=== PATIENT | male | born 1990 | race Hispanic/Latino ===

== ENCOUNTER 2019-03-20 16:11 | Inpatient (IN) | payer OTHER ==
[2019-03-20] MEDS ORDERED: NACL 0.9% 1000 ML 1,000 ML ONE (16:26)
[2019-03-20 16:51] LABS: INR 0.92 (0.87-1.13); Partial Thromboplastin Time 29.1 Sec. (24.2-36.6)
[2019-03-20 16:53] LABS: Hematocrit 44.7 % (35.5-45.6); Hemoglobin 14.7 gm/dl (11.8-15.2); Mean Corpuscular HGB Conc 33 % (32-34); Mean Corpuscular Volume 101 fl (84-94); Platelet Count 208 K/mm3 (140-440); Red Blood Count 4.43 M/mm3 (3.65-5.03); Red Cell Distribution Width 12.9 % (13.2-15.2)
[2019-03-20] MEDS ORDERED: NACL 0.9% 1000 ML 1,000 ML IV ONE ×2 (16:55)
[2019-03-20] MEDS ORDERED: PROVENTIL IH PRN (16:55)
[2019-03-20] MEDS ORDERED: SODIUM CHLORIDE FLUSH SYRINGE 10 ML IV PRN (16:55)
--- NOTE | 2019-03-20 16:57 | Emergency Department Report ---
HPI - General Chief Complaint: Cardiac Arrest/CPR - HPI HPI: Room 20 The patient is a 28-year-old male presenting with chief complaint cardiac arrest. Per EMS the patient was found to be cyanotic by family members and [facility]. The patient was found to be apneic and pulseless. CPR was initiated. EMS arrived on scene and intubated the patient and continued ACLS protocols. A lower extremity intraosseous access was obtained and the patient was administered one round of epinephrine in addition to 4 mg of Narcan. While in route there was return of spontaneous circulation. The circumstances surrounding the patient being found cyanotic are not known at this time as there is currently no family at bedside Location: cardiovascular system Duration: [See above] Quality: Pulseless Severity: [See above] Modifying factors: [see above] Context: [see above] Mode of transportation: [not driving] ED Past Medical Hx - Past Medical History Previous Medical History?: No - Surgical History Past Surgical History?: No - Family History Family history: no significant - Social History Smoking Status: Unknown if ever smoked Substance Use Type: Alcohol (EMS reports a history of heavy alcohol use) ED Review of Systems ROS: Stated complaint: CARDIAC ARREST Other details as noted in HPI Comment: Unobtainable due to pts medical conditions Physical Exam - Physical Exam Vital Signs: Vital Signs 03/20/19 16:26 Pulse Rate 99 H Blood Pressure 118/63 O2 Sat by Pulse 99 Oximetry Physical Exam: GENERAL: The patient is well-developed well-nourished male lying on stretcher intubated HEENT: Normocephalic. Atraumatic. Pupils 5 mm and minimally responsive NECK: Trachea midline CHEST/LUNGS: Clear to auscultation. Breath sounds equal bilaterally with bagging HEART/CARDIOVASCULAR: Regular. There is tachycardia. There is no gallop rub or murmur. ABDOMEN: Abdomen is soft, nontender. Patient has normal bowel sounds. There is no abdominal distention. SKIN: There is no rash. There is no edema. There is no diaphoresis. NEURO: GCS 3T MUSCULOSKELETAL: There is no evidence of acute injury. ED Course Vital Signs 03/20/19 16:26 Pulse Rate 99 H Blood Pressure 118/63 O2 Sat by Pulse 99 Oximetry - Central Line Placement Right Femoral Consent Obtained: emergent situation Patient Placed on Monitor/Pulse Ox: Yes MD Prep: mask, gown, gloves Central Line Prep: Chlorhexidine scrub Local Anesthesia Used: Lidocaine 1% Amount of Anesthesia Used (mls): 3 Ultrasound Used for Placement: No Central Line Lumen Inserted: triple Bloods Obtained for Lab: Yes Central Line Position: good blood return, all ports aspirated, flus, other (line secured with adhesive méndez) Dressing Applied: Tegaderm Patient Tolerated Procedure: well, no complications Complications: none ED Medical Decision Making - Lab Data Result diagrams: 03/20/19 16:25 03/20/19 16:25 Laboratory Tests 03/20/19 03/20/19 03/20/19 16:25 16:25 16:25 WBC 10.0 RBC 4.43 Hgb 14.7 Hct 44.7 MCV 101 H MCH 33 H MCHC 33 RDW 12.9 L Plt Count 208 Lymph % (Auto) Plant Protection Officer Lymph # Plant Protection Officer Add Manual Diff Complete Total Counted 100 Seg Neutrophils % Plant Protection Officer Seg Neuts % (Manual) 36.0 L Band Neutrophils % 0 Lymphocytes % (Manual) 60.0 H Reactive Lymphs % (Man) 0 Monocytes % (Manual) 2.0 Eosinophils % (Manual) 2.0 Basophils % (Manual) 0 Metamyelocytes % 0 Myelocytes % 0 Promyelocytes % 0 Blast Cells % 0 Nucleated RBC % Not Reportable Seg Neutrophils # Man 3.6 Band Neutrophils # 0.0 Lymphocytes # (Manual) 6.0 H Abs React Lymphs (Man) 0.0 Monocytes # (Manual) 0.2 Eosinophils # (Manual) 0.2 Basophils # (Manual) 0.0 Metamyelocytes # 0.0 Myelocytes # 0.0 Promyelocytes # 0.0 Blast Cells # 0.0 WBC Morphology Not Reportable Hypersegmented Neuts Not Reportable Hyposegmented Neuts Not Reportable Hypogranular Neuts Not Reportable Smudge Cells Not Reportable Toxic Granulation Not Reportable Toxic Vacuolation Not Reportable Dohle Bodies Not Reportable Pelger-Huet Anomaly Not Reportable Augusto Rods Not Reportable Platelet Estimate Not Reportable Clumped Platelets Not Reportable Plt Clumps, EDTA Not Reportable Large Platelets Not Reportable Giant Platelets Not Reportable Platelet Satelliting Not Reportable Plt Morphology Comment Not Reportable RBC Morphology Normal Dimorphic RBCs Not Reportable Polychromasia Not Reportable Hypochromasia Not Reportable Poikilocytosis Not Reportable Anisocytosis Not Reportable Microcytosis Not Reportable Macrocytosis Not Reportable Spherocytes Not Reportable Pappenheimer Bodies Not Reportable Sickle Cells Not Reportable Target Cells Not Reportable Tear Drop Cells Not Reportable Ovalocytes Not Reportable Helmet Cells Not Reportable Velazquez-Roca Bodies Not Reportable [place] Rings Not Reportable Aj Cells Not Reportable Bite Cells Not Reportable Crenated Cell Not Reportable Elliptocytes Not Reportable Acanthocytes (Spur) Not Reportable Rouleaux Not Reportable Hemoglobin C Crystals Not Reportable Schistocytes Not Reportable Malaria parasites Not Reportable Zeke Bodies Not Reportable Hem Pathologist Commnt No PT INR APTT POC ABG pH POC ABG pCO2 POC ABG pO2 POC ABG HCO3 POC ABG Total CO2 POC ABG O2 Sat POC ABG Base Excess VBG pH FiO2 Sodium 144 Potassium 3.8 Chloride 102.8 Carbon Dioxide 18 L Anion Gap 27 BUN 10 Creatinine 1.3 Estimated GFR > 60 BUN/Creatinine Ratio 8 Glucose 159 H POC Glucose Lactic Acid 9.50 H* Calcium 7.6 L Magnesium Total Bilirubin 0.40 AST 276 H ALT 165 H Alkaline Phosphatase 139 H Ammonia Total Creatine Kinase 380 H CK-MB (CK-2) 1.0 CK-MB (CK-2) Rel Index 0.2 Troponin T < 0.010 Total Protein 6.8 Albumin 3.9 Albumin/Globulin Ratio 1.3 TSH Free T4 Salicylates Acetaminophen Plasma/Serum Alcohol 03/20/19 03/20/19 03/20/19 16:25 16:25 16:25 WBC RBC Hgb Hct MCV MCH MCHC RDW Plt Count Lymph % (Auto) Lymph # Add Manual Diff Total Counted Seg Neutrophils % Seg Neuts % (Manual) Band Neutrophils % Lymphocytes % (Manual) Reactive Lymphs % (Man) Monocytes % (Manual) Eosinophils % (Manual) Basophils % (Manual) Metamyelocytes % Myelocytes % Promyelocytes % Blast Cells % Nucleated RBC % Seg Neutrophils # Man Band Neutrophils # Lymphocytes # (Manual) Abs React Lymphs (Man) Monocytes # (Manual) Eosinophils # (Manual) Basophils # (Manual) Metamyelocytes # Myelocytes # Promyelocytes # Blast Cells # WBC Morphology Hypersegmented Neuts Hyposegmented Neuts Hypogranular Neuts Smudge Cells Toxic Granulation Toxic Vacuolation Dohle Bodies Pelger-Huet Anomaly Augusto Rods Platelet Estimate Clumped Platelets Plt Clumps, EDTA Large Platelets Giant Platelets Platelet Satelliting Plt Morphology Comment RBC Morphology Dimorphic RBCs Polychromasia Hypochromasia Poikilocytosis Anisocytosis Microcytosis Macrocytosis Spherocytes Pappenheimer Bodies Sickle Cells Target Cells Tear Drop Cells Ovalocytes Helmet Cells Velazquez-Roca Bodies [place] Rings [place] Cells Bite Cells Crenated Cell Elliptocytes Acanthocytes (Spur) Rouleaux Hemoglobin C Crystals Schistocytes Malaria parasites Zeke Bodies Hem Pathologist Commnt PT INR APTT POC ABG pH POC ABG pCO2 POC ABG pO2 POC ABG HCO3 POC ABG Total CO2 POC ABG O2 Sat POC ABG Base Excess VBG pH FiO2 Sodium Potassium Chloride Carbon Dioxide Anion Gap BUN Creatinine Estimated GFR BUN/Creatinine Ratio Glucose POC Glucose Lactic Acid Calcium Magnesium 2.40 H Total Bilirubin AST ALT Alkaline Phosphatase Ammonia 10.0 L Total Creatine Kinase CK-MB (CK-2) CK-MB (CK-2) Rel Index Troponin T Total Protein Albumin Albumin/Globulin Ratio TSH 17.340 H Free T4 0.69 L Salicylates Acetaminophen Plasma/Serum Alcohol 03/20/19 03/20/19 03/20/19 16:25 16:25 16:25 WBC RBC Hgb Hct MCV MCH MCHC RDW Plt Count Lymph % (Auto) Lymph # Add Manual Diff Total Counted Seg Neutrophils % Seg Neuts % (Manual) Band Neutrophils % Lymphocytes % (Manual) Reactive Lymphs % (Man) Monocytes % (Manual) Eosinophils % (Manual) Basophils % (Manual) Metamyelocytes % Myelocytes % Promyelocytes % Blast Cells % Nucleated RBC % Seg Neutrophils # Man Band Neutrophils # Lymphocytes # (Manual) Abs React Lymphs (Man) Monocytes # (Manual) Eosinophils # (Manual) Basophils # (Manual) Metamyelocytes # Myelocytes # Promyelocytes # Blast Cells # WBC Morphology Hypersegmented Neuts Hyposegmented Neuts Hypogranular Neuts Smudge Cells Toxic Granulation Toxic Vacuolation Dohle Bodies Pelger-Huet Anomaly Augusto Rods Platelet Estimate Clumped Platelets Plt Clumps, EDTA Large Platelets Giant Platelets Platelet Satelliting Plt Morphology Comment RBC Morphology Dimorphic RBCs Polychromasia Hypochromasia Poikilocytosis Anisocytosis Microcytosis Macrocytosis Spherocytes Pappenheimer Bodies Sickle Cells Target Cells Tear Drop Cells Ovalocytes Helmet Cells Velazquez-Roca Bodies [place] Rings [place] Cells Bite Cells Crenated Cell Elliptocytes Acanthocytes (Spur) Rouleaux Hemoglobin C Crystals Schistocytes Malaria parasites Zeke Bodies Hem Pathologist Commnt PT INR APTT POC ABG pH POC ABG pCO2 POC ABG pO2 POC ABG HCO3 POC ABG Total CO2 POC ABG O2 Sat POC ABG Base Excess VBG pH FiO2 Sodium Potassium Chloride Carbon Dioxide Anion Gap BUN Creatinine Estimated GFR BUN/Creatinine Ratio Glucose POC Glucose Lactic Acid Calcium Magnesium Total Bilirubin AST ALT Alkaline Phosphatase Ammonia Total Creatine Kinase CK-MB (CK-2) CK-MB (CK-2) Rel Index Troponin T Total Protein Albumin Albumin/Globulin Ratio TSH Free T4 Salicylates < 0.3 L Acetaminophen < 5.0 L Plasma/Serum Alcohol 0.32 H 03/20/19 03/20/19 03/20/19 16:25 16:31 16:34 WBC RBC Hgb Hct MCV MCH MCHC RDW Plt Count Lymph % (Auto) Lymph # Add Manual Diff Total Counted Seg Neutrophils % Seg Neuts % (Manual) Band Neutrophils % Lymphocytes % (Manual) Reactive Lymphs % (Man) Monocytes % (Manual) Eosinophils % (Manual) Basophils % (Manual) Metamyelocytes % Myelocytes % Promyelocytes % Blast Cells % Nucleated RBC % Seg Neutrophils # Man Band Neutrophils # Lymphocytes # (Manual) Abs React Lymphs (Man) Monocytes # (Manual) Eosinophils # (Manual) Basophils # (Manual) Metamyelocytes # Myelocytes # Promyelocytes # Blast Cells # WBC Morphology Hypersegmented Neuts Hyposegmented Neuts Hypogranular Neuts Smudge Cells Toxic Granulation Toxic Vacuolation Dohle Bodies Pelger-Huet Anomaly Augusto Rods Platelet Estimate Clumped Platelets Plt Clumps, EDTA Large Platelets Giant Platelets Platelet Satelliting Plt Morphology Comment RBC Morphology Dimorphic RBCs Polychromasia Hypochromasia Poikilocytosis Anisocytosis Microcytosis Macrocytosis Spherocytes Pappenheimer Bodies Sickle Cells Target Cells Tear Drop Cells Ovalocytes Helmet Cells Velazquez-Roca Bodies [place] Rings Aj Cells Bite Cells Crenated Cell Elliptocytes Acanthocytes (Spur) Rouleaux Hemoglobin C Crystals Schistocytes Malaria parasites Zeke Bodies Hem Pathologist Commnt PT 12.9 INR 0.92 APTT 29.1 POC ABG pH POC ABG pCO2 POC ABG pO2 POC ABG HCO3 POC ABG Total CO2 POC ABG O2 Sat POC ABG Base Excess VBG pH 7.091 L* FiO2 Sodium Potassium Chloride Carbon Dioxide Anion Gap BUN Creatinine Estimated GFR BUN/Creatinine Ratio Glucose POC Glucose 130 H Lactic Acid Calcium Magnesium Total Bilirubin AST ALT Alkaline Phosphatase Ammonia Total Creatine Kinase CK-MB (CK-2) CK-MB (CK-2) Rel Index Troponin T Total Protein Albumin Albumin/Globulin Ratio TSH Free T4 Salicylates Acetaminophen Plasma/Serum Alcohol 03/20/19 16:51 WBC RBC Hgb Hct MCV MCH MCHC RDW Plt Count Lymph % (Auto) Lymph # Add Manual Diff Total Counted Seg Neutrophils % Seg Neuts % (Manual) Band Neutrophils % Lymphocytes % (Manual) Reactive Lymphs % (Man) Monocytes % (Manual) Eosinophils % (Manual) Basophils % (Manual) Metamyelocytes % Myelocytes % Promyelocytes % Blast Cells % Nucleated RBC % Seg Neutrophils # Man Band Neutrophils # Lymphocytes # (Manual) Abs React Lymphs (Man) Monocytes # (Manual) Eosinophils # (Manual) Basophils # (Manual) Metamyelocytes # Myelocytes # Promyelocytes # Blast Cells # WBC Morphology Hypersegmented Neuts Hyposegmented Neuts Hypogranular Neuts Smudge Cells Toxic Granulation Toxic Vacuolation Dohle Bodies Pelger-Huet Anomaly Augusto Rods Platelet Estimate Clumped Platelets Plt Clumps, EDTA Large Platelets Giant Platelets Platelet Satelliting Plt Morphology Comment RBC Morphology Dimorphic RBCs Polychromasia Hypochromasia Poikilocytosis Anisocytosis Microcytosis Macrocytosis Spherocytes Pappenheimer Bodies Sickle Cells Target Cells Tear Drop Cells Ovalocytes Helmet Cells Velazquez-Roca Bodies [place] Rings Aj Cells Bite Cells Crenated Cell Elliptocytes Acanthocytes (Spur) Rouleaux Hemoglobin C Crystals Schistocytes Malaria parasites Zeke Bodies Hem Pathologist Commnt PT INR APTT POC ABG pH 7.041 L POC ABG pCO2 68.9 H POC ABG pO2 381 H POC ABG HCO3 18.7 POC ABG Total CO2 21 POC ABG O2 Sat 100 POC ABG Base Excess -12 VBG pH FiO2 100 Sodium Potassium Chloride Carbon Dioxide Anion Gap BUN Creatinine Estimated GFR BUN/Creatinine Ratio Glucose POC Glucose Lactic Acid Calcium Magnesium Total Bilirubin AST ALT Alkaline Phosphatase Ammonia Total Creatine Kinase CK-MB (CK-2) CK-MB (CK-2) Rel Index Troponin T Total Protein Albumin Albumin/Globulin Ratio TSH Free T4 Salicylates Acetaminophen Plasma/Serum Alcohol - EKG Data -: EKG Interpreted by Me EKG shows normal: sinus rhythm Rate: tachycardia (138 bpm) - EKG Data When compared to previous EKG there are: previous EKG unavailable Interpretation: other (no ischemic changes seen) - Radiology Data Radiology results: pending (CT brain), image reviewed (chest x-ray) interpreted by me: Chest x-ray-ET tube in appropriate position. No focal infiltrates, no pneumothorax - Differential Diagnosis intracranial hemorrhage, hepatic encephalopathy, ACS Critical Care Time: Yes Critical care time in (mins) excluding proc time.: 30 Critical care attestation.: If time is entered above; I have spent that time in minutes in the direct care of this critically ill patient, excluding procedure time. ED Disposition Clinical Impression: Cardiac arrest, Hypothyroidism, Alcohol intoxication, Hypocalcemia, Lactic acidosis Disposition: [id number] OP ADMIT IP TO THIS HOSP Is pt being admited?: Yes Does the pt Need Aspirin: Yes Condition: Serious Time of Disposition: 18:32
--- NOTE | 2019-03-20 16:58 | History and Physical Report ---
History of Present Illness Chief complaint: Unresponsive History of present illness: 28 YO Male with ETOH Dependence presents to ED for evaluation. Pt was in his usual state of health on day of admission. Pt was found to be "Unresponsive and looking very pale" by family members and taken to [facility] for evaluation. EMS notified, and upon arrival the patient was found to have cardiorespiratory arrest. ACLS protocol initiated, and patient subsequently transported to [facility]. Pt regained perfusing cardiac rhythm en route to [facility]. Pt seen and evaluated in ED and found to have Acute Respiratory Failure. Pt intubated and placed on vent support. Pt also found to be Intoxicated, with Acidosis, and Myxedema Coma. Pt admitted to ICU. Pulmonary team consulted in ED. Pt treated with IV synthroid therapy, and IVF resuscitation. No further history obtainable. No prior admission for review. No medication listed for reconciliation at time of admission. Past History Past Medical History: No medical history (UTO) Past Surgical History: No surgical history, Other (UTO) Social history: single Family history: no significant family history (UTO) Medications and Allergies Allergies Allergy/AdvReac Type Severity Reaction Status Date / Time Unable to Assess Allergy Unverified 03/20/19 16:21 Active Meds: Active Medications Sodium Chloride (Nacl 0.9% 1000 Ml) 1,000 mls @ 999 mls/hr IV ONCE ONE Stop: 03/20/19 17:55 Sodium Chloride (Nacl 0.9% 1000 Ml) 1,000 mls @ 999 mls/hr IV ONCE ONE Stop: 03/20/19 17:55 Review of Systems ROS unobtainable: due to endotracheal tube, due to mental status Exam - Constitutional Vitals: Temp Pulse Resp BP Pulse Ox 99 H 118/63 99 03/20/19 16:26 03/20/19 16:26 03/20/19 16:26 General appearance: Present: severe distress - EENT Eyes: Present: miosis - Neck Neck: Present: supple, normal ROM - Respiratory Respiratory effort: labored Respiratory: bilateral: diminished - Cardiovascular Heart Sounds: Present: S1 & S2. Absent: rub, click - Extremities Extremities: pulses symmetrical, No edema Extremity abnormal: edema Peripheral Pulses: within normal limits - Abdominal General gastrointestinal: Present: soft, non-tender, non-distended, normal bowel sounds Male genitourinary: Present: normal - Integumentary Integumentary: Present: clear, dry, clammy, decreased turgor - Musculoskeletal Musculoskeletal: generalized weakness - Psychiatric Psychiatric: no appropriate mood/affect, no intact judgment & insight, no memory intact - Neurologic Neurologic: moves all extremities, no gait normal Results - Labs CBC & Chem 7: 03/20/19 16:25 03/20/19 16:25 Labs: Abnormal lab results 03/20/19 03/20/19 Range/Units 16:25 16:34 MCV 101 H (84-94) fl MCH 33 H (28-32) pg RDW 12.9 L (13.2-15.2) % POC Glucose 130 H (70-105) Assessment and Plan - Patient Problems (1) Respiratory failure Current Visit: Yes Status: Acute Plan to address problem: Wean vent as tolerated, Pulmonary team consulted, ABG, Chest x ray, CTA chest, sedation holiday, SBT in AM The high probability of a clinically significant, sudden or life threatening deterioration of the [Pulmonary, renal, neuro] system(s) required my full and direct attention, intervention and personal management. The aggregate critical care time was [65] minutes. This time is in addition to time spent performing reported procedures but includes the following: [x] Data Review and interpretation [x] Patient assessment and monitoring of vital signs [x] Documentation [x] Medication orders and management (2) Myxedema coma Current Visit: Yes Status: Acute Plan to address problem: Thyroid panel, Free T4, IV synthroid, supportive care, IVF resuscitation therapy (3) Alcohol intoxication Current Visit: Yes Status: Acute Qualifiers: Complication of substance-induced condition: with unspecified complication Qualified Code(s): F10.929 - Alcohol use, unspecified with intoxication, unspecified Plan to address problem: BAnana bag, CIWA protocol, IVF resuscitatioin therapy, supportive care, Blood Alcohol level. (4) Cardiac arrest Current Visit: Yes Status: Acute Plan to address problem: Echo, ordered: results pending, cardiac enzymes, supportive care. (5) Lactic acidosis Current Visit: Yes Status: Acute Plan to address problem: IVF resuscitation therapy, repeat bmp in am (6) Hepatotoxicity, secondary to ETOH Current Visit: Yes Status: Acute Plan to address problem: ETOH cessation, LFT, supportive care. (7) DVT prophylaxis Current Visit: Yes Status: Acute Plan to address problem: SCD to BLE while in bed, Prophylactic lovenox
--- NOTE | 2019-03-20 17:10 | XRay Report ---
PROCEDURE: XR CHEST 1V AP TECHNIQUE: Chest radiograph , single frontal view. HISTORY: cardiac arrest; ET TUBE PLACEMENT COMPARISONS: None . FINDINGS: Heart: Normal. Mediastinum/Vessels: Normal. Lungs/Pleural space: Normal. Bony thorax: No acute osseous abnormality. Life support devices: Endotracheal tube terminates above the aortic arch in satisfactory position. IMPRESSION: No acute cardiopulmonary abnormality. Satisfactory ET tube placement This document is electronically signed by Lisandra Sharp MD., Mar 20 2019 05:08:17 PM ET
[2019-03-20 17:19] LABS: Alanine Aminotransferase 165 units/L (7-56); Albumin 3.9 g/dL (3.9-5); BUN/Creatinine Ratio 8; Blood Urea Nitrogen 10 mg/dL (9-20); Calcium 7.6 mg/dL (8.4-10.2); Hemolysis Index 11
[2019-03-20] MEDS ORDERED: CALCIUM CHLORIDE 1,000 MG in NACL 0.9% 100 ML IV ONE (17:23)
[2019-03-20 17:29] LABS: Free T4 (Free Thyroxine) 0.69 ng/dL (0.76-1.46)
[2019-03-20 17:30] LABS: Basophils % (Manual) 0 % (0.0-1.8); Total Cells Counted 100
[2019-03-20 17:31] LABS: RBC Morphology Normal
[2019-03-20 18:01] LABS: Amphetamine Screen,Urine PRESUMPTIVE NEGATIVE; Benzodiazepines Screen,Urine PRESUMPTIVE NEGATIVE; Cocaine Screen,Urine PRESUMPTIVE NEGATIVE; Methadone Screen,Urine PRESUMPTIVE NEGATIVE
[2019-03-20] MEDS ORDERED: VERSED IV PRN (18:02)
[2019-03-20] MEDS ORDERED: ARTIFICIAL TEARS OPHTH OINT OU PRN (18:02)
[2019-03-20] MEDS ORDERED: VASELINE LIP THERAPY TP PRN (18:02)
[2019-03-20 18:29] LABS: Bacteria,Urine 1+ /HPF (Negative); Bilirubin,Urine NEG (Negative); Blood,Urine SM (Negative); Color,Urine Amber (Yellow); Hyaline Casts,Urine 1 /LPF; Mucus,Urine 3+ /HPF; Sperm,Urine 1+ /HPF (NP); Urobilinogen,Urine < 2.0 mg/dL (<2.0)
[2019-03-20 18:46] LABS: Cannabinoid Screen,Urine PRESUMPTIVE POSITIVE; Opiate Screen,Urine PRESUMPTIVE POSITIVE
[2019-03-20] MEDS ORDERED: MIDAZOLAM 100 MG in NACL 0.9% 80 ML IV SCH (19:00)
[2019-03-20] MEDS ORDERED: VITAMIN B-1 100 MG, FOLVITE 1 MG, INFUVITE 10 ML in NACL 0.9% 1000 ML 1,000 ML IV ONE (21:12)
--- NOTE | 2019-03-20 21:37 | Cat Scan Report ---
PROCEDURE: CT HEAD/BRAIN WO CON TECHNIQUE: Computerized tomography of the head was performed without contrast material. CT DOSE LENGTH PRODUCT: 1940 mGycm HISTORY: pain COMPARISONS: None . FINDINGS: Limited study due to streak artifacts. Skull and scalp: Normal . Paranasal sinuses: Mild degree mucosal thickening is noted involving left maxillary and left sphenoi d sinuses. . Ventricles and subarachnoid spaces: Normal . Cerebrum: No evidence of hemorrhage, acute infarction or mass . Cerebellum and brainstem: No evidence of hemorrhage, acute infarction or mass . Vasculature: Normal . Other: None . ASPECTS: 10 IMPRESSION: No acute intracranial abnormality. Chronic sinusitis. This document is electronically signed by Santosh Avendano MD., Mar 20 2019 09:35:24 PM ET
--- NOTE | 2019-03-20 21:45 | Cat Scan Report ---
PROCEDURE: CT ANGIO CHEST TECHNIQUE: Computerized tomographic angiography of the chest was performed after the IV injection of iodinated nonionic contrast including image processing. The image data was postprocessed using 2-di mensional multiplanar reformatted (MPR) and 3-dimensional (MIP and/or volume rendered) techniques. Au tomated exposure control, adjustment of mA and/or kV according to patient size, or iterative reconstr uction dose optimization techniques were utilized. CT DOSE LENGTH PRODUCT: mGycm HISTORY: pain COMPARISONS: None . FINDINGS: Limited study due to motion artifacts Heart and pericardium: Normal. Thoracic aorta: Normal. Pulmonary vasculature: Normal. Lymph nodes: No enlarged thoracic lymph nodes. Lungs: Normal. Pleural space: No effusion, thickening, or pneumothorax. Musculoskeletal structures: An irregular transverse linear lucency is noted involving the anterior c ortex of the mid sternal body with associated surrounding mild degree sclerotic changes.. Upper abdominal structures: There is diffuse fatty infiltration of liver. Endotracheal tube is in place.. IMPRESSION: No acute pulmonary process Transverse lucency of mid sternal body most likely represents incomplete fusion of the segments of st ernal body. If there is history of trauma this may represent a subacute fracture. Clinical correlatio n is recommended.. This document is electronically signed by Santosh Avendano MD., Mar 20 2019 09:43:23 PM ET
[2019-03-20] MEDS ORDERED: LOVENOX SUB-Q ONE (21:46)
[2019-03-20] MEDS: SYNTHROID IV SCH (21:50)
--- NOTE | 2019-03-20 21:54 | Cat Scan Report ---
PROCEDURE: CT ABDOMEN PELVIS W CON TECHNIQUE: Computerized axial tomography of the abdomen and pelvis was performed after the IV inject ion of iodinated nonionic contrast. CT DOSE LENGTH PRODUCT: mGycm HISTORY: pain COMPARISONS: None . FINDINGS: Liver demonstrates diffuse fatty infiltration., spleen, pancreas and adrenal glands are within normal limits. Bilateral kidneys demonstrate uniform enhancement without hydronephrosis. Urinary bladder is empty with a Damon bulb in situ. Aorta is of normal caliber. There is no free fluid or free air. Gal lbladder is unremarkable. Small bowel loops are within normal limits. Appendix is normal. Rectal tube with bulb is in place. There is mild degree wedge compression deformity of T12 vertebral body. IMPRESSION: Fatty infiltration of liver No acute intra-abdominal or pelvic pathology Wedge compression deformity of T12 vertebral body. The age of this fracture is not known. This document is electronically signed by Santosh Avendano MD., Mar 20 2019 09:52:02 PM ET
[2019-03-20] MEDS: LOVENOX SUB-Q SCH (22:12)
[2019-03-20] MEDS ORDERED: TYLENOL PR ONE ×2 (22:37→22:43)
[2019-03-20] MEDS: SODIUM CHLORIDE FLUSH SYRINGE 10 ML IV SCH (22:55)
--- NOTE | 2019-03-21 01:06 | XRay Report ---
PROCEDURE: XR ABDOMEN 1V AP TECHNIQUE: Abdominal radiograph, single view. HISTORY: NG tube placement COMPARISONS: None . FINDINGS: Bowel gas pattern: Nonobstructive . Masses or calcifications: None . Bony structures: No significant abnormality . Other: The stomach is distended with air. The NG tube is in the stomach. . IMPRESSION: NG tube is in the stomach.. This document is electronically signed by Quinton Andrews MD., Mar 21 2019 01:04:31 AM ET
[2019-03-21] MEDS: ATIVAN IV PRN ×3 (03:45→18:55)
[2019-03-21] MEDS ORDERED: TYLENOL PR ONE (05:31)
[2019-03-21] MEDS ORDERED: SYNTHROID IV SCH (06:00)
[2019-03-21 07:24] LABS: Hematocrit 47.3 % (35.5-45.6); Hemoglobin 15.9 gm/dl (11.8-15.2); Mean Corpuscular HGB Conc 34 % (32-34); Mean Corpuscular Volume 99 fl (84-94); Platelet Count 216 K/mm3 (140-440); Red Blood Count 4.77 M/mm3 (3.65-5.03); Red Cell Distribution Width 12.8 % (13.2-15.2)
[2019-03-21 07:25] LABS: Alanine Aminotransferase 218 units/L (7-56); Albumin 4.2 g/dL (3.9-5); BUN/Creatinine Ratio 14; Blood Urea Nitrogen 15 mg/dL (9-20); Calcium 8.8 mg/dL (8.4-10.2); Hemolysis Index 29
--- NOTE | 2019-03-21 08:15 | Progress Note ---
Assessment and Plan Assessment and plan: s/p cardiopulmnary arrest Resuscitated, intubated, Admitted to ICU Pulm consulted Acute resp failure Intubated Myxedema coma Continue Levothyroxine iv Alcohol intoxication Fever of 102 Blood cultures drawn. Consult ID lactic acidosis Toxic metabolic encephalopathy Elevated LFT may be alcohol hepatitit Monitor Full code status History Interval history: Still intubated Fever Hospitalist Physical - Physical exam Narrative exam: Gen: Not in acute distress, intubated, on vent HEENT: Normocephalic, atraumatic Neck: supple, no JVD Heart: S1 and S2 reg, no murmurs, rubs or gallop Lungs: Clear, no crackles Abd: soft, non tender, non distended, normal BS Ext: No edema, no clubbing, no cyanosis, Neuro: Intubated, sedated, - Constitutional Vitals: Temp Pulse Resp BP Pulse Ox 102 F H 152 H 32 H 132/96 99 03/21/19 04:00 03/21/19 07:30 03/21/19 07:30 03/21/19 07:30 03/21/19 07:30 General appearance: Present: severe distress Results - Labs CBC & Chem 7: 03/21/19 04:00 03/20/19 16:25 Labs: Laboratory Last Values WBC 20.0 K/mm3 (4.5-11.0) H 03/21/19 04:00 RBC 4.77 M/mm3 (3.65-5.03) 03/21/19 04:00 Hgb 15.9 gm/dl (11.8-15.2) H 03/21/19 04:00 Hct 47.3 % (35.5-45.6) H 03/21/19 04:00 MCV 99 fl (84-94) H 03/21/19 04:00 MCH 33 pg (28-32) H 03/21/19 04:00 MCHC 34 % (32-34) 03/21/19 04:00 RDW 12.8 % (13.2-15.2) L 03/21/19 04:00 Plt Count 216 K/mm3 (140-440) 03/21/19 04:00 Lymph % (Auto) Vocational Guidance Counselor 03/20/19 16:25 Lymph # Vocational Guidance Counselor 03/20/19 16:25 Add Manual Diff Complete 03/20/19 16:25 Total Counted 100 03/20/19 16:25 Seg Neutrophils % Vocational Guidance Counselor 03/20/19 16:25 Seg Neuts % (Manual) 36.0 % (40.0-70.0) L 03/20/19 16:25 0 % 03/20/19 16:25 60.0 % (13.4-35.0) H 03/20/19 16:25 Reactive Lymphs % (Man) 0 % 03/20/19 16:25 2.0 % (0.0-7.3) 03/20/19 16:25 2.0 % (0.0-4.3) 03/20/19 16:25 0 % (0.0-1.8) 03/20/19 16:25 0 % 03/20/19 16:25 0 % 03/20/19 16:25 0 % 03/20/19 16:25 0 % 03/20/19 16:25 Nucleated RBC % Not Reportable 03/20/19 16:25 Seg Neutrophils # Man 3.6 K/mm3 (1.8-7.7) 03/20/19 16:25 Band Neutrophils # 0.0 K/mm3 03/20/19 16:25 6.0 K/mm3 (1.2-5.4) H 03/20/19 16:25 Abs React Lymphs (Man) 0.0 K/mm3 03/20/19 16:25 0.2 K/mm3 (0.0-0.8) 03/20/19 16:25 0.2 K/mm3 (0.0-0.4) 03/20/19 16:25 0.0 K/mm3 (0.0-0.1) 03/20/19 16:25 0.0 K/mm3 03/20/19 16:25 0.0 K/mm3 03/20/19 16:25 0.0 K/mm3 03/20/19 16:25 Blast Cells # 0.0 K/mm3 03/20/19 16:25 WBC Morphology Not Reportable 03/20/19 16:25 Hypersegmented Neuts Not Reportable 03/20/19 16:25 Hyposegmented Neuts Not Reportable 03/20/19 16:25 Hypogranular Neuts Not Reportable 03/20/19 16:25 Not Reportable 03/20/19 16:25 Not Reportable 03/20/19 16:25 Not Reportable 03/20/19 16:25 Not Reportable 03/20/19 16:25 Not Reportable 03/20/19 16:25 Not Reportable 03/20/19 16:25 Not Reportable 03/20/19 16:25 Not Reportable 03/20/19 16:25 Plt Clumps, EDTA Not Reportable 03/20/19 16:25 Not Reportable 03/20/19 16:25 Not Reportable 03/20/19 16:25 Not Reportable 03/20/19 16:25 Plt Morphology Comment Not Reportable 03/20/19 16:25 RBC Morphology Normal 03/20/19 16:25 Dimorphic RBCs Not Reportable 03/20/19 16:25 Not Reportable 03/20/19 16:25 Not Reportable 03/20/19 16:25 Not Reportable 03/20/19 16:25 Not Reportable 03/20/19 16:25 Not Reportable 03/20/19 16:25 Not Reportable 03/20/19 16:25 Not Reportable 03/20/19 16:25 Not Reportable 03/20/19 16:25 Not Reportable 03/20/19 16:25 Not Reportable 03/20/19 16:25 Not Reportable 03/20/19 16:25 Not Reportable 03/20/19 16:25 Not Reportable 03/20/19 16:25 Not Reportable 03/20/19 16:25 Not Reportable 03/20/19 16:25 Not Reportable 03/20/19 16:25 Not Reportable 03/20/19 16:25 Not Reportable 03/20/19 16:25 Not Reportable 03/20/19 16:25 Acanthocytes (Spur) Not Reportable 03/20/19 16:25 Rouleaux Not Reportable 03/20/19 16:25 Not Reportable 03/20/19 16:25 Not Reportable 03/20/19 16:25 Not Reportable 03/20/19 16:25 Not Reportable 03/20/19 16:25 Hem Pathologist Commnt No 03/20/19 16:25 PT 12.9 Sec. (12.2-14.9) 03/20/19 16:31 INR 0.92 (0.87-1.13) 03/20/19 16:31 APTT 29.1 Sec. (24.2-36.6) 03/20/19 16:31 POC ABG pH 7.402 (7.35-7.45) 03/21/19 03:41 POC ABG pCO2 31.4 (35-45) L 03/21/19 03:41 POC ABG pO2 195 (80-105) H 03/21/19 03:41 POC ABG HCO3 19.5 (22-26 mml/L) 03/21/19 03:41 POC ABG Total CO2 20 (23-27mmol/L) 03/21/19 03:41 POC ABG O2 Sat 100 03/21/19 03:41 POC ABG Base Excess -5 ((-2) - (+3)mmol/L) 03/21/19 03:41 VBG pH 7.091 (7.320-7.420) L* 03/20/19 16:25 40 % 03/21/19 03:41 Sodium 144 mmol/L (137-145) 03/20/19 16:25 Potassium 3.8 mmol/L (3.6-5.0) 03/20/19 16:25 Chloride 102.8 mmol/L (98-107) 03/20/19 16:25 Carbon Dioxide 18 mmol/L (22-30) L 03/20/19 16:25 27 mmol/L 03/20/19 16:25 BUN 10 mg/dL (9-20) 03/20/19 16:25 1.3 mg/dL (0.8-1.5) 03/20/19 16:25 Estimated GFR > 60 ml/min 03/20/19 16:25 8 % 03/20/19 16:25 Glucose 159 mg/dL (75-100) H 03/20/19 16:25 POC Glucose 117 (70-105) H 03/20/19 22:38 Lactic Acid 6.30 mmol/L (0.7-2.0) H* 03/20/19 20:40 Calcium 7.6 mg/dL (8.4-10.2) L 03/20/19 16:25 Magnesium 2.40 mg/dL (1.7-2.3) H 03/20/19 16:25 0.40 mg/dL (0.1-1.2) 03/20/19 16:25 AST 276 units/L (5-40) H 03/20/19 16:25 ALT 165 units/L (7-56) H 03/20/19 16:25 139 units/L (35-129) H 03/20/19 16:25 10.0 umol/L (25-60) L 03/20/19 16:25 380 units/L (55-170) H 03/20/19 16:25 CK-MB (CK-2) 1.0 ng/mL (0.0-4.0) 03/20/19 16:25 CK-MB (CK-2) Rel Index 0.2 (0-4) 03/20/19 16:25 < 0.010 ng/mL (0.00-0.029) 03/20/19 16:25 6.8 g/dL (6.3-8.2) 03/20/19 16:25 3.9 g/dL (3.9-5) 03/20/19 16:25 1.3 % 03/20/19 16:25 TSH 17.340 mlU/mL (0.270-4.200) H 03/20/19 16:25 Free T4 0.69 ng/dL (0.76-1.46) L 03/20/19 16:25 Jeannie (Yellow) 03/20/19 17:35 Cloudy (Clear) 03/20/19 17:35 7.0 (5.0-7.0) 03/20/19 17:35 Ur Specific [place] 1.012 (1.003-1.030) 03/20/19 17:35 100 mg/dl mg/dL (Negative) 03/20/19 17:35 50 mg/dL (Negative) 03/20/19 17:35 Neg mg/dL (Negative) 03/20/19 17:35 Sm (Negative) 03/20/19 17:35 Neg (Negative) 03/20/19 17:35 Neg (Negative) 03/20/19 17:35 < 2.0 mg/dL (<2.0) 03/20/19 17:35 Ur Leukocyte Esterase Neg (Negative) 03/20/19 17:35 19.0 /HPF (0.0-6.0) H 03/20/19 17:35 46.0 /HPF (0.0-6.0) 03/20/19 17:35 U Epithel Cells (Auto) 1.0 /HPF (0-13.0) 03/20/19 17:35 1+ /HPF (Negative) 03/20/19 17:35 Hyaline Casts 1 /LPF 03/20/19 17:35 3+ /HPF 03/20/19 17:35 2+ /HPF 03/20/19 17:35 1+ /HPF (SCHOOL RESOURCE OFFICER) 03/20/19 17:35 Salicylates < 0.3 mg/dL (2.8-20.0) L 03/20/19 16:25 Presumptive positive 03/20/19 17:36 Presumptive negative 03/20/19 17:36 Acetaminophen < 5.0 ug/mL (10.0-30.0) L 03/20/19 16:25 Ur Barbiturates Screen Presumptive negative 03/20/19 17:36 Ur Phencyclidine Scrn Presumptive negative 03/20/19 17:36 Ur Amphetamines Screen Presumptive negative 03/20/19 17:36 U Benzodiazepines Scrn Presumptive negative 03/20/19 17:36 Presumptive negative 03/20/19 17:36 U Marijuana (THC) Screen Presumptive positive 03/20/19 17:36 Disclamer 03/20/19 17:36 Plasma/Serum Alcohol 0.32 % (0-0.07) H 03/20/19 16:25 Active Medications - Current Medications Current Medications: Generic Name Dose Route Start Last Admin Trade Name Freq PRN Reason Stop Dose Admin Albuterol 2.5 mg 03/20/19 16:55 Proventil IH Q3HRT PRN Shortness Of Breath Enoxaparin Sodium 40 mg 03/20/19 22:00 03/20/19 22:12 Lovenox SUB-Q 40 mg QDAY@2200 RICHARD Administration Hydrophilic Ointment 1 applic 03/20/19 18:02 Vaseline Lip Therapy TP Q2HR PRN Dry Lips Midazolam HCl 100 mg/ Sodium 100 mls @ 2 mls/hr 03/20/19 19:00 03/21/19 03:50 Chloride IV 4 mg/hr TITR RICHARD 4 mls/hr Titration Protocol 2 MG/HR Levothyroxine Sodium 100 mcg 03/20/19 21:04 03/20/19 21:50 Synthroid IV 100 mcg DAILY@0600 RICHARD Administration Lorazepam 2 mg 03/20/19 21:12 03/21/19 05:10 Ativan IV 2 mg Q1HR PRN Administration CIWA-Ar 8-15 Midazolam HCl 2 mg 03/20/19 18:02 Versed IV Q10MIN PRN Sedation Multi-Ingred Cream/Lotion/Oil/Oint 1 applic 03/20/19 18:02 Artificial Tears Ophth Oint OU Q4HR PRN Dry Eye(s) Sodium Chloride 10 ml 03/20/19 22:00 03/20/19 22:55 Sodium Chloride Flush Syringe 10 Ml IV 10 ml BID RICHARD Administration Sodium Chloride 10 ml 03/20/19 16:55 Sodium Chloride Flush Syringe 10 Ml IV PRN PRN LINE FLUSH
[2019-03-21 09:55] LABS: Hematocrit 47.8 % (35.5-45.6); Hemoglobin 16.1 gm/dl (11.8-15.2); Mean Corpuscular HGB Conc 34 % (32-34); Mean Corpuscular Volume 98 fl (84-94); Platelet Count 198 K/mm3 (140-440); Red Cell Distribution Width 12.7 % (13.2-15.2)
[2019-03-21] MEDS: SODIUM CHLORIDE FLUSH SYRINGE 10 ML IV SCH ×2 (10:00→21:40)
[2019-03-21] MEDS ORDERED: SUBLIMAZE IV PRN (10:43)
--- NOTE | 2019-03-21 10:57 | Consultation ---
History of Present Illness Consult date: 03/21/19 Requesting physician: JUANCHO HERNÁNDEZ Reason for consult: other (Out of hospital cardiac arrest) History of present illness: 28 y/o male currently intubated, sedation now off and not responsive admitted with out of hospital cardiac arrest. Patient intubated in the feel after presenting to a pale and unresponsive. Per report patient had no pulse so intubated and CPR started. It is not stated the amount of downtime but ROSC was achieved in the field prior to admission. UDS was positive for opiates and THC. BAL was 0.32 (4x the normal limit). No family currently at bedside and patient has a temp of 103. He is also having diarrhea. Per nursing a gag was not found on exam when deep suctioning was done. Past History Past Medical History: other (unable to obtain) Past Surgical History: Other (unable to obtain) Social history: other (unable to obtain) Family history: other (Unable to obtain) Medications and Allergies Allergies Allergy/AdvReac Type Severity Reaction Status Date / Time Unable to Assess Allergy Unverified 03/20/19 16:21 Active Meds: Active Medications Acetaminophen (Tylenol) 1,000 mg PO Q6H PRN PRN Reason: Fever >101 Albuterol (Proventil) 2.5 mg IH Q3HRT PRN PRN Reason: Shortness Of Breath Enoxaparin Sodium (Lovenox) 40 mg SUB-Q QDAY@2200 [facility] Last Admin: 03/20/19 22:12 Dose: 40 mg Documented by: Famotidine (Pepcid) 20 mg IV BID [facility] Fentanyl (Sublimaze) 50 mcg IV ONCE ONE Stop: 03/21/19 11:01 Fentanyl (Sublimaze) 50 mcg IV Q2H PRN PRN Reason: Pain , Severe (7-10) Hydrophilic Ointment (Vaseline Lip Therapy) 1 applic TP Q2HR PRN PRN Reason: Dry Lips Midazolam HCl 100 mg/ Sodium (Chloride) 100 mls @ 2 mls/hr IV TITR RICHARD; Protocol Last Titration: 03/21/19 08:45 Dose: 0 mg/hr, 0 mls/hr Documented by: Sodium Chloride (Nacl 0.9% 1000 Ml) 1,000 mls @ 999 mls/hr IV Q1H RICHARD Stop: 03/21/19 12:59 Sodium Chloride (Nacl 0.9% 1000 Ml) 1,000 mls @ 150 mls/hr IV DIRECT [facility] Stop: 03/23/19 18:39 Levothyroxine Sodium (Synthroid) 100 mcg IV DAILY@0600 [facility] Last Admin: 03/20/19 21:50 Dose: 100 mcg Documented by: Lorazepam (Ativan) 2 mg IV Q1HR PRN PRN Reason: CIWA-Ar 8-15 Last Admin: 03/21/19 05:10 Dose: 2 mg Documented by: Midazolam HCl (Versed) 2 mg IV Q10MIN PRN PRN Reason: Sedation Multi-Ingred Cream/Lotion/Oil/Oint (Artificial Tears Ophth Oint) 1 applic OU Q4HR PRN PRN Reason: Dry Eye(s) Sodium Chloride (Sodium Chloride Flush Syringe 10 Ml) 10 ml IV BID [facility] Last Admin: 03/20/19 22:55 Dose: 10 ml Documented by: Sodium Chloride (Sodium Chloride Flush Syringe 10 Ml) 10 ml IV PRN PRN PRN Reason: LINE FLUSH Review of Systems ROS unobtainable: due to endotracheal tube, due to mental status Physical Examination Vital signs: Vital Signs Pulse BP Pulse Ox 99 H 118/63 99 03/20/19 16:26 03/20/19 16:26 03/20/19 16:26 General appearance: comatose, appears uncomfortable, other (dishelved) Eyes: injected ENT: other (orally intubated and sedated) Neck: supple Effort: mildly labored Ascultation: Bilateral: clear Percussion: Bilateral: not dull Cardiovascular: other (sinus tach but very tachy cardic.) Extremities: no edema Results - Laboratory Findings CBC and BMP: 03/21/19 09:32 03/21/19 09:46 ABG POC ABG pH 7.402 (7.35-7.45) 03/21/19 03:41 POC ABG pCO2 31.4 (35-45) L 03/21/19 03:41 POC ABG pO2 195 (80-105) H 03/21/19 03:41 POC ABG HCO3 19.5 (22-26 mml/L) 03/21/19 03:41 POC ABG Total CO2 20 (23-27mmol/L) 03/21/19 03:41 POC ABG O2 Sat 100 03/21/19 03:41 PT/INR, D-dimer PT 12.9 Sec. (12.2-14.9) 03/20/19 16:31 INR 0.92 (0.87-1.13) 03/20/19 16:31 Abnormal lab findings: Abnormal Labs 03/20/19 03/20/19 03/20/19 16:25 16:25 16:25 WBC Hgb Hct MCV 101 H MCH 33 H RDW 12.9 L Seg Neuts % (Manual) 36.0 L Lymphocytes % (Manual) 60.0 H Lymphocytes # (Manual) 6.0 H POC ABG pH POC ABG pCO2 POC ABG pO2 VBG pH Sodium Carbon Dioxide 18 L Glucose 159 H POC Glucose Lactic Acid 9.50 H* Calcium 7.6 L Magnesium AST 276 H ALT 165 H Alkaline Phosphatase 139 H Ammonia Total Creatine Kinase 380 H Troponin T TSH Free T4 Urine WBC (Auto) Salicylates Acetaminophen Plasma/Serum Alcohol 03/20/19 03/20/19 03/20/19 16:25 16:25 16:25 WBC Hgb Hct MCV MCH RDW Seg Neuts % (Manual) Lymphocytes % (Manual) Lymphocytes # (Manual) POC ABG pH POC ABG pCO2 POC ABG pO2 VBG pH Sodium Carbon Dioxide Glucose POC Glucose Lactic Acid Calcium Magnesium 2.40 H AST ALT Alkaline Phosphatase Ammonia 10.0 L Total Creatine Kinase Troponin T TSH 17.340 H Free T4 0.69 L Urine WBC (Auto) Salicylates Acetaminophen Plasma/Serum Alcohol 03/20/19 03/20/19 03/20/19 16:25 16:25 16:25 WBC Hgb Hct MCV MCH RDW Seg Neuts % (Manual) Lymphocytes % (Manual) Lymphocytes # (Manual) POC ABG pH POC ABG pCO2 POC ABG pO2 VBG pH Sodium Carbon Dioxide Glucose POC Glucose Lactic Acid Calcium Magnesium AST ALT Alkaline Phosphatase Ammonia Total Creatine Kinase Troponin T TSH Free T4 Urine WBC (Auto) Salicylates < 0.3 L Acetaminophen < 5.0 L Plasma/Serum Alcohol 0.32 H 03/20/19 03/20/19 03/20/19 16:25 16:34 16:51 WBC Hgb Hct MCV MCH RDW Seg Neuts % (Manual) Lymphocytes % (Manual) Lymphocytes # (Manual) POC ABG pH 7.041 L POC ABG pCO2 68.9 H POC ABG pO2 381 H VBG pH 7.091 L* Sodium Carbon Dioxide Glucose POC Glucose 130 H Lactic Acid Calcium Magnesium AST ALT Alkaline Phosphatase Ammonia Total Creatine Kinase Troponin T TSH Free T4 Urine WBC (Auto) Salicylates Acetaminophen Plasma/Serum Alcohol 03/20/19 03/20/19 03/20/19 17:35 17:53 19:17 WBC Hgb Hct MCV MCH RDW Seg Neuts % (Manual) Lymphocytes % (Manual) Lymphocytes # (Manual) POC ABG pH 7.305 L POC ABG pCO2 POC ABG pO2 262 H VBG pH Sodium Carbon Dioxide Glucose POC Glucose Lactic Acid 6.90 H* Calcium Magnesium AST ALT Alkaline Phosphatase Ammonia Total Creatine Kinase Troponin T TSH Free T4 Urine WBC (Auto) 19.0 H Salicylates Acetaminophen Plasma/Serum Alcohol 03/20/19 03/20/19 03/21/19 20:40 22:38 03:41 WBC Hgb Hct MCV MCH RDW Seg Neuts % (Manual) Lymphocytes % (Manual) Lymphocytes # (Manual) POC ABG pH POC ABG pCO2 31.4 L POC ABG pO2 195 H VBG pH Sodium Carbon Dioxide Glucose POC Glucose 117 H Lactic Acid 6.30 H* Calcium Magnesium AST ALT Alkaline Phosphatase Ammonia Total Creatine Kinase Troponin T TSH Free T4 Urine WBC (Auto) Salicylates Acetaminophen Plasma/Serum Alcohol 03/21/19 03/21/19 03/21/19 04:00 09:32 09:32 WBC 20.0 H 17.3 H Hgb 15.9 H 16.1 H Hct 47.3 H 47.8 H MCV 99 H 98 H MCH 33 H 33 H RDW 12.8 L 12.7 L Seg Neuts % (Manual) Lymphocytes % (Manual) Lymphocytes # (Manual) POC ABG pH POC ABG pCO2 POC ABG pO2 VBG pH Sodium Carbon Dioxide Glucose POC Glucose Lactic Acid Calcium Magnesium AST ALT Alkaline Phosphatase Ammonia Total Creatine Kinase Troponin T 0.054 H D TSH Free T4 Urine WBC (Auto) Salicylates Acetaminophen Plasma/Serum Alcohol 03/21/19 09:46 WBC Hgb Hct MCV MCH RDW Seg Neuts % (Manual) Lymphocytes % (Manual) Lymphocytes # (Manual) POC ABG pH POC ABG pCO2 POC ABG pO2 VBG pH Sodium 148 H Carbon Dioxide 20 L Glucose 171 H POC Glucose Lactic Acid Calcium Magnesium AST 253 H ALT 218 H Alkaline Phosphatase 146 H Ammonia Total Creatine Kinase Troponin T TSH Free T4 Urine WBC (Auto) Salicylates Acetaminophen Plasma/Serum Alcohol - Diagnostic Findings Chest x-ray: image reviewed (clear) Assessment and Plan 28 y/o male with out of hospital cardiac arrest and acute respiratory failure. 1. Cardiac-unsure of the etiology of PEA (hypoxemia, hydrogen ions, hypovolemia etc). Patient likely is volume deplete. Will given 2 more additional boluses and then run maintenance fluids at 150 for 3 liters. Sinus tach right now is likely secondary to fever. Given a 1000mg of tylenol via the NG after clamping for 1 hours. BP remains stable to elevated. Patient could also be withdrawing from a substance despite his UDS being positive for opiates last night. If volume and treating fever do not work, will try adenosine. Would not recommend beta valarie at this time. Also ordered some PRN fentanyl 2. Neuro-patient was placed on versed 5mcg after being brought in unresponsive as an out of hospital arrest. Stopped all sedation. Do have PRN fent incase some of sinus tach is related to Pain, and possible opiate withdrawal. Head CT on arrival was negative for acute abnormalities. Only showed chronic sinusitis. 3. Respiratory-Clear CXR, minimal vent support. Continue all current settings for now 4. Endo-elevated TSH and low T4. NO family available for history. Agree with IV synthroid, however the picture does not clinically fit myxedema coma. Hold on stress dose roids for now 5. GI-dark contents from NG tube. Clamping tube to given tylenol then place back on intermittent suction. Continue NPO status. Also having diarrhea. Poss ible opiate withdrawal symptoms. Continue rectal tube 6. ID-fever, I feel likely from withdrawal. WC likely elevated from stress. At this time would not place on empiric abx therapy but IMS as consulted ID so will see what their opinion is 7. Metabolic-lactic acidosis, likely from volume depletion. Serial checks and more volume being given. Overall prognosis is guarded to poor. Will discuss with family if and when they arrive. CCT 31 minutes.
[2019-03-21] MEDS ORDERED: SUBLIMAZE IV ONE (11:00)
[2019-03-21] MEDS: TYLENOL PO PRN ×2 (11:15→18:01)
[2019-03-21] MEDS: PEPCID IV SCH ×2 (11:15→21:39)
[2019-03-21] MEDS: NACL 0.9% 1000 ML 1,000 ML IV SCH ×4 (11:16→21:39)
[2019-03-21 12:26] LABS: Chol/HDL Ratio 3.07 %
[2019-03-21 13:55] LABS: Basophils % (Manual) 0 % (0.0-1.8); Total Cells Counted 100
[2019-03-21 13:56] LABS: Band Neutrophils # (Manual) 0.2 K/mm3; Eosinophils % (Manual) 0 % (0.0-4.3); Platelet Estimate Consistent w Auto; RBC Morphology Normal
--- NOTE | 2019-03-21 14:23 | Consultation ---
History of Present Illness Consult date: 03/21/19 Consult reason: cardiac arrest History of present illness: Patient is a 28 year old male who is admitted with out of the hospital cardiopulmonary arrest. It's reported the patient went unresponsive on the job. He was taken to [facility] where CPR was initiated. It's reported patient was apneic, pulseless, subsequently requiring intubation by EMS. The patient is currently in CCU, unresponsive on the vent, febrile with a temperature as high as 103. Head CT scan reports no acute intracranial abnormalities. An EKG is sinus tachycardia, no acute ischemic changes. Past History Past Medical History: other (unable to obtain) Past Surgical History: Other (unable to obtain) Social history: other (unable to obtain) Family history: other (Unable to obtain) Medications and Allergies Allergies Allergy/AdvReac Type Severity Reaction Status Date / Time Unable to Assess Allergy Unverified 03/20/19 16:21 Active Meds: Active Medications Acetaminophen (Tylenol) 1,000 mg PO Q6H PRN PRN Reason: Fever >101 Last Admin: 03/21/19 11:15 Dose: 1,000 mg Documented by: Albuterol (Proventil) 2.5 mg IH Q3HRT PRN PRN Reason: Shortness Of Breath Enoxaparin Sodium (Lovenox) 40 mg SUB-Q QDAY@2200 [facility] Last Admin: 03/20/19 22:12 Dose: 40 mg Documented by: Famotidine (Pepcid) 20 mg IV BID [facility] Last Admin: 03/21/19 11:15 Dose: 20 mg Documented by: Fentanyl (Sublimaze) 50 mcg IV Q2H PRN PRN Reason: Pain , Severe (7-10) Hydrophilic Ointment (Vaseline Lip Therapy) 1 applic TP Q2HR PRN PRN Reason: Dry Lips Midazolam HCl 100 mg/ Sodium (Chloride) 100 mls @ 2 mls/hr IV TITR RICHARD; Protocol Last Titration: 03/21/19 08:45 Dose: 0 mg/hr, 0 mls/hr Documented by: Sodium Chloride (Nacl 0.9% 1000 Ml) 1,000 mls @ 150 mls/hr IV DIRECT RICHARD Stop: 03/23/19 18:39 Last Admin: 03/21/19 13:25 Dose: 150 mls/hr Documented by: Levothyroxine Sodium (Synthroid) 100 mcg IV DAILY@0600 [facility] Last Admin: 03/20/19 21:50 Dose: 100 mcg Documented by: Lorazepam (Ativan) 2 mg IV Q1HR PRN PRN Reason: CIWA-Ar 8-15 Last Admin: 03/21/19 05:10 Dose: 2 mg Documented by: Midazolam HCl (Versed) 2 mg IV Q10MIN PRN PRN Reason: Sedation Multi-Ingred Cream/Lotion/Oil/Oint (Artificial Tears Ophth Oint) 1 applic OU Q4HR PRN PRN Reason: Dry Eye(s) Sodium Chloride (Sodium Chloride Flush Syringe 10 Ml) 10 ml IV BID [facility] Last Admin: 03/20/19 22:55 Dose: 10 ml Documented by: Sodium Chloride (Sodium Chloride Flush Syringe 10 Ml) 10 ml IV PRN PRN PRN Reason: LINE FLUSH Physical Examination Vital Signs Pulse BP Pulse Ox 99 H 118/63 99 03/20/19 16:26 03/20/19 16:26 03/20/19 16:26 General appearance: other (unresponsive on the vent) Cardiac: Positive: Tachycardia Results 03/21/19 09:32 03/21/19 09:46 Cardiac Enzymes 03/20/19 03/21/19 Range/Units 16:25 09:46 AST 276 H 253 H (5-40) units/L CK-MB (CK-2) 1.0 (0.0-4.0) ng/mL Coagulation 03/20/19 Range/Units 16:31 PT 12.9 (12.2-14.9) Sec. INR 0.92 (0.87-1.13) APTT 29.1 (24.2-36.6) Sec. Lipids 03/21/19 Range/Units 09:32 Triglycerides 166 H (2-149) mg/dL Cholesterol 194 (50-199) mg/dL HDL Cholesterol 63 H (40-59) mg/dL Cholesterol/HDL Ratio 3.07 % CBC 03/20/19 03/21/19 03/21/19 Range/Units 16:25 04:00 09:32 WBC 10.0 20.0 H 17.3 H (4.5-11.0) K/mm3 RBC 4.43 4.77 4.90 (3.65-5.03) M/mm3 Hgb 14.7 15.9 H 16.1 H (11.8-15.2) gm/dl Hct 44.7 47.3 H 47.8 H (35.5-45.6) % Plt Count 208 216 198 (140-440) K/mm3 Lymph # Hydrologic Modeler Comprehensive Metabolic Panel 03/20/19 03/21/19 Range/Units 16:25 09:46 Sodium 144 148 H (137-145) mmol/L Potassium 3.8 4.2 (3.6-5.0) mmol/L Chloride 102.8 105.8 (98-107) mmol/L Carbon Dioxide 18 L 20 L (22-30) mmol/L BUN 10 15 (9-20) mg/dL Creatinine 1.3 1.1 (0.8-1.5) mg/dL Glucose 159 H 171 H (75-100) mg/dL Calcium 7.6 L 8.8 D (8.4-10.2) mg/dL AST 276 H 253 H (5-40) units/L ALT 165 H 218 H (7-56) units/L Alkaline Phosphatase 139 H 146 H (35-129) units/L Total Protein 6.8 7.4 (6.3-8.2) g/dL Albumin 3.9 4.2 (3.9-5) g/dL
--- NOTE | 2019-03-21 14:37 | Event Note ---
Date: 03/21/19 Patient is a 28-year-old man admitted with an out of hospital cardiopulmonary arrest. 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 There is no history available regarding what kind of job he was performing at the time, and no report of any prodromal complaints or symptoms. He was taken to the nearby [facility] urgent care while standby CPR was initiated. Eventually insurance rater intubated him in the field and brought to the emergency room. There is no report or telemetry strips of his cardiac rhythm in the field. We have no report of ventricular fibrillation or ventricular tachycardia. We have no report of any attempts at defibrillation or cardioversion. The patient is currently unresponsive, on the vent in the ICU. His ECG and current telemetry strips show a mild sinus tachycardia, no ST or T-wave changes of ischemia or infarction. A bedside echocardiogram done at this time shows well-preserved left ventricular systolic function. Chest x-ray shows normal cardiac silhouette, clear lungs. A head CT done in the emergency room was reported negative. The chest CTA was also negative for pulmonary embolism. Recommendations: Out of hospital cardiopulmonary arrest, etiology uncertain, no obvious cardiac etiology is evident at this time. Continue supportive management, we will follow with you as necessary. Further cardiac evaluation and management will depend on clinical course and neurological status.
--- NOTE | 2019-03-21 15:04 | Consultation ---
History of Present Illness - Reason for Consult Consult date: 03/21/19 fever Requesting physician: CRISTIANO GUTIERREZ - History of Present Illness 28 y/o male with history of ETOH dependence admitted on 03/20/2019 due to be found to be "Unresponsive and looking very pale" [place] by family members and taken to Urgent for evaluation. At the Urgent care patient experienced cardiac arrest, unclear details. ACLS protocol initiated, intubated and patient s ubsequently [facility]. Pt regained cardiac rhythm en route to [facility]. The patient is currently unresponsive, on the vent in the ICU, intubated, unable to provide a history. In the ED, temp 102,HR 99, BP 118/63, O2 sat 99%. WBC 10. Hg 14.. Plat 208. Creat 1.3. Glu 159. Lactate 9.5. AST 276. ALT 165. Alkphos 139. CK 380. T4 0.6, TSH 17. ETOH level 0.32. UDS +marihuana and + opoids. CT abdomen showed Fatty infiltration of liver. No acute intra-abdominal or pelvic pathology. Wedge compression deformity of T12 vertebral body. CTA chest showed No acute pulmonary process. Transverse lucency of mid sternal body most likely represents incomplete fusion of the segments of sternal body ? subacute fracture. Blood culture 03/20/2019 no growth today. Sputum culture 03/20/2019 Gram with GPC. ROS unable to obtain Past History Past Medical History: other (unable to obtain) Past Surgical History: Other (unable to obtain) Social history: other (unable to obtain) Family history: other (Unable to obtain) Medications and Allergies Allergies Allergy/AdvReac Type Severity Reaction Status Date / Time Unable to Assess Allergy Unverified 03/20/19 16:21 Active Meds: Active Medications Acetaminophen (Tylenol) 1,000 mg PO Q6H PRN PRN Reason: Fever >101 Last Admin: 03/21/19 11:15 Dose: 1,000 mg Documented by: Albuterol (Proventil) 2.5 mg IH Q3HRT PRN PRN Reason: Shortness Of Breath Enoxaparin Sodium (Lovenox) 40 mg SUB-Q QDAY@2200 [facility] Last Admin: 03/20/19 22:12 Dose: 40 mg Documented by: Famotidine (Pepcid) 20 mg IV BID [facility] Last Admin: 03/21/19 11:15 Dose: 20 mg Documented by: Fentanyl (Sublimaze) 50 mcg IV Q2H PRN PRN Reason: Pain , Severe (7-10) Hydrophilic Ointment (Vaseline Lip Therapy) 1 applic TP Q2HR PRN PRN Reason: Dry Lips Midazolam HCl 100 mg/ Sodium (Chloride) 100 mls @ 2 mls/hr IV TITR RICHARD; Protocol Last Titration: 03/21/19 08:45 Dose: 0 mg/hr, 0 mls/hr Documented by: Sodium Chloride (Nacl 0.9% 1000 Ml) 1,000 mls @ 150 mls/hr IV DIRECT RICHARD Stop: 03/23/19 18:39 Last Admin: 03/21/19 13:25 Dose: 150 mls/hr Documented by: Levothyroxine Sodium (Synthroid) 100 mcg IV DAILY@0600 [facility] Last Admin: 03/20/19 21:50 Dose: 100 mcg Documented by: Lorazepam (Ativan) 2 mg IV Q1HR PRN PRN Reason: CIWA-Ar 8-15 Last Admin: 03/21/19 05:10 Dose: 2 mg Documented by: Midazolam HCl (Versed) 2 mg IV Q10MIN PRN PRN Reason: Sedation Multi-Ingred Cream/Lotion/Oil/Oint (Artificial Tears Ophth Oint) 1 applic OU Q4HR PRN PRN Reason: Dry Eye(s) Sodium Chloride (Sodium Chloride Flush Syringe 10 Ml) 10 ml IV BID [facility] Last Admin: 03/20/19 22:55 Dose: 10 ml Documented by: Sodium Chloride (Sodium Chloride Flush Syringe 10 Ml) 10 ml IV PRN PRN PRN Reason: LINE FLUSH Physical Examination - Physical Exam Narrative exam: General appearance: unresponsive intubated in mod resp distress Eyes: anicteric sclerae, moist conjunctivae; no lid-lag; PERRLA HENT: Atraumatic; oropharynx +ETT + copius yellowish thick drainage from bilateral nostrils Neck: Trachea midline; supple, no thyromegaly or lymphadenopathy Lungs: butch coarse BS CV: tachycardic Abdomen: Soft, tense Extremities: No peripheral edema or extremity lymphadenopathy Skin: Normal temperature, turgor and texture; no rash, ulcers or subcutaneous nodules Psych: lethargic. Neuro: lethargic - Constitutional Vitals: Vital Signs Temp Pulse Resp BP Pulse Ox 102.5 F H 146 H 26 H 178/115 98 03/21/19 12:00 03/21/19 13:55 03/21/19 13:41 03/21/19 13:55 03/21/19 13:55 Temperature -Last 24 Hours Temperature 102.5 F Temperature 103 F Temperature 98.6 F Temperature 102 F Temperature 102.9 F Temperature 102 F Results - Labs CBC & Chem 7: 03/21/19 09:32 03/21/19 09:46 Labs: Abnormal lab results 03/20/19 03/20/19 03/20/19 Range/Units 16:25 16:25 16:25 WBC (4.5-11.0) K/mm3 Hgb (11.8-15.2) gm/dl Hct (35.5-45.6) % MCV 101 H (84-94) fl MCH 33 H (28-32) pg RDW 12.9 L (13.2-15.2) % Seg Neuts % (Manual) 36.0 L (40.0-70.0) % Lymphocytes % (Manual) 60.0 H (13.4-35.0) % Seg Neutrophils # Man (1.8-7.7) K/mm3 Lymphocytes # (Manual) 6.0 H (1.2-5.4) K/mm3 POC ABG pH (7.35-7.45) POC ABG pCO2 (35-45) POC ABG pO2 (80-105) VBG pH (7.320-7.420) Sodium (137-145) mmol/L Carbon Dioxide 18 L (22-30) mmol/L Glucose 159 H (75-100) mg/dL POC Glucose (70-105) Lactic Acid 9.50 H* (0.7-2.0) mmol/L Calcium 7.6 L (8.4-10.2) mg/dL Magnesium (1.7-2.3) mg/dL AST 276 H (5-40) units/L ALT 165 H (7-56) units/L Alkaline Phosphatase 139 H (35-129) units/L Ammonia (25-60) umol/L Total Creatine Kinase 380 H (55-170) units/L Troponin T (0.00-0.029) ng/mL Triglycerides (2-149) mg/dL HDL Cholesterol (40-59) mg/dL TSH (0.270-4.200) mlU/mL Free T4 (0.76-1.46) ng/dL Urine WBC (Auto) (0.0-6.0) /HPF Salicylates (2.8-20.0) mg/dL Acetaminophen (10.0-30.0) ug/mL Plasma/Serum Alcohol (0-0.07) % 03/20/19 03/20/19 03/20/19 Range/Units 16:25 16:25 16:25 WBC (4.5-11.0) K/mm3 Hgb (11.8-15.2) gm/dl Hct (35.5-45.6) % MCV (84-94) fl MCH (28-32) pg RDW (13.2-15.2) % Seg Neuts % (Manual) (40.0-70.0) % Lymphocytes % (Manual) (13.4-35.0) % Seg Neutrophils # Man (1.8-7.7) K/mm3 Lymphocytes # (Manual) (1.2-5.4) K/mm3 POC ABG pH (7.35-7.45) POC ABG pCO2 (35-45) POC ABG pO2 (80-105) VBG pH (7.320-7.420) Sodium (137-145) mmol/L Carbon Dioxide (22-30) mmol/L Glucose (75-100) mg/dL POC Glucose (70-105) Lactic Acid (0.7-2.0) mmol/L Calcium (8.4-10.2) mg/dL Magnesium 2.40 H (1.7-2.3) mg/dL AST (5-40) units/L ALT (7-56) units/L Alkaline Phosphatase (35-129) units/L Ammonia 10.0 L (25-60) umol/L Total Creatine Kinase (55-170) units/L Troponin T (0.00-0.029) ng/mL Triglycerides (2-149) mg/dL HDL Cholesterol (40-59) mg/dL TSH 17.340 H (0.270-4.200) mlU/mL Free T4 0.69 L (0.76-1.46) ng/dL Urine WBC (Auto) (0.0-6.0) /HPF Salicylates (2.8-20.0) mg/dL Acetaminophen (10.0-30.0) ug/mL Plasma/Serum Alcohol (0-0.07) % 03/20/19 03/20/19 03/20/19 Range/Units 16:25 16:25 16:25 WBC (4.5-11.0) K/mm3 Hgb (11.8-15.2) gm/dl Hct (35.5-45.6) % MCV (84-94) fl MCH (28-32) pg RDW (13.2-15.2) % Seg Neuts % (Manual) (40.0-70.0) % Lymphocytes % (Manual) (13.4-35.0) % Seg Neutrophils # Man (1.8-7.7) K/mm3 Lymphocytes # (Manual) (1.2-5.4) K/mm3 POC ABG pH (7.35-7.45) POC ABG pCO2 (35-45) POC ABG pO2 (80-105) VBG pH (7.320-7.420) Sodium (137-145) mmol/L Carbon Dioxide (22-30) mmol/L Glucose (75-100) mg/dL POC Glucose (70-105) Lactic Acid (0.7-2.0) mmol/L Calcium (8.4-10.2) mg/dL Magnesium (1.7-2.3) mg/dL AST (5-40) units/L ALT (7-56) units/L Alkaline Phosphatase (35-129) units/L Ammonia (25-60) umol/L Total Creatine Kinase (55-170) units/L Troponin T (0.00-0.029) ng/mL Triglycerides (2-149) mg/dL HDL Cholesterol (40-59) mg/dL TSH (0.270-4.200) mlU/mL Free T4 (0.76-1.46) ng/dL Urine WBC (Auto) (0.0-6.0) /HPF Salicylates < 0.3 L (2.8-20.0) mg/dL Acetaminophen < 5.0 L (10.0-30.0) ug/mL Plasma/Serum Alcohol 0.32 H (0-0.07) % 03/20/19 03/20/19 03/20/19 Range/Units 16:25 16:34 16:51 WBC (4.5-11.0) K/mm3 Hgb (11.8-15.2) gm/dl Hct (35.5-45.6) % MCV (84-94) fl MCH (28-32) pg RDW (13.2-15.2) % Seg Neuts % (Manual) (40.0-70.0) % Lymphocytes % (Manual) (13.4-35.0) % Seg Neutrophils # Man (1.8-7.7) K/mm3 Lymphocytes # (Manual) (1.2-5.4) K/mm3 POC ABG pH 7.041 L (7.35-7.45) POC ABG pCO2 68.9 H (35-45) POC ABG pO2 381 H (80-105) VBG pH 7.091 L* (7.320-7.420) Sodium (137-145) mmol/L Carbon Dioxide (22-30) mmol/L Glucose (75-100) mg/dL POC Glucose 130 H (70-105) Lactic Acid (0.7-2.0) mmol/L Calcium (8.4-10.2) mg/dL Magnesium (1.7-2.3) mg/dL AST (5-40) units/L ALT (7-56) units/L Alkaline Phosphatase (35-129) units/L Ammonia (25-60) umol/L Total Creatine Kinase (55-170) units/L Troponin T (0.00-0.029) ng/mL Triglycerides (2-149) mg/dL HDL Cholesterol (40-59) mg/dL TSH (0.270-4.200) mlU/mL Free T4 (0.76-1.46) ng/dL Urine WBC (Auto) (0.0-6.0) /HPF Salicylates (2.8-20.0) mg/dL Acetaminophen (10.0-30.0) ug/mL Plasma/Serum Alcohol (0-0.07) % 03/20/19 03/20/19 03/20/19 Range/Units 17:35 17:53 19:17 WBC (4.5-11.0) K/mm3 Hgb (11.8-15.2) gm/dl Hct (35.5-45.6) % MCV (84-94) fl MCH (28-32) pg RDW (13.2-15.2) % Seg Neuts % (Manual) (40.0-70.0) % Lymphocytes % (Manual) (13.4-35.0) % Seg Neutrophils # Man (1.8-7.7) K/mm3 Lymphocytes # (Manual) (1.2-5.4) K/mm3 POC ABG pH 7.305 L (7.35-7.45) POC ABG pCO2 (35-45) POC ABG pO2 262 H (80-105) VBG pH (7.320-7.420) Sodium (137-145) mmol/L Carbon Dioxide (22-30) mmol/L Glucose (75-100) mg/dL POC Glucose (70-105) Lactic Acid 6.90 H* (0.7-2.0) mmol/L Calcium (8.4-10.2) mg/dL Magnesium (1.7-2.3) mg/dL AST (5-40) units/L ALT (7-56) units/L Alkaline Phosphatase (35-129) units/L Ammonia (25-60) umol/L Total Creatine Kinase (55-170) units/L Troponin T (0.00-0.029) ng/mL Triglycerides (2-149) mg/dL HDL Cholesterol (40-59) mg/dL TSH (0.270-4.200) mlU/mL Free T4 (0.76-1.46) ng/dL Urine WBC (Auto) 19.0 H (0.0-6.0) /HPF Salicylates (2.8-20.0) mg/dL Acetaminophen (10.0-30.0) ug/mL Plasma/Serum Alcohol (0-0.07) % 03/20/19 03/20/19 03/21/19 Range/Units 20:40 22:38 03:41 WBC (4.5-11.0) K/mm3 Hgb (11.8-15.2) gm/dl Hct (35.5-45.6) % MCV (84-94) fl MCH (28-32) pg RDW (13.2-15.2) % Seg Neuts % (Manual) (40.0-70.0) % Lymphocytes % (Manual) (13.4-35.0) % Seg Neutrophils # Man (1.8-7.7) K/mm3 Lymphocytes # (Manual) (1.2-5.4) K/mm3 POC ABG pH (7.35-7.45) POC ABG pCO2 31.4 L (35-45) POC ABG pO2 195 H (80-105) VBG pH (7.320-7.420) Sodium (137-145) mmol/L Carbon Dioxide (22-30) mmol/L Glucose (75-100) mg/dL POC Glucose 117 H (70-105) Lactic Acid 6.30 H* (0.7-2.0) mmol/L Calcium (8.4-10.2) mg/dL Magnesium (1.7-2.3) mg/dL AST (5-40) units/L ALT (7-56) units/L Alkaline Phosphatase (35-129) units/L Ammonia (25-60) umol/L Total Creatine Kinase (55-170) units/L Troponin T (0.00-0.029) ng/mL Triglycerides (2-149) mg/dL HDL Cholesterol (40-59) mg/dL TSH (0.270-4.200) mlU/mL Free T4 (0.76-1.46) ng/dL Urine WBC (Auto) (0.0-6.0) /HPF Salicylates (2.8-20.0) mg/dL Acetaminophen (10.0-30.0) ug/mL Plasma/Serum Alcohol (0-0.07) % 03/21/19 03/21/19 03/21/19 Range/Units 04:00 09:32 09:32 WBC 20.0 H 17.3 H (4.5-11.0) K/mm3 Hgb 15.9 H 16.1 H (11.8-15.2) gm/dl Hct 47.3 H 47.8 H (35.5-45.6) % MCV 99 H 98 H (84-94) fl MCH 33 H 33 H (28-32) pg RDW 12.8 L 12.7 L (13.2-15.2) % Seg Neuts % (Manual) 90.0 H (40.0-70.0) % Lymphocytes % (Manual) 7.0 L (13.4-35.0) % Seg Neutrophils # Man 18.0 H (1.8-7.7) K/mm3 Lymphocytes # (Manual) (1.2-5.4) K/mm3 POC ABG pH (7.35-7.45) POC ABG pCO2 (35-45) POC ABG pO2 (80-105) VBG pH (7.320-7.420) Sodium (137-145) mmol/L Carbon Dioxide (22-30) mmol/L Glucose (75-100) mg/dL POC Glucose (70-105) Lactic Acid (0.7-2.0) mmol/L Calcium (8.4-10.2) mg/dL Magnesium (1.7-2.3) mg/dL AST (5-40) units/L ALT (7-56) units/L Alkaline Phosphatase (35-129) units/L Ammonia (25-60) umol/L Total Creatine Kinase (55-170) units/L Troponin T 0.054 H D (0.00-0.029) ng/mL Triglycerides 166 H (2-149) mg/dL HDL Cholesterol 63 H (40-59) mg/dL TSH (0.270-4.200) mlU/mL Free T4 (0.76-1.46) ng/dL Urine WBC (Auto) (0.0-6.0) /HPF Salicylates (2.8-20.0) mg/dL Acetaminophen (10.0-30.0) ug/mL Plasma/Serum Alcohol (0-0.07) % 03/21/19 Range/Units 09:46 WBC (4.5-11.0) K/mm3 Hgb (11.8-15.2) gm/dl Hct (35.5-45.6) % MCV (84-94) fl MCH (28-32) pg RDW (13.2-15.2) % Seg Neuts % (Manual) (40.0-70.0) % Lymphocytes % (Manual) (13.4-35.0) % Seg Neutrophils # Man (1.8-7.7) K/mm3 Lymphocytes # (Manual) (1.2-5.4) K/mm3 POC ABG pH (7.35-7.45) POC ABG pCO2 (35-45) POC ABG pO2 (80-105) VBG pH (7.320-7.420) Sodium 148 H (137-145) mmol/L Carbon Dioxide 20 L (22-30) mmol/L Glucose 171 H (75-100) mg/dL POC Glucose (70-105) Lactic Acid (0.7-2.0) mmol/L Calcium (8.4-10.2) mg/dL Magnesium (1.7-2.3) mg/dL AST 253 H (5-40) units/L ALT 218 H (7-56) units/L Alkaline Phosphatase 146 H (35-129) units/L Ammonia (25-60) umol/L Total Creatine Kinase (55-170) units/L Troponin T (0.00-0.029) ng/mL Triglycerides (2-149) mg/dL HDL Cholesterol (40-59) mg/dL TSH (0.270-4.200) mlU/mL Free T4 (0.76-1.46) ng/dL Urine WBC (Auto) (0.0-6.0) /HPF Salicylates (2.8-20.0) mg/dL Acetaminophen (10.0-30.0) ug/mL Plasma/Serum Alcohol (0-0.07) % Assessment and Plan Cultures: Blood culture 03/20/2019 no growth today. Sputum culture 03/20/2019 Gram with GPC. Assessment: 28 y/o male with history of ETOH dependence admitted on 03/20/2019 due to be found to be "Unresponsive and looking very pale" [place] family members and taken to Urgent for evaluation. At the Urgent care patient experienced cardiac arrest, unclear details. ACLS protocol initiated, intubated and patient subsequently transported [facility]. Pt regained cardiac rhythm en [facility] to [facility]: 1) [id number] cardiac arrest s/p CPR, unclear details 2) Acute encephalopathy: multifactorial, ETOH intoxication/coma myxedema. ETOH level 0.32. UDS +marihuana and + opoids. CT head chronic sinusitis. 3) SIRS: Present on admission, manifested by fever, tachycardia, increased lactate. Etiology unclear, likley multifactorial - sinusitis/dehydration/ETOH intoxication/mixedema coma/rhabdomyolysis/?aspiration pneumonia. CTA chest showed No acute pulmonary process. UA with wbc no LE. Blood culture 03/20/2019 no growth today. Sputum culture 03/20/2019 Gram with GPC. 4) Mixedema coma? 5) Elevated LFTs: from ETOH and arrest. AST 276. ALT 165. Alkphos 139. 6) NICK: renally adjusted all abx Recommendations: - follow-up blood cultures, sputum culture - nostrils culture - obtain procalcitonin, C-reactive protein (CRP) - check influenza rapid and antigen PCR in nasopharinx - repeat CXR in the am - start ceftriaxone and flagyl to cover sinusitis / asp pneumonia - add vancomycin for now - doubt meningitis but close monitoring/droplet precautions for now Will follow. Gail Monique MD Infectious Diseases Supervisor [employer] [facility] M [phone] O [phone]
[2019-03-21] MEDS ORDERED: .VANCOMYCIN VIAL 1,000 MG in NACL 0.9% 100 ML IV SCH (16:00)
[2019-03-21] MEDS ORDERED: VANCOMYCIN 1,500 MG in NACL 0.9% 500 ML 500 ML IV ONE (17:00)
[2019-03-21 17:08] LABS: Hepatitis C Virus Antibody Reactive (NonReactive)
[2019-03-21] MEDS: FLAGYL 500 MG/100 ML 500 MG/100 ML BAG IV SCH ×2 (18:02→21:38)
[2019-03-21] MEDS: ROCEPHIN/NS 2 GM/100 ML 2 GM/100 ML BAG IV SCH (18:55)
[2019-03-21] MEDS: LOVENOX SUB-Q SCH (21:39)
[2019-03-21] MEDS: SYNTHROID IV SCH (23:05)
[2019-03-22] MEDS: TYLENOL PO PRN ×4 (01:18→22:59)
[2019-03-22] MEDS: VANCOMYCIN 1,250 MG in NACL 0.9% 250ML 250 ML IV SCH ×2 (04:28→16:40)
[2019-03-22] MEDS: NACL 0.9% 1000 ML 1,000 ML IV SCH (04:29)
[2019-03-22 04:59] LABS: Hematocrit 43.9 % (35.5-45.6); Hemoglobin 14.8 gm/dl (11.8-15.2); Mean Corpuscular HGB Conc 34 % (32-34); Mean Corpuscular Volume 99 fl (84-94); Platelet Count 147 K/mm3 (140-440); Red Blood Count 4.42 M/mm3 (3.65-5.03); Red Cell Distribution Width 12.9 % (13.2-15.2)
[2019-03-22 05:24] LABS: Alanine Aminotransferase 156 units/L (7-56); Albumin 3.6 g/dL (3.9-5); BUN/Creatinine Ratio 17; Blood Urea Nitrogen 15 mg/dL (9-20); Calcium 8.1 mg/dL (8.4-10.2); Hemolysis Index 12
[2019-03-22] MEDS: FLAGYL 500 MG/100 ML 500 MG/100 ML BAG IV SCH ×2 (06:04→14:41)
[2019-03-22] MEDS: SYNTHROID IV SCH (06:05)
[2019-03-22 08:12] LABS: Hepatitis B Surface Antigen Non-Reactive (Negative)
--- NOTE | 2019-03-22 08:16 | Progress Note ---
Assessment and Plan Assessment and plan: s/p cardiopulmnary arrest Resuscitated, intubated, Admitted to ICU Pulm following Acute resp failure Intubated Myxedema coma Continue Levothyroxine iv Alcohol intoxication Fever of 102 on admission fever improving now 100.5 Blood cultures drawn. Consulted ID and she was evaluated Started on Ceftriaxone, Flagyl, Vanco lactic acidosis Toxic metabolic encephalopathy Elevated LFT may be alcohol hepatitis vs hep C Monitor History of Polysunstance abuse. Mom at bedside says he used illicit drugs, pills and injectables Hepatitis C Ab pos may consult GI when stable Hypernatremia start D5W Full code status Discussed with his mother at bedside. History Interval history: Still intubated Fever improving Hospitalist Physical - Physical exam Narrative exam: Gen: Not in acute distress, intubated, on vent HEENT: Normocephalic, atraumatic Neck: supple, no JVD Heart: S1 and S2 reg, tachy, no murmurs, rubs or gallop Lungs: Clear, no crackles Abd: soft, non tender, non distended, normal BS Ext: No edema, no clubbing, no cyanosis, Neuro: Intubated, sedated, does not follow commands - Constitutional Vitals: Temp Pulse Resp BP Pulse Ox 100.5 F H 84 20 149/89 97 03/22/19 04:00 03/22/19 06:30 03/22/19 06:30 03/22/19 06:30 03/22/19 06:30 General appearance: Present: other (unresponsive on the vent) Results - Labs CBC & Chem 7: 03/22/19 04:20 03/22/19 04:20 Labs: Laboratory Last Values WBC 20.0 K/mm3 (4.5-11.0) H 03/22/19 04:20 RBC 4.42 M/mm3 (3.65-5.03) 03/22/19 04:20 Hgb 14.8 gm/dl (11.8-15.2) 03/22/19 04:20 Hct 43.9 % (35.5-45.6) 03/22/19 04:20 MCV 99 fl (84-94) H 03/22/19 04:20 MCH 33 pg (28-32) H 03/22/19 04:20 MCHC 34 % (32-34) 03/22/19 04:20 RDW 12.9 % (13.2-15.2) L 03/22/19 04:20 Plt Count 147 K/mm3 (140-440) 03/22/19 04:20 Lymph % (Auto) [employer] 03/20/19 16:25 Lymph # [employer] Worker 03/20/19 16:25 Add Manual Diff Complete 03/21/19 04:00 Total Counted 100 03/21/19 04:00 Seg Neutrophils % [employer] 03/20/19 16:25 Seg Neuts % (Manual) 90.0 % (40.0-70.0) H 03/21/19 04:00 1.0 % 03/21/19 04:00 7.0 % (13.4-35.0) L 03/21/19 04:00 Reactive Lymphs % (Man) 0 % 03/21/19 04:00 2.0 % (0.0-7.3) 03/21/19 04:00 0 % (0.0-4.3) 03/21/19 04:00 0 % (0.0-1.8) 03/21/19 04:00 0 % 03/21/19 04:00 0 % 03/21/19 04:00 0 % 03/21/19 04:00 0 % 03/21/19 04:00 Nucleated RBC % Not Reportable 03/21/19 04:00 Seg Neutrophils # Man 18.0 K/mm3 (1.8-7.7) H 03/21/19 04:00 Band Neutrophils # 0.2 K/mm3 03/21/19 04:00 1.4 K/mm3 (1.2-5.4) 03/21/19 04:00 Abs React Lymphs (Man) 0.0 K/mm3 03/21/19 04:00 0.4 K/mm3 (0.0-0.8) 03/21/19 04:00 0.0 K/mm3 (0.0-0.4) 03/21/19 04:00 0.0 K/mm3 (0.0-0.1) 03/21/19 04:00 0.0 K/mm3 03/21/19 04:00 0.0 K/mm3 03/21/19 04:00 0.0 K/mm3 03/21/19 04:00 Blast Cells # 0.0 K/mm3 03/21/19 04:00 WBC Morphology Not Reportable 03/21/19 04:00 Hypersegmented Neuts Not Reportable 03/21/19 04:00 Hyposegmented Neuts Not Reportable 03/21/19 04:00 Hypogranular Neuts Not Reportable 03/21/19 04:00 Not Reportable 03/21/19 04:00 Not Reportable 03/21/19 04:00 Not Reportable 03/21/19 04:00 Not Reportable 03/21/19 04:00 Not Reportable 03/21/19 04:00 Not Reportable 03/21/19 04:00 Consistent w auto 03/21/19 04:00 Not Reportable 03/21/19 04:00 Plt Clumps, EDTA Not Reportable 03/21/19 04:00 Not Reportable 03/21/19 04:00 Not Reportable 03/21/19 04:00 Not Reportable 03/21/19 04:00 Plt Morphology Comment Not Reportable 03/21/19 04:00 RBC Morphology Normal 03/21/19 04:00 Dimorphic RBCs Not Reportable 03/21/19 04:00 Not Reportable 03/21/19 04:00 Not Reportable 03/21/19 04:00 Not Reportable 03/21/19 04:00 Not Reportable 03/21/19 04:00 Not Reportable 03/21/19 04:00 Not Reportable 03/21/19 04:00 Not Reportable 03/21/19 04:00 Not Reportable 03/21/19 04:00 Not Reportable 03/21/19 04:00 Not Reportable 03/21/19 04:00 Not Reportable 03/21/19 04:00 Not Reportable 03/21/19 04:00 Not Reportable 03/21/19 04:00 Not Reportable 03/21/19 04:00 Not Reportable 03/21/19 04:00 Not Reportable 03/21/19 04:00 Not Reportable 03/21/19 04:00 Not Reportable 03/21/19 04:00 Not Reportable 03/21/19 04:00 Acanthocytes (Spur) Not Reportable 03/21/19 04:00 Rouleaux Not Reportable 03/21/19 04:00 Not Reportable 03/21/19 04:00 Not Reportable 03/21/19 04:00 Not Reportable 03/21/19 04:00 Not Reportable 03/21/19 04:00 Hem Pathologist Commnt No 03/21/19 04:00 PT 12.9 Sec. (12.2-14.9) 03/20/19 16:31 INR 0.92 (0.87-1.13) 03/20/19 16:31 APTT 29.1 Sec. (24.2-36.6) 03/20/19 16:31 POC ABG pH 7.423 (7.35-7.45) 03/22/19 04:26 POC ABG pCO2 32.8 (35-45) L 03/22/19 04:26 POC ABG pO2 66 (80-105) L 03/22/19 04:26 POC ABG HCO3 21.5 (22-26 mml/L) 03/22/19 04:26 POC ABG Total CO2 22 (23-27mmol/L) 03/22/19 04:26 POC ABG O2 Sat 93 03/22/19 04:26 POC ABG Base Excess -3 ((-2) - (+3)mmol/L) 03/22/19 04:26 VBG pH 7.091 (7.320-7.420) L* 03/20/19 16:25 35 % 03/22/19 04:26 Sodium 156 mmol/L (137-145) H D 03/22/19 04:20 Potassium 3.5 mmol/L (3.6-5.0) L 03/22/19 04:20 Chloride 117.2 mmol/L (98-107) H 03/22/19 04:20 Carbon Dioxide 23 mmol/L (22-30) 03/22/19 04:20 19 mmol/L 03/22/19 04:20 BUN 15 mg/dL (9-20) 03/22/19 04:20 0.9 mg/dL (0.8-1.5) 03/22/19 04:20 Estimated GFR > 60 ml/min 03/22/19 04:20 17 % 03/22/19 04:20 Glucose 144 mg/dL (75-100) H 03/22/19 04:20 POC Glucose 117 (70-105) H 03/20/19 22:38 Lactic Acid 1.90 mmol/L (0.7-2.0) 03/22/19 04:20 Calcium 8.1 mg/dL (8.4-10.2) L 03/22/19 04:20 Magnesium 2.40 mg/dL (1.7-2.3) H 03/20/19 16:25 0.70 mg/dL (0.1-1.2) 03/22/19 04:20 AST 205 units/L (5-40) H 03/22/19 04:20 ALT 156 units/L (7-56) H 03/22/19 04:20 87 units/L (35-129) 03/22/19 04:20 10.0 umol/L (25-60) L 03/20/19 16:25 380 units/L (55-170) H 03/20/19 16:25 CK-MB (CK-2) 1.0 ng/mL (0.0-4.0) 03/20/19 16:25 CK-MB (CK-2) Rel Index 0.2 (0-4) 03/20/19 16:25 0.074 ng/mL (0.00-0.029) H D 03/21/19 14:41 4.90 mg/dL (0.00-1.30) H 03/21/19 15:59 6.8 g/dL (6.3-8.2) 03/22/19 04:20 3.6 g/dL (3.9-5) L 03/22/19 04:20 1.1 % 03/22/19 04:20 Triglycerides 166 mg/dL (2-149) H 03/21/19 09:32 Cholesterol 194 mg/dL (50-199) 03/21/19 09:32 122 mg/dL (50-130) 03/21/19 09:32 63 mg/dL (40-59) H 03/21/19 09:32 3.07 % 03/21/19 09:32 TSH 17.340 mlU/mL (0.270-4.200) H 03/20/19 16:25 Free T4 0.69 ng/dL (0.76-1.46) L 03/20/19 16:25 Jeannie (Yellow) 03/20/19 17:35 Cloudy (Clear) 03/20/19 17:35 7.0 (5.0-7.0) 03/20/19 17:35 Ur Specific [place] 1.012 (1.003-1.030) 03/20/19 17:35 100 mg/dl mg/dL (Negative) 03/20/19 17:35 50 mg/dL (Negative) 03/20/19 17:35 Neg mg/dL (Negative) 03/20/19 17:35 Sm (Negative) 03/20/19 17:35 Neg (Negative) 03/20/19 17:35 Neg (Negative) 03/20/19 17:35 < 2.0 mg/dL (<2.0) 03/20/19 17:35 Ur Leukocyte Esterase Neg (Negative) 03/20/19 17:35 19.0 /HPF (0.0-6.0) H 03/20/19 17:35 46.0 /HPF (0.0-6.0) 03/20/19 17:35 U Epithel Cells (Auto) 1.0 /HPF (0-13.0) 03/20/19 17:35 1+ /HPF (Negative) 03/20/19 17:35 Hyaline Casts 1 /LPF 03/20/19 17:35 3+ /HPF 03/20/19 17:35 2+ /HPF 03/20/19 17:35 1+ /HPF (LARD MIXER) 03/20/19 17:35 Salicylates < 0.3 mg/dL (2.8-20.0) L 03/20/19 16:25 Presumptive positive 03/20/19 17:36 Presumptive negative 03/20/19 17:36 Acetaminophen < 5.0 ug/mL (10.0-30.0) L 03/20/19 16:25 Ur Barbiturates Screen Presumptive negative 03/20/19 17:36 Ur Phencyclidine Scrn Presumptive negative 03/20/19 17:36 Ur Amphetamines Screen Presumptive negative 03/20/19 17:36 U Benzodiazepines Scrn Presumptive negative 03/20/19 17:36 Presumptive negative 03/20/19 17:36 U Marijuana (THC) Screen Presumptive positive 03/20/19 17:36 Disclamer 03/20/19 17:36 Plasma/Serum Alcohol < 0.01 % (0-0.07) 03/21/19 09:32 Hepatitis A IgM Ab Non-reactive (NonReactive) 03/21/19 15:59 Hep Bs Antigen Non-reactive (Negative) 03/21/19 15:59 Hep B Core IgM Ab Non-reactive (NonReactive) 03/21/19 15:59 Reactive (NonReactive) A 03/21/19 15:59 HIV 1&2 Antibody Rapid Non react (Non React) 03/21/19 15:59 Non react (Non React) 03/21/19 15:59 Influenza A (Rapid) Negative (Negative) 03/21/19 18:45 Influenza B (Rapid) Negative (Negative) 03/21/19 18:45 Active Medications - Current Medications Current Medications: Generic Name Dose Route Start Last Admin Trade Name Freq PRN Reason Stop Dose Admin Acetaminophen 1,000 mg 03/21/19 10:42 03/22/19 01:18 Tylenol PO 1,000 mg Q6H PRN Administration Fever >101 Albuterol 2.5 mg 03/20/19 16:55 Proventil IH Q3HRT PRN Shortness Of Breath Enoxaparin Sodium 40 mg 03/20/19 22:00 03/21/19 21:39 Lovenox SUB-Q 40 mg QDAY@2200 RICHARD Administration Famotidine 20 mg 03/21/19 10:00 03/21/19 21:39 Pepcid IV 20 mg BID IRCHARD Administration Fentanyl 50 mcg 03/21/19 10:43 03/21/19 17:30 Sublimaze IV 50 mcg Q2H PRN Administration Pain , Severe (7-10) Hydrophilic Ointment 1 applic 03/20/19 18:02 Vaseline Lip Therapy TP Q2HR PRN Dry Lips Midazolam HCl 100 mg/ Sodium 100 mls @ 2 mls/hr 03/20/19 19:00 03/21/19 08:45 Chloride IV 0 mg/hr TITR RICHARD 0 mls/hr Titration Protocol 2 MG/HR Sodium Chloride 1,000 mls @ 150 mls/hr 03/21/19 12:00 03/22/19 04:29 Nacl 0.9% 1000 Ml IV 03/23/19 18:39 150 mls/hr DIRECT RICHARD Administration Ceftriaxone Sodium 2 gm in 100 mls @ 200 mls/hr 03/21/19 16:00 03/21/19 18:55 Rocephin/Ns 2 Gm/100 Ml IV 200 mls/hr Q24HR RICHARD Administration Protocol Metronidazole 500 mg in 100 mls @ 100 mls/hr 03/21/19 16:00 03/22/19 06:04 Flagyl 500 Mg/100 Ml IV 100 mls/hr Q8HR RICHARD Administration Protocol Vancomycin HCl 1,250 mg/ 275 mls @ 166.667 mls/hr 03/22/19 05:00 03/22/19 04:28 Sodium Chloride IV 166.667 mls/hr Q12H RICHARD Administration Levothyroxine Sodium 100 mcg 03/20/19 21:04 03/22/19 06:05 Synthroid IV 100 mcg DAILY@0600 RICHARD Administration Lorazepam 2 mg 03/20/19 21:12 03/21/19 18:55 Ativan IV 2 mg Q1HR PRN Administration CIWA-Ar 8-15 Midazolam HCl 2 mg 03/20/19 18:02 Versed IV Q10MIN PRN Sedation Multi-Ingred Cream/Lotion/Oil/Oint 1 applic 03/20/19 18:02 Artificial Tears Ophth Oint OU Q4HR PRN Dry Eye(s) Sodium Chloride 10 ml 03/20/19 22:00 03/21/19 21:40 Sodium Chloride Flush Syringe 10 Ml IV 10 ml BID RICHARD Administration Sodium Chloride 10 ml 03/20/19 16:55 03/21/19 18:56 Sodium Chloride Flush Syringe 10 Ml IV 10 ml PRN PRN Administration LINE FLUSH Nutrition/Malnutrition Assess - Dietary Evaluation Nutrition/Malnutrition Findings: Nutrition Notes Start: 03/21/19 12:53 Freq: Status: Active Protocol: Document 03/21/19 12:53 CP (Rec: 03/21/19 12:57 CP [id number]) Co-Sign 03/21/19 12:53 LP Nutrition Notes Need for Assessment generated from: MD Order Initial or Follow up Brief Note Current Diagnosis Respiratory Failure Other Pertinent Diagnosis Myxedema coma, DVT prophylaxis , alcohol intoxication Current Diet NPO Weight Status Obese Subjective/Other Information Pt consulted for NTR intake. Per chart, pt is on the vent and is NPO. Verified pt on minimal vent settings during time of visit and noted that pt is on an NG tube. Nutrition Intervention Follow-Up By: 03/28/19 Additional Comments F/U: Diet advancement
[2019-03-22] MEDS ORDERED: D5W 1,000 ML IV SCH (09:00)
--- NOTE | 2019-03-22 09:38 | Progress Note ---
Assessment and Plan 28 y/o male with out of hospital cardiac arrest and acute respiratory failure. 1. Cardiac-tachycardia has improved. Appears to be euvolemic now. Will change fluids to D5 with some K given most recent Chemistry. need to check magnesium levels as well. 2. Neuro-patient was placed on versed 5mcg after being brought in unresponsive as an out of hospital arrest. Stopped all sedation. Do have PRN fent incase some of sinus tach is related to Pain, and possible opiate withdrawal. Head CT on arrival was negative for acute abnormalities. Only showed chronic sinusitis. ID saw yesterday and concerned about meningitis and placed on droplet precautions and started on abx therapy. Continue to hold all sedation for now. Will ask them about LP if they feel warranted. 3. Respiratory-Clear CXR, minimal vent support. Continue all current settings for now 4. Endo-elevated TSH and low T4. NO family available for history. Agree with IV synthroid, however the picture does not clinically fit myxedema coma. Hold on stress dose roids for now 5. GI-dark contents from NG tube. minimal now. Will start feeds today. 6. ID-Please see Neuro number 2 7. Metabolic-lactic acidosis has resolved Overall prognosis is guarded to poor. Discussed with mother at bedside. CCT 31 minutes. Subjective Date of service: 03/22/19 Interval history: No acute events. HR is better. Fever Curve better. Still unresponsive, despite not being on sedation for over 24 hours now. Appears to be euvolemic now and BP remains elevated. Na and Chloride elevated but this is iatrogenic from the fluids I gave on yesterday. Mother at bedside this am. Had no knowledge of patient illness. Does confirm ETOH abuse, substance abuse and history of pancreatitis. Objective Vital Signs - 12hr 03/21/19 03/21/19 03/21/19 21:41 21:51 22:00 Temperature Pulse Rate 140 H 137 H 140 H Pulse Rate [ From Monitor] Respiratory 36 H 38 H 41 H Rate Blood Pressure 176/108 176/108 179/104 O2 Sat by Pulse 93 93 92 Oximetry 03/21/19 03/21/19 03/21/19 22:11 22:21 22:30 Temperature Pulse Rate 133 H 136 H 133 H Pulse Rate [ From Monitor] Respiratory 33 H 34 H 30 H Rate Blood Pressure 176/108 176/108 186/112 O2 Sat by Pulse 93 94 94 Oximetry 03/21/19 03/21/19 03/21/19 22:41 22:51 23:00 Temperature Pulse Rate 135 H 132 H 133 H Pulse Rate [ From Monitor] Respiratory 28 H 28 H 26 H Rate Blood Pressure 186/112 186/112 178/107 O2 Sat by Pulse 94 94 94 Oximetry 03/21/19 03/21/19 03/21/19 23:11 23:20 23:21 Temperature Pulse Rate 129 H 133 H 130 H Pulse Rate [ From Monitor] Respiratory 29 H 27 H Rate Blood Pressure 186/112 178/107 186/112 O2 Sat by Pulse 94 94 94 Oximetry 03/21/19 03/21/19 03/21/19 23:30 23:41 23:51 Temperature Pulse Rate 132 H 127 H 130 H Pulse Rate [ From Monitor] Respiratory 27 H 25 H 23 Rate Blood Pressure 172/110 172/110 172/110 O2 Sat by Pulse 95 95 95 Oximetry 03/21/19 03/22/19 03/22/19 23:56 00:00 00:11 Temperature 100.9 F H Pulse Rate 130 H 126 H 121 H Pulse Rate [ 128 H From Monitor] Respiratory 26 H 26 H 27 H Rate Blood Pressure 186/112 181/104 181/104 O2 Sat by Pulse 95 95 95 Oximetry 03/22/19 03/22/19 03/22/19 00:21 00:30 00:41 Temperature Pulse Rate 128 H 130 H 119 H Pulse Rate [ From Monitor] Respiratory 21 26 H 21 Rate Blood Pressure 172/110 168/105 168/105 O2 Sat by Pulse 95 95 95 Oximetry 03/22/19 03/22/19 03/22/19 00:51 01:00 01:11 Temperature Pulse Rate 125 H 121 H 119 H Pulse Rate [ From Monitor] Respiratory 18 22 19 Rate Blood Pressure 168/105 171/110 171/110 O2 Sat by Pulse 95 96 95 Oximetry 03/22/19 03/22/19 03/22/19 01:21 01:30 01:41 Temperature Pulse Rate 117 H 119 H 114 H Pulse Rate [ From Monitor] Respiratory 25 H 24 20 Rate Blood Pressure 168/105 153/104 153/104 O2 Sat by Pulse 95 96 96 Oximetry 03/22/19 03/22/19 03/22/19 01:51 02:00 02:11 Temperature Pulse Rate 118 H 110 H 110 H Pulse Rate [ From Monitor] Respiratory 25 H 21 25 H Rate Blood Pressure 171/110 157/100 157/100 O2 Sat by Pulse 96 97 97 Oximetry 03/22/19 03/22/19 03/22/19 02:21 02:30 02:41 Temperature Pulse Rate 106 H 99 H 103 H Pulse Rate [ From Monitor] Respiratory 29 H 24 25 H Rate Blood Pressure 153/104 147/111 147/111 O2 Sat by Pulse 97 97 97 Oximetry 03/22/19 03/22/19 03/22/19 03:00 03:31 04:00 Temperature 100.5 F H Pulse Rate 99 H 99 H 93 H Pulse Rate [ 99 H From Monitor] Respiratory 26 H 22 26 H Rate Blood Pressure 151/92 147/111 133/79 O2 Sat by Pulse 98 93 Oximetry 03/22/19 03/22/19 03/22/19 04:20 04:30 05:00 Temperature Pulse Rate 92 H 102 H 89 Pulse Rate [ From Monitor] Respiratory 28 H 21 Rate Blood Pressure 133/79 124/85 126/87 O2 Sat by Pulse 95 95 96 Oximetry 03/22/19 03/22/19 03/22/19 05:30 06:00 06:30 Temperature Pulse Rate 88 86 84 Pulse Rate [ From Monitor] Respiratory 23 20 20 Rate Blood Pressure 149/87 160/92 149/89 O2 Sat by Pulse 97 97 97 Oximetry 03/22/19 08:53 Temperature Pulse Rate 83 Pulse Rate [ From Monitor] Respiratory Rate Blood Pressure 159/97 O2 Sat by Pulse 96 Oximetry Constitutional: comatose, appears uncomfortable, other (dishelved) Eyes: injected ENT: other (orally intubated and sedated) Neck: supple Effort: mildly labored Ascultation: Bilateral: clear Percussion: Bilateral: not dull Cardiovascular: regular rate and rhythm Gastrointestinal: hypoactive bowel sounds Integumentary: normal Extremities: no edema Neurologic: unable to assess CBC and BMP: 03/22/19 04:20 03/22/19 04:20 ABG, PT/INR, D-dimer: ABG POC ABG pH 7.423 (7.35-7.45) 03/22/19 04:26 POC ABG pCO2 32.8 (35-45) L 03/22/19 04:26 POC ABG pO2 66 (80-105) L 03/22/19 04:26 POC ABG HCO3 21.5 (22-26 mml/L) 03/22/19 04:26 POC ABG Total CO2 22 (23-27mmol/L) 03/22/19 04:26 POC ABG O2 Sat 93 03/22/19 04:26 PT/INR, D-dimer PT 12.9 Sec. (12.2-14.9) 03/20/19 16:31 INR 0.92 (0.87-1.13) 03/20/19 16:31 Abnormal lab findings: Abnormal Labs 03/20/19 03/20/19 03/20/19 16:25 16:25 16:25 WBC Hgb Hct MCV 101 H MCH 33 H RDW 12.9 L Seg Neuts % (Manual) 36.0 L Lymphocytes % (Manual) 60.0 H Seg Neutrophils # Man Lymphocytes # (Manual) 6.0 H POC ABG pH POC ABG pCO2 POC ABG pO2 VBG pH Sodium Potassium Chloride Carbon Dioxide 18 L Glucose 159 H POC Glucose Lactic Acid 9.50 H* Calcium 7.6 L Magnesium AST 276 H ALT 165 H Alkaline Phosphatase 139 H Ammonia Total Creatine Kinase 380 H Troponin T C-Reactive Protein Albumin Triglycerides HDL Cholesterol TSH Free T4 Urine WBC (Auto) Salicylates Acetaminophen Plasma/Serum Alcohol Hepatitis C Antibody 03/20/19 03/20/19 03/20/19 16:25 16:25 16:25 WBC Hgb Hct MCV MCH RDW Seg Neuts % (Manual) Lymphocytes % (Manual) Seg Neutrophils # Man Lymphocytes # (Manual) POC ABG pH POC ABG pCO2 POC ABG pO2 VBG pH Sodium Potassium Chloride Carbon Dioxide Glucose POC Glucose Lactic Acid Calcium Magnesium 2.40 H AST ALT Alkaline Phosphatase Ammonia 10.0 L Total Creatine Kinase Troponin T C-Reactive Protein Albumin Triglycerides HDL Cholesterol TSH 17.340 H Free T4 0.69 L Urine WBC (Auto) Salicylates Acetaminophen Plasma/Serum Alcohol Hepatitis C Antibody 03/20/19 03/20/19 03/20/19 16:25 16:25 16:25 WBC Hgb Hct MCV MCH RDW Seg Neuts % (Manual) Lymphocytes % (Manual) Seg Neutrophils # Man Lymphocytes # (Manual) POC ABG pH POC ABG pCO2 POC ABG pO2 VBG pH Sodium Potassium Chloride Carbon Dioxide Glucose POC Glucose Lactic Acid Calcium Magnesium AST ALT Alkaline Phosphatase Ammonia Total Creatine Kinase Troponin T C-Reactive Protein Albumin Triglycerides HDL Cholesterol TSH Free T4 Urine WBC (Auto) Salicylates < 0.3 L Acetaminophen < 5.0 L Plasma/Serum Alcohol 0.32 H Hepatitis C Antibody 03/20/19 03/20/19 03/20/19 16:25 16:34 16:51 WBC Hgb Hct MCV MCH RDW Seg Neuts % (Manual) Lymphocytes % (Manual) Seg Neutrophils # Man Lymphocytes # (Manual) POC ABG pH 7.041 L POC ABG pCO2 68.9 H POC ABG pO2 381 H VBG pH 7.091 L* Sodium Potassium Chloride Carbon Dioxide Glucose POC Glucose 130 H Lactic Acid Calcium Magnesium AST ALT Alkaline Phosphatase Ammonia Total Creatine Kinase Troponin T C-Reactive Protein Albumin Triglycerides HDL Cholesterol TSH Free T4 Urine WBC (Auto) Salicylates Acetaminophen Plasma/Serum Alcohol Hepatitis C Antibody 03/20/19 03/20/19 03/20/19 17:35 17:53 19:17 WBC Hgb Hct MCV MCH RDW Seg Neuts % (Manual) Lymphocytes % (Manual) Seg Neutrophils # Man Lymphocytes # (Manual) POC ABG pH 7.305 L POC ABG pCO2 POC ABG pO2 262 H VBG pH Sodium Potassium Chloride Carbon Dioxide Glucose POC Glucose Lactic Acid 6.90 H* Calcium Magnesium AST ALT Alkaline Phosphatase Ammonia Total Creatine Kinase Troponin T C-Reactive Protein Albumin Triglycerides HDL Cholesterol TSH Free T4 Urine WBC (Auto) 19.0 H Salicylates Acetaminophen Plasma/Serum Alcohol Hepatitis C Antibody 03/20/19 03/20/19 03/21/19 20:40 22:38 03:41 WBC Hgb Hct MCV MCH RDW Seg Neuts % (Manual) Lymphocytes % (Manual) Seg Neutrophils # Man Lymphocytes # (Manual) POC ABG pH POC ABG pCO2 31.4 L POC ABG pO2 195 H VBG pH Sodium Potassium Chloride Carbon Dioxide Glucose POC Glucose 117 H Lactic Acid 6.30 H* Calcium Magnesium AST ALT Alkaline Phosphatase Ammonia Total Creatine Kinase Troponin T C-Reactive Protein Albumin Triglycerides HDL Cholesterol TSH Free T4 Urine WBC (Auto) Salicylates Acetaminophen Plasma/Serum Alcohol Hepatitis C Antibody 03/21/19 03/21/19 03/21/19 04:00 09:32 09:32 WBC 20.0 H 17.3 H Hgb 15.9 H 16.1 H Hct 47.3 H 47.8 H MCV 99 H 98 H MCH 33 H 33 H RDW 12.8 L 12.7 L Seg Neuts % (Manual) 90.0 H Lymphocytes % (Manual) 7.0 L Seg Neutrophils # Man 18.0 H Lymphocytes # (Manual) POC ABG pH POC ABG pCO2 POC ABG pO2 VBG pH Sodium Potassium Chloride Carbon Dioxide Glucose POC Glucose Lactic Acid Calcium Magnesium AST ALT Alkaline Phosphatase Ammonia Total Creatine Kinase Troponin T 0.054 H D C-Reactive Protein Albumin Triglycerides 166 H HDL Cholesterol 63 H TSH Free T4 Urine WBC (Auto) Salicylates Acetaminophen Plasma/Serum Alcohol Hepatitis C Antibody 03/21/19 03/21/19 03/21/19 09:46 14:41 15:59 WBC Hgb Hct MCV MCH RDW Seg Neuts % (Manual) Lymphocytes % (Manual) Seg Neutrophils # Man Lymphocytes # (Manual) POC ABG pH POC ABG pCO2 POC ABG pO2 VBG pH Sodium 148 H Potassium Chloride Carbon Dioxide 20 L Glucose 171 H POC Glucose Lactic Acid Calcium Magnesium AST 253 H ALT 218 H Alkaline Phosphatase 146 H Ammonia Total Creatine Kinase Troponin T 0.074 H D C-Reactive Protein 4.90 H Albumin Triglycerides HDL Cholesterol TSH Free T4 Urine WBC (Auto) Salicylates Acetaminophen Plasma/Serum Alcohol Hepatitis C Antibody 03/21/19 03/22/19 03/22/19 15:59 04:20 04:20 WBC 20.0 H Hgb Hct MCV 99 H MCH 33 H RDW 12.9 L Seg Neuts % (Manual) Lymphocytes % (Manual) Seg Neutrophils # Man Lymphocytes # (Manual) POC ABG pH POC ABG pCO2 POC ABG pO2 VBG pH Sodium 156 H D Potassium 3.5 L Chloride 117.2 H Carbon Dioxide Glucose 144 H POC Glucose Lactic Acid Calcium 8.1 L Magnesium AST 205 H ALT 156 H Alkaline Phosphatase Ammonia Total Creatine Kinase Troponin T C-Reactive Protein Albumin 3.6 L Triglycerides HDL Cholesterol TSH Free T4 Urine WBC (Auto) Salicylates Acetaminophen Plasma/Serum Alcohol Hepatitis C Antibody Reactive A 03/22/19 04:26 WBC Hgb Hct MCV MCH RDW Seg Neuts % (Manual) Lymphocytes % (Manual) Seg Neutrophils # Man Lymphocytes # (Manual) POC ABG pH POC ABG pCO2 32.8 L POC ABG pO2 66 L VBG pH Sodium Potassium Chloride Carbon Dioxide Glucose POC Glucose Lactic Acid Calcium Magnesium AST ALT Alkaline Phosphatase Ammonia Total Creatine Kinase Troponin T C-Reactive Protein Albumin Triglycerides HDL Cholesterol TSH Free T4 Urine WBC (Auto) Salicylates Acetaminophen Plasma/Serum Alcohol Hepatitis C Antibody
[2019-03-22] MEDS: ROCEPHIN/NS 2 GM/100 ML 2 GM/100 ML BAG IV SCH ×2 (09:56→16:39)
[2019-03-22] MEDS: PEPCID IV SCH ×2 (09:56→22:58)
[2019-03-22] MEDS: SODIUM CHLORIDE FLUSH SYRINGE 10 ML IV SCH (09:57)
[2019-03-22] MEDS ORDERED: MAGNESIUM SULFATE 4GM/100ML 4 GM/100 ML BAG IV ONE (11:00)
[2019-03-22] MEDS ORDERED: D5W 1,000 ML with KCL 20 MEQ IV SCH (11:00)
[2019-03-22] MEDS: NORMODYNE IV PRN ×2 (11:25→17:17)
[2019-03-22] MEDS ORDERED: KPHOS 40 MMOL in NACL 0.9% 500 ML 500 ML IV ONE (11:30)
--- NOTE | 2019-03-22 11:47 | Progress Note ---
Assessment and Plan Out of hospital cardiopulmonary arrest, etiology uncertain chest CTA was also negative for pulmonary embolism head CT reports no acute intracranial abnormalities ETOH abuse Elevated liver transaminase Fever/Leukocytosis Acute encephalopathy An echocardiogram reports a normal LV systolic function, ejection fraction 55- 60%. Recommendations: Continue supportive management We will follow with you as necessary. Further cardiac evaluation and management will depend on clinical course and neurological status. Subjective Date of service: 03/22/19 Interval history: Patient is unresponsive without sedation on the ventilator. No family members present. Objective Vital Signs Temp Pulse Pulse Resp BP Pulse Ox 03/22/19 11:00 97 H 18 177/103 96 03/22/19 10:45 94 H 19 171/96 97 03/22/19 10:30 93 H 18 171/96 97 03/22/19 10:15 90 18 173/95 98 03/22/19 10:00 90 18 173/95 98 03/22/19 09:45 85 17 174/96 98 03/22/19 09:30 86 19 174/96 98 03/22/19 09:15 82 20 170/97 98 03/22/19 09:00 85 20 170/97 97 03/22/19 08:53 83 159/97 96 03/22/19 08:45 84 19 159/97 98 03/22/19 08:30 83 21 159/97 99 03/22/19 08:15 83 19 157/95 98 03/22/19 08:00 85 19 157/95 97 03/22/19 07:45 84 21 161/94 98 03/22/19 07:30 85 17 161/94 97 03/22/19 07:15 84 24 157/94 97 03/22/19 07:00 84 23 157/94 95 03/22/19 06:45 84 21 149/89 96 03/22/19 06:30 84 20 149/89 97 03/22/19 06:00 86 20 160/92 97 03/22/19 05:30 88 23 149/87 97 03/22/19 05:00 89 21 126/87 96 03/22/19 04:30 102 H 28 H 124/85 95 03/22/19 04:20 92 H 133/79 95 03/22/19 04:00 100.5 F H 93 H 99 H 26 H 133/79 93 03/22/19 03:31 99 H 22 147/111 05/08/19 03:00 99 H 26 H 151/92 98 03/22/19 02:41 103 H 25 H 147/111 97 03/22/19 02:30 99 H 24 147/111 97 03/22/19 02:21 106 H 29 H 153/104 97 03/22/19 02:11 110 H 25 H 157/100 97 03/22/19 02:00 110 H 21 157/100 97 03/22/19 01:51 118 H 25 H 171/110 96 03/22/19 01:41 114 H 20 153/104 96 03/22/19 01:30 119 H 24 153/104 96 03/22/19 01:21 117 H 25 H 168/105 95 03/22/19 01:11 119 H 19 171/110 95 03/22/19 01:00 121 H 22 171/110 96 03/22/19 00:51 125 H 18 168/105 95 03/22/19 00:41 119 H 21 168/105 95 03/22/19 00:30 130 H 26 H 168/105 95 03/22/19 00:21 128 H 21 172/110 95 03/22/19 00:11 121 H 27 H 181/104 95 03/22/19 00:00 100.9 F H 126 H 128 H 26 H 181/104 95 03/21/19 23:56 130 H 26 H 186/112 95 03/21/19 23:51 130 H 23 172/110 95 03/21/19 23:41 127 H 25 H 172/110 95 03/21/19 23:30 132 H 27 H 172/110 95 03/21/19 23:21 130 H 27 H 186/112 94 03/21/19 23:20 133 H 178/107 03/21/19 23:11 129 H 29 H 186/112 94 03/21/19 23:00 133 H 26 H 178/107 94 03/21/19 22:51 132 H 28 H 186/112 94 03/21/19 22:41 135 H 28 H 186/112 94 03/21/19 22:30 133 H 30 H 186/112 94 03/21/19 22:21 136 H 34 H 176/108 94 03/21/19 22:11 133 H 33 H 176/108 93 03/21/19 22:00 140 H 41 H 179/104 92 03/21/19 21:51 137 H 38 H 176/108 93 03/21/19 21:41 140 H 36 H 176/108 93 03/21/19 21:30 147 H 38 H 187/103 92 03/21/19 21:21 140 H 41 H 162/101 93 03/21/19 21:11 145 H 41 H 179/103 92 03/21/19 21:00 148 H 42 H 179/103 93 03/21/19 20:51 142 H 45 H 173/99 93 03/21/19 20:41 145 H 46 H 173/99 93 03/21/19 20:31 143 H 47 H 173/99 93 03/21/19 20:21 143 H 47 H 168/100 93 03/21/19 20:11 146 H 46 H 168/100 92 03/21/19 20:01 148 H 47 H 163/101 93 03/21/19 20:00 102.6 F H 135 H 30 H 94 03/21/19 19:51 148 H 47 H 168/100 92 03/21/19 19:41 151 H 49 H 168/100 94 03/21/19 19:31 152 H 48 H 168/100 93 03/21/19 19:23 149 H 171/95 94 03/21/19 19:21 151 H 49 H 171/95 94 03/21/19 19:11 151 H 48 H 171/95 93 03/21/19 19:01 149 H 48 H 171/95 93 03/21/19 18:51 149 H 41 H 162/90 92 03/21/19 18:41 152 H 48 H 162/90 92 03/21/19 18:30 151 H 41 H 162/90 91 03/21/19 18:21 149 H 49 H 155/91 91 03/21/19 18:11 144 H 44 H 155/91 91 03/21/19 18:00 148 H 48 H 155/91 90 03/21/19 17:51 149 H 45 H 171/108 91 03/21/19 17:41 148 H 34 H 171/108 94 03/21/19 17:40 148 H 155/91 97 03/21/19 17:31 156 H 43 H 162/96 94 03/21/19 17:21 152 H 50 H 165/98 94 03/21/19 17:11 157 H 50 H 165/98 94 03/21/19 17:00 157 H 37 H 171/108 95 03/21/19 16:51 156 H 48 H 165/98 94 03/21/19 16:41 152 H 50 H 165/98 95 03/21/19 16:31 152 H 51 H 165/98 95 03/21/19 16:21 155 H 46 H 158/102 95 03/21/19 16:11 157 H 35 H 158/102 96 03/21/19 16:05 100 03/21/19 16:00 102.9 F H 151 H 52 H 158/102 96 03/21/19 15:51 145 H 52 H 161/107 97 03/21/19 15:41 156 H 35 H 161/107 98 03/21/19 15:30 150 H 34 H 161/107 98 03/21/19 15:21 148 H 52 H 150/108 98 03/21/19 15:11 151 H 33 H 150/108 98 03/21/19 15:00 145 H 38 H 150/108 98 03/21/19 14:51 145 H 25 H 161/107 98 03/21/19 14:41 151 H 29 H 161/107 98 03/21/19 14:30 148 H 29 H 161/107 98 03/21/19 14:21 152 H 30 H 165/111 98 03/21/19 14:11 144 H 34 H 165/111 98 03/21/19 14:00 146 H 29 H 165/111 99 03/21/19 13:55 146 H 178/115 98 03/21/19 13:51 149 H 26 H 178/115 99 03/21/19 13:41 146 H 26 H 178/115 99 03/21/19 13:30 146 H 31 H 178/115 99 03/21/19 13:21 144 H 24 167/116 99 03/21/19 13:11 140 H 36 H 167/116 99 03/21/19 13:00 149 H 29 H 167/116 99 03/21/19 12:51 152 H 31 H 180/115 99 03/21/19 12:41 149 H 25 H 180/115 99 03/21/19 12:30 156 H 35 H 180/115 99 03/21/19 12:21 154 H 32 H 170/107 99 03/21/19 12:11 156 H 30 H 170/107 99 03/21/19 12:10 146 H 100 03/21/19 12:00 102.5 F H 149 H 27 H 170/107 99 03/21/19 11:51 154 H 34 H 161/108 99 - Physical Examination General: Other (unresponsive on the vent) Cardiac: Positive: Reg Rate and Rhythm - Labs and Meds Cardiac Enzymes 03/22/19 Range/Units 04:20 AST 205 H (5-40) units/L Lipids 03/21/19 Range/Units 09:32 Triglycerides 166 H (2-149) mg/dL Cholesterol 194 (50-199) mg/dL HDL Cholesterol 63 H (40-59) mg/dL Cholesterol/HDL Ratio 3.07 % CBC 03/22/19 Range/Units 04:20 WBC 20.0 H (4.5-11.0) K/mm3 RBC 4.42 (3.65-5.03) M/mm3 Hgb 14.8 (11.8-15.2) gm/dl Hct 43.9 (35.5-45.6) % Plt Count 147 (140-440) K/mm3 Comprehensive Metabolic Panel 03/22/19 Range/Units 04:20 Sodium 156 H D (137-145) mmol/L Potassium 3.5 L (3.6-5.0) mmol/L Chloride 117.2 H (98-107) mmol/L Carbon Dioxide 23 (22-30) mmol/L BUN 15 (9-20) mg/dL Creatinine 0.9 (0.8-1.5) mg/dL Glucose 144 H (75-100) mg/dL Calcium 8.1 L (8.4-10.2) mg/dL AST 205 H (5-40) units/L ALT 156 H (7-56) units/L Alkaline Phosphatase 87 (35-129) units/L Total Protein 6.8 (6.3-8.2) g/dL Albumin 3.6 L (3.9-5) g/dL
[2019-03-22] MEDS ORDERED: PANCREAZE DR 10,500 UNIT FEEDTUBE PRN (12:16)
[2019-03-22] MEDS ORDERED: SIMPLE SYRUP FEEDTUBE PRN ×2 (12:16)
[2019-03-22] MEDS ORDERED: SODIUM BICARBONATE FEEDTUBE PRN (12:16)
--- NOTE | 2019-03-22 14:26 | Progress Note ---
Subjective Date of service: 03/22/19 Interval history: see the dictated note on this patient spoke at length to mother and father CT shows mild evidence of hypoxic brain injury suspect poly drug abuse is major problem Objective - Vital Sign Vital Signs - 12hr 03/22/19 03/22/19 03/22/19 02:30 02:41 03:00 Temperature Pulse Rate 99 H 103 H 99 H Pulse Rate [ From Monitor] Respiratory 24 25 H 26 H Rate Blood Pressure 147/111 147/111 151/92 O2 Sat by Pulse 97 97 98 Oximetry 03/22/19 03/22/19 03/22/19 03:31 04:00 04:20 Temperature 100.5 F H Pulse Rate 99 H 93 H 92 H Pulse Rate [ 99 H From Monitor] Respiratory 22 26 H Rate Blood Pressure 147/111 133/79 133/79 O2 Sat by Pulse 93 95 Oximetry 03/22/19 03/22/19 03/22/19 04:30 05:00 05:30 Temperature Pulse Rate 102 H 89 88 Pulse Rate [ From Monitor] Respiratory 28 H 21 23 Rate Blood Pressure 124/85 126/87 149/87 O2 Sat by Pulse 95 96 97 Oximetry 03/22/19 03/22/19 03/22/19 06:00 06:30 06:45 Temperature Pulse Rate 86 84 84 Pulse Rate [ From Monitor] Respiratory 20 20 21 Rate Blood Pressure 160/92 149/89 149/89 O2 Sat by Pulse 97 97 96 Oximetry 03/22/19 03/22/19 03/22/19 07:00 07:15 07:30 Temperature Pulse Rate 84 84 85 Pulse Rate [ From Monitor] Respiratory 23 24 17 Rate Blood Pressure 157/94 157/94 161/94 O2 Sat by Pulse 95 97 97 Oximetry 03/22/19 03/22/19 03/22/19 07:45 08:00 08:15 Temperature Pulse Rate 84 85 83 Pulse Rate [ From Monitor] Respiratory 21 19 19 Rate Blood Pressure 161/94 157/95 157/95 O2 Sat by Pulse 98 97 98 Oximetry 03/22/19 03/22/19 03/22/19 08:30 08:45 08:53 Temperature Pulse Rate 83 84 83 Pulse Rate [ From Monitor] Respiratory 21 19 Rate Blood Pressure 159/97 159/97 159/97 O2 Sat by Pulse 99 98 96 Oximetry 03/22/19 03/22/19 03/22/19 09:00 09:15 09:30 Temperature Pulse Rate 85 82 86 Pulse Rate [ From Monitor] Respiratory 20 20 19 Rate Blood Pressure 170/97 170/97 174/96 O2 Sat by Pulse 97 98 98 Oximetry 03/22/19 03/22/19 03/22/19 09:45 10:00 10:15 Temperature Pulse Rate 85 90 90 Pulse Rate [ From Monitor] Respiratory 17 18 18 Rate Blood Pressure 174/96 173/95 173/95 O2 Sat by Pulse 98 98 98 Oximetry 03/22/19 03/22/19 03/22/19 10:30 10:45 11:00 Temperature Pulse Rate 93 H 94 H 97 H Pulse Rate [ From Monitor] Respiratory 18 19 18 Rate Blood Pressure 171/96 171/96 177/103 O2 Sat by Pulse 97 97 96 Oximetry 03/22/19 12:45 Temperature Pulse Rate 90 Pulse Rate [ From Monitor] Respiratory Rate Blood Pressure 157/99 O2 Sat by Pulse 100 Oximetry - Laboratory Findings CBC and BMP: 03/22/19 04:20 03/22/19 04:20 Abnormal Lab Findings: Abnormal Labs 03/20/19 03/20/19 03/20/19 16:25 16:25 16:25 WBC Hgb Hct MCV 101 H MCH 33 H RDW 12.9 L Seg Neuts % (Manual) 36.0 L Lymphocytes % (Manual) 60.0 H Seg Neutrophils # Man Lymphocytes # (Manual) 6.0 H POC ABG pH POC ABG pCO2 POC ABG pO2 VBG pH Sodium Potassium Chloride Carbon Dioxide 18 L Glucose 159 H POC Glucose Lactic Acid 9.50 H* Calcium 7.6 L Phosphorus Magnesium AST 276 H ALT 165 H Alkaline Phosphatase 139 H Ammonia Total Creatine Kinase 380 H Troponin T C-Reactive Protein Albumin Triglycerides HDL Cholesterol TSH Free T4 Urine WBC (Auto) Salicylates Acetaminophen Plasma/Serum Alcohol Hepatitis C Antibody 03/20/19 03/20/19 03/20/19 16:25 16:25 16:25 WBC Hgb Hct MCV MCH RDW Seg Neuts % (Manual) Lymphocytes % (Manual) Seg Neutrophils # Man Lymphocytes # (Manual) POC ABG pH POC ABG pCO2 POC ABG pO2 VBG pH Sodium Potassium Chloride Carbon Dioxide Glucose POC Glucose Lactic Acid Calcium Phosphorus Magnesium 2.40 H AST ALT Alkaline Phosphatase Ammonia 10.0 L Total Creatine Kinase Troponin T C-Reactive Protein Albumin Triglycerides HDL Cholesterol TSH 17.340 H Free T4 0.69 L Urine WBC (Auto) Salicylates Acetaminophen Plasma/Serum Alcohol Hepatitis C Antibody 03/20/19 03/20/19 03/20/19 16:25 16:25 16:25 WBC Hgb Hct MCV MCH RDW Seg Neuts % (Manual) Lymphocytes % (Manual) Seg Neutrophils # Man Lymphocytes # (Manual) POC ABG pH POC ABG pCO2 POC ABG pO2 VBG pH Sodium Potassium Chloride Carbon Dioxide Glucose POC Glucose Lactic Acid Calcium Phosphorus Magnesium AST ALT Alkaline Phosphatase Ammonia Total Creatine Kinase Troponin T C-Reactive Protein Albumin Triglycerides HDL Cholesterol TSH Free T4 Urine WBC (Auto) Salicylates < 0.3 L Acetaminophen < 5.0 L Plasma/Serum Alcohol 0.32 H Hepatitis C Antibody 03/20/19 03/20/19 03/20/19 16:25 16:34 16:51 WBC Hgb Hct MCV MCH RDW Seg Neuts % (Manual) Lymphocytes % (Manual) Seg Neutrophils # Man Lymphocytes # (Manual) POC ABG pH 7.041 L POC ABG pCO2 68.9 H POC ABG pO2 381 H VBG pH 7.091 L* Sodium Potassium Chloride Carbon Dioxide Glucose POC Glucose 130 H Lactic Acid Calcium Phosphorus Magnesium AST ALT Alkaline Phosphatase Ammonia Total Creatine Kinase Troponin T C-Reactive Protein Albumin Triglycerides HDL Cholesterol TSH Free T4 Urine WBC (Auto) Salicylates Acetaminophen Plasma/Serum Alcohol Hepatitis C Antibody 03/20/19 03/20/19 03/20/19 17:35 17:53 19:17 WBC Hgb Hct MCV MCH RDW Seg Neuts % (Manual) Lymphocytes % (Manual) Seg Neutrophils # Man Lymphocytes # (Manual) POC ABG pH 7.305 L POC ABG pCO2 POC ABG pO2 262 H VBG pH Sodium Potassium Chloride Carbon Dioxide Glucose POC Glucose Lactic Acid 6.90 H* Calcium Phosphorus Magnesium AST ALT Alkaline Phosphatase Ammonia Total Creatine Kinase Troponin T C-Reactive Protein Albumin Triglycerides HDL Cholesterol TSH Free T4 Urine WBC (Auto) 19.0 H Salicylates Acetaminophen Plasma/Serum Alcohol Hepatitis C Antibody 03/20/19 03/20/19 03/21/19 20:40 22:38 03:41 WBC Hgb Hct MCV MCH RDW Seg Neuts % (Manual) Lymphocytes % (Manual) Seg Neutrophils # Man Lymphocytes # (Manual) POC ABG pH POC ABG pCO2 31.4 L POC ABG pO2 195 H VBG pH Sodium Potassium Chloride Carbon Dioxide Glucose POC Glucose 117 H Lactic Acid 6.30 H* Calcium Phosphorus Magnesium AST ALT Alkaline Phosphatase Ammonia Total Creatine Kinase Troponin T C-Reactive Protein Albumin Triglycerides HDL Cholesterol TSH Free T4 Urine WBC (Auto) Salicylates Acetaminophen Plasma/Serum Alcohol Hepatitis C Antibody 03/21/19 03/21/19 03/21/19 04:00 09:32 09:32 WBC 20.0 H 17.3 H Hgb 15.9 H 16.1 H Hct 47.3 H 47.8 H MCV 99 H 98 H MCH 33 H 33 H RDW 12.8 L 12.7 L Seg Neuts % (Manual) 90.0 H Lymphocytes % (Manual) 7.0 L Seg Neutrophils # Man 18.0 H Lymphocytes # (Manual) POC ABG pH POC ABG pCO2 POC ABG pO2 VBG pH Sodium Potassium Chloride Carbon Dioxide Glucose POC Glucose Lactic Acid Calcium Phosphorus Magnesium AST ALT Alkaline Phosphatase Ammonia Total Creatine Kinase Troponin T 0.054 H D C-Reactive Protein Albumin Triglycerides 166 H HDL Cholesterol 63 H TSH Free T4 Urine WBC (Auto) Salicylates Acetaminophen Plasma/Serum Alcohol Hepatitis C Antibody 03/21/19 03/21/19 03/21/19 09:46 14:41 15:59 WBC Hgb Hct MCV MCH RDW Seg Neuts % (Manual) Lymphocytes % (Manual) Seg Neutrophils # Man Lymphocytes # (Manual) POC ABG pH POC ABG pCO2 POC ABG pO2 VBG pH Sodium 148 H Potassium Chloride Carbon Dioxide 20 L Glucose 171 H POC Glucose Lactic Acid Calcium Phosphorus Magnesium AST 253 H ALT 218 H Alkaline Phosphatase 146 H Ammonia Total Creatine Kinase Troponin T 0.074 H D C-Reactive Protein 4.90 H Albumin Triglycerides HDL Cholesterol TSH Free T4 Urine WBC (Auto) Salicylates Acetaminophen Plasma/Serum Alcohol Hepatitis C Antibody 03/21/19 03/22/19 03/22/19 15:59 04:20 04:20 WBC 20.0 H Hgb Hct MCV 99 H MCH 33 H RDW 12.9 L Seg Neuts % (Manual) Lymphocytes % (Manual) Seg Neutrophils # Man Lymphocytes # (Manual) POC ABG pH POC ABG pCO2 POC ABG pO2 VBG pH Sodium 156 H D Potassium 3.5 L Chloride 117.2 H Carbon Dioxide Glucose 144 H POC Glucose Lactic Acid Calcium 8.1 L Phosphorus Magnesium AST 205 H ALT 156 H Alkaline Phosphatase Ammonia Total Creatine Kinase Troponin T C-Reactive Protein Albumin 3.6 L Triglycerides HDL Cholesterol TSH Free T4 Urine WBC (Auto) Salicylates Acetaminophen Plasma/Serum Alcohol Hepatitis C Antibody Reactive A 03/22/19 03/22/19 03/22/19 04:20 04:26 12:40 WBC Hgb Hct MCV MCH RDW Seg Neuts % (Manual) Lymphocytes % (Manual) Seg Neutrophils # Man Lymphocytes # (Manual) POC ABG pH POC ABG pCO2 32.8 L POC ABG pO2 66 L VBG pH Sodium Potassium Chloride Carbon Dioxide Glucose POC Glucose 171 H Lactic Acid Calcium Phosphorus 2.00 L Magnesium 1.50 L AST ALT Alkaline Phosphatase Ammonia Total Creatine Kinase Troponin T C-Reactive Protein Albumin Triglycerides HDL Cholesterol TSH Free T4 Urine WBC (Auto) Salicylates Acetaminophen Plasma/Serum Alcohol Hepatitis C Antibody
[2019-03-22] MEDS: ZOVIRAX IV SCH ×2 (14:41→23:04)
[2019-03-22] MEDS: NACL 0.9% IV SCH ×2 (14:41→23:04)
--- NOTE | 2019-03-22 16:05 | Progress Note ---
Assessment and Plan Cultures: Blood culture 03/20/2019 no growth today. Sputum culture 03/20/2019 usual resp lakshmi Assessment: 28 y/o male with history of ETOH dependence admitted on 03/20/2019 due to be found to be "Unresponsive and looking very pale" [place] by family members and taken to Urgent for evaluation. At the Urgent care patient experienced cardiac arrest, unclear details. ACLS protocol initiated, intubated and patient subsequently transported to [facility]. Pt regained cardiac rhythm en route to [facility]: 1) [id number] cardiac arrest s/p CPR, unclear details 2) Acute encephalopathy: multifactorial, ETOH intoxication/coma myxedema/meningitis. ETOH level 0.32. UDS +marihuana and + opoids. CT head c hronic sinusitis. 3) SIRS: still fever, tachycardia, increased lactate. Etiology unclear, likely multifactorial - sinusitis/dehydration/ETOH intoxication/mixedema coma/rhabdomyolysis/?aspiration pneumonia/?meningitis. CTA chest showed No acute pulmonary process. UA with wbc no LE. Blood culture 03/20/2019 no growth today. Sputum culture 03/20/2019 Gram with GPC. Mother called friend who was with patient the last week and reported that patient was c/o severe headaches and bad sinusitis with mucous discharge. Influenza PCR negative. HIV negative. Hepatitis C serology reactive. CRP 4.9. 4) Mixedema coma? 5) Elevated LFTs: from ETOH and arrest. AST 276. ALT 165. Alkphos 139. Hepatitis C serology reactive. 6) NICK: renally adjusted all abx Recommendations: - obtain lumbar punture for opening pressure and send CSF specimen for Gram stain and culture, glucose, protein, VDRL, HSV-PCR, cryptococcal antigen and culture. Mother called friend who was with patient the last week and reported that patient was c/o severe headaches and bad sinusitis with mucous discharge - follow-up blood cultures, nostrils culture, procalcitonin - repeat CXR today - increase ceftriaxone 2 gm IV q21h - continue vancomycin for now Will follow. Gail Monique MD Infectious Diseases [employer] [facility] [id number] [phone] O [phone] Subjective Date of service: 03/22/19 Principal diagnosis: fever Interval history: Remains on the vent tmax 102, parents at bedside. ROS unable to obtain Objective - Exam Narrative Exam: General appearance: unresponsive intubated in mod resp distress Eyes: anicteric sclerae, moist conjunctivae; no lid-lag; PERRLA HENT: Atraumatic; oropharynx +ETT + copious yellowish thick drainage from bilateral nostrils Neck: Trachea midline; supple, no thyromegaly or lymphadenopathy Lungs: butch coarse BS CV: tachycardic Abdomen: Soft, tense Extremities: No peripheral edema or extremity lymphadenopathy Skin: Normal temperature, turgor and texture; no rash, ulcers or subcutaneous nodules Psych: lethargic. Neuro: lethargic - Constitutional Vitals: Vital Signs Temp Pulse Resp BP Pulse Ox 102.8 F H 90 18 157/99 100 03/22/19 12:00 03/22/19 12:45 03/22/19 11:00 03/22/19 12:45 03/22/19 12:45 Temperature -Last 24 Hours Temperature 102.8 F Temperature 100.8 F Temperature 100.5 F Temperature 100.9 F Temperature 102.6 F - Labs CBC & Chem 7: 03/22/19 04:20 03/22/19 04:20 Labs: Abnormal lab results 03/21/19 03/21/19 03/22/19 Range/Units 15:59 15:59 04:20 WBC 20.0 H (4.5-11.0) K/mm3 MCV 99 H (84-94) fl MCH 33 H (28-32) pg RDW 12.9 L (13.2-15.2) % POC ABG pCO2 (35-45) POC ABG pO2 (80-105) Sodium (137-145) mmol/L Potassium (3.6-5.0) mmol/L Chloride (98-107) mmol/L Glucose (75-100) mg/dL POC Glucose (70-105) Calcium (8.4-10.2) mg/dL Phosphorus (2.5-4.5) mg/dL Magnesium (1.7-2.3) mg/dL AST (5-40) units/L ALT (7-56) units/L C-Reactive Protein 4.90 H (0.00-1.30) mg/dL Albumin (3.9-5) g/dL Hepatitis C Antibody Reactive A (NonReactive) 03/22/19 03/22/19 03/22/19 Range/Units 04:20 04:20 04:26 WBC (4.5-11.0) K/mm3 MCV (84-94) fl MCH (28-32) pg RDW (13.2-15.2) % POC ABG pCO2 32.8 L (35-45) POC ABG pO2 66 L (80-105) Sodium 156 H D (137-145) mmol/L Potassium 3.5 L (3.6-5.0) mmol/L Chloride 117.2 H (98-107) mmol/L Glucose 144 H (75-100) mg/dL POC Glucose (70-105) Calcium 8.1 L (8.4-10.2) mg/dL Phosphorus 2.00 L (2.5-4.5) mg/dL Magnesium 1.50 L (1.7-2.3) mg/dL AST 205 H (5-40) units/L ALT 156 H (7-56) units/L C-Reactive Protein (0.00-1.30) mg/dL Albumin 3.6 L (3.9-5) g/dL Hepatitis C Antibody (NonReactive) 03/22/19 Range/Units 12:40 WBC (4.5-11.0) K/mm3 MCV (84-94) fl MCH (28-32) pg RDW (13.2-15.2) % POC ABG pCO2 (35-45) POC ABG pO2 (80-105) Sodium (137-145) mmol/L Potassium (3.6-5.0) mmol/L Chloride (98-107) mmol/L Glucose (75-100) mg/dL POC Glucose 171 H (70-105) Calcium (8.4-10.2) mg/dL Phosphorus (2.5-4.5) mg/dL Magnesium (1.7-2.3) mg/dL AST (5-40) units/L ALT (7-56) units/L C-Reactive Protein (0.00-1.30) mg/dL Albumin (3.9-5) g/dL Hepatitis C Antibody (NonReactive)
[2019-03-22 20:56] LABS: BUN/Creatinine Ratio 26; Blood Urea Nitrogen 23 mg/dL (9-20); Hemolysis Index 5
[2019-03-23] MEDS ORDERED: D5W/0.45% NACL/KCL 20 MEQ 20 MEQ/1,000 ML BAG IV ONE (01:52)
[2019-03-23] MEDS: KCL 20 MEQ in D5W 1,000 ML IV SCH ×2 (02:10→15:44)
[2019-03-23 05:22] LABS: Hematocrit 42.6 % (35.5-45.6); Hemoglobin 14.1 gm/dl (11.8-15.2); Mean Corpuscular HGB Conc 33 % (32-34); Mean Corpuscular Volume 102 fl (84-94); Platelet Count 115 K/mm3 (140-440); Red Cell Distribution Width 12.6 % (13.2-15.2)
[2019-03-23 05:31] LABS: Alanine Aminotransferase 96 units/L (7-56); Albumin 3.3 g/dL (3.9-5); BUN/Creatinine Ratio 27; Blood Urea Nitrogen 24 mg/dL (9-20); Calcium 7.9 mg/dL (8.4-10.2); Hemolysis Index 58
[2019-03-23] MEDS: VANCOMYCIN 1,250 MG in NACL 0.9% 250ML 250 ML IV SCH ×2 (05:35→17:45)
[2019-03-23] MEDS: FLAGYL 500 MG/100 ML 500 MG/100 ML BAG IV SCH ×4 (06:36→21:58)
[2019-03-23] MEDS: SYNTHROID IV SCH (06:37)
[2019-03-23] MEDS: ZOVIRAX IV SCH ×3 (06:45→22:37)
[2019-03-23] MEDS: NACL 0.9% IV SCH ×3 (06:45→22:37)
[2019-03-23] MEDS: TYLENOL PO PRN (07:23)
[2019-03-23] MEDS: NORMODYNE IV PRN (07:23)
--- NOTE | 2019-03-23 07:30 | Consultation ---
HISTORY OF PRESENT ILLNESS: This is a 28-year-old white male that enters [facility] as a result of a complicated matter 2 days ago on 03/19/2019. 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 He apparently had been drinking alcohol, taking opiates when he became disoriented and may have passed out in the field He was brought to an urgent care center. He subsequently received Narcan and from what was described to me, he may have had a cardiac arrest at that point, but he was hyperthermic. He had a blood alcohol of 0.30 and had taken an unknown quantity for opiates. By history, he is a known alcoholic. He has a prior history of pancreatitis. He takes no medications. Since admission, it has been determined that he does have hepatitis C. I spoke both the mother and the father, neither of whom states he has neurological problems. PHYSICAL EXAMINATION: Examination at this point shows he is breathing about 40, 14 on the vent, ____ the vent, but these were gasping respirations, more agonal, he does not move his arms or legs. He has intact doll's eye maneuver. Pupils are 4 mm, reactive to light minimally. He does not respond to voice command, does not respond to spontaneous command with eye opening, eye tracking, does not move any extremities. He has no reaction to pain peripherally over the arms and legs. Sensory examination, no response to pain. No peripheral reflexes are present. He does not have a gag reflex either. He does have a very primitive blink reflex and positive doll's eye. IMPRESSION: This patient has a mixed encephalopathy. Obviously hyperthermic, hypotensive related also to factors including the opiates and ____ factors including a toxic level of alcohol in his system. I pointed out to the mother and the father both the complexity of prognosis in this case since this is a mixed drug overdose and also a cardiac arrest. Further assessment will be made, we will get an EEG. JOB# [id number] SARATH/NTS
[2019-03-23] MEDS ORDERED: NACL 0.9% 1000 ML 1,000 ML ONE (07:47)
[2019-03-23] MEDS ORDERED: LEVOPHED DRIP 4 MG/NS 250 ML 4 MG/250 ML BAG IV ONE (08:01)
--- NOTE | 2019-03-23 08:14 | Progress Note ---
Assessment and Plan Assessment and plan: s/p cardiopulmonary arrest outside hospital Resuscitated, intubated, Admitted to ICU Pulm following Patient had another episode of cardiac arrest today at 07:54. Code Blue was called. Code run per protocol he was given 4 doses of Epinephrine, biacarb. CPR. He regained pulse 08:06. Acute resp failure Intubated Myxedema coma Continue Levothyroxine iv Alcohol intoxication Fever of 102 on admission persistent fever Blood cultures drawn. Consulted ID and he was evaluated Started on Ceftriaxone, Flagyl, Vanco to r/o meningitis lactic acidosis Toxic metabolic encephalopathy Elevated LFT may be alcohol hepatitis vs hep C Monitor History of Polysubstance abuse. Mom at bedside says he used illicit drugs, pills and injectables Hepatitis C Ab pos May consult GI when stable Hypernatremia continue D5W NICK due to ATN, post cardiac arrest Consult Nephrology Hypotension,post code start Levophed Full code status Discussed with his mother after code and discussed guarded prognosis after 2 car diac arrest episodes History Interval history: Patient had cardiac arrest today 03/23/19 at 07:54, code run pre protocol, resuscitated 08:06 Hospitalist Physical - Physical exam Narrative exam: Gen: intubated, on vent HEENT: Normocephalic, atraumatic Neck: supple, no JVD Heart: S1 and S2 reg, tachy, no murmurs, rubs or gallop Lungs: Clear, no crackles Abd: soft, non tender, non distended, normal BS Ext: No edema, no clubbing, no cyanosis, Neuro: Intubated, does not follow commands - Constitutional Vitals: Temp Pulse Resp BP Pulse Ox 105.5 F H 145 H 32 H 170/80 96 03/23/19 07:34 03/23/19 07:00 03/23/19 07:00 03/23/19 07:00 03/23/19 06:31 General appearance: Present: other (unresponsive on the vent) Results - Labs CBC & Chem 7: 03/23/19 08:56 03/23/19 08:56 Labs: Laboratory Last Values WBC 12.9 K/mm3 (4.5-11.0) H 03/23/19 04:30 RBC 4.20 M/mm3 (3.65-5.03) 03/23/19 04:30 Hgb 14.1 gm/dl (11.8-15.2) 03/23/19 04:30 Hct 42.6 % (35.5-45.6) 03/23/19 04:30 MCV 102 fl (84-94) H 03/23/19 04:30 MCH 34 pg (28-32) H 03/23/19 04:30 MCHC 33 % (32-34) 03/23/19 04:30 RDW 12.6 % (13.2-15.2) L 03/23/19 04:30 Plt Count 115 K/mm3 (140-440) L 03/23/19 04:30 Lymph % (Auto) Broadcast Transmitter Operator 03/20/19 16:25 Lymph # Broadcast Transmitter Operator 03/20/19 16:25 Add Manual Diff Complete 03/21/19 04:00 Total Counted 100 03/21/19 04:00 Seg Neutrophils % Broadcast Transmitter Operator 03/20/19 16:25 Seg Neuts % (Manual) 90.0 % (40.0-70.0) H 03/21/19 04:00 1.0 % 03/21/19 04:00 7.0 % (13.4-35.0) L 03/21/19 04:00 Reactive Lymphs % (Man) 0 % 03/21/19 04:00 2.0 % (0.0-7.3) 03/21/19 04:00 0 % (0.0-4.3) 03/21/19 04:00 0 % (0.0-1.8) 03/21/19 04:00 0 % 03/21/19 04:00 0 % 03/21/19 04:00 0 % 03/21/19 04:00 0 % 03/21/19 04:00 Nucleated RBC % Not Reportable 03/21/19 04:00 Seg Neutrophils # Man 18.0 K/mm3 (1.8-7.7) H 03/21/19 04:00 Band Neutrophils # 0.2 K/mm3 03/21/19 04:00 1.4 K/mm3 (1.2-5.4) 03/21/19 04:00 Abs React Lymphs (Man) 0.0 K/mm3 03/21/19 04:00 0.4 K/mm3 (0.0-0.8) 03/21/19 04:00 0.0 K/mm3 (0.0-0.4) 03/21/19 04:00 0.0 K/mm3 (0.0-0.1) 03/21/19 04:00 0.0 K/mm3 03/21/19 04:00 0.0 K/mm3 03/21/19 04:00 0.0 K/mm3 03/21/19 04:00 Blast Cells # 0.0 K/mm3 03/21/19 04:00 WBC Morphology Not Reportable 03/21/19 04:00 Hypersegmented Neuts Not Reportable 03/21/19 04:00 Hyposegmented Neuts Not Reportable 03/21/19 04:00 Hypogranular Neuts Not Reportable 03/21/19 04:00 Not Reportable 03/21/19 04:00 Not Reportable 03/21/19 04:00 Not Reportable 03/21/19 04:00 Not Reportable 03/21/19 04:00 Not Reportable 03/21/19 04:00 Not Reportable 03/21/19 04:00 Consistent w auto 03/21/19 04:00 Not Reportable 03/21/19 04:00 Plt Clumps, EDTA Not Reportable 03/21/19 04:00 Not Reportable 03/21/19 04:00 Not Reportable 03/21/19 04:00 Not Reportable 03/21/19 04:00 Plt Morphology Comment Not Reportable 03/21/19 04:00 RBC Morphology Normal 03/21/19 04:00 Dimorphic RBCs Not Reportable 03/21/19 04:00 Not Reportable 03/21/19 04:00 Not Reportable 03/21/19 04:00 Not Reportable 03/21/19 04:00 Not Reportable 03/21/19 04:00 Not Reportable 03/21/19 04:00 Not Reportable 03/21/19 04:00 Not Reportable 03/21/19 04:00 Not Reportable 03/21/19 04:00 Not Reportable 03/21/19 04:00 Not Reportable 03/21/19 04:00 Not Reportable 03/21/19 04:00 Not Reportable 03/21/19 04:00 Not Reportable 03/21/19 04:00 Not Reportable 03/21/19 04:00 Not Reportable 03/21/19 04:00 Not Reportable 03/21/19 04:00 Not Reportable 03/21/19 04:00 Not Reportable 03/21/19 04:00 Not Reportable 03/21/19 04:00 Acanthocytes (Spur) Not Reportable 03/21/19 04:00 Rouleaux Not Reportable 03/21/19 04:00 Not Reportable 03/21/19 04:00 Not Reportable 03/21/19 04:00 Not Reportable 03/21/19 04:00 Not Reportable 03/21/19 04:00 Hem Pathologist Commnt No 03/21/19 04:00 PT 12.9 Sec. (12.2-14.9) 03/20/19 16:31 INR 0.92 (0.87-1.13) 03/20/19 16:31 APTT 29.1 Sec. (24.2-36.6) 03/20/19 16:31 POC ABG pH 7.481 (7.35-7.45) H 03/23/19 04:38 POC ABG pCO2 33.8 (35-45) L 03/23/19 04:38 POC ABG pO2 85 (80-105) 03/23/19 04:38 POC ABG HCO3 25.2 (22-26 mml/L) 03/23/19 04:38 POC ABG Total CO2 26 (23-27mmol/L) 03/23/19 04:38 POC ABG O2 Sat 97 03/23/19 04:38 POC ABG Base Excess 2 ((-2) - (+3)mmol/L) 03/23/19 04:38 VBG pH 7.091 (7.320-7.420) L* 03/20/19 16:25 30 % 03/23/19 04:38 Sodium 156 mmol/L (137-145) H 03/23/19 04:30 Potassium 4.1 mmol/L (3.6-5.0) 03/23/19 04:30 Chloride 121.4 mmol/L (98-107) H 03/23/19 04:30 Carbon Dioxide 21 mmol/L (22-30) L 03/23/19 04:30 18 mmol/L 03/23/19 04:30 BUN 24 mg/dL (9-20) H 03/23/19 04:30 0.9 mg/dL (0.8-1.5) 03/23/19 04:30 Estimated GFR > 60 ml/min 03/23/19 04:30 27 % 03/23/19 04:30 Glucose 148 mg/dL (75-100) H 03/23/19 04:30 POC Glucose 144 (70-105) H 03/22/19 17:44 Lactic Acid 1.90 mmol/L (0.7-2.0) 03/22/19 04:20 Calcium 7.9 mg/dL (8.4-10.2) L 03/23/19 04:30 Phosphorus 1.90 mg/dL (2.5-4.5) L 03/23/19 04:30 Magnesium 2.30 mg/dL (1.7-2.3) 03/23/19 04:30 0.80 mg/dL (0.1-1.2) 03/23/19 04:30 AST 166 units/L (5-40) H 03/23/19 04:30 ALT 96 units/L (7-56) H 03/23/19 04:30 76 units/L (35-129) 03/23/19 04:30 10.0 umol/L (25-60) L 03/20/19 16:25 380 units/L (55-170) H 03/20/19 16:25 CK-MB (CK-2) 1.0 ng/mL (0.0-4.0) 03/20/19 16:25 CK-MB (CK-2) Rel Index 0.2 (0-4) 03/20/19 16:25 0.074 ng/mL (0.00-0.029) H D 03/21/19 14:41 4.90 mg/dL (0.00-1.30) H 03/21/19 15:59 6.0 g/dL (6.3-8.2) L 03/23/19 04:30 3.3 g/dL (3.9-5) L 03/23/19 04:30 1.2 % 03/23/19 04:30 Triglycerides 166 mg/dL (2-149) H 03/21/19 09:32 Cholesterol 194 mg/dL (50-199) 03/21/19 09:32 122 mg/dL (50-130) 03/21/19 09:32 63 mg/dL (40-59) H 03/21/19 09:32 3.07 % 03/21/19 09:32 TSH 17.340 mlU/mL (0.270-4.200) H 03/20/19 16:25 Free T4 0.69 ng/dL (0.76-1.46) L 03/20/19 16:25 Jeannie (Yellow) 03/20/19 17:35 Cloudy (Clear) 03/20/19 17:35 7.0 (5.0-7.0) 03/20/19 17:35 Ur Specific Prospect 1.012 (1.003-1.030) 03/20/19 17:35 100 mg/dl mg/dL (Negative) 03/20/19 17:35 50 mg/dL (Negative) 03/20/19 17:35 Neg mg/dL (Negative) 03/20/19 17:35 Sm (Negative) 03/20/19 17:35 Neg (Negative) 03/20/19 17:35 Neg (Negative) 03/20/19 17:35 < 2.0 mg/dL (<2.0) 03/20/19 17:35 Ur Leukocyte Esterase Neg (Negative) 03/20/19 17:35 19.0 /HPF (0.0-6.0) H 03/20/19 17:35 46.0 /HPF (0.0-6.0) 03/20/19 17:35 U Epithel Cells (Auto) 1.0 /HPF (0-13.0) 03/20/19 17:35 1+ /HPF (Negative) 03/20/19 17:35 Hyaline Casts 1 /LPF 03/20/19 17:35 3+ /HPF 03/20/19 17:35 2+ /HPF 03/20/19 17:35 1+ /HPF ([employer]) 03/20/19 17:35 Salicylates < 0.3 mg/dL (2.8-20.0) L 03/20/19 16:25 Presumptive positive 03/20/19 17:36 Presumptive negative 03/20/19 17:36 Acetaminophen < 5.0 ug/mL (10.0-30.0) L 03/20/19 16:25 Ur Barbiturates Screen Presumptive negative 03/20/19 17:36 Ur Phencyclidine Scrn Presumptive negative 03/20/19 17:36 Ur Amphetamines Screen Presumptive negative 03/20/19 17:36 U Benzodiazepines Scrn Presumptive negative 03/20/19 17:36 Presumptive negative 03/20/19 17:36 U Marijuana (THC) Screen Presumptive positive 03/20/19 17:36 Disclamer 03/20/19 17:36 Plasma/Serum Alcohol < 0.01 % (0-0.07) 03/21/19 09:32 Hepatitis A IgM Ab Non-reactive (NonReactive) 03/21/19 15:59 Hep Bs Antigen Non-reactive (Negative) 03/21/19 15:59 Hep B Core IgM Ab Non-reactive (NonReactive) 03/21/19 15:59 Reactive (NonReactive) A 03/21/19 15:59 HIV 1&2 Antibody Rapid Non react (Non React) 03/21/19 15:59 Non react (Non React) 03/21/19 15:59 Influenza A (Rapid) Negative (Negative) 03/21/19 18:45 Influenza A (RT-PCR) Negative (Negative) 03/21/19 18:45 Influenza B (Rapid) Negative (Negative) 03/21/19 18:45 Influenza B (RT-PCR) Negative (Negative) 03/21/19 18:45 Active Medications - Current Medications Current Medications: Generic Name Dose Route Start Last Admin Trade Name Freq PRN Reason Stop Dose Admin Acetaminophen 1,000 mg 03/22/19 23:00 03/23/19 07:23 Tylenol PO 1,000 mg Q6H PRN Administration Fever >101 Albuterol 2.5 mg 03/20/19 16:55 Proventil IH Q3HRT PRN Shortness Of Breath Lipase/Protease/Amylase 1 each 03/22/19 12:16 Pancreaze 10,500 Unit FEEDTUBE PRN PRN For Clogged Feeding Tube Enoxaparin Sodium 40 mg 03/20/19 22:00 03/21/19 21:39 Lovenox SUB-Q 40 mg QDAY@2200 RICHARD Administration Famotidine 20 mg 03/21/19 10:00 03/22/19 22:58 Pepcid IV 20 mg BID RICHARD Administration Glucagon 10 mg 03/23/19 08:08 Glucagen IV 03/23/19 08:09 ONCE ONE Hydrophilic Ointment 1 applic 03/20/19 18:02 Vaseline Lip Therapy TP Q2HR PRN Dry Lips Metronidazole 500 mg in 100 mls @ 100 mls/hr 03/21/19 16:00 03/23/19 06:43 Flagyl 500 Mg/100 Ml IV 100 mls/hr Q8HR RICHARD Administration Protocol Vancomycin HCl 1,250 mg/ 275 mls @ 166.667 mls/hr 03/22/19 05:00 03/23/19 05:35 Sodium Chloride IV 166.667 mls/hr Q12H RICHARD Administration Ceftriaxone Sodium 2 gm in 100 mls @ 200 mls/hr 03/22/19 14:00 03/22/19 16:39 Rocephin/Ns 2 Gm/100 Ml IV 200 mls/hr Q12HR RICHARD Administration Protocol Acyclovir 780 mg/ Sodium 115.6 mls @ 100 mls/hr 03/22/19 14:00 03/23/19 06:45 Chloride IV 100 mls/hr Q8HR RICHARD Administration Protocol Potassium Chloride 20 meq/ 1,010 mls @ 100 mls/hr 03/23/19 02:00 03/23/19 02:10 Dextrose IV 100 mls/hr DIRECT RICHARD Administration Potassium Phosphate 15 mmol/ 255 mls @ 125 mls/hr 03/23/19 08:00 Sodium Chloride IV 03/23/19 10:02 ONCE ONE Labetalol HCl 10 mg 03/22/19 10:44 03/23/19 07:23 Normodyne IV 10 mg Q4H PRN Administration SBP >/=160 Levothyroxine Sodium 100 mcg 03/20/19 21:04 03/23/19 06:37 Synthroid IV 100 mcg DAILY@0600 RICHARD Administration Multi-Ingred Cream/Lotion/Oil/Oint 1 applic 03/20/19 18:02 Artificial Tears Ophth Oint OU Q4HR PRN Dry Eye(s) Simple Syrup 15 ml 03/22/19 12:16 Simple Syrup FEEDTUBE PRN PRN Hypoglycemia Simple Syrup 30 ml 03/22/19 12:16 Simple Syrup FEEDTUBE PRN PRN Hypoglycemia Sodium Bicarbonate 325 mg 03/22/19 12:16 Sodium Bicarbonate FEEDTUBE PRN PRN For Clogged Feeding Tube Sodium Chloride 10 ml 03/20/19 22:00 03/22/19 09:57 Sodium Chloride Flush Syringe 10 Ml IV 10 ml BID RICHARD Administration Sodium Chloride 10 ml 03/20/19 16:55 03/21/19 18:56 Sodium Chloride Flush Syringe 10 Ml IV 10 ml PRN PRN Administration LINE FLUSH Nutrition/Malnutrition Assess - Dietary Evaluation Nutrition/Malnutrition Findings: Nutrition Notes Start: 03/21/19 12:53 Freq: Status: Active Protocol: Document 03/22/19 12:05 CP (Rec: 03/22/19 12:48 CP [id number]) Co-Sign 03/22/19 12:05 LP Nutrition Notes Initial or Follow up Assessment Current Diagnosis Respiratory Failure Other Pertinent Diagnosis Myxedema coma, DVT prophylaxis , alcohol intoxication Current Diet NPO Labs/Tests Na 156 K 3.5 Glu 144 Phos 2.0 Mg 1.5 Pertinent Medications Reviewed Height 5 ft 8 in Weight 78 kg Duncan Body Weight (kg) 70.00 BMI 26.1 Weight Status Obese Subjective/Other Information F/U for diet advancement. Pt is currently NPO, but consulted for TF as discussed in rounds per MD. Burn Absent Trauma Absent #1 Nutrition Diagnosis Inadequate oral intake Etiology Mechanical vent As Evidenced by Signs and Symptoms NPO status Is patient on ventilator? Yes Is Patient Ambulatory and/or Out of Bed No REE-([facility]-confined to bed) 2058.344 Calculation Used for Recommendations [facility] Additional Notes Pro: (1.2-2g/kg) 94-156g/day Fluid: 1mL/kcal or per MD request Nutrition Intervention Change Diet Order: Advance to TF (Vital AF 1.2) Nutrition Support: Vital AF 1.2 at 70 mL/hr Water flush 100 mL q4h. Kcal 2,016 Protein (gm) 126 Fluid (mL) 1,680 Fiber (gm) 0 Goal #1 TF to start Goal #2 TF tolerance Anticipated Discharge Needs: Unable to determine at this time Follow-Up By: 03/24/19 Additional Comments F/U: TF to start/TF tolerance
--- NOTE | 2019-03-23 08:14 | Event Note ---
Date: 03/23/19 Patient had cardio-pulm arrest, PEA at 07:54. [facility] called, run as per ACLS protocol. CPR done. He was given 4 doses of Epinephrine iv, one dose of Bicarb iv. He was resuscitated with return of pulse 08:06. I discussed with mother.
[2019-03-23] MEDS ORDERED: GLUCAGEN IV ONE (08:30)
--- NOTE | 2019-03-23 08:58 | XRay Report ---
PORTABLE CHEST INDICATION: Cardiopulmonary arrest. COMPARISON: 03/20/2019 FINDINGS: Portable, frontal chest radiograph again demonstrates endotracheal tube tip approximately 3 cm above the david. New esophagogastric tube extends beyond the GE junction and the inferior radiographic margin. New subcutaneous emphysema noted, greatest right supraclavicular and left axillary. Subtle pneumomediastinum also difficult to entirely exclude. Lungs though remain clear. Normal cardiomediastinal silhouette. Intact bones. EKG leads. CONCLUSION: 1. New subcutaneous emphysema. No pneumothorax, though subtle pneumomediastinum difficult to exclude. 2. Stable endotracheal tube and a new esophagogastric tube. Thank you for the opportunity to participate in this patient's care.
[2019-03-23] MEDS ORDERED: D5NS 2,000 ML IV SCH (09:00)
[2019-03-23 09:30] LABS: Hematocrit 38.3 % (35.5-45.6); Hemoglobin 12.4 gm/dl (11.8-15.2); Mean Corpuscular HGB Conc 32 % (32-34); Mean Corpuscular Volume 103 fl (84-94); Platelet Count 107 K/mm3 (140-440); Red Blood Count 3.71 M/mm3 (3.65-5.03); Red Cell Distribution Width 13.2 % (13.2-15.2)
[2019-03-23 09:39] LABS: Albumin 2.7 g/dL (3.9-5); Calcium 7.2 mg/dL (8.4-10.2)
[2019-03-23] MEDS: KPHOS 15 MMOL in NACL 0.9% 250ML 250 ML IV ONE ×2 (09:39→10:17)
[2019-03-23] MEDS: LEVOPHED DRIP 4 MG/NS 250 ML 4 MG/250 ML BAG IV SCH (09:56)
[2019-03-23] MEDS ORDERED: NACL 0.9% 1000 ML 1,000 ML IV ONE (10:00)
--- NOTE | 2019-03-23 10:15 | Progress Note ---
Subjective Date of service: 03/23/19 Principal diagnosis: fever Interval history: spoke with both the father and mother of the patient... issue of hyperthermia, alcohol and opiates are difficult to sort through as contributing to Cardiac Arrest ... await getting EEG for more input then another CT likely Wednesday looking for anoxia Objective - Vital Sign Vital Signs - 12hr 03/22/19 03/22/19 03/22/19 22:15 22:31 22:45 Temperature Pulse Rate 117 H 116 H 120 H Pulse Rate [ From Monitor] Pulse Rate [ None] Respiratory 23 22 30 H Rate Blood Pressure 168/107 168/107 168/107 O2 Sat by Pulse 99 99 99 Oximetry 03/22/19 03/22/19 03/22/19 23:00 23:15 23:24 Temperature Pulse Rate 119 H 125 H 124 H Pulse Rate [ From Monitor] Pulse Rate [ None] Respiratory 24 23 Rate Blood Pressure 167/113 167/113 167/103 O2 Sat by Pulse 99 99 99 Oximetry 03/22/19 03/22/19 03/23/19 23:31 23:45 00:00 Temperature 103.4 F H Pulse Rate 125 H 126 H 130 H Pulse Rate [ 131 H From Monitor] Pulse Rate [ None] Respiratory 25 H 25 H 25 H Rate Blood Pressure 167/113 167/113 162/112 O2 Sat by Pulse 99 99 99 Oximetry 03/23/19 03/23/19 03/23/19 00:15 00:31 00:45 Temperature Pulse Rate 133 H 130 H 136 H Pulse Rate [ From Monitor] Pulse Rate [ None] Respiratory 25 H 21 21 Rate Blood Pressure 162/112 162/112 162/112 O2 Sat by Pulse 97 97 97 Oximetry 03/23/19 03/23/19 03/23/19 01:00 01:15 01:31 Temperature Pulse Rate 138 H 138 H 141 H Pulse Rate [ From Monitor] Pulse Rate [ None] Respiratory 23 24 21 Rate Blood Pressure 144/85 144/85 144/85 O2 Sat by Pulse 97 97 98 Oximetry 03/23/19 03/23/19 03/23/19 01:45 02:00 02:15 Temperature Pulse Rate 138 H 136 H 135 H Pulse Rate [ From Monitor] Pulse Rate [ None] Respiratory 19 24 21 Rate Blood Pressure 144/85 144/88 144/88 O2 Sat by Pulse 98 98 98 Oximetry 03/23/19 03/23/19 03/23/19 02:31 02:45 03:00 Temperature Pulse Rate 137 H 136 H 136 H Pulse Rate [ From Monitor] Pulse Rate [ None] Respiratory 22 25 H 23 Rate Blood Pressure 144/88 144/88 144/88 O2 Sat by Pulse 98 99 99 Oximetry 03/23/19 03/23/19 03/23/19 03:15 03:22 03:31 Temperature Pulse Rate 137 H 136 H 137 H Pulse Rate [ From Monitor] Pulse Rate [ None] Respiratory 21 25 H Rate Blood Pressure 148/95 148/95 148/95 O2 Sat by Pulse 99 99 99 Oximetry 03/23/19 03/23/19 03/23/19 03:45 04:00 04:15 Temperature 102.3 F H Pulse Rate 138 H 136 H 136 H Pulse Rate [ 138 H From Monitor] Pulse Rate [ None] Respiratory 28 H 28 H 31 H Rate Blood Pressure 148/95 153/93 153/93 O2 Sat by Pulse 99 100 99 Oximetry 03/23/19 03/23/19 03/23/19 04:31 04:45 05:00 Temperature Pulse Rate 135 H 134 H 133 H Pulse Rate [ From Monitor] Pulse Rate [ None] Respiratory 23 29 H 22 Rate Blood Pressure 153/93 153/93 148/100 O2 Sat by Pulse 98 98 99 Oximetry 03/23/19 03/23/19 03/23/19 05:15 05:31 05:45 Temperature Pulse Rate 136 H 137 H 136 H Pulse Rate [ From Monitor] Pulse Rate [ None] Respiratory 31 H 26 H 28 H Rate Blood Pressure 148/100 148/100 148/100 O2 Sat by Pulse 98 98 99 Oximetry 03/23/19 03/23/19 03/23/19 06:00 06:15 06:31 Temperature Pulse Rate 134 H 137 H 140 H Pulse Rate [ From Monitor] Pulse Rate [ None] Respiratory 28 H 29 H 25 H Rate Blood Pressure 146/91 146/91 146/91 O2 Sat by Pulse 97 97 96 Oximetry 03/23/19 03/23/19 03/23/19 07:00 07:01 07:34 Temperature 105.5 F H Pulse Rate 142 H Pulse Rate [ From Monitor] Pulse Rate [ 145 H None] Respiratory 32 H 25 H Rate Blood Pressure 170/80 125/72 O2 Sat by Pulse 96 Oximetry 03/23/19 03/23/19 03/23/19 08:01 08:10 09:00 Temperature Pulse Rate 137 H 88 111 H Pulse Rate [ From Monitor] Pulse Rate [ None] Respiratory 29 H Rate Blood Pressure 86/61 57/23 94/71 O2 Sat by Pulse 82 L 95 90 Oximetry 03/23/19 10:00 Temperature Pulse Rate 99 H Pulse Rate [ From Monitor] Pulse Rate [ None] Respiratory 23 Rate Blood Pressure 123/80 O2 Sat by Pulse 98 Oximetry - Laboratory Findings CBC and BMP: 03/23/19 08:56 03/23/19 08:56 Abnormal Lab Findings: Abnormal Labs 03/20/19 03/20/19 03/20/19 16:25 16:25 16:25 WBC Hgb Hct MCV 101 H MCH 33 H RDW 12.9 L Plt Count Seg Neuts % (Manual) 36.0 L Lymphocytes % (Manual) 60.0 H Seg Neutrophils # Man Lymphocytes # (Manual) 6.0 H POC ABG pH POC ABG pCO2 POC ABG pO2 VBG pH Sodium Potassium Chloride Carbon Dioxide 18 L BUN Creatinine Glucose 159 H POC Glucose Lactic Acid 9.50 H* Calcium 7.6 L Phosphorus Magnesium AST 276 H ALT 165 H Alkaline Phosphatase 139 H Ammonia Total Creatine Kinase 380 H Troponin T C-Reactive Protein Total Protein Albumin Triglycerides HDL Cholesterol TSH Free T4 Urine WBC (Auto) Salicylates Acetaminophen Plasma/Serum Alcohol Hepatitis C Antibody 03/20/19 03/20/19 03/20/19 16:25 16:25 16:25 WBC Hgb Hct MCV MCH RDW Plt Count Seg Neuts % (Manual) Lymphocytes % (Manual) Seg Neutrophils # Man Lymphocytes # (Manual) POC ABG pH POC ABG pCO2 POC ABG pO2 VBG pH Sodium Potassium Chloride Carbon Dioxide BUN Creatinine Glucose POC Glucose Lactic Acid Calcium Phosphorus Magnesium 2.40 H AST ALT Alkaline Phosphatase Ammonia 10.0 L Total Creatine Kinase Troponin T C-Reactive Protein Total Protein Albumin Triglycerides HDL Cholesterol TSH 17.340 H Free T4 0.69 L Urine WBC (Auto) Salicylates Acetaminophen Plasma/Serum Alcohol Hepatitis C Antibody 03/20/19 03/20/19 03/20/19 16:25 16:25 16:25 WBC Hgb Hct MCV MCH RDW Plt Count Seg Neuts % (Manual) Lymphocytes % (Manual) Seg Neutrophils # Man Lymphocytes # (Manual) POC ABG pH POC ABG pCO2 POC ABG pO2 VBG pH Sodium Potassium Chloride Carbon Dioxide BUN Creatinine Glucose POC Glucose Lactic Acid Calcium Phosphorus Magnesium AST ALT Alkaline Phosphatase Ammonia Total Creatine Kinase Troponin T C-Reactive Protein Total Protein Albumin Triglycerides HDL Cholesterol TSH Free T4 Urine WBC (Auto) Salicylates < 0.3 L Acetaminophen < 5.0 L Plasma/Serum Alcohol 0.32 H Hepatitis C Antibody 03/20/19 03/20/19 03/20/19 16:25 16:34 16:51 WBC Hgb Hct MCV MCH RDW Plt Count Seg Neuts % (Manual) Lymphocytes % (Manual) Seg Neutrophils # Man Lymphocytes # (Manual) POC ABG pH 7.041 L POC ABG pCO2 68.9 H POC ABG pO2 381 H VBG pH 7.091 L* Sodium Potassium Chloride Carbon Dioxide BUN Creatinine Glucose POC Glucose 130 H Lactic Acid Calcium Phosphorus Magnesium AST ALT Alkaline Phosphatase Ammonia Total Creatine Kinase Troponin T C-Reactive Protein Total Protein Albumin Triglycerides HDL Cholesterol TSH Free T4 Urine WBC (Auto) Salicylates Acetaminophen Plasma/Serum Alcohol Hepatitis C Antibody 03/20/19 03/20/19 03/20/19 17:35 17:53 19:17 WBC Hgb Hct MCV MCH RDW Plt Count Seg Neuts % (Manual) Lymphocytes % (Manual) Seg Neutrophils # Man Lymphocytes # (Manual) POC ABG pH 7.305 L POC ABG pCO2 POC ABG pO2 262 H VBG pH Sodium Potassium Chloride Carbon Dioxide BUN Creatinine Glucose POC Glucose Lactic Acid 6.90 H* Calcium Phosphorus Magnesium AST ALT Alkaline Phosphatase Ammonia Total Creatine Kinase Troponin T C-Reactive Protein Total Protein Albumin Triglycerides HDL Cholesterol TSH Free T4 Urine WBC (Auto) 19.0 H Salicylates Acetaminophen Plasma/Serum Alcohol Hepatitis C Antibody 03/20/19 03/20/19 03/21/19 20:40 22:38 03:41 WBC Hgb Hct MCV MCH RDW Plt Count Seg Neuts % (Manual) Lymphocytes % (Manual) Seg Neutrophils # Man Lymphocytes # (Manual) POC ABG pH POC ABG pCO2 31.4 L POC ABG pO2 195 H VBG pH Sodium Potassium Chloride Carbon Dioxide BUN Creatinine Glucose POC Glucose 117 H Lactic Acid 6.30 H* Calcium Phosphorus Magnesium AST ALT Alkaline Phosphatase Ammonia Total Creatine Kinase Troponin T C-Reactive Protein Total Protein Albumin Triglycerides HDL Cholesterol TSH Free T4 Urine WBC (Auto) Salicylates Acetaminophen Plasma/Serum Alcohol Hepatitis C Antibody 03/21/19 03/21/19 03/21/19 04:00 09:32 09:32 WBC 20.0 H 17.3 H Hgb 15.9 H 16.1 H Hct 47.3 H 47.8 H MCV 99 H 98 H MCH 33 H 33 H RDW 12.8 L 12.7 L Plt Count Seg Neuts % (Manual) 90.0 H Lymphocytes % (Manual) 7.0 L Seg Neutrophils # Man 18.0 H Lymphocytes # (Manual) POC ABG pH POC ABG pCO2 POC ABG pO2 VBG pH Sodium Potassium Chloride Carbon Dioxide BUN Creatinine Glucose POC Glucose Lactic Acid Calcium Phosphorus Magnesium AST ALT Alkaline Phosphatase Ammonia Total Creatine Kinase Troponin T 0.054 H D C-Reactive Protein Total Protein Albumin Triglycerides 166 H HDL Cholesterol 63 H TSH Free T4 Urine WBC (Auto) Salicylates Acetaminophen Plasma/Serum Alcohol Hepatitis C Antibody 03/21/19 03/21/19 03/21/19 09:46 14:41 15:59 WBC Hgb Hct MCV MCH RDW Plt Count Seg Neuts % (Manual) Lymphocytes % (Manual) Seg Neutrophils # Man Lymphocytes # (Manual) POC ABG pH POC ABG pCO2 POC ABG pO2 VBG pH Sodium 148 H Potassium Chloride Carbon Dioxide 20 L BUN Creatinine Glucose 171 H POC Glucose Lactic Acid Calcium Phosphorus Magnesium AST 253 H ALT 218 H Alkaline Phosphatase 146 H Ammonia Total Creatine Kinase Troponin T 0.074 H D C-Reactive Protein 4.90 H Total Protein Albumin Triglycerides HDL Cholesterol TSH Free T4 Urine WBC (Auto) Salicylates Acetaminophen Plasma/Serum Alcohol Hepatitis C Antibody 03/21/19 03/22/19 03/22/19 15:59 04:20 04:20 WBC 20.0 H Hgb Hct MCV 99 H MCH 33 H RDW 12.9 L Plt Count Seg Neuts % (Manual) Lymphocytes % (Manual) Seg Neutrophils # Man Lymphocytes # (Manual) POC ABG pH POC ABG pCO2 POC ABG pO2 VBG pH Sodium 156 H D Potassium 3.5 L Chloride 117.2 H Carbon Dioxide BUN Creatinine Glucose 144 H POC Glucose Lactic Acid Calcium 8.1 L Phosphorus Magnesium AST 205 H ALT 156 H Alkaline Phosphatase Ammonia Total Creatine Kinase Troponin T C-Reactive Protein Total Protein Albumin 3.6 L Triglycerides HDL Cholesterol TSH Free T4 Urine WBC (Auto) Salicylates Acetaminophen Plasma/Serum Alcohol Hepatitis C Antibody Reactive A 03/22/19 03/22/19 03/22/19 04:20 04:26 12:40 WBC Hgb Hct MCV MCH RDW Plt Count Seg Neuts % (Manual) Lymphocytes % (Manual) Seg Neutrophils # Man Lymphocytes # (Manual) POC ABG pH POC ABG pCO2 32.8 L POC ABG pO2 66 L VBG pH Sodium Potassium Chloride Carbon Dioxide BUN Creatinine Glucose POC Glucose 171 H Lactic Acid Calcium Phosphorus 2.00 L Magnesium 1.50 L AST ALT Alkaline Phosphatase Ammonia Total Creatine Kinase Troponin T C-Reactive Protein Total Protein Albumin Triglycerides HDL Cholesterol TSH Free T4 Urine WBC (Auto) Salicylates Acetaminophen Plasma/Serum Alcohol Hepatitis C Antibody 03/22/19 03/22/19 03/23/19 17:44 20:28 04:30 WBC 12.9 H Hgb Hct MCV 102 H MCH 34 H RDW 12.6 L Plt Count 115 L Seg Neuts % (Manual) Lymphocytes % (Manual) Seg Neutrophils # Man Lymphocytes # (Manual) POC ABG pH POC ABG pCO2 POC ABG pO2 VBG pH Sodium 158 H Potassium 3.5 L Chloride 121.5 H Carbon Dioxide BUN 23 H Creatinine Glucose 199 H POC Glucose 144 H Lactic Acid Calcium 8.0 L Phosphorus Magnesium 2.50 H AST ALT Alkaline Phosphatase Ammonia Total Creatine Kinase Troponin T C-Reactive Protein Total Protein Albumin Triglycerides HDL Cholesterol TSH Free T4 Urine WBC (Auto) Salicylates Acetaminophen Plasma/Serum Alcohol Hepatitis C Antibody 03/23/19 03/23/19 03/23/19 04:30 04:38 08:56 WBC Hgb Hct MCV 103 H MCH 33 H RDW Plt Count 107 L Seg Neuts % (Manual) Lymphocytes % (Manual) Seg Neutrophils # Man Lymphocytes # (Manual) POC ABG pH 7.481 H POC ABG pCO2 33.8 L POC ABG pO2 VBG pH Sodium 156 H Potassium Chloride 121.4 H Carbon Dioxide 21 L BUN 24 H Creatinine Glucose 148 H POC Glucose Lactic Acid Calcium 7.9 L Phosphorus 1.90 L Magnesium AST 166 H ALT 96 H Alkaline Phosphatase Ammonia Total Creatine Kinase Troponin T C-Reactive Protein Total Protein 6.0 L Albumin 3.3 L Triglycerides HDL Cholesterol TSH Free T4 Urine WBC (Auto) Salicylates Acetaminophen Plasma/Serum Alcohol Hepatitis C Antibody 03/23/19 08:56 WBC Hgb Hct MCV MCH RDW Plt Count Seg Neuts % (Manual) Lymphocytes % (Manual) Seg Neutrophils # Man Lymphocytes # (Manual) POC ABG pH POC ABG pCO2 POC ABG pO2 VBG pH Sodium 161 H* Potassium Chloride 121.5 H Carbon Dioxide BUN 27 H Creatinine 1.9 H D Glucose 248 H POC Glucose Lactic Acid Calcium 7.2 L Phosphorus 5.40 H D Magnesium AST 146 H ALT 79 H Alkaline Phosphatase Ammonia Total Creatine Kinase Troponin T C-Reactive Protein Total Protein 5.3 L Albumin 2.7 L Triglycerides HDL Cholesterol TSH Free T4 Urine WBC (Auto) Salicylates Acetaminophen Plasma/Serum Alcohol Hepatitis C Antibody
[2019-03-23] MEDS: SODIUM CHLORIDE FLUSH SYRINGE 10 ML IV SCH ×2 (10:19→21:25)
[2019-03-23] MEDS: PEPCID IV SCH (10:19)
[2019-03-23] MEDS: ROCEPHIN/NS 2 GM/100 ML 2 GM/100 ML BAG IV SCH ×3 (10:20→21:23)
[2019-03-23] MEDS ORDERED: LACTATED RINGERS 2,000 ML ONE (10:39)
[2019-03-23] MEDS ORDERED: TORADOL IV ONE ×2 (11:00→15:00)
[2019-03-23] MEDS ORDERED: TYLENOL PR PRN (11:00)
--- NOTE | 2019-03-23 11:27 | Progress Note ---
Assessment and Plan 28 y/o male with out of hospital cardiac arrest and acute respiratory failure and altered mental state 1. Cardiac-sinus tach secondary to fever of 105. Patient did get BB prior to knowledge of fever which could have added to cardiovascular collapse. Discontinued BB. Follow up cardiology recs. Troponin likely positive from CPR but await their assessment. 2. Neuro-patient now off sedation for over 48 hours. Remains unresponsive and still febrile despite abx. Too unstable now post arrest to go down for LP. Agree with Neuro ordering EEG but I changed to stat given worsening fever and cardiac arrest this am with continued altered mental state. 3. Respiratory-Clear CXR, minimal vent support. Continue all current settings for now 4. Endo-elevated TSH and low T4. NO family available for history. Agree with IV synthroid, however the picture does not clinically fit myxedema coma. Hold on stress dose roids for now 5. GI-dark contents from NG tube have returned. H/H stable. Will continue low intermittent suction and hold on feeds 6. ID-Please see Neuro number 2, acyclovir was added yesterday. No increase in white count 7. Metabolic-Repeat chemistry this afternoon. Will also given boluses of chilled LR instead of bolusing D5. No not want to lower Na to quickly. Overall prognosis is guarded to poor. Discussed with mother and father at bedside. Explained the severity of the clinical state and that patient could have cardiac arrest again as well as permanent brain damage. They have expressed understanding on all levels. CCT 31 minutes. Subjective Date of service: 03/23/19 Principal diagnosis: fever Interval history: Patient had cardiac arrest this am. Also had temperature of 105. Patient had ROSC after about 12 minutes of CPR. Mother and other family were present at bedside. EKG concerning for changes in the inferior leads. Mental status is unchanged. Seen by Neurology on yesterday. Objective Vital Signs - 12hr 03/22/19 03/22/19 03/22/19 23:24 23:31 23:45 Temperature Pulse Rate 124 H 125 H 126 H Pulse Rate [ From Monitor] Pulse Rate [ None] Respiratory 25 H 25 H Rate Blood Pressure 167/103 167/113 167/113 O2 Sat by Pulse 99 99 99 Oximetry 03/23/19 03/23/19 03/23/19 00:00 00:15 00:31 Temperature 103.4 F H Pulse Rate 130 H 133 H 130 H Pulse Rate [ 131 H From Monitor] Pulse Rate [ None] Respiratory 25 H 25 H 21 Rate Blood Pressure 162/112 162/112 162/112 O2 Sat by Pulse 99 97 97 Oximetry 03/23/19 03/23/19 03/23/19 00:45 01:00 01:15 Temperature Pulse Rate 136 H 138 H 138 H Pulse Rate [ From Monitor] Pulse Rate [ None] Respiratory 21 23 24 Rate Blood Pressure 162/112 144/85 144/85 O2 Sat by Pulse 97 97 97 Oximetry 03/23/19 03/23/19 03/23/19 01:31 01:45 02:00 Temperature Pulse Rate 141 H 138 H 136 H Pulse Rate [ From Monitor] Pulse Rate [ None] Respiratory 21 19 24 Rate Blood Pressure 144/85 144/85 144/88 O2 Sat by Pulse 98 98 98 Oximetry 03/23/19 03/23/19 03/23/19 02:15 02:31 02:45 Temperature Pulse Rate 135 H 137 H 136 H Pulse Rate [ From Monitor] Pulse Rate [ None] Respiratory 21 22 25 H Rate Blood Pressure 144/88 144/88 144/88 O2 Sat by Pulse 98 98 99 Oximetry 03/23/19 03/23/19 03/23/19 03:00 03:15 03:22 Temperature Pulse Rate 136 H 137 H 136 H Pulse Rate [ From Monitor] Pulse Rate [ None] Respiratory 23 21 Rate Blood Pressure 144/88 148/95 148/95 O2 Sat by Pulse 99 99 99 Oximetry 03/23/19 03/23/19 03/23/19 03:31 03:45 04:00 Temperature 102.3 F H Pulse Rate 137 H 138 H 136 H Pulse Rate [ 138 H From Monitor] Pulse Rate [ None] Respiratory 25 H 28 H 28 H Rate Blood Pressure 148/95 148/95 153/93 O2 Sat by Pulse 99 99 100 Oximetry 03/23/19 03/23/19 03/23/19 04:15 04:31 04:45 Temperature Pulse Rate 136 H 135 H 134 H Pulse Rate [ From Monitor] Pulse Rate [ None] Respiratory 31 H 23 29 H Rate Blood Pressure 153/93 153/93 153/93 O2 Sat by Pulse 99 98 98 Oximetry 03/23/19 03/23/19 03/23/19 05:00 05:15 05:31 Temperature Pulse Rate 133 H 136 H 137 H Pulse Rate [ From Monitor] Pulse Rate [ None] Respiratory 22 31 H 26 H Rate Blood Pressure 148/100 148/100 148/100 O2 Sat by Pulse 99 98 98 Oximetry 03/23/19 03/23/19 03/23/19 05:45 06:00 06:15 Temperature Pulse Rate 136 H 134 H 137 H Pulse Rate [ From Monitor] Pulse Rate [ None] Respiratory 28 H 28 H 29 H Rate Blood Pressure 148/100 146/91 146/91 O2 Sat by Pulse 99 97 97 Oximetry 03/23/19 03/23/19 03/23/19 06:31 07:00 07:01 Temperature Pulse Rate 140 H 142 H Pulse Rate [ From Monitor] Pulse Rate [ 145 H None] Respiratory 25 H 32 H 25 H Rate Blood Pressure 146/91 170/80 125/72 O2 Sat by Pulse 96 96 Oximetry 03/23/19 03/23/19 03/23/19 07:34 08:01 08:10 Temperature 105.5 F H Pulse Rate 137 H 88 Pulse Rate [ From Monitor] Pulse Rate [ None] Respiratory Rate Blood Pressure 86/61 57/23 O2 Sat by Pulse 82 L 95 Oximetry 03/23/19 03/23/19 09:00 10:00 Temperature Pulse Rate 111 H 99 H Pulse Rate [ From Monitor] Pulse Rate [ None] Respiratory 29 H 23 Rate Blood Pressure 94/71 123/80 O2 Sat by Pulse 90 98 Oximetry Constitutional: comatose, appears uncomfortable, other (dishelved) Eyes: injected ENT: other (orally intubated and sedated) Neck: supple Effort: mildly labored Ascultation: Bilateral: clear Percussion: Bilateral: not dull Cardiovascular: regular rate and rhythm Gastrointestinal: hypoactive bowel sounds Integumentary: normal Extremities: no edema Neurologic: unable to assess CBC and BMP: 03/23/19 08:56 03/23/19 08:56 ABG, PT/INR, D-dimer: ABG POC ABG pH 7.481 (7.35-7.45) H 03/23/19 04:38 POC ABG pCO2 33.8 (35-45) L 03/23/19 04:38 POC ABG pO2 85 (80-105) 03/23/19 04:38 POC ABG HCO3 25.2 (22-26 mml/L) 03/23/19 04:38 POC ABG Total CO2 26 (23-27mmol/L) 03/23/19 04:38 POC ABG O2 Sat 97 03/23/19 04:38 PT/INR, D-dimer PT 12.9 Sec. (12.2-14.9) 03/20/19 16:31 INR 0.92 (0.87-1.13) 03/20/19 16:31 Abnormal lab findings: Abnormal Labs 03/20/19 03/20/19 03/20/19 16:25 16:25 16:25 WBC Hgb Hct MCV 101 H MCH 33 H RDW 12.9 L Plt Count Seg Neuts % (Manual) 36.0 L Lymphocytes % (Manual) 60.0 H Seg Neutrophils # Man Lymphocytes # (Manual) 6.0 H POC ABG pH POC ABG pCO2 POC ABG pO2 VBG pH Sodium Potassium Chloride Carbon Dioxide 18 L BUN Creatinine Glucose 159 H POC Glucose Lactic Acid 9.50 H* Calcium 7.6 L Phosphorus Magnesium AST 276 H ALT 165 H Alkaline Phosphatase 139 H Ammonia Total Creatine Kinase 380 H Troponin T C-Reactive Protein Total Protein Albumin Triglycerides HDL Cholesterol TSH Free T4 Urine WBC (Auto) Salicylates Acetaminophen Plasma/Serum Alcohol Hepatitis C Antibody 03/20/19 03/20/19 03/20/19 16:25 16:25 16:25 WBC Hgb Hct MCV MCH RDW Plt Count Seg Neuts % (Manual) Lymphocytes % (Manual) Seg Neutrophils # Man Lymphocytes # (Manual) POC ABG pH POC ABG pCO2 POC ABG pO2 VBG pH Sodium Potassium Chloride Carbon Dioxide BUN Creatinine Glucose POC Glucose Lactic Acid Calcium Phosphorus Magnesium 2.40 H AST ALT Alkaline Phosphatase Ammonia 10.0 L Total Creatine Kinase Troponin T C-Reactive Protein Total Protein Albumin Triglycerides HDL Cholesterol TSH 17.340 H Free T4 0.69 L Urine WBC (Auto) Salicylates Acetaminophen Plasma/Serum Alcohol Hepatitis C Antibody 03/20/19 03/20/19 03/20/19 16:25 16:25 16:25 WBC Hgb Hct MCV MCH RDW Plt Count Seg Neuts % (Manual) Lymphocytes % (Manual) Seg Neutrophils # Man Lymphocytes # (Manual) POC ABG pH POC ABG pCO2 POC ABG pO2 VBG pH Sodium Potassium Chloride Carbon Dioxide BUN Creatinine Glucose POC Glucose Lactic Acid Calcium Phosphorus Magnesium AST ALT Alkaline Phosphatase Ammonia Total Creatine Kinase Troponin T C-Reactive Protein Total Protein Albumin Triglycerides HDL Cholesterol TSH Free T4 Urine WBC (Auto) Salicylates < 0.3 L Acetaminophen < 5.0 L Plasma/Serum Alcohol 0.32 H Hepatitis C Antibody 03/20/19 03/20/19 03/20/19 16:25 16:34 16:51 WBC Hgb Hct MCV MCH RDW Plt Count Seg Neuts % (Manual) Lymphocytes % (Manual) Seg Neutrophils # Man Lymphocytes # (Manual) POC ABG pH 7.041 L POC ABG pCO2 68.9 H POC ABG pO2 381 H VBG pH 7.091 L* Sodium Potassium Chloride Carbon Dioxide BUN Creatinine Glucose POC Glucose 130 H Lactic Acid Calcium Phosphorus Magnesium AST ALT Alkaline Phosphatase Ammonia Total Creatine Kinase Troponin T C-Reactive Protein Total Protein Albumin Triglycerides HDL Cholesterol TSH Free T4 Urine WBC (Auto) Salicylates Acetaminophen Plasma/Serum Alcohol Hepatitis C Antibody 03/20/19 03/20/19 03/20/19 17:35 17:53 19:17 WBC Hgb Hct MCV MCH RDW Plt Count Seg Neuts % (Manual) Lymphocytes % (Manual) Seg Neutrophils # Man Lymphocytes # (Manual) POC ABG pH 7.305 L POC ABG pCO2 POC ABG pO2 262 H VBG pH Sodium Potassium Chloride Carbon Dioxide BUN Creatinine Glucose POC Glucose Lactic Acid 6.90 H* Calcium Phosphorus Magnesium AST ALT Alkaline Phosphatase Ammonia Total Creatine Kinase Troponin T C-Reactive Protein Total Protein Albumin Triglycerides HDL Cholesterol TSH Free T4 Urine WBC (Auto) 19.0 H Salicylates Acetaminophen Plasma/Serum Alcohol Hepatitis C Antibody 03/20/19 03/20/19 03/21/19 20:40 22:38 03:41 WBC Hgb Hct MCV MCH RDW Plt Count Seg Neuts % (Manual) Lymphocytes % (Manual) Seg Neutrophils # Man Lymphocytes # (Manual) POC ABG pH POC ABG pCO2 31.4 L POC ABG pO2 195 H VBG pH Sodium Potassium Chloride Carbon Dioxide BUN Creatinine Glucose POC Glucose 117 H Lactic Acid 6.30 H* Calcium Phosphorus Magnesium AST ALT Alkaline Phosphatase Ammonia Total Creatine Kinase Troponin T C-Reactive Protein Total Protein Albumin Triglycerides HDL Cholesterol TSH Free T4 Urine WBC (Auto) Salicylates Acetaminophen Plasma/Serum Alcohol Hepatitis C Antibody 03/21/19 03/21/19 03/21/19 04:00 09:32 09:32 WBC 20.0 H 17.3 H Hgb 15.9 H 16.1 H Hct 47.3 H 47.8 H MCV 99 H 98 H MCH 33 H 33 H RDW 12.8 L 12.7 L Plt Count Seg Neuts % (Manual) 90.0 H Lymphocytes % (Manual) 7.0 L Seg Neutrophils # Man 18.0 H Lymphocytes # (Manual) POC ABG pH POC ABG pCO2 POC ABG pO2 VBG pH Sodium Potassium Chloride Carbon Dioxide BUN Creatinine Glucose POC Glucose Lactic Acid Calcium Phosphorus Magnesium AST ALT Alkaline Phosphatase Ammonia Total Creatine Kinase Troponin T 0.054 H D C-Reactive Protein Total Protein Albumin Triglycerides 166 H HDL Cholesterol 63 H TSH Free T4 Urine WBC (Auto) Salicylates Acetaminophen Plasma/Serum Alcohol Hepatitis C Antibody 03/21/19 03/21/19 03/21/19 09:46 14:41 15:59 WBC Hgb Hct MCV MCH RDW Plt Count Seg Neuts % (Manual) Lymphocytes % (Manual) Seg Neutrophils # Man Lymphocytes # (Manual) POC ABG pH POC ABG pCO2 POC ABG pO2 VBG pH Sodium 148 H Potassium Chloride Carbon Dioxide 20 L BUN Creatinine Glucose 171 H POC Glucose Lactic Acid Calcium Phosphorus Magnesium AST 253 H ALT 218 H Alkaline Phosphatase 146 H Ammonia Total Creatine Kinase Troponin T 0.074 H D C-Reactive Protein 4.90 H Total Protein Albumin Triglycerides HDL Cholesterol TSH Free T4 Urine WBC (Auto) Salicylates Acetaminophen Plasma/Serum Alcohol Hepatitis C Antibody 03/21/19 03/22/19 03/22/19 15:59 04:20 04:20 WBC 20.0 H Hgb Hct MCV 99 H MCH 33 H RDW 12.9 L Plt Count Seg Neuts % (Manual) Lymphocytes % (Manual) Seg Neutrophils # Man Lymphocytes # (Manual) POC ABG pH POC ABG pCO2 POC ABG pO2 VBG pH Sodium 156 H D Potassium 3.5 L Chloride 117.2 H Carbon Dioxide BUN Creatinine Glucose 144 H POC Glucose Lactic Acid Calcium 8.1 L Phosphorus Magnesium AST 205 H ALT 156 H Alkaline Phosphatase Ammonia Total Creatine Kinase Troponin T C-Reactive Protein Total Protein Albumin 3.6 L Triglycerides HDL Cholesterol TSH Free T4 Urine WBC (Auto) Salicylates Acetaminophen Plasma/Serum Alcohol Hepatitis C Antibody Reactive A 03/22/19 03/22/19 03/22/19 04:20 04:26 12:40 WBC Hgb Hct MCV MCH RDW Plt Count Seg Neuts % (Manual) Lymphocytes % (Manual) Seg Neutrophils # Man Lymphocytes # (Manual) POC ABG pH POC ABG pCO2 32.8 L POC ABG pO2 66 L VBG pH Sodium Potassium Chloride Carbon Dioxide BUN Creatinine Glucose POC Glucose 171 H Lactic Acid Calcium Phosphorus 2.00 L Magnesium 1.50 L AST ALT Alkaline Phosphatase Ammonia Total Creatine Kinase Troponin T C-Reactive Protein Total Protein Albumin Triglycerides HDL Cholesterol TSH Free T4 Urine WBC (Auto) Salicylates Acetaminophen Plasma/Serum Alcohol Hepatitis C Antibody 03/22/19 03/22/19 03/23/19 17:44 20:28 04:30 WBC 12.9 H Hgb Hct MCV 102 H MCH 34 H RDW 12.6 L Plt Count 115 L Seg Neuts % (Manual) Lymphocytes % (Manual) Seg Neutrophils # Man Lymphocytes # (Manual) POC ABG pH POC ABG pCO2 POC ABG pO2 VBG pH Sodium 158 H Potassium 3.5 L Chloride 121.5 H Carbon Dioxide BUN 23 H Creatinine Glucose 199 H POC Glucose 144 H Lactic Acid Calcium 8.0 L Phosphorus Magnesium 2.50 H AST ALT Alkaline Phosphatase Ammonia Total Creatine Kinase Troponin T C-Reactive Protein Total Protein Albumin Triglycerides HDL Cholesterol TSH Free T4 Urine WBC (Auto) Salicylates Acetaminophen Plasma/Serum Alcohol Hepatitis C Antibody 03/23/19 03/23/19 03/23/19 04:30 04:38 08:56 WBC Hgb Hct MCV 103 H MCH 33 H RDW Plt Count 107 L Seg Neuts % (Manual) Lymphocytes % (Manual) Seg Neutrophils # Man Lymphocytes # (Manual) POC ABG pH 7.481 H POC ABG pCO2 33.8 L POC ABG pO2 VBG pH Sodium 156 H Potassium Chloride 121.4 H Carbon Dioxide 21 L BUN 24 H Creatinine Glucose 148 H POC Glucose Lactic Acid Calcium 7.9 L Phosphorus 1.90 L Magnesium AST 166 H ALT 96 H Alkaline Phosphatase Ammonia Total Creatine Kinase Troponin T C-Reactive Protein Total Protein 6.0 L Albumin 3.3 L Triglycerides HDL Cholesterol TSH Free T4 Urine WBC (Auto) Salicylates Acetaminophen Plasma/Serum Alcohol Hepatitis C Antibody 03/23/19 03/23/19 08:56 11:21 WBC Hgb Hct MCV MCH RDW Plt Count Seg Neuts % (Manual) Lymphocytes % (Manual) Seg Neutrophils # Man Lymphocytes # (Manual) POC ABG pH POC ABG pCO2 POC ABG pO2 VBG pH Sodium 161 H* Potassium Chloride 121.5 H Carbon Dioxide BUN 27 H Creatinine 1.9 H D Glucose 248 H POC Glucose 275 H Lactic Acid Calcium 7.2 L Phosphorus 5.40 H D Magnesium AST 146 H ALT 79 H Alkaline Phosphatase Ammonia Total Creatine Kinase Troponin T C-Reactive Protein Total Protein 5.3 L Albumin 2.7 L Triglycerides HDL Cholesterol TSH Free T4 Urine WBC (Auto) Salicylates Acetaminophen Plasma/Serum Alcohol Hepatitis C Antibody
--- NOTE | 2019-03-23 13:02 | Progress Note ---
Assessment and Plan Out of hospital cardiopulmonary arrest, etiology uncertain chest CTA was also negative for pulmonary embolism head CT reports no acute intracranial abnormalities ETOH abuse Elevated liver transaminase Fever/Leukocytosis Acute encephalopathy An echocardiogram reports a normal LV systolic function, ejection fraction 55- 60%. Subjective Date of service: 03/23/19 Principal diagnosis: fever Interval history: Patient is unresponsive without sedation on the ventilator. Remains febrile, temperature of 105 this morning. Code Kana called this morning with reports of asystole on the monitor. ACLS initiated with ROSC. Objective Vital Signs Temp Pulse Pulse Pulse Resp BP Pulse Ox 03/23/19 11:25 102.8 F H 03/23/19 11:00 98 H 27 H 114/72 99 03/23/19 10:00 98 H 23 123/80 98 03/23/19 09:00 111 H 29 H 94/71 90 03/23/19 08:10 88 57/23 95 03/23/19 08:01 137 H 86/61 82 L 03/23/19 07:34 105.5 F H 03/23/19 07:01 142 H 25 H 125/72 96 03/23/19 07:00 145 H 32 H 170/80 03/23/19 06:31 140 H 25 H 146/91 96 03/23/19 06:15 137 H 29 H 146/91 97 03/23/19 06:00 134 H 28 H 146/91 97 03/23/19 05:45 136 H 28 H 148/100 99 03/23/19 05:31 137 H 26 H 148/100 98 03/23/19 05:15 136 H 31 H 148/100 98 03/23/19 05:00 133 H 22 148/100 99 03/23/19 04:45 134 H 29 H 153/93 98 03/23/19 04:31 135 H 23 153/93 98 03/23/19 04:15 136 H 31 H 153/93 99 03/23/19 04:00 102.3 F H 136 H 138 H 28 H 153/93 100 03/23/19 03:45 138 H 28 H 148/95 99 03/23/19 03:31 137 H 25 H 148/95 99 03/23/19 03:22 136 H 148/95 99 03/23/19 03:15 137 H 21 148/95 99 03/23/19 03:00 136 H 23 144/88 99 03/23/19 02:45 136 H 25 H 144/88 99 03/23/19 02:31 137 H 22 144/88 98 03/23/19 02:15 135 H 21 144/88 98 03/23/19 02:00 136 H 24 144/88 98 03/23/19 01:45 138 H 19 144/85 98 03/23/19 01:31 141 H 21 144/85 98 03/23/19 01:15 138 H 24 144/85 97 03/23/19 01:00 138 H 23 144/85 97 03/23/19 00:45 136 H 21 162/112 97 03/23/19 00:31 130 H 21 162/112 97 03/23/19 00:15 133 H 25 H 162/112 97 03/23/19 00:00 103.4 F H 130 H 131 H 25 H 162/112 99 03/22/19 23:45 126 H 25 H 167/113 99 03/22/19 23:31 125 H 25 H 167/113 99 03/22/19 23:24 124 H 167/103 99 03/22/19 23:15 125 H 23 167/113 99 03/22/19 23:00 119 H 24 167/113 99 03/22/19 22:45 120 H 30 H 168/107 99 03/22/19 22:31 116 H 22 168/107 99 03/22/19 22:15 117 H 23 168/107 99 03/22/19 22:09 115 H 27 H 168/107 99 03/22/19 22:00 100.3 F H 114 H 23 168/107 98 03/22/19 21:45 112 H 21 160/108 100 03/22/19 21:31 114 H 23 160/108 100 03/22/19 21:15 110 H 22 160/108 99 03/22/19 21:00 110 H 25 H 160/108 99 03/22/19 20:45 108 H 26 H 163/106 98 03/22/19 20:31 106 H 31 H 163/106 98 03/22/19 20:15 106 H 24 163/106 100 03/22/19 20:00 100.1 F H 101 H 118 H 24 163/106 98 03/22/19 19:45 102 H 22 97 03/22/19 19:30 101 H 20 136/100 96 03/22/19 19:15 97 H 20 136/100 95 03/22/19 19:03 98 H 136/100 100 03/22/19 19:00 99 H 22 136/100 100 03/22/19 18:45 91 H 18 143/93 100 03/22/19 18:31 98 H 24 143/93 100 03/22/19 18:15 91 H 17 143/93 100 03/22/19 18:00 92 H 20 143/93 99 03/22/19 17:45 95 H 26 H 190/115 99 03/22/19 17:31 96 H 28 H 124/74 97 03/22/19 17:15 126 H 20 190/115 98 03/22/19 17:00 120 H 28 H 190/115 98 03/22/19 16:45 118 H 30 H 176/111 98 03/22/19 16:30 116 H 25 H 176/111 99 03/22/19 16:15 104 H 26 H 175/116 99 03/22/19 16:00 103 F H 105 H 22 175/116 99 03/22/19 15:45 102 H 20 170/98 99 03/22/19 15:30 100 H 17 168/106 98 03/22/19 15:15 94 H 19 162/100 99 03/22/19 15:00 101 H 22 170/98 99 03/22/19 14:45 99 H 22 162/100 98 03/22/19 14:30 101 H 30 H 162/100 98 03/22/19 14:15 97 H 21 167/103 98 03/22/19 14:00 101 H 26 H 167/103 98 03/22/19 13:45 99 H 28 H 159/98 97 03/22/19 13:30 97 H 28 H 159/98 97 03/22/19 13:15 94 H 22 158/101 97 - Physical Examination General: Other (unresponsive on the vent) Cardiac: Positive: Reg Rate and Rhythm - Labs and Meds Cardiac Enzymes 03/23/19 03/23/19 Range/Units 04:30 08:56 AST 166 H 146 H (5-40) units/L CBC 03/23/19 03/23/19 Range/Units 04:30 08:56 WBC 12.9 H 11.0 (4.5-11.0) K/mm3 RBC 4.20 3.71 (3.65-5.03) M/mm3 Hgb 14.1 12.4 (11.8-15.2) gm/dl Hct 42.6 38.3 (35.5-45.6) % Plt Count 115 L 107 L (140-440) K/mm3 Comprehensive Metabolic Panel 03/22/19 03/23/19 03/23/19 Range/Units 20:28 04:30 08:56 Sodium 158 H 156 H 161 H* (137-145) mmol/L Potassium 3.5 L 4.1 3.9 (3.6-5.0) mmol/L Chloride 121.5 H 121.4 H 121.5 H (98-107) mmol/L Carbon Dioxide 24 21 L 25 (22-30) mmol/L BUN 23 H 24 H 27 H (9-20) mg/dL Creatinine 0.9 0.9 1.9 H D (0.8-1.5) mg/dL Glucose 199 H 148 H 248 H (75-100) mg/dL Calcium 8.0 L 7.9 L 7.2 L (8.4-10.2) mg/dL AST 166 H 146 H (5-40) units/L ALT 96 H 79 H (7-56) units/L Alkaline Phosphatase 76 65 (35-129) units/L Total Protein 6.0 L 5.3 L (6.3-8.2) g/dL Albumin 3.3 L 2.7 L (3.9-5) g/dL
[2019-03-23] MEDS: LACTATED RINGERS 1,000 ML IV SCH ×2 (14:53→16:00)
[2019-03-23] MEDS: PROTONIX IV SCH (15:54)
[2019-03-23] MEDS ORDERED: LASIX IV ONE (16:00)
[2019-03-23 16:27] LABS: Calcium 7.5 mg/dL (8.4-10.2)
--- NOTE | 2019-03-23 17:47 | Progress Note ---
Assessment and Plan Cultures: Blood culture 03/20/2019 no growth today. Sputum culture 03/20/2019 usual resp lakshmi Assessment: 28 y/o male with history of ETOH dependence admitted on 03/20/2019 due to be found to be "Unresponsive and looking very pale" [place] by family members and taken to Urgent for evaluation. At the Urgent care patient experienced cardiac arrest, unclear details. ACLS protocol initiated, intubated and patient subsequently transported to [facility]. Pt regained cardiac rhythm en route to [facility]: 1) [id number] cardiac arrest s/p CPR, unclear details. S/p another arrest today now on levophed 2) Acute encephalopathy: multifactorial, ETOH intoxication/coma myxedema/menin gitis. ETOH level 0.32. UDS +marihuana and + opoids. CT head chronic sinusitis. 3) SIRS: still fever, tachycardia, increased lactate. Etiology unclear, likely multifactorial - sinusitis/dehydration/ETOH intoxication/mixedema coma/rhabdomyolysis/?aspiration pneumonia/?meningitis. CTA chest showed No acute pulmonary process. UA with wbc no LE. Blood culture 03/20/2019 no growth today. Sputum culture 03/20/2019 Gram with GPC. Mother called friend who was with patient the last week and reported that patient was c/o severe headaches and bad sinusitis with mucous discharge. Influenza PCR negative. HIV negative. Hepatitis C serology reactive. CRP 4.9. 4) Mixedema coma? 5) Elevated LFTs: from ETOH and arrest. AST 276. ALT 165. Alkphos 139. Hepatitis C serology reactive. 6) NICK: renally adjusted all abx 7) Thrombocytopenia: from sepsis Recommendations: - obtain lumbar punture for opening pressure and send CSF specimen for Gram stain and culture, glucose, protein, VDRL, HSV-PCR, cryptococcal antigen and culture. Not done due to arrest. - follow-up blood cultures, nostrils culture, procalcitonin - continue ceftriaxone 2 gm IV q21h - continue vancomycin for now - continue acyclovir IV Poor prognosis Will follow. Gail Monique MD Infectious Diseases [employer] [facility], [place], [facility] ([facility]) M [phone] O [phone] Subjective Date of service: 03/23/19 Principal diagnosis: fever Interval history: Now on levophed after arrest, remains on the vent, tmax 105, parents at bedside ROS unable to obtain Objective - Exam Narrative Exam: General appearance: unresponsive intubated in mod resp distress Eyes: anicteric sclerae, moist conjunctivae; no lid-lag; +dilated fixed pupils HENT: Atraumatic; oropharynx +ETT + copious yellowish thick drainage from bilateral nostrils Neck: Trachea midline; supple, no thyromegaly or lymphadenopathy Lungs: butch coarse BS CV: tachycardic Abdomen: Soft, tense Extremities: No peripheral edema or extremity lymphadenopathy Skin: Normal temperature, turgor and texture; no rash, ulcers or subcutaneous nodules Psych: lethargic. Neuro: lethargic - Constitutional Vitals: Vital Signs Temp Pulse Resp BP Pulse Ox 101.4 F H 125 H 30 H 124/91 100 03/23/19 16:08 03/23/19 17:30 03/23/19 17:30 03/23/19 17:30 03/23/19 17:30 Temperature -Last 24 Hours Temperature 101.4 F Temperature 102.8 F Temperature 105.5 F Temperature 102.3 F Temperature 102.3 F Temperature 103.4 F Temperature 100.3 F Temperature 100.1 F Temperature 102 F - Labs CBC & Chem 7: 03/23/19 08:56 03/23/19 15:46 Labs: Abnormal lab results 03/22/19 03/22/19 03/23/19 Range/Units 17:44 20:28 04:30 WBC 12.9 H (4.5-11.0) K/mm3 MCV 102 H (84-94) fl MCH 34 H (28-32) pg RDW 12.6 L (13.2-15.2) % Plt Count 115 L (140-440) K/mm3 POC ABG pH (7.35-7.45) POC ABG pCO2 (35-45) Sodium 158 H (137-145) mmol/L Potassium 3.5 L (3.6-5.0) mmol/L Chloride 121.5 H (98-107) mmol/L Carbon Dioxide (22-30) mmol/L BUN 23 H (9-20) mg/dL Creatinine (0.8-1.5) mg/dL Glucose 199 H (75-100) mg/dL POC Glucose 144 H (70-105) Calcium 8.0 L (8.4-10.2) mg/dL Phosphorus (2.5-4.5) mg/dL Magnesium 2.50 H (1.7-2.3) mg/dL AST (5-40) units/L ALT (7-56) units/L Total Protein (6.3-8.2) g/dL Albumin (3.9-5) g/dL 03/23/19 03/23/19 03/23/19 Range/Units 04:30 04:38 08:56 WBC (4.5-11.0) K/mm3 MCV 103 H (84-94) fl MCH 33 H (28-32) pg RDW (13.2-15.2) % Plt Count 107 L (140-440) K/mm3 POC ABG pH 7.481 H (7.35-7.45) POC ABG pCO2 33.8 L (35-45) Sodium 156 H (137-145) mmol/L Potassium (3.6-5.0) mmol/L Chloride 121.4 H (98-107) mmol/L Carbon Dioxide 21 L (22-30) mmol/L BUN 24 H (9-20) mg/dL Creatinine (0.8-1.5) mg/dL Glucose 148 H (75-100) mg/dL POC Glucose (70-105) Calcium 7.9 L (8.4-10.2) mg/dL Phosphorus 1.90 L (2.5-4.5) mg/dL Magnesium (1.7-2.3) mg/dL AST 166 H (5-40) units/L ALT 96 H (7-56) units/L Total Protein 6.0 L (6.3-8.2) g/dL Albumin 3.3 L (3.9-5) g/dL 03/23/19 03/23/19 03/23/19 Range/Units 08:56 11:21 15:46 WBC (4.5-11.0) K/mm3 MCV (84-94) fl MCH (28-32) pg RDW (13.2-15.2) % Plt Count (140-440) K/mm3 POC ABG pH (7.35-7.45) POC ABG pCO2 (35-45) Sodium 161 H* 163 H* (137-145) mmol/L Potassium (3.6-5.0) mmol/L Chloride 121.5 H 127.9 H (98-107) mmol/L Carbon Dioxide (22-30) mmol/L BUN 27 H 28 H (9-20) mg/dL Creatinine 1.9 H D (0.8-1.5) mg/dL Glucose 248 H 120 H (75-100) mg/dL POC Glucose 275 H (70-105) Calcium 7.2 L 7.5 L (8.4-10.2) mg/dL Phosphorus 5.40 H D (2.5-4.5) mg/dL Magnesium (1.7-2.3) mg/dL AST 146 H (5-40) units/L ALT 79 H (7-56) units/L Total Protein 5.3 L (6.3-8.2) g/dL Albumin 2.7 L (3.9-5) g/dL 03/23/19 Range/Units 17:27 WBC (4.5-11.0) K/mm3 MCV (84-94) fl MCH (28-32) pg RDW (13.2-15.2) % Plt Count (140-440) K/mm3 POC ABG pH (7.35-7.45) POC ABG pCO2 (35-45) Sodium (137-145) mmol/L Potassium (3.6-5.0) mmol/L Chloride (98-107) mmol/L Carbon Dioxide (22-30) mmol/L BUN (9-20) mg/dL Creatinine (0.8-1.5) mg/dL Glucose (75-100) mg/dL POC Glucose 109 H (70-105) Calcium (8.4-10.2) mg/dL Phosphorus (2.5-4.5) mg/dL Magnesium (1.7-2.3) mg/dL AST (5-40) units/L ALT (7-56) units/L Total Protein (6.3-8.2) g/dL Albumin (3.9-5) g/dL
--- NOTE | 2019-03-23 20:04 | Consultation ---
History of Present Illness - Reason for Consult acute renal failure - History of Present Illness 28 y/o male with h/o polysubstance abuse, presented to the ED after suffering cardiac arrest in the field. Patient was intubated and brought to the ER for further evaluation. Patient has been evaluated for sepsis and persistent fevers of unclear etiology. Overall etiology unclear at this time. He is on broad spectrum antibiotics. He had a cardiac event today am, going into asystole after dose of labetalol. In that setting, patient became hypotensive and suffered an NCIK for which nephrology was consulted for further evaluation. Past History Past Medical History: other (unable to obtain) Past Surgical History: Other (unable to obtain) Social history: other (unable to obtain) Family history: other (Unable to obtain) Medications and Allergies Allergies Allergy/AdvReac Type Severity Reaction Status Date / Time No Known Allergies Allergy Unverified 03/22/19 08:10 Active Meds: Active Medications Acetaminophen (Tylenol) 650 mg VA Q6H PRN PRN Reason: Fever >101 Albuterol (Proventil) 2.5 mg IH Q3HRT PRN PRN Reason: Shortness Of Breath Lipase/Protease/Amylase (Pancreaze Dr 10,500 Unit) 1 each FEEDTUBE PRN PRN PRN Reason: For Clogged Feeding Tube Enoxaparin Sodium (Lovenox) 40 mg SUB-Q QDAY@2200 RICHARD Last Admin: 03/21/19 21:39 Dose: 40 mg Documented by: Hydrophilic Ointment (Vaseline Lip Therapy) 1 applic TP Q2HR PRN PRN Reason: Dry Lips Metronidazole (Flagyl 500 Mg/100 Ml) 500 mg in 100 mls @ 100 mls/hr IV Q8HR RICHARD; Protocol Last Admin: 03/23/19 14:52 Dose: 100 mls/hr Documented by: Vancomycin HCl 1,250 mg/ (Sodium Chloride) 275 mls @ 166.667 mls/hr IV Q12H RICHARD Last Admin: 03/23/19 17:45 Dose: 166.667 mls/hr Documented by: Ceftriaxone Sodium (Rocephin/Ns 2 Gm/100 Ml) 2 gm in 100 mls @ 200 mls/hr IV Q12HR RICHARD; Protocol Last Admin: 03/23/19 10:21 Dose: 200 mls/hr Documented by: Acyclovir 780 mg/ Sodium (Chloride) 115.6 mls @ 100 mls/hr IV Q8HR [facility]; Protocol Last Admin: 03/23/19 14:52 Dose: 100 mls/hr Documented by: Potassium Chloride 20 meq/ (Dextrose) 1,010 mls @ 100 mls/hr IV DIRECT RICHARD Last Admin: 03/23/19 15:44 Dose: 100 mls/hr Documented by: Norepinephrine (Levophed Drip 4 Mg/Ns 250 Ml) 4 mg in 250 mls @ 7.5 mls/hr IV TITR RICHARD; Protocol Last Titration: 03/23/19 16:30 Dose: 0 mcg/min, 0 mls/hr Documented by: Lactated Ringer's (Lactated Ringers) 1,000 mls @ 999 mls/hr IV DIRECT RICHARD Stop: 03/24/19 12:01 Last Admin: 03/23/19 16:00 Dose: 999 mls/hr Documented by: Levothyroxine Sodium (Synthroid) 100 mcg IV DAILY@0600 [facility] Last Admin: 03/23/19 06:37 Dose: 100 mcg Documented by: Multi-Ingred Cream/Lotion/Oil/Oint (Artificial Tears Ophth Oint) 1 applic OU Q4HR PRN PRN Reason: Dry Eye(s) Pantoprazole Sodium (Protonix) 40 mg IV QDAY [facility] Last Admin: 03/23/19 15:54 Dose: 40 mg Documented by: Simple Syrup (Simple Syrup) 15 ml FEEDTUBE PRN PRN PRN Reason: Hypoglycemia Simple Syrup (Simple Syrup) 30 ml FEEDTUBE PRN PRN PRN Reason: Hypoglycemia Sodium Bicarbonate (Sodium Bicarbonate) 325 mg FEEDTUBE PRN PRN PRN Reason: For Clogged Feeding Tube Sodium Chloride (Sodium Chloride Flush Syringe 10 Ml) 10 ml IV BID RICHARD Last Admin: 03/23/19 10:19 Dose: 10 ml Documented by: Sodium Chloride (Sodium Chloride Flush Syringe 10 Ml) 10 ml IV PRN PRN PRN Reason: LINE FLUSH Last Admin: 03/21/19 18:56 Dose: 10 ml Documented by: Review of Systems ROS unobtainable: due to endotracheal tube Exam - Vital Signs Vital signs: Vital Signs Pulse BP Pulse Ox 99 H 118/63 99 03/20/19 16:26 03/20/19 16:26 03/20/19 16:26 - General Appearance General appearance: appears stated age, sedated on ventilator, intubated EENT: ATNC, PERRL Neck: Present: neck supple, trachea midline Respiratory: Clear to Ascultation Heart: regular, S1S2 Gastrointestinal: Present: normal, normoactive bowel sounds Integumentary: no rash Neurologic: other (unresponsive at this time. ) Musculoskeletal: Present: other (-edema) Results - Lab Results 03/23/19 08:56 03/23/19 15:46 Most recent lab results Calcium 7.5 mg/dL (8.4-10.2) L 03/23/19 15:46 Phosphorus 3.10 mg/dL (2.5-4.5) D 03/23/19 15:46 Magnesium 2.30 mg/dL (1.7-2.3) 03/23/19 15:46 - Image Kidney/bladder ultrasound: pending Assessment and Plan - Patient Problems (1) Acute renal failure Current Visit: Yes Status: Acute Qualifiers: Acute renal failure type: with acute tubular necrosis Qualified Code(s): N17.0 - Acute kidney failure with tubular necrosis Plan to address problem: Likely secondary to pre-renal vs ischemic ATN in the setting of cardiac arrest . Titrate pressors to maintain MAP >65 mmHg. Avoid nephrotoxins, continue current supportive care. Obtain renal US, UA and urine electrolytes for further evaluation. Strict I/O. Can recommend one dose of lasix 40 mg IV to ensure adequate urine output. Will monitor renal function closely. (2) Hypernatremia Current Visit: Yes Status: Acute Plan to address problem: In the setting of persistent fevers, leading to insensible free water losses. Need to have appropriate control of fevers. Continue current IVF hydration and close monitoring. (3) Polysubstance abuse Current Visit: Yes Status: Acute Plan to address problem: S/P dose of narcan with minimal response in regards to change of mental status. When appropriate may benefit from psychiatric evaluation. Patient initiated on CIWA protocol. (4) Cardiac arrest Current Visit: Yes Status: Acute Plan to address problem: On appropriate pressor support. Overall hemodynamics are stable. Further recommendations per cardiology. (5) Respiratory failure Current Visit: Yes Status: Acute Plan to address problem: Patient intubated at this time. Further recommendations per pulmonology.
[2019-03-24] MEDS ORDERED: TORADOL IV ONE (01:40)
[2019-03-24] MEDS: KCL 20 MEQ in D5W 1,000 ML IV SCH (02:57)
[2019-03-24] MEDS: VANCOMYCIN 1,250 MG in NACL 0.9% 250ML 250 ML IV SCH ×2 (04:20→17:38)
[2019-03-24] MEDS: FLAGYL 500 MG/100 ML 500 MG/100 ML BAG IV SCH (05:27)
[2019-03-24] MEDS: ZOVIRAX IV SCH (05:27)
[2019-03-24] MEDS: NACL 0.9% IV SCH (05:27)
[2019-03-24] MEDS: SYNTHROID IV SCH (05:29)
[2019-03-24 05:34] LABS: Hematocrit 37.9 % (35.5-45.6); Hemoglobin 12.6 gm/dl (11.8-15.2); Mean Corpuscular HGB Conc 33 % (32-34); Mean Corpuscular Volume 101 fl (84-94); Red Blood Count 3.77 M/mm3 (3.65-5.03)
[2019-03-24 05:36] LABS: Platelet Count 79 K/mm3 (140-440)
[2019-03-24 06:00] LABS: Albumin 2.8 g/dL (3.9-5); Calcium 8.3 mg/dL (8.4-10.2)
[2019-03-24] MEDS ORDERED: KCL 20MEQ/100ML 20 MEQ/100 ML BAG IV ONE (07:54)
[2019-03-24] MEDS ORDERED: KCL 10MEQ/100ML 10 MEQ/100 ML BAG IV SCH (08:00)
--- NOTE | 2019-03-24 08:50 | Progress Note ---
Assessment and Plan Assessment and plan: s/p cardiopulmonary arrest outside hospital Resuscitated, intubated, Admitted to ICU Pulm following Poss drug overdose. patient has history of Polysubstance abuse Patient had another episode of cardiac arrest on 03/23/19 at 07:54. Gaurang Blue was called. Code run per protocol he was given 4 doses of Epinephrine, biacarb. CPR. He regained pulse 08:06. Acute resp failure Intubated Myxedema coma Continue Levothyroxine iv Alcohol intoxication Fever of 102 on admission persistent fever Blood cultures drawn. Consulted ID and he was evaluated Started on Ceftriaxone, Flagyl, Vanco to r/o meningitis Hypernatremia give D5W. Nephrology following Hypokalemia. Replace and repeat lactic acidosis Toxic metabolic encephalopathy Elevated LFT may be alcohol hepatitis vs hep C Monitor History of Polysubstance abuse. Mom at bedside says he used illicit drugs, pills and injectables Hepatitis C Ab pos May consult GI when stable Hypernatremia continue D5W NICK due to ATN, post cardiac arrest Consult Nephrology Hypotension,post code start Levophed Full code status Discussed with his mother after code and discussed guarded prognosis after 2 cardiac arrest episodes The high probability of a clinically significant, sudden or life threatening deterioration of the [cardiac, pulmonary, renal] system(s) required my full and direct attention, intervention and personal management. The aggregate critical care time was [34] minutes. This time is in addition to time spent performing reported procedures but includes the following: [x] Data Review and interpretation [x] Patient assessment and monitoring of vital signs [x] Documentation [x] Medication orders and management History Interval history: Patient presented as oiut of hospital cardiac arrest, and had another cardiac arrest 03/23/19 at 07:54, code run per protocol, resuscitated 08:06 still unresponsive Fever Hospitalist Physical - Physical exam Narrative exam: Gen: intubated, on vent HEENT: Normocephalic, atraumatic Neck: supple, no JVD Heart: S1 and S2 reg, tachy, no murmurs, rubs or gallop Lungs: Clear, no crackles Abd: soft, non tender, non distended, normal BS Ext: No edema, no clubbing, no cyanosis, Neuro: Intubated, Comatose, unresponsive, does not follow commands - Constitutional Vitals: Temp Pulse Resp BP Pulse Ox 99.9 F H 136 H 30 H 131/97 100 03/24/19 03:02 03/24/19 08:18 03/24/19 07:30 03/24/19 08:18 03/24/19 08:18 General appearance: Present: other (unresponsive on the vent) Results - Labs CBC & Chem 7: 03/24/19 05:05 03/24/19 16:54 Labs: Laboratory Last Values WBC 10.6 K/mm3 (4.5-11.0) 03/24/19 05:05 RBC 3.77 M/mm3 (3.65-5.03) 03/24/19 05:05 Hgb 12.6 gm/dl (11.8-15.2) 03/24/19 05:05 Hct 37.9 % (35.5-45.6) 03/24/19 05:05 MCV 101 fl (84-94) H 03/24/19 05:05 MCH 34 pg (28-32) H 03/24/19 05:05 MCHC 33 % (32-34) 03/24/19 05:05 RDW 13.0 % (13.2-15.2) L 03/24/19 05:05 Plt Count 79 K/mm3 (140-440) L 03/24/19 05:05 Lymph % (Auto) Vulcanizer Operator 03/20/19 16:25 Lymph # Vulcanizer Operator 03/20/19 16:25 Add Manual Diff Complete 03/21/19 04:00 Total Counted 100 03/21/19 04:00 Seg Neutrophils % Vulcanizer Operator 03/20/19 16:25 Seg Neuts % (Manual) 90.0 % (40.0-70.0) H 03/21/19 04:00 1.0 % 03/21/19 04:00 7.0 % (13.4-35.0) L 03/21/19 04:00 Reactive Lymphs % (Man) 0 % 03/21/19 04:00 2.0 % (0.0-7.3) 03/21/19 04:00 0 % (0.0-4.3) 03/21/19 04:00 0 % (0.0-1.8) 03/21/19 04:00 0 % 03/21/19 04:00 0 % 03/21/19 04:00 0 % 03/21/19 04:00 0 % 03/21/19 04:00 Nucleated RBC % Not Reportable 03/21/19 04:00 Seg Neutrophils # Man 18.0 K/mm3 (1.8-7.7) H 03/21/19 04:00 Band Neutrophils # 0.2 K/mm3 03/21/19 04:00 1.4 K/mm3 (1.2-5.4) 03/21/19 04:00 Abs React Lymphs (Man) 0.0 K/mm3 03/21/19 04:00 0.4 K/mm3 (0.0-0.8) 03/21/19 04:00 0.0 K/mm3 (0.0-0.4) 03/21/19 04:00 0.0 K/mm3 (0.0-0.1) 03/21/19 04:00 0.0 K/mm3 03/21/19 04:00 0.0 K/mm3 03/21/19 04:00 0.0 K/mm3 03/21/19 04:00 Blast Cells # 0.0 K/mm3 03/21/19 04:00 WBC Morphology Not Reportable 03/21/19 04:00 Hypersegmented Neuts Not Reportable 03/21/19 04:00 Hyposegmented Neuts Not Reportable 03/21/19 04:00 Hypogranular Neuts Not Reportable 03/21/19 04:00 Not Reportable 03/21/19 04:00 Not Reportable 03/21/19 04:00 Not Reportable 03/21/19 04:00 Not Reportable 03/21/19 04:00 Not Reportable 03/21/19 04:00 Not Reportable 03/21/19 04:00 Consistent w auto 03/21/19 04:00 Not Reportable 03/21/19 04:00 Plt Clumps, EDTA Not Reportable 03/21/19 04:00 Not Reportable 03/21/19 04:00 Not Reportable 03/21/19 04:00 Not Reportable 03/21/19 04:00 Plt Morphology Comment Not Reportable 03/21/19 04:00 RBC Morphology Normal 03/21/19 04:00 Dimorphic RBCs Not Reportable 03/21/19 04:00 Not Reportable 03/21/19 04:00 Not Reportable 03/21/19 04:00 Not Reportable 03/21/19 04:00 Not Reportable 03/21/19 04:00 Not Reportable 03/21/19 04:00 Not Reportable 03/21/19 04:00 Not Reportable 03/21/19 04:00 Not Reportable 03/21/19 04:00 Not Reportable 03/21/19 04:00 Not Reportable 03/21/19 04:00 Not Reportable 03/21/19 04:00 Not Reportable 03/21/19 04:00 Not Reportable 03/21/19 04:00 Not Reportable 03/21/19 04:00 Not Reportable 03/21/19 04:00 Not Reportable 03/21/19 04:00 Not Reportable 03/21/19 04:00 Not Reportable 03/21/19 04:00 Not Reportable 03/21/19 04:00 Acanthocytes (Spur) Not Reportable 03/21/19 04:00 Rouleaux Not Reportable 03/21/19 04:00 Not Reportable 03/21/19 04:00 Not Reportable 03/21/19 04:00 Not Reportable 03/21/19 04:00 Not Reportable 03/21/19 04:00 Hem Pathologist Commnt No 03/21/19 04:00 PT 12.9 Sec. (12.2-14.9) 03/20/19 16:31 INR 0.92 (0.87-1.13) 03/20/19 16:31 APTT 29.1 Sec. (24.2-36.6) 03/20/19 16:31 POC ABG pH 7.475 (7.35-7.45) H 03/24/19 05:09 POC ABG pCO2 36.0 (35-45) 03/24/19 05:09 POC ABG pO2 165 (80-105) H 03/24/19 05:09 POC ABG HCO3 26.5 (22-26 mml/L) 03/24/19 05:09 POC ABG Total CO2 28 (23-27mmol/L) 03/24/19 05:09 POC ABG O2 Sat 100 03/24/19 05:09 POC ABG Base Excess 3 ((-2) - (+3)mmol/L) 03/24/19 05:09 VBG pH 7.091 (7.320-7.420) L* 03/20/19 16:25 45 % 03/24/19 05:09 Sodium 171 mmol/L (137-145) H* 03/24/19 05:05 Potassium 2.8 mmol/L (3.6-5.0) L* D 03/24/19 05:05 Chloride 131.4 mmol/L (98-107) H 03/24/19 05:05 Carbon Dioxide 26 mmol/L (22-30) 03/24/19 05:05 16 mmol/L 03/24/19 05:05 BUN 20 mg/dL (9-20) 03/24/19 05:05 1.5 mg/dL (0.8-1.5) 03/24/19 05:05 Estimated GFR 55 ml/min 03/24/19 05:05 13 % 03/24/19 05:05 Glucose 167 mg/dL (75-100) H 03/24/19 05:05 POC Glucose 153 (70-105) H 03/24/19 05:06 Lactic Acid 1.90 mmol/L (0.7-2.0) 03/22/19 04:20 Calcium 8.3 mg/dL (8.4-10.2) L 03/24/19 05:05 Phosphorus 3.10 mg/dL (2.5-4.5) D 03/23/19 15:46 Magnesium 2.30 mg/dL (1.7-2.3) 03/23/19 15:46 0.50 mg/dL (0.1-1.2) 03/24/19 05:05 AST 129 units/L (5-40) H 03/24/19 05:05 ALT 74 units/L (7-56) H 03/24/19 05:05 57 units/L (35-129) 03/24/19 05:05 10.0 umol/L (25-60) L 03/20/19 16:25 380 units/L (55-170) H 03/20/19 16:25 CK-MB (CK-2) 1.0 ng/mL (0.0-4.0) 03/20/19 16:25 CK-MB (CK-2) Rel Index 0.2 (0-4) 03/20/19 16:25 0.074 ng/mL (0.00-0.029) H D 03/21/19 14:41 4.90 mg/dL (0.00-1.30) H 03/21/19 15:59 5.6 g/dL (6.3-8.2) L 03/24/19 05:05 2.8 g/dL (3.9-5) L 03/24/19 05:05 1.0 % 03/24/19 05:05 Triglycerides 166 mg/dL (2-149) H 03/21/19 09:32 Cholesterol 194 mg/dL (50-199) 03/21/19 09:32 122 mg/dL (50-130) 03/21/19 09:32 63 mg/dL (40-59) H 03/21/19 09:32 3.07 % 03/21/19 09:32 TSH 17.340 mlU/mL (0.270-4.200) H 03/20/19 16:25 Free T4 0.69 ng/dL (0.76-1.46) L 03/20/19 16:25 Jeannie (Yellow) 03/20/19 17:35 Cloudy (Clear) 03/20/19 17:35 7.0 (5.0-7.0) 03/20/19 17:35 Ur Specific [place] 1.012 (1.003-1.030) 03/20/19 17:35 100 mg/dl mg/dL (Negative) 03/20/19 17:35 50 mg/dL (Negative) 03/20/19 17:35 Neg mg/dL (Negative) 03/20/19 17:35 Sm (Negative) 03/20/19 17:35 Neg (Negative) 03/20/19 17:35 Neg (Negative) 03/20/19 17:35 < 2.0 mg/dL (<2.0) 03/20/19 17:35 Ur Leukocyte Esterase Neg (Negative) 03/20/19 17:35 19.0 /HPF (0.0-6.0) H 03/20/19 17:35 46.0 /HPF (0.0-6.0) 03/20/19 17:35 U Epithel Cells (Auto) 1.0 /HPF (0-13.0) 03/20/19 17:35 1+ /HPF (Negative) 03/20/19 17:35 Hyaline Casts 1 /LPF 03/20/19 17:35 3+ /HPF 03/20/19 17:35 2+ /HPF 03/20/19 17:35 1+ /HPF (QA SOFTWARE TEST ENGINEER) 03/20/19 17:35 Vancomycin Trough 12.7 ug/mL (5.0-20.0) 03/23/19 15:46 Salicylates < 0.3 mg/dL (2.8-20.0) L 03/20/19 16:25 Presumptive positive 03/20/19 17:36 Presumptive negative 03/20/19 17:36 Acetaminophen < 5.0 ug/mL (10.0-30.0) L 03/20/19 16:25 Ur Barbiturates Screen Presumptive negative 03/20/19 17:36 Ur Phencyclidine Scrn Presumptive negative 03/20/19 17:36 Ur Amphetamines Screen Presumptive negative 03/20/19 17:36 U Benzodiazepines Scrn Presumptive negative 03/20/19 17:36 Presumptive negative 03/20/19 17:36 U Marijuana (THC) Screen Presumptive positive 03/20/19 17:36 Disclamer 03/20/19 17:36 Plasma/Serum Alcohol < 0.01 % (0-0.07) 03/21/19 09:32 Hepatitis A IgM Ab Non-reactive (NonReactive) 03/21/19 15:59 Hep Bs Antigen Non-reactive (Negative) 03/21/19 15:59 Hep B Core IgM Ab Non-reactive (NonReactive) 03/21/19 15:59 Reactive (NonReactive) A 03/21/19 15:59 HIV 1&2 Antibody Rapid Non react (Non React) 03/21/19 15:59 Non react (Non React) 03/21/19 15:59 Influenza A (Rapid) Negative (Negative) 03/21/19 18:45 Influenza A (RT-PCR) Negative (Negative) 03/21/19 18:45 Influenza B (Rapid) Negative (Negative) 03/21/19 18:45 Influenza B (RT-PCR) Negative (Negative) 03/21/19 18:45 Active Medications - Current Medications Current Medications: Generic Name Dose Route Start Last Admin Trade Name Freq PRN Reason Stop Dose Admin Acetaminophen 650 mg 03/23/19 11:00 Tylenol WA Q6H PRN Fever >101 Albuterol 2.5 mg 03/20/19 16:55 Proventil IH Q3HRT PRN Shortness Of Breath Lipase/Protease/Amylase 1 each 03/22/19 12:[address] 10,500 Unit FEEDTUBE PRN PRN For Clogged Feeding Tube Enoxaparin Sodium 40 mg 03/20/19 22:00 03/21/19 21:39 Lovenox SUB-Q 40 mg QDAY@2200 RICHARD Administration Hydrophilic Ointment 1 applic 03/20/19 18:02 Vaseline Lip Therapy TP Q2HR PRN Dry Lips Metronidazole 500 mg in 100 mls @ 100 mls/hr 03/21/19 16:00 03/24/19 05:27 Flagyl 500 Mg/100 Ml IV 100 mls/hr Q8HR RICHARD Administration Protocol Vancomycin HCl 1,250 mg/ 275 mls @ 166.667 mls/hr 03/22/19 05:00 03/24/19 04:20 Sodium Chloride IV 166.667 mls/hr Q12H RICHARD Administration Ceftriaxone Sodium 2 gm in 100 mls @ 200 mls/hr 03/22/19 14:00 03/23/19 21:23 Rocephin/Ns 2 Gm/100 Ml IV 200 mls/hr Q12HR RICHARD Administration Protocol Acyclovir 780 mg/ Sodium 115.6 mls @ 100 mls/hr 03/22/19 14:00 03/24/19 05:27 Chloride IV 100 mls/hr Q8HR RICHARD Administration Protocol Norepinephrine 4 mg in 250 mls @ 7.5 mls/hr 03/23/19 09:00 03/23/19 16:30 Levophed Drip 4 Mg/Ns 250 Ml IV 0 mcg/min TITR RICHARD 0 mls/hr Titration Protocol 2 MCG/MIN Lactated Ringer's 1,000 mls @ 999 mls/hr 03/23/19 11:00 03/23/19 16:00 Lactated Ringers IV 03/24/19 12:01 999 mls/hr DIRECT RICHARD Administration Potassium Chloride 20 meq in 100 mls @ 100 mls/hr 03/24/19 07:54 Kcl 20meq/100ml IV 03/24/19 08:53 ONCE ONE Dextrose 1,000 mls @ 150 mls/hr 03/24/19 09:00 D5w IV DIRECT RICHARD Levothyroxine Sodium 100 mcg 03/20/19 21:04 03/24/19 05:29 Synthroid IV 100 mcg DAILY@0600 RICHARD Administration Multi-Ingred Cream/Lotion/Oil/Oint 1 applic 03/20/19 18:02 Artificial Tears Ophth Oint OU Q4HR PRN Dry Eye(s) Pantoprazole Sodium 40 mg 03/23/19 11:00 03/23/19 15:54 Protonix IV 40 mg QDAY RICHARD Administration Simple Syrup 15 ml 03/22/19 12:16 Simple Syrup FEEDTUBE PRN PRN Hypoglycemia Simple Syrup 30 ml 03/22/19 12:16 Simple Syrup FEEDTUBE PRN PRN Hypoglycemia Sodium Bicarbonate 325 mg 03/22/19 12:16 Sodium Bicarbonate FEEDTUBE PRN PRN For Clogged Feeding Tube Sodium Chloride 10 ml 03/20/19 22:00 03/23/19 21:25 Sodium Chloride Flush Syringe 10 Ml IV 10 ml BID RICHARD Administration Sodium Chloride 10 ml 03/20/19 16:55 03/21/19 18:56 Sodium Chloride Flush Syringe 10 Ml IV 10 ml PRN PRN Administration LINE FLUSH Nutrition/Malnutrition Assess - Dietary Evaluation Nutrition/Malnutrition Findings: Nutrition Notes Start: 03/21/19 12:53 Freq: Status: Active Protocol: Document 03/22/19 12:05 CP (Rec: 03/22/19 12:48 CP [id number]) Co-Sign 03/22/19 12:05 LP Nutrition Notes Initial or Follow up Assessment Current Diagnosis Respiratory Failure Other Pertinent Diagnosis Myxedema coma, DVT prophylaxis , alcohol intoxication Current Diet NPO Labs/Tests Na 156 K 3.5 Glu 144 Phos 2.0 Mg 1.5 Pertinent Medications Reviewed Height 5 ft 8 in Weight 78 kg [place] Body Weight (kg) 70.00 BMI 26.1 Weight Status Obese Subjective/Other Information F/U for diet advancement. Pt is currently NPO, but consulted for TF as discussed in rounds per MD. Burn Absent Trauma Absent #1 Nutrition Diagnosis Inadequate oral intake Etiology Mechanical vent As Evidenced by Signs and Symptoms NPO status Is patient on ventilator? Yes Is Patient Ambulatory and/or Out of Bed No REE-([place]-[facility] [facility]-confined to bed) 2058.344 Calculation Used for Recommendations [place] [facility] Additional Notes Pro: (1.2-2g/kg) 94-156g/day Fluid: 1mL/kcal or per MD request Nutrition Intervention Change Diet Order: Advance to TF (Vital AF 1.2) Nutrition Support: Vital AF 1.2 at 70 mL/hr Water flush 100 mL q4h. Kcal 2,016 Protein (gm) 126 Fluid (mL) 1,680 Fiber (gm) 0 Goal #1 TF to start Goal #2 TF tolerance Anticipated Discharge Needs: Unable to determine at this time Follow-Up By: 03/24/19 Additional Comments F/U: TF to start/TF tolerance
[2019-03-24] MEDS: PROTONIX IV SCH (09:28)
[2019-03-24] MEDS: ROCEPHIN/NS 2 GM/100 ML 2 GM/100 ML BAG IV SCH ×2 (09:28→22:16)
[2019-03-24] MEDS: SODIUM CHLORIDE FLUSH SYRINGE 10 ML IV SCH ×2 (09:31→22:17)
--- NOTE | 2019-03-24 10:09 | Progress Note ---
Assessment and Plan Out of hospital cardiopulmonary arrest, etiology uncertain chest CTA was also negative for pulmonary embolism head CT reports no acute intracranial abnormalities ETOH abuse Elevated liver transaminase Persistent Fever/tachycardia Acute encephalopathy Hypernatremia/hypokalemia Hypothyroidism An echocardiogram reports a normal LV systolic function, ejection fraction 55- 60%. Supportive cardiac management. Subjective Date of service: 03/24/19 Principal diagnosis: fever Interval history: Patient remains unresponsive, on the vent, sinus tachycardia, persistent fevers now with cooling blankets. Objective Vital Signs Temp Pulse Pulse Resp BP Pulse Ox 03/24/19 08:18 136 H 131/97 100 03/24/19 07:30 134 H 30 H 135/95 100 03/24/19 07:15 138 H 30 H 127/87 100 03/24/19 07:00 136 H 27 H 125/92 100 03/24/19 06:45 137 H 31 H 118/91 100 03/24/19 06:30 136 H 30 H 121/89 100 03/24/19 06:15 135 H 30 H 141/95 100 03/24/19 06:00 133 H 30 H 138/98 100 03/24/19 05:45 132 H 29 H 144/106 100 03/24/19 05:30 129 H 30 H 157/110 03/24/19 05:15 132 H 30 H 133/101 03/24/19 05:00 130 H 30 H 139/107 100 03/24/19 04:45 129 H 30 H 147/103 03/24/19 04:30 128 H 29 H 147/100 100 03/24/19 04:15 126 H 30 H 144/106 03/24/19 04:09 128 H 143/103 03/24/19 04:00 128 H 127 H 30 H 143/103 100 03/24/19 03:45 127 H 26 H 149/107 03/24/19 03:30 129 H 30 H 146/102 100 03/24/19 03:15 126 H 30 H 152/106 100 03/24/19 03:02 99.9 F H 03/24/19 03:00 128 H 30 H 146/105 100 03/24/19 02:45 129 H 27 H 153/109 100 03/24/19 02:30 99.4 F 129 H 30 H 147/103 100 03/24/19 02:15 129 H 30 H 143/106 100 03/24/19 02:00 129 H 30 H 152/103 100 03/24/19 01:45 131 H 30 H 149/100 92 03/24/19 01:30 130 H 30 H 149/107 100 03/24/19 01:15 133 H 30 H 141/99 99 03/24/19 01:00 132 H 29 H 137/100 96 03/24/19 00:45 136 H 30 H 136/98 99 03/24/19 00:30 136 H 26 H 144/96 100 03/24/19 00:15 135 H 30 H 147/100 100 03/24/19 00:00 132 H 130 H 20 149/106 100 03/23/19 23:45 129 H 20 154/107 100 03/23/19 23:40 129 H 23 149/109 100 03/23/19 23:30 127 H 18 180/131 100 03/23/19 23:25 130 H 114/86 100 03/23/19 23:21 129 H 26 H 114/86 92 03/23/19 23:11 129 H 29 H 116/81 98 03/23/19 23:02 102.1 F H 03/23/19 23:00 127 H 30 H 121/85 03/23/19 22:51 130 H 23 116/81 03/23/19 22:41 129 H 30 H 133/91 03/23/19 22:30 128 H 22 131/94 03/23/19 22:21 127 H 30 H 133/95 03/23/19 22:11 126 H 22 133/91 100 03/23/19 22:00 127 H 30 H 133/91 100 03/23/19 21:45 124 H 26 H 120/97 03/23/19 21:30 125 H 26 H 136/93 100 03/23/19 21:15 124 H 30 H 127/94 100 03/23/19 21:00 127 H 27 H 136/93 98 03/23/19 20:45 129 H 26 H 127/94 98 03/23/19 20:30 129 H 30 H 125/87 98 03/23/19 20:29 124 H 127/94 100 03/23/19 20:15 128 H 30 H 127/94 100 03/23/19 20:00 126 H 30 H 133/86 100 03/23/19 19:45 127 H 30 H 132/89 100 03/23/19 19:39 102.7 F H 03/23/19 19:30 129 H 30 H 127/89 100 03/23/19 19:15 128 H 30 H 130/89 99 03/23/19 19:00 129 H 30 H 133/87 100 03/23/19 18:45 129 H 30 H 133/85 99 03/23/19 18:30 128 H 26 H 126/86 100 03/23/19 18:15 132 H 22 117/84 100 03/23/19 18:00 130 H 30 H 123/90 100 03/23/19 17:45 127 H 18 126/86 100 03/23/19 17:30 125 H 30 H 124/91 100 03/23/19 17:15 125 H 30 H 126/90 100 03/23/19 17:00 125 H 30 H 125/93 100 03/23/19 16:45 125 H 30 H 122/95 100 03/23/19 16:30 123 H 30 H 116/89 100 03/23/19 16:15 120 H 30 H 127/92 99 03/23/19 16:10 120 H 127/92 99 03/23/19 16:08 101.4 F H 03/23/19 16:00 116 H 30 H 131/89 100 03/23/19 15:45 114 H 30 H 142/103 99 03/23/19 15:30 112 H 30 H 148/104 100 03/23/19 15:15 109 H 30 H 146/103 100 03/23/19 15:00 108 H 30 H 134/90 100 03/23/19 14:45 107 H 30 H 125/88 100 03/23/19 14:30 105 H 30 H 124/88 100 03/23/19 14:15 100 H 30 H 136/91 100 03/23/19 14:00 96 H 30 H 138/97 100 03/23/19 13:45 101 H 30 H 129/94 100 03/23/19 13:00 101 H 30 H 131/90 100 03/23/19 12:10 98 H 114/72 99 03/23/19 12:00 97 H 23 117/84 100 03/23/19 11:25 102.8 F H 03/23/19 11:00 98 H 27 H 114/72 99 - Physical Examination General: Other (unresponsive on the vent) Cardiac: Positive: Tachycardia - Labs and Meds Cardiac Enzymes 03/24/19 Range/Units 05:05 AST 129 H (5-40) units/L CBC 03/24/19 Range/Units 05:05 WBC 10.6 (4.5-11.0) K/mm3 RBC 3.77 (3.65-5.03) M/mm3 Hgb 12.6 (11.8-15.2) gm/dl Hct 37.9 (35.5-45.6) % Plt Count 79 L (140-440) K/mm3 Comprehensive Metabolic Panel 03/23/19 03/24/19 Range/Units 15:46 05:05 Sodium 163 H* 171 H* (137-145) mmol/L Potassium 3.6 2.8 L* D (3.6-5.0) mmol/L Chloride 127.9 H 131.4 H (98-107) mmol/L Carbon Dioxide 26 26 (22-30) mmol/L BUN 28 H 20 (9-20) mg/dL Creatinine 1.5 1.5 (0.8-1.5) mg/dL Glucose 120 H 167 H (75-100) mg/dL Calcium 7.5 L 8.3 L (8.4-10.2) mg/dL AST 129 H (5-40) units/L ALT 74 H (7-56) units/L Alkaline Phosphatase 57 (35-129) units/L Total Protein 5.6 L (6.3-8.2) g/dL Albumin 2.8 L (3.9-5) g/dL
--- NOTE | 2019-03-24 11:28 | Ultrasound Report ---
ULTRASOUND RENAL INDICATION: NICK. COMPARISON: 03/20/2019 CT. FINDINGS: Renal sonography suggests top normal/borderline renal cortical echogenicity. Grossly preserved renal contours. No hydronephrosis. Echogenic imaged liver. RIGHT KIDNEY measures 12.2 x 4.9 x 5.3 cm with cortical thickness of 1.3 cm. LEFT KIDNEY estimated at 12.9 x 5.3 x 4.5 cm with cortical thickness of 1.7 cm. An approximately 1 x 0.6 x 0.2 cm left interpolar echogenic calculus with mild posterior acoustic shadowing again noted as on image 30. URINARY BLADDER suboptimally distended and assessed, decompressed around a Damon catheter balloon. CONCLUSION: Fatty liver, nonobstructing left nephrolithiasis and a Damon catheter again noted, as detailed above. Please correlate. Thank you for the opportunity to participate in this patient's care.
[2019-03-24 12:08] LABS: Bacteria,Urine 2+ /HPF (Negative); Bilirubin,Urine NEG (Negative); Blood,Urine MOD (Negative); Color,Urine Yellow (Yellow); Mucus,Urine FEW /HPF; Protein,Urine <15 mg/dL mg/dL (Negative); Urobilinogen,Urine < 2.0 mg/dL (<2.0)
[2019-03-24 12:10] LABS: Chloride, Urine 17.3 mmolL (110-250); Creatinine,Urine 62.1 mg/dL (0.1-20.0)
--- NOTE | 2019-03-24 13:14 | Progress Note ---
Assessment and Plan Cultures: Blood culture 03/20/2019 no growth today. Sputum culture 03/20/2019 usual resp lakshmi Assessment: 28 y/o male with history of ETOH dependence admitted on 03/20/2019 due to be found to be "Unresponsive and looking very pale" [place] members and taken to Urgent for evaluation. At the Urgent care patient experienced cardiac arrest, unclear details. ACLS protocol initiated, intubated and patient subsequently transported to [facility]. Pt regained cardiac rhythm en route to [facility]: 1) [id number] cardiac arrest s/p CPR, unclear details. S/p another arrest on 03/23 on levophed, now off pressors 2) Acute encephalopathy: multifactorial, ETOH intoxication/coma myxedema/meningitis. ETOH level 0.32. UDS +marihuana and + opoids. CT head chronic sinusitis. 3) SIRS: still fever, tachycardia, increased lactate. Etiology unclear, likely multifactorial - sinusitis/dehydration/ETOH intoxication/mixedema coma/rhabdomyolysis/?aspiration pneumonia/?meningitis. CTA chest showed No acute pulmonary process. UA with wbc no LE. Blood culture 03/20/2019 no growth today. Sputum culture 03/20/2019 Gram with GPC. Mother called friend who was with patient the last week and reported that patient was c/o severe headaches and bad sinusitis with mucous discharge. Influenza PCR negative. HIV negative. Hepatitis C serology reactive. CRP 4.9. 4) Mixedema coma? 5) Elevated LFTs: from ETOH and arrest. AST 276. ALT 165. Alkphos 139. Hepatitis C serology reactive. 6) NICK: renally adjusted all abx 7) Thrombocytopenia: from sepsis Recommendations: - obtain lumbar puncture for opening pressure and send CSF specimen for Gram stain and culture, glucose, protein, VDRL, HSV-PCR, cryptococcal antigen and culture. Not done due low platelets - agree with brain MRI - follow-up blood cultures, nostrils culture, procalcitonin - continue ceftriaxone 2 gm IV q21h D2 - continue vancomycin for now D2 - stop acyclovir IV - doubt HSV meningitis - stop meropenem Poor prognosis Discussed with Dr Clements Will follow on Wednesday Gail Monique MD Infectious Diseases Resident Caregiver [facility] M [phone] O [phone] Subjective Date of service: 03/24/19 Principal diagnosis: fever Interval history: Off levophed, remains on the vent, tmax 102, parents at bedside ROS unable to obtain Objective - Exam Narrative Exam: General appearance: unresponsive intubated in mod resp distress Eyes: anicteric sclerae, moist conjunctivae; no lid-lag; +dilated fixed pupils HENT: Atraumatic; oropharynx +ETT Neck: Trachea midline; supple, no thyromegaly or lymphadenopathy Lungs: butch coarse BS CV: tachycardic Abdomen: Soft, tense Extremities: No peripheral edema or extremity lymphadenopathy Skin: Normal temperature, turgor and texture; no rash, ulcers or subcutaneous nodules Psych: lethargic. Neuro: lethargic - Constitutional Vitals: Vital Signs Temp Pulse Resp BP Pulse Ox 101.0 F H 135 H 31 H 144/103 99 03/24/19 08:00 03/24/19 11:52 03/24/19 10:30 03/24/19 11:52 03/24/19 11:52 Temperature -Last 24 Hours Temperature 101.0 F Temperature 99.9 F Temperature 99.4 F Temperature 102.1 F Temperature 102.7 F Temperature 101.4 F - Labs CBC & Chem 7: 03/24/19 05:05 03/24/19 05:05 Labs: Abnormal lab results 03/23/19 03/23/19 03/23/19 Range/Units 11:42 15:46 17:27 MCV (84-94) fl MCH (28-32) pg RDW (13.2-15.2) % Plt Count (140-440) K/mm3 POC ABG pH (7.35-7.45) POC ABG pO2 (80-105) Sodium 163 H* (137-145) mmol/L Potassium (3.6-5.0) mmol/L Chloride 127.9 H (98-107) mmol/L BUN 28 H (9-20) mg/dL Glucose 120 H (75-100) mg/dL POC Glucose 109 H (70-105) Calcium 7.5 L (8.4-10.2) mg/dL AST (5-40) units/L ALT (7-56) units/L Total Protein (6.3-8.2) g/dL Albumin (3.9-5) g/dL Urine WBC (Auto) 27.0 H (0.0-6.0) /HPF Urine Creatinine (0.1-20.0) mg/dL Urine Chloride (110-250) mmolL 03/23/19 03/24/19 03/24/19 Range/Units 23:43 05:05 05:05 MCV 101 H (84-94) fl MCH 34 H (28-32) pg RDW 13.0 L (13.2-15.2) % Plt Count 79 L (140-440) K/mm3 POC ABG pH (7.35-7.45) POC ABG pO2 (80-105) Sodium 171 H* (137-145) mmol/L Potassium 2.8 L* D (3.6-5.0) mmol/L Chloride 131.4 H (98-107) mmol/L BUN (9-20) mg/dL Glucose 167 H (75-100) mg/dL POC Glucose 133 H (70-105) Calcium 8.3 L (8.4-10.2) mg/dL AST 129 H (5-40) units/L ALT 74 H (7-56) units/L Total Protein 5.6 L (6.3-8.2) g/dL Albumin 2.8 L (3.9-5) g/dL Urine WBC (Auto) (0.0-6.0) /HPF Urine Creatinine (0.1-20.0) mg/dL Urine Chloride (110-250) mmolL 03/24/19 03/24/19 03/24/19 Range/Units 05:06 05:09 12:13 MCV (84-94) fl MCH (28-32) pg RDW (13.2-15.2) % Plt Count (140-440) K/mm3 POC ABG pH 7.475 H (7.35-7.45) POC ABG pO2 165 H (80-105) Sodium (137-145) mmol/L Potassium (3.6-5.0) mmol/L Chloride (98-107) mmol/L BUN (9-20) mg/dL Glucose (75-100) mg/dL POC Glucose 153 H (70-105) Calcium (8.4-10.2) mg/dL AST (5-40) units/L ALT (7-56) units/L Total Protein (6.3-8.2) g/dL Albumin (3.9-5) g/dL Urine WBC (Auto) (0.0-6.0) /HPF Urine Creatinine 62.1 H (0.1-20.0) mg/dL Urine Chloride 17.3 L (110-250) mmolL
--- NOTE | 2019-03-24 14:06 | Cat Scan Report ---
CT HEAD WITHOUT CONTRAST INDICATION: Stroke. COMPARISON: 03/20/[address] FINDINGS: Noncontrast head CT now demonstrates diffuse loss of morris-white matter differentiation/cerebral edema with effacement of ventricles and sulci. No significant midline shift. Vessels appear relatively hyperdense/pseudosubarachnoid appearance. Effaced basilar cisterns. Motion artifact partly degrades exam. A new nasogastric tube courses the right nasal passage. Severe, near complete opacification of left maxillary sinus now noted. Mild increased right maxillary sinus mucosal thickening as well. New/increased moderate to severe bilateral ethmoid, frontal and sphenoid sinus mucosal thickening also now seen. New mild bilateral mastoid air cell opacification as well, left more than right. Rightward nasal septal deviation. Fluid also noted along the nasal passages/pharynx. Symmetric eye globes. Normal calvarium and scalp. Few radiopaque dental material. Endotracheal tube also again seen. CONCLUSION: 1. Abnormal CT now demonstrating diffuse/extensive cerebral edema/global hypoxic ischemic changes, as detailed above. 2. Significant interval worsening of pansinusitis. New nasogastric tube. Patient remains intubated. Thank you for the opportunity to participate in this patient's care.
[2019-03-24] MEDS: D5W 1,000 ML IV SCH ×2 (14:15→22:14)
--- NOTE | 2019-03-24 14:59 | Progress Note ---
Assessment and Plan 28 y/o male with out of hospital cardiac arrest and acute respiratory failure and altered mental state 1. Cardiac-remains tachy. Likey fever and volume depletion. 2. Neuro-patient now off sedation for over 72 hours. Remains unresponsive and still febrile despite abx. Too unstable now post arrest to go down for LP. EEG with diffuse slowing and neurology recommended a repeat CT. Done. Showing significant cerebral edema consistent with anoxic brain injury. Awaiting Neurology to come back and speak with family. This carries a very poor prognosis. 3. Respiratory-Clear CXR, minimal vent support. Continue all current settings for now 4. Endo-elevated TSH and low T4. NO family available for history. Agree with IV synthroid, however the picture does not clinically fit myxedema coma. Hold on stress dose roids for now 5. GI-dark contents from NG tube have returned. H/H stable. Will continue low intermittent suction and hold on feeds 6. ID-Please see Neuro number 2, acyclovir was added yesterday. No increase in white count. Unable to get LP at this time. 7. Metabolic-Hypernatremia, iatrogenic from volume resusucitation. Will restart D5 at a rate. Overall prognosis is guarded to poor. Discussed with mother and father at bedside. Explained the severity of the clinical state and that patient could have cardiac arrest again as well as permanent brain damage. They have expressed understanding on all levels. CCT 31 minutes. Subjective Date of service: 03/24/19 Principal diagnosis: fever Interval history: EEG done but not officially read. Spoke with Tech and it did show diffuse slowing. No status. Family at bedside. Neurology also at bedside examining patient. Remains unresponsive, no gag, no cough. Nonreactive pupils. ID present as well. Still spiking temps despite cooling blanket. Objective Vital Signs - 12hr 03/24/19 03/24/19 03/24/19 03:00 03:02 03:15 Temperature 99.9 F H Pulse Rate 128 H 126 H Pulse Rate [ From Monitor] Respiratory 30 H 30 H Rate Blood Pressure 146/105 152/106 O2 Sat by Pulse 100 100 Oximetry 03/24/19 03/24/19 03/24/19 03:30 03:45 04:00 Temperature Pulse Rate 129 H 127 H 128 H Pulse Rate [ 127 H From Monitor] Respiratory 30 H 26 H 30 H Rate Blood Pressure 146/102 149/107 143/103 O2 Sat by Pulse 100 100 100 Oximetry 03/24/19 03/24/19 03/24/19 04:09 04:15 04:30 Temperature Pulse Rate 128 H 126 H 128 H Pulse Rate [ From Monitor] Respiratory 30 H 29 H Rate Blood Pressure 143/103 144/106 147/100 O2 Sat by Pulse 100 100 100 Oximetry 03/24/19 03/24/19 03/24/19 04:45 05:00 05:15 Temperature Pulse Rate 129 H 130 H 132 H Pulse Rate [ From Monitor] Respiratory 30 H 30 H 30 H Rate Blood Pressure 147/103 139/107 133/101 O2 Sat by Pulse 100 100 100 Oximetry 03/24/19 03/24/19 03/24/19 05:30 05:45 06:00 Temperature Pulse Rate 129 H 132 H 133 H Pulse Rate [ From Monitor] Respiratory 30 H 29 H 30 H Rate Blood Pressure 157/110 144/106 138/98 O2 Sat by Pulse 100 100 100 Oximetry 03/24/19 03/24/19 03/24/19 06:15 06:30 06:45 Temperature Pulse Rate 135 H 136 H 137 H Pulse Rate [ From Monitor] Respiratory 30 H 30 H 31 H Rate Blood Pressure 141/95 121/89 118/91 O2 Sat by Pulse 100 100 100 Oximetry 03/24/19 03/24/19 03/24/19 07:00 07:15 07:30 Temperature Pulse Rate 136 H 138 H 134 H Pulse Rate [ From Monitor] Respiratory 27 H 30 H 30 H Rate Blood Pressure 125/92 127/87 135/95 O2 Sat by Pulse 100 100 100 Oximetry 03/24/19 03/24/19 03/24/19 07:45 08:00 08:15 Temperature 101.0 F H Pulse Rate 135 H 136 H 134 H Pulse Rate [ 136 H From Monitor] Respiratory 30 H 30 H 30 H Rate Blood Pressure 141/99 133/97 131/97 O2 Sat by Pulse 100 100 100 Oximetry 03/24/19 03/24/19 03/24/19 08:18 08:30 08:45 Temperature Pulse Rate 136 H 137 H 138 H Pulse Rate [ From Monitor] Respiratory 31 H 30 H Rate Blood Pressure 131/97 133/97 137/99 O2 Sat by Pulse 100 100 100 Oximetry 03/24/19 03/24/19 03/24/19 09:00 09:15 09:30 Temperature Pulse Rate 140 H 139 H 137 H Pulse Rate [ From Monitor] Respiratory 31 H 30 H 28 H Rate Blood Pressure 140/95 140/95 143/94 O2 Sat by Pulse 100 100 100 Oximetry 03/24/19 03/24/19 03/24/19 09:45 10:00 10:15 Temperature Pulse Rate 135 H 134 H 135 H Pulse Rate [ From Monitor] Respiratory 29 H 30 H 30 H Rate Blood Pressure 148/104 143/105 144/101 O2 Sat by Pulse 100 100 100 Oximetry 03/24/19 03/24/19 10:30 11:52 Temperature Pulse Rate 134 H 135 H Pulse Rate [ From Monitor] Respiratory 31 H Rate Blood Pressure 153/102 144/103 O2 Sat by Pulse 100 99 Oximetry Constitutional: comatose, appears uncomfortable, other (dishelved) Eyes: injected ENT: other (orally intubated and sedated) Neck: supple Effort: mildly labored Ascultation: Bilateral: clear Percussion: Bilateral: not dull Cardiovascular: regular rate and rhythm Gastrointestinal: hypoactive bowel sounds Integumentary: normal Extremities: no edema Neurologic: unable to assess CBC and BMP: 03/24/19 05:05 03/24/19 05:05 ABG, PT/INR, D-dimer: ABG POC ABG pH 7.475 (7.35-7.45) H 03/24/19 05:09 POC ABG pCO2 36.0 (35-45) 03/24/19 05:09 POC ABG pO2 165 (80-105) H 03/24/19 05:09 POC ABG HCO3 26.5 (22-26 mml/L) 03/24/19 05:09 POC ABG Total CO2 28 (23-27mmol/L) 03/24/19 05:09 POC ABG O2 Sat 100 03/24/19 05:09 PT/INR, D-dimer PT 12.9 Sec. (12.2-14.9) 03/20/19 16:31 INR 0.92 (0.87-1.13) 03/20/19 16:31 Abnormal lab findings: Abnormal Labs 03/20/19 03/20/19 03/20/19 16:25 16:25 16:25 WBC Hgb Hct MCV 101 H MCH 33 H RDW 12.9 L Plt Count Seg Neuts % (Manual) 36.0 L Lymphocytes % (Manual) 60.0 H Seg Neutrophils # Man Lymphocytes # (Manual) 6.0 H POC ABG pH POC ABG pCO2 POC ABG pO2 VBG pH Sodium Potassium Chloride Carbon Dioxide 18 L BUN Creatinine Glucose 159 H POC Glucose Lactic Acid 9.50 H* Calcium 7.6 L Phosphorus Magnesium AST 276 H ALT 165 H Alkaline Phosphatase 139 H Ammonia Total Creatine Kinase 380 H Troponin T C-Reactive Protein Total Protein Albumin Triglycerides HDL Cholesterol TSH Free T4 Urine WBC (Auto) Urine Creatinine Urine Chloride Salicylates Acetaminophen Plasma/Serum Alcohol Hepatitis C Antibody 03/20/19 03/20/19 03/20/19 16:25 16:25 16:25 WBC Hgb Hct MCV MCH RDW Plt Count Seg Neuts % (Manual) Lymphocytes % (Manual) Seg Neutrophils # Man Lymphocytes # (Manual) POC ABG pH POC ABG pCO2 POC ABG pO2 VBG pH Sodium Potassium Chloride Carbon Dioxide BUN Creatinine Glucose POC Glucose Lactic Acid Calcium Phosphorus Magnesium 2.40 H AST ALT Alkaline Phosphatase Ammonia 10.0 L Total Creatine Kinase Troponin T C-Reactive Protein Total Protein Albumin Triglycerides HDL Cholesterol TSH 17.340 H Free T4 0.69 L Urine WBC (Auto) Urine Creatinine Urine Chloride Salicylates Acetaminophen Plasma/Serum Alcohol Hepatitis C Antibody 03/20/19 03/20/19 03/20/19 16:25 16:25 16:25 WBC Hgb Hct MCV MCH RDW Plt Count Seg Neuts % (Manual) Lymphocytes % (Manual) Seg Neutrophils # Man Lymphocytes # (Manual) POC ABG pH POC ABG pCO2 POC ABG pO2 VBG pH Sodium Potassium Chloride Carbon Dioxide BUN Creatinine Glucose POC Glucose Lactic Acid Calcium Phosphorus Magnesium AST ALT Alkaline Phosphatase Ammonia Total Creatine Kinase Troponin T C-Reactive Protein Total Protein Albumin Triglycerides HDL Cholesterol TSH Free T4 Urine WBC (Auto) Urine Creatinine Urine Chloride Salicylates < 0.3 L Acetaminophen < 5.0 L Plasma/Serum Alcohol 0.32 H Hepatitis C Antibody 03/20/19 03/20/19 03/20/19 16:25 16:34 16:51 WBC Hgb Hct MCV MCH RDW Plt Count Seg Neuts % (Manual) Lymphocytes % (Manual) Seg Neutrophils # Man Lymphocytes # (Manual) POC ABG pH 7.041 L POC ABG pCO2 68.9 H POC ABG pO2 381 H VBG pH 7.091 L* Sodium Potassium Chloride Carbon Dioxide BUN Creatinine Glucose POC Glucose 130 H Lactic Acid Calcium Phosphorus Magnesium AST ALT Alkaline Phosphatase Ammonia Total Creatine Kinase Troponin T C-Reactive Protein Total Protein Albumin Triglycerides HDL Cholesterol TSH Free T4 Urine WBC (Auto) Urine Creatinine Urine Chloride Salicylates Acetaminophen Plasma/Serum Alcohol Hepatitis C Antibody 03/20/19 03/20/19 03/20/19 17:35 17:53 19:17 WBC Hgb Hct MCV MCH RDW Plt Count Seg Neuts % (Manual) Lymphocytes % (Manual) Seg Neutrophils # Man Lymphocytes # (Manual) POC ABG pH 7.305 L POC ABG pCO2 POC ABG pO2 262 H VBG pH Sodium Potassium Chloride Carbon Dioxide BUN Creatinine Glucose POC Glucose Lactic Acid 6.90 H* Calcium Phosphorus Magnesium AST ALT Alkaline Phosphatase Ammonia Total Creatine Kinase Troponin T C-Reactive Protein Total Protein Albumin Triglycerides HDL Cholesterol TSH Free T4 Urine WBC (Auto) 19.0 H Urine Creatinine Urine Chloride Salicylates Acetaminophen Plasma/Serum Alcohol Hepatitis C Antibody 03/20/19 03/20/19 03/21/19 20:40 22:38 03:41 WBC Hgb Hct MCV MCH RDW Plt Count Seg Neuts % (Manual) Lymphocytes % (Manual) Seg Neutrophils # Man Lymphocytes # (Manual) POC ABG pH POC ABG pCO2 31.4 L POC ABG pO2 195 H VBG pH Sodium Potassium Chloride Carbon Dioxide BUN Creatinine Glucose POC Glucose 117 H Lactic Acid 6.30 H* Calcium Phosphorus Magnesium AST ALT Alkaline Phosphatase Ammonia Total Creatine Kinase Troponin T C-Reactive Protein Total Protein Albumin Triglycerides HDL Cholesterol TSH Free T4 Urine WBC (Auto) Urine Creatinine Urine Chloride Salicylates Acetaminophen Plasma/Serum Alcohol Hepatitis C Antibody 03/21/19 03/21/19 03/21/19 04:00 09:32 09:32 WBC 20.0 H 17.3 H Hgb 15.9 H 16.1 H Hct 47.3 H 47.8 H MCV 99 H 98 H MCH 33 H 33 H RDW 12.8 L 12.7 L Plt Count Seg Neuts % (Manual) 90.0 H Lymphocytes % (Manual) 7.0 L Seg Neutrophils # Man 18.0 H Lymphocytes # (Manual) POC ABG pH POC ABG pCO2 POC ABG pO2 VBG pH Sodium Potassium Chloride Carbon Dioxide BUN Creatinine Glucose POC Glucose Lactic Acid Calcium Phosphorus Magnesium AST ALT Alkaline Phosphatase Ammonia Total Creatine Kinase Troponin T 0.054 H D C-Reactive Protein Total Protein Albumin Triglycerides 166 H HDL Cholesterol 63 H TSH Free T4 Urine WBC (Auto) Urine Creatinine Urine Chloride Salicylates Acetaminophen Plasma/Serum Alcohol Hepatitis C Antibody 03/21/19 03/21/19 03/21/19 09:46 14:41 15:59 WBC Hgb Hct MCV MCH RDW Plt Count Seg Neuts % (Manual) Lymphocytes % (Manual) Seg Neutrophils # Man Lymphocytes # (Manual) POC ABG pH POC ABG pCO2 POC ABG pO2 VBG pH Sodium 148 H Potassium Chloride Carbon Dioxide 20 L BUN Creatinine Glucose 171 H POC Glucose Lactic Acid Calcium Phosphorus Magnesium AST 253 H ALT 218 H Alkaline Phosphatase 146 H Ammonia Total Creatine Kinase Troponin T 0.074 H D C-Reactive Protein 4.90 H Total Protein Albumin Triglycerides HDL Cholesterol TSH Free T4 Urine WBC (Auto) Urine Creatinine Urine Chloride Salicylates Acetaminophen Plasma/Serum Alcohol Hepatitis C Antibody 03/21/19 03/22/19 03/22/19 15:59 04:20 04:20 WBC 20.0 H Hgb Hct MCV 99 H MCH 33 H RDW 12.9 L Plt Count Seg Neuts % (Manual) Lymphocytes % (Manual) Seg Neutrophils # Man Lymphocytes # (Manual) POC ABG pH POC ABG pCO2 POC ABG pO2 VBG pH Sodium 156 H D Potassium 3.5 L Chloride 117.2 H Carbon Dioxide BUN Creatinine Glucose 144 H POC Glucose Lactic Acid Calcium 8.1 L Phosphorus Magnesium AST 205 H ALT 156 H Alkaline Phosphatase Ammonia Total Creatine Kinase Troponin T C-Reactive Protein Total Protein Albumin 3.6 L Triglycerides HDL Cholesterol TSH Free T4 Urine WBC (Auto) Urine Creatinine Urine Chloride Salicylates Acetaminophen Plasma/Serum Alcohol Hepatitis C Antibody Reactive A 03/22/19 03/22/19 03/22/19 04:20 04:26 12:40 WBC Hgb Hct MCV MCH RDW Plt Count Seg Neuts % (Manual) Lymphocytes % (Manual) Seg Neutrophils # Man Lymphocytes # (Manual) POC ABG pH POC ABG pCO2 32.8 L POC ABG pO2 66 L VBG pH Sodium Potassium Chloride Carbon Dioxide BUN Creatinine Glucose POC Glucose 171 H Lactic Acid Calcium Phosphorus 2.00 L Magnesium 1.50 L AST ALT Alkaline Phosphatase Ammonia Total Creatine Kinase Troponin T C-Reactive Protein Total Protein Albumin Triglycerides HDL Cholesterol TSH Free T4 Urine WBC (Auto) Urine Creatinine Urine Chloride Salicylates Acetaminophen Plasma/Serum Alcohol Hepatitis C Antibody 03/22/19 03/22/19 03/23/19 17:44 20:28 04:30 WBC 12.9 H Hgb Hct MCV 102 H MCH 34 H RDW 12.6 L Plt Count 115 L Seg Neuts % (Manual) Lymphocytes % (Manual) Seg Neutrophils # Man Lymphocytes # (Manual) POC ABG pH POC ABG pCO2 POC ABG pO2 VBG pH Sodium 158 H Potassium 3.5 L Chloride 121.5 H Carbon Dioxide BUN 23 H Creatinine Glucose 199 H POC Glucose 144 H Lactic Acid Calcium 8.0 L Phosphorus Magnesium 2.50 H AST ALT Alkaline Phosphatase Ammonia Total Creatine Kinase Troponin T C-Reactive Protein Total Protein Albumin Triglycerides HDL Cholesterol TSH Free T4 Urine WBC (Auto) Urine Creatinine Urine Chloride Salicylates Acetaminophen Plasma/Serum Alcohol Hepatitis C Antibody 03/23/19 03/23/19 03/23/19 04:30 04:38 08:56 WBC Hgb Hct MCV 103 H MCH 33 H RDW Plt Count 107 L Seg Neuts % (Manual) Lymphocytes % (Manual) Seg Neutrophils # Man Lymphocytes # (Manual) POC ABG pH 7.481 H POC ABG pCO2 33.8 L POC ABG pO2 VBG pH Sodium 156 H Potassium Chloride 121.4 H Carbon Dioxide 21 L BUN 24 H Creatinine Glucose 148 H POC Glucose Lactic Acid Calcium 7.9 L Phosphorus 1.90 L Magnesium AST 166 H ALT 96 H Alkaline Phosphatase Ammonia Total Creatine Kinase Troponin T C-Reactive Protein Total Protein 6.0 L Albumin 3.3 L Triglycerides HDL Cholesterol TSH Free T4 Urine WBC (Auto) Urine Creatinine Urine Chloride Salicylates Acetaminophen Plasma/Serum Alcohol Hepatitis C Antibody 03/23/19 03/23/19 03/23/19 08:56 11:21 11:42 WBC Hgb Hct MCV MCH RDW Plt Count Seg Neuts % (Manual) Lymphocytes % (Manual) Seg Neutrophils # Man Lymphocytes # (Manual) POC ABG pH POC ABG pCO2 POC ABG pO2 VBG pH Sodium 161 H* Potassium Chloride 121.5 H Carbon Dioxide BUN 27 H Creatinine 1.9 H D Glucose 248 H POC Glucose 275 H Lactic Acid Calcium 7.2 L Phosphorus 5.40 H D Magnesium AST 146 H ALT 79 H Alkaline Phosphatase Ammonia Total Creatine Kinase Troponin T C-Reactive Protein Total Protein 5.3 L Albumin 2.7 L Triglycerides HDL Cholesterol TSH Free T4 Urine WBC (Auto) 27.0 H Urine Creatinine Urine Chloride Salicylates Acetaminophen Plasma/Serum Alcohol Hepatitis C Antibody 03/23/19 03/23/19 03/23/19 15:46 17:27 23:43 WBC Hgb Hct MCV MCH RDW Plt Count Seg Neuts % (Manual) Lymphocytes % (Manual) Seg Neutrophils # Man Lymphocytes # (Manual) POC ABG pH POC ABG pCO2 POC ABG pO2 VBG pH Sodium 163 H* Potassium Chloride 127.9 H Carbon Dioxide BUN 28 H Creatinine Glucose 120 H POC Glucose 109 H 133 H Lactic Acid Calcium 7.5 L Phosphorus Magnesium AST ALT Alkaline Phosphatase Ammonia Total Creatine Kinase Troponin T C-Reactive Protein Total Protein Albumin Triglycerides HDL Cholesterol TSH Free T4 Urine WBC (Auto) Urine Creatinine Urine Chloride Salicylates Acetaminophen Plasma/Serum Alcohol Hepatitis C Antibody 03/24/19 03/24/19 03/24/19 05:05 05:05 05:06 WBC Hgb Hct MCV 101 H MCH 34 H RDW 13.0 L Plt Count 79 L Seg Neuts % (Manual) Lymphocytes % (Manual) Seg Neutrophils # Man Lymphocytes # (Manual) POC ABG pH POC ABG pCO2 POC ABG pO2 VBG pH Sodium 171 H* Potassium 2.8 L* D Chloride 131.4 H Carbon Dioxide BUN Creatinine Glucose 167 H POC Glucose 153 H Lactic Acid Calcium 8.3 L Phosphorus Magnesium AST 129 H ALT 74 H Alkaline Phosphatase Ammonia Total Creatine Kinase Troponin T C-Reactive Protein Total Protein 5.6 L Albumin 2.8 L Triglycerides HDL Cholesterol TSH Free T4 Urine WBC (Auto) Urine Creatinine Urine Chloride Salicylates Acetaminophen Plasma/Serum Alcohol Hepatitis C Antibody 03/24/19 03/24/19 05:09 12:13 WBC Hgb Hct MCV MCH RDW Plt Count Seg Neuts % (Manual) Lymphocytes % (Manual) Seg Neutrophils # Man Lymphocytes # (Manual) POC ABG pH 7.475 H POC ABG pCO2 POC ABG pO2 165 H VBG pH Sodium Potassium Chloride Carbon Dioxide BUN Creatinine Glucose POC Glucose Lactic Acid Calcium Phosphorus Magnesium AST ALT Alkaline Phosphatase Ammonia Total Creatine Kinase Troponin T C-Reactive Protein Total Protein Albumin Triglycerides HDL Cholesterol TSH Free T4 Urine WBC (Auto) Urine Creatinine 62.1 H Urine Chloride 17.3 L Salicylates Acetaminophen Plasma/Serum Alcohol Hepatitis C Antibody
--- NOTE | 2019-03-24 15:35 | Progress Note ---
Assessment and Plan - Patient Problems (1) Hypokalemia Current Visit: Yes Status: Acute Plan to address problem: Supplement potassium on follow-up level (2) Transaminasemia Current Visit: Yes Status: Acute Plan to address problem: Ischemic hepatitis possibly superimposed on baseline alcoholic hepatitis. Follow-up liver function tests (3) Acute renal failure Current Visit: Yes Status: Acute Qualifiers: Acute renal failure type: with acute tubular necrosis Qualified Code(s): N17.0 - Acute kidney failure with tubular necrosis Plan to address problem: Acute tubular necrosis secondary to hypotension with Cardiac arrest. Patient is nonoliguric. Kidney function a bit better (4) Cardiac arrest Current Visit: Yes Status: Acute Plan to address problem: Out of hospital cardiac arrest. 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 Patient is not oliguric with was being hyponatremia. Check urine sodium and osmolality. Increase IV fluids D5W and also continue free water via the feeding tube. (6) Respiratory failure Current Visit: Yes Status: Acute Plan to address problem: Continue ventilator management per pulmonary Subjective Date of service: 03/24/19 Principal diagnosis: fever and the acute kidney injury Interval history: Patient seen lying in bed. Intubated on ventilator. Family at the bedside. Patient is unresponsive. Objective - Exam Narrative Exam: Young male lying in bed intubated on ventilator HEENT: NCAT, endotracheal tube intact Neck: Supple, no venous distention CVS: S1S2 RRR with no murmur, rub or gallop Chest: Clear to auscultation Abdomen: Protuberant, soft, nontender, no organomegaly, bowel sounds are present Extremities: No edema Genitourinary deferred Neuro: Unresponsive - Vital Signs Vital signs: Vital Signs - 12hr 03/24/19 03/24/19 03/24/19 03:45 04:00 04:09 Temperature Pulse Rate 127 H 128 H 128 H Pulse Rate [ 127 H From Monitor] Respiratory 26 H 30 H Rate Blood Pressure 149/107 143/103 143/103 O2 Sat by Pulse 100 100 100 Oximetry 03/24/19 03/24/19 03/24/19 04:15 04:30 04:45 Temperature Pulse Rate 126 H 128 H 129 H Pulse Rate [ From Monitor] Respiratory 30 H 29 H 30 H Rate Blood Pressure 144/106 147/100 147/103 O2 Sat by Pulse 100 100 100 Oximetry 03/24/19 03/24/19 03/24/19 05:00 05:15 05:30 Temperature Pulse Rate 130 H 132 H 129 H Pulse Rate [ From Monitor] Respiratory 30 H 30 H 30 H Rate Blood Pressure 139/107 133/101 157/110 O2 Sat by Pulse 100 100 100 Oximetry 03/24/19 03/24/19 03/24/19 05:45 06:00 06:15 Temperature Pulse Rate 132 H 133 H 135 H Pulse Rate [ From Monitor] Respiratory 29 H 30 H 30 H Rate Blood Pressure 144/106 138/98 141/95 O2 Sat by Pulse 100 100 100 Oximetry 03/24/19 03/24/19 03/24/19 06:30 06:45 07:00 Temperature Pulse Rate 136 H 137 H 136 H Pulse Rate [ From Monitor] Respiratory 30 H 31 H 27 H Rate Blood Pressure 121/89 118/91 125/92 O2 Sat by Pulse 100 100 100 Oximetry 03/24/19 03/24/19 03/24/19 07:15 07:30 07:45 Temperature Pulse Rate 138 H 134 H 135 H Pulse Rate [ From Monitor] Respiratory 30 H 30 H 30 H Rate Blood Pressure 127/87 135/95 141/99 O2 Sat by Pulse 100 100 100 Oximetry 03/24/19 03/24/19 03/24/19 08:00 08:15 08:18 Temperature 101.0 F H Pulse Rate 136 H 134 H 136 H Pulse Rate [ 136 H From Monitor] Respiratory 30 H 30 H Rate Blood Pressure 133/97 131/97 131/97 O2 Sat by Pulse 100 100 100 Oximetry 03/24/19 03/24/19 03/24/19 08:30 08:45 09:00 Temperature Pulse Rate 137 H 138 H 140 H Pulse Rate [ From Monitor] Respiratory 31 H 30 H 31 H Rate Blood Pressure 133/97 137/99 140/95 O2 Sat by Pulse 100 100 100 Oximetry 03/24/19 03/24/19 03/24/19 09:15 09:30 09:45 Temperature Pulse Rate 139 H 137 H 135 H Pulse Rate [ From Monitor] Respiratory 30 H 28 H 29 H Rate Blood Pressure 140/95 143/94 148/104 O2 Sat by Pulse 100 100 100 Oximetry 03/24/19 03/24/19 03/24/19 10:00 10:15 10:30 Temperature Pulse Rate 134 H 135 H 134 H Pulse Rate [ From Monitor] Respiratory 30 H 30 H 31 H Rate Blood Pressure 143/105 144/101 153/102 O2 Sat by Pulse 100 100 100 Oximetry 03/24/19 11:52 Temperature Pulse Rate 135 H Pulse Rate [ From Monitor] Respiratory Rate Blood Pressure 144/103 O2 Sat by Pulse 99 Oximetry - Lab 03/24/19 05:05 03/24/19 05:05 Most recent lab results Calcium 8.3 mg/dL (8.4-10.2) L 03/24/19 05:05 Phosphorus 3.10 mg/dL (2.5-4.5) D 03/23/19 15:46 Magnesium 1.90 mg/dL (1.7-2.3) 03/24/19 05:05 62.1 mg/dL (0.1-20.0) H 03/24/19 12:13 21 mmol/L 03/24/19 12:13 Medications & Allergies - Medications Allergies/Adverse Reactions: Allergies No Known Allergies Allergy (Unverified 03/22/19 08:10) Active Medications: Generic Name Dose Route Start Last Admin Trade Name Freq PRN Reason Stop Dose Admin Acetaminophen 650 mg 03/23/19 11:00 Tylenol ID Q6H PRN Fever >101 Albuterol 2.5 mg 03/20/19 16:55 Proventil IH Q3HRT PRN Shortness Of Breath Lipase/Protease/Amylase 1 each 03/22/19 12:[address] 10,500 Unit FEEDTUBE PRN PRN For Clogged Feeding Tube Hydrophilic Ointment 1 applic 03/20/19 18:02 Vaseline Lip Therapy TP Q2HR PRN Dry Lips Vancomycin HCl 1,250 mg/ 275 mls @ 166.667 mls/hr 03/22/19 05:00 03/24/19 04:20 Sodium Chloride IV 166.667 mls/hr Q12H RICHARD Administration Ceftriaxone Sodium 2 gm in 100 mls @ 200 mls/hr 03/22/19 14:00 03/24/19 09:28 Rocephin/Ns 2 Gm/100 Ml IV 200 mls/hr Q12HR RICHARD Administration Protocol Norepinephrine 4 mg in 250 mls @ 7.5 mls/hr 03/23/19 09:00 03/23/19 16:30 Levophed Drip 4 Mg/Ns 250 Ml IV 0 mcg/min TITR RICHARD 0 mls/hr Titration Protocol 2 MCG/MIN Dextrose 1,000 mls @ 150 mls/hr 03/24/19 09:00 03/24/19 14:15 D5w IV 150 mls/hr DIRECT RICHARD Administration Levothyroxine Sodium 100 mcg 03/20/19 21:04 03/24/19 05:29 Synthroid IV 100 mcg DAILY@0600 RICHARD Administration Multi-Ingred Cream/Lotion/Oil/Oint 1 applic 03/20/19 18:02 Artificial Tears Ophth Oint OU Q4HR PRN Dry Eye(s) Pantoprazole Sodium 40 mg 03/23/19 11:00 03/24/19 09:28 Protonix IV 40 mg QDAY RICHARD Administration Simple Syrup 15 ml 03/22/19 12:16 Simple Syrup FEEDTUBE PRN PRN Hypoglycemia Simple Syrup 30 ml 03/22/19 12:16 Simple Syrup FEEDTUBE PRN PRN Hypoglycemia Sodium Bicarbonate 325 mg 03/22/19 12:16 Sodium Bicarbonate FEEDTUBE PRN PRN For Clogged Feeding Tube Sodium Chloride 10 ml 03/20/19 22:00 03/24/19 09:31 Sodium Chloride Flush Syringe 10 Ml IV 10 ml BID RICHARD Administration Sodium Chloride 10 ml 03/20/19 16:55 03/21/19 18:56 Sodium Chloride Flush Syringe 10 Ml IV 10 ml PRN PRN Administration LINE FLUSH
[2019-03-24] MEDS ORDERED: [UNRECOGNIZED DRUG - OTHER] IV ONE (17:06)
--- NOTE | 2019-03-24 17:10 | Progress Note ---
Subjective Date of service: 03/24/19 Principal diagnosis: fever and the acute kidney injury Interval history: spoke to family and went over the CT with them... very poor prognosis... will give mannitol... may help explained Objective - Vital Sign Vital Signs - 12hr 03/24/19 03/24/19 03/24/19 05:15 05:30 05:45 Temperature Pulse Rate 132 H 129 H 132 H Pulse Rate [ From Monitor] Respiratory 30 H 30 H 29 H Rate Blood Pressure 133/101 157/110 144/106 O2 Sat by Pulse 100 100 100 Oximetry 03/24/19 03/24/19 03/24/19 06:00 06:15 06:30 Temperature Pulse Rate 133 H 135 H 136 H Pulse Rate [ From Monitor] Respiratory 30 H 30 H 30 H Rate Blood Pressure 138/98 141/95 121/89 O2 Sat by Pulse 100 100 100 Oximetry 03/24/19 03/24/19 03/24/19 06:45 07:00 07:15 Temperature Pulse Rate 137 H 136 H 138 H Pulse Rate [ From Monitor] Respiratory 31 H 27 H 30 H Rate Blood Pressure 118/91 125/92 127/87 O2 Sat by Pulse 100 100 100 Oximetry 03/24/19 03/24/19 03/24/19 07:30 07:45 08:00 Temperature 101.0 F H Pulse Rate 134 H 135 H 136 H Pulse Rate [ 136 H From Monitor] Respiratory 30 H 30 H 30 H Rate Blood Pressure 135/95 141/99 133/97 O2 Sat by Pulse 100 100 100 Oximetry 03/24/19 03/24/19 03/24/19 08:15 08:18 08:30 Temperature Pulse Rate 134 H 136 H 137 H Pulse Rate [ From Monitor] Respiratory 30 H 31 H Rate Blood Pressure 131/97 131/97 133/97 O2 Sat by Pulse 100 100 100 Oximetry 03/24/19 03/24/19 03/24/19 08:45 09:00 09:15 Temperature Pulse Rate 138 H 140 H 139 H Pulse Rate [ From Monitor] Respiratory 30 H 31 H 30 H Rate Blood Pressure 137/99 140/95 140/95 O2 Sat by Pulse 100 100 100 Oximetry 03/24/19 03/24/19 03/24/19 09:30 09:45 10:00 Temperature Pulse Rate 137 H 135 H 134 H Pulse Rate [ From Monitor] Respiratory 28 H 29 H 30 H Rate Blood Pressure 143/94 148/104 143/105 O2 Sat by Pulse 100 100 100 Oximetry 03/24/19 03/24/19 03/24/19 10:15 10:30 10:45 Temperature Pulse Rate 135 H 134 H 135 H Pulse Rate [ From Monitor] Respiratory 30 H 31 H 30 H Rate Blood Pressure 144/101 153/102 144/100 O2 Sat by Pulse 100 100 100 Oximetry 03/24/19 03/24/19 03/24/19 11:00 11:15 11:30 Temperature Pulse Rate 135 H 135 H 135 H Pulse Rate [ From Monitor] Respiratory 30 H 30 H 27 H Rate Blood Pressure 136/99 147/105 134/97 O2 Sat by Pulse 100 100 100 Oximetry 03/24/19 03/24/19 03/24/19 11:45 11:52 12:00 Temperature 100.1 F H Pulse Rate 134 H 135 H 133 H Pulse Rate [ From Monitor] Respiratory 30 H 30 H Rate Blood Pressure 144/103 144/103 150/106 O2 Sat by Pulse 100 99 99 Oximetry 03/24/19 03/24/19 03/24/19 12:15 12:30 12:45 Temperature Pulse Rate 136 H 133 H 135 H Pulse Rate [ From Monitor] Respiratory 30 H 30 H 30 H Rate Blood Pressure 152/100 152/100 147/102 O2 Sat by Pulse 100 100 100 Oximetry 03/24/19 03/24/19 03/24/19 13:00 13:40 13:45 Temperature Pulse Rate 134 H 134 H 135 H Pulse Rate [ From Monitor] Respiratory 30 H 27 H 30 H Rate Blood Pressure 151/107 115/52 113/76 O2 Sat by Pulse 99 100 99 Oximetry 03/24/19 03/24/19 03/24/19 14:00 14:15 14:30 Temperature Pulse Rate 135 H 134 H 135 H Pulse Rate [ From Monitor] Respiratory 30 H 30 H 23 Rate Blood Pressure 126/90 138/94 148/103 O2 Sat by Pulse 100 98 97 Oximetry 03/24/19 03/24/19 03/24/19 14:45 15:00 15:15 Temperature Pulse Rate 134 H 135 H 137 H Pulse Rate [ From Monitor] Respiratory 21 25 H 23 Rate Blood Pressure 144/105 143/100 144/98 O2 Sat by Pulse 97 97 99 Oximetry 03/24/19 03/24/19 03/24/19 15:30 15:45 16:00 Temperature 100.8 F H Pulse Rate 137 H 136 H 138 H Pulse Rate [ From Monitor] Respiratory 24 23 27 H Rate Blood Pressure 140/91 147/109 142/101 O2 Sat by Pulse 99 97 98 Oximetry 03/24/19 03/24/19 16:15 16:30 Temperature Pulse Rate 138 H 136 H Pulse Rate [ From Monitor] Respiratory 24 30 H Rate Blood Pressure 140/88 143/96 O2 Sat by Pulse 98 98 Oximetry - Laboratory Findings CBC and BMP: 03/24/19 05:05 03/24/19 05:05 Abnormal Lab Findings: Abnormal Labs 03/20/19 03/20/19 03/20/19 16:25 16:25 16:25 WBC Hgb Hct MCV 101 H MCH 33 H RDW 12.9 L Plt Count Seg Neuts % (Manual) 36.0 L Lymphocytes % (Manual) 60.0 H Seg Neutrophils # Man Lymphocytes # (Manual) 6.0 H POC ABG pH POC ABG pCO2 POC ABG pO2 VBG pH Sodium Potassium Chloride Carbon Dioxide 18 L BUN Creatinine Glucose 159 H POC Glucose Lactic Acid 9.50 H* Calcium 7.6 L Phosphorus Magnesium AST 276 H ALT 165 H Alkaline Phosphatase 139 H Ammonia Total Creatine Kinase 380 H Troponin T C-Reactive Protein Total Protein Albumin Triglycerides HDL Cholesterol TSH Free T4 Urine WBC (Auto) Urine Creatinine Urine Chloride Salicylates Acetaminophen Plasma/Serum Alcohol Hepatitis C Antibody 03/20/19 03/20/19 03/20/19 16:25 16:25 16:25 WBC Hgb Hct MCV MCH RDW Plt Count Seg Neuts % (Manual) Lymphocytes % (Manual) Seg Neutrophils # Man Lymphocytes # (Manual) POC ABG pH POC ABG pCO2 POC ABG pO2 VBG pH Sodium Potassium Chloride Carbon Dioxide BUN Creatinine Glucose POC Glucose Lactic Acid Calcium Phosphorus Magnesium 2.40 H AST ALT Alkaline Phosphatase Ammonia 10.0 L Total Creatine Kinase Troponin T C-Reactive Protein Total Protein Albumin Triglycerides HDL Cholesterol TSH 17.340 H Free T4 0.69 L Urine WBC (Auto) Urine Creatinine Urine Chloride Salicylates Acetaminophen Plasma/Serum Alcohol Hepatitis C Antibody 03/20/19 03/20/19 03/20/19 16:25 16:25 16:25 WBC Hgb Hct MCV MCH RDW Plt Count Seg Neuts % (Manual) Lymphocytes % (Manual) Seg Neutrophils # Man Lymphocytes # (Manual) POC ABG pH POC ABG pCO2 POC ABG pO2 VBG pH Sodium Potassium Chloride Carbon Dioxide BUN Creatinine Glucose POC Glucose Lactic Acid Calcium Phosphorus Magnesium AST ALT Alkaline Phosphatase Ammonia Total Creatine Kinase Troponin T C-Reactive Protein Total Protein Albumin Triglycerides HDL Cholesterol TSH Free T4 Urine WBC (Auto) Urine Creatinine Urine Chloride Salicylates < 0.3 L Acetaminophen < 5.0 L Plasma/Serum Alcohol 0.32 H Hepatitis C Antibody 03/20/19 03/20/19 03/20/19 16:25 16:34 16:51 WBC Hgb Hct MCV MCH RDW Plt Count Seg Neuts % (Manual) Lymphocytes % (Manual) Seg Neutrophils # Man Lymphocytes # (Manual) POC ABG pH 7.041 L POC ABG pCO2 68.9 H POC ABG pO2 381 H VBG pH 7.091 L* Sodium Potassium Chloride Carbon Dioxide BUN Creatinine Glucose POC Glucose 130 H Lactic Acid Calcium Phosphorus Magnesium AST ALT Alkaline Phosphatase Ammonia Total Creatine Kinase Troponin T C-Reactive Protein Total Protein Albumin Triglycerides HDL Cholesterol TSH Free T4 Urine WBC (Auto) Urine Creatinine Urine Chloride Salicylates Acetaminophen Plasma/Serum Alcohol Hepatitis C Antibody 03/20/19 03/20/19 03/20/19 17:35 17:53 19:17 WBC Hgb Hct MCV MCH RDW Plt Count Seg Neuts % (Manual) Lymphocytes % (Manual) Seg Neutrophils # Man Lymphocytes # (Manual) POC ABG pH 7.305 L POC ABG pCO2 POC ABG pO2 262 H VBG pH Sodium Potassium Chloride Carbon Dioxide BUN Creatinine Glucose POC Glucose Lactic Acid 6.90 H* Calcium Phosphorus Magnesium AST ALT Alkaline Phosphatase Ammonia Total Creatine Kinase Troponin T C-Reactive Protein Total Protein Albumin Triglycerides HDL Cholesterol TSH Free T4 Urine WBC (Auto) 19.0 H Urine Creatinine Urine Chloride Salicylates Acetaminophen Plasma/Serum Alcohol Hepatitis C Antibody 03/20/19 03/20/19 03/21/19 20:40 22:38 03:41 WBC Hgb Hct MCV MCH RDW Plt Count Seg Neuts % (Manual) Lymphocytes % (Manual) Seg Neutrophils # Man Lymphocytes # (Manual) POC ABG pH POC ABG pCO2 31.4 L POC ABG pO2 195 H VBG pH Sodium Potassium Chloride Carbon Dioxide BUN Creatinine Glucose POC Glucose 117 H Lactic Acid 6.30 H* Calcium Phosphorus Magnesium AST ALT Alkaline Phosphatase Ammonia Total Creatine Kinase Troponin T C-Reactive Protein Total Protein Albumin Triglycerides HDL Cholesterol TSH Free T4 Urine WBC (Auto) Urine Creatinine Urine Chloride Salicylates Acetaminophen Plasma/Serum Alcohol Hepatitis C Antibody 03/21/19 03/21/19 03/21/19 04:00 09:32 09:32 WBC 20.0 H 17.3 H Hgb 15.9 H 16.1 H Hct 47.3 H 47.8 H MCV 99 H 98 H MCH 33 H 33 H RDW 12.8 L 12.7 L Plt Count Seg Neuts % (Manual) 90.0 H Lymphocytes % (Manual) 7.0 L Seg Neutrophils # Man 18.0 H Lymphocytes # (Manual) POC ABG pH POC ABG pCO2 POC ABG pO2 VBG pH Sodium Potassium Chloride Carbon Dioxide BUN Creatinine Glucose POC Glucose Lactic Acid Calcium Phosphorus Magnesium AST ALT Alkaline Phosphatase Ammonia Total Creatine Kinase Troponin T 0.054 H D C-Reactive Protein Total Protein Albumin Triglycerides 166 H HDL Cholesterol 63 H TSH Free T4 Urine WBC (Auto) Urine Creatinine Urine Chloride Salicylates Acetaminophen Plasma/Serum Alcohol Hepatitis C Antibody 03/21/19 03/21/19 03/21/19 09:46 14:41 15:59 WBC Hgb Hct MCV MCH RDW Plt Count Seg Neuts % (Manual) Lymphocytes % (Manual) Seg Neutrophils # Man Lymphocytes # (Manual) POC ABG pH POC ABG pCO2 POC ABG pO2 VBG pH Sodium 148 H Potassium Chloride Carbon Dioxide 20 L BUN Creatinine Glucose 171 H POC Glucose Lactic Acid Calcium Phosphorus Magnesium AST 253 H ALT 218 H Alkaline Phosphatase 146 H Ammonia Total Creatine Kinase Troponin T 0.074 H D C-Reactive Protein 4.90 H Total Protein Albumin Triglycerides HDL Cholesterol TSH Free T4 Urine WBC (Auto) Urine Creatinine Urine Chloride Salicylates Acetaminophen Plasma/Serum Alcohol Hepatitis C Antibody 03/21/19 03/22/19 03/22/19 15:59 04:20 04:20 WBC 20.0 H Hgb Hct MCV 99 H MCH 33 H RDW 12.9 L Plt Count Seg Neuts % (Manual) Lymphocytes % (Manual) Seg Neutrophils # Man Lymphocytes # (Manual) POC ABG pH POC ABG pCO2 POC ABG pO2 VBG pH Sodium 156 H D Potassium 3.5 L Chloride 117.2 H Carbon Dioxide BUN Creatinine Glucose 144 H POC Glucose Lactic Acid Calcium 8.1 L Phosphorus Magnesium AST 205 H ALT 156 H Alkaline Phosphatase Ammonia Total Creatine Kinase Troponin T C-Reactive Protein Total Protein Albumin 3.6 L Triglycerides HDL Cholesterol TSH Free T4 Urine WBC (Auto) Urine Creatinine Urine Chloride Salicylates Acetaminophen Plasma/Serum Alcohol Hepatitis C Antibody Reactive A 03/22/19 03/22/19 03/22/19 04:20 04:26 12:40 WBC Hgb Hct MCV MCH RDW Plt Count Seg Neuts % (Manual) Lymphocytes % (Manual) Seg Neutrophils # Man Lymphocytes # (Manual) POC ABG pH POC ABG pCO2 32.8 L POC ABG pO2 66 L VBG pH Sodium Potassium Chloride Carbon Dioxide BUN Creatinine Glucose POC Glucose 171 H Lactic Acid Calcium Phosphorus 2.00 L Magnesium 1.50 L AST ALT Alkaline Phosphatase Ammonia Total Creatine Kinase Troponin T C-Reactive Protein Total Protein Albumin Triglycerides HDL Cholesterol TSH Free T4 Urine WBC (Auto) Urine Creatinine Urine Chloride Salicylates Acetaminophen Plasma/Serum Alcohol Hepatitis C Antibody 03/22/19 03/22/19 03/23/19 17:44 20:28 04:30 WBC 12.9 H Hgb Hct MCV 102 H MCH 34 H RDW 12.6 L Plt Count 115 L Seg Neuts % (Manual) Lymphocytes % (Manual) Seg Neutrophils # Man Lymphocytes # (Manual) POC ABG pH POC ABG pCO2 POC ABG pO2 VBG pH Sodium 158 H Potassium 3.5 L Chloride 121.5 H Carbon Dioxide BUN 23 H Creatinine Glucose 199 H POC Glucose 144 H Lactic Acid Calcium 8.0 L Phosphorus Magnesium 2.50 H AST ALT Alkaline Phosphatase Ammonia Total Creatine Kinase Troponin T C-Reactive Protein Total Protein Albumin Triglycerides HDL Cholesterol TSH Free T4 Urine WBC (Auto) Urine Creatinine Urine Chloride Salicylates Acetaminophen Plasma/Serum Alcohol Hepatitis C Antibody 03/23/19 03/23/19 03/23/19 04:30 04:38 08:56 WBC Hgb Hct MCV 103 H MCH 33 H RDW Plt Count 107 L Seg Neuts % (Manual) Lymphocytes % (Manual) Seg Neutrophils # Man Lymphocytes # (Manual) POC ABG pH 7.481 H POC ABG pCO2 33.8 L POC ABG pO2 VBG pH Sodium 156 H Potassium Chloride 121.4 H Carbon Dioxide 21 L BUN 24 H Creatinine Glucose 148 H POC Glucose Lactic Acid Calcium 7.9 L Phosphorus 1.90 L Magnesium AST 166 H ALT 96 H Alkaline Phosphatase Ammonia Total Creatine Kinase Troponin T C-Reactive Protein Total Protein 6.0 L Albumin 3.3 L Triglycerides HDL Cholesterol TSH Free T4 Urine WBC (Auto) Urine Creatinine Urine Chloride Salicylates Acetaminophen Plasma/Serum Alcohol Hepatitis C Antibody 03/23/19 03/23/19 03/23/19 08:56 11:21 11:42 WBC Hgb Hct MCV MCH RDW Plt Count Seg Neuts % (Manual) Lymphocytes % (Manual) Seg Neutrophils # Man Lymphocytes # (Manual) POC ABG pH POC ABG pCO2 POC ABG pO2 VBG pH Sodium 161 H* Potassium Chloride 121.5 H Carbon Dioxide BUN 27 H Creatinine 1.9 H D Glucose 248 H POC Glucose 275 H Lactic Acid Calcium 7.2 L Phosphorus 5.40 H D Magnesium AST 146 H ALT 79 H Alkaline Phosphatase Ammonia Total Creatine Kinase Troponin T C-Reactive Protein Total Protein 5.3 L Albumin 2.7 L Triglycerides HDL Cholesterol TSH Free T4 Urine WBC (Auto) 27.0 H Urine Creatinine Urine Chloride Salicylates Acetaminophen Plasma/Serum Alcohol Hepatitis C Antibody 03/23/19 03/23/19 03/23/19 15:46 17:27 23:43 WBC Hgb Hct MCV MCH RDW Plt Count Seg Neuts % (Manual) Lymphocytes % (Manual) Seg Neutrophils # Man Lymphocytes # (Manual) POC ABG pH POC ABG pCO2 POC ABG pO2 VBG pH Sodium 163 H* Potassium Chloride 127.9 H Carbon Dioxide BUN 28 H Creatinine Glucose 120 H POC Glucose 109 H 133 H Lactic Acid Calcium 7.5 L Phosphorus Magnesium AST ALT Alkaline Phosphatase Ammonia Total Creatine Kinase Troponin T C-Reactive Protein Total Protein Albumin Triglycerides HDL Cholesterol TSH Free T4 Urine WBC (Auto) Urine Creatinine Urine Chloride Salicylates Acetaminophen Plasma/Serum Alcohol Hepatitis C Antibody 03/24/19 03/24/19 03/24/19 05:05 05:05 05:06 WBC Hgb Hct MCV 101 H MCH 34 H RDW 13.0 L Plt Count 79 L Seg Neuts % (Manual) Lymphocytes % (Manual) Seg Neutrophils # Man Lymphocytes # (Manual) POC ABG pH POC ABG pCO2 POC ABG pO2 VBG pH Sodium 171 H* Potassium 2.8 L* D Chloride 131.4 H Carbon Dioxide BUN Creatinine Glucose 167 H POC Glucose 153 H Lactic Acid Calcium 8.3 L Phosphorus Magnesium AST 129 H ALT 74 H Alkaline Phosphatase Ammonia Total Creatine Kinase Troponin T C-Reactive Protein Total Protein 5.6 L Albumin 2.8 L Triglycerides HDL Cholesterol TSH Free T4 Urine WBC (Auto) Urine Creatinine Urine Chloride Salicylates Acetaminophen Plasma/Serum Alcohol Hepatitis C Antibody 03/24/19 03/24/19 03/24/19 05:09 12:13 15:36 WBC Hgb Hct MCV MCH RDW Plt Count Seg Neuts % (Manual) Lymphocytes % (Manual) Seg Neutrophils # Man Lymphocytes # (Manual) POC ABG pH 7.475 H POC ABG pCO2 POC ABG pO2 165 H VBG pH Sodium Potassium Chloride Carbon Dioxide BUN Creatinine Glucose POC Glucose 165 H Lactic Acid Calcium Phosphorus Magnesium AST ALT Alkaline Phosphatase Ammonia Total Creatine Kinase Troponin T C-Reactive Protein Total Protein Albumin Triglycerides HDL Cholesterol TSH Free T4 Urine WBC (Auto) Urine Creatinine 62.1 H Urine Chloride 17.3 L Salicylates Acetaminophen Plasma/Serum Alcohol Hepatitis C Antibody
[2019-03-24] MEDS: KCL 20MEQ/100ML 20 MEQ/100 ML BAG IV SCH ×3 (18:52→23:38)
[2019-03-24 22:29] LABS: Calcium 8.8 mg/dL (8.4-10.2)
[2019-03-25] MEDS: KCL 20MEQ/100ML 20 MEQ/100 ML BAG IV SCH (00:49)
[2019-03-25] MEDS: VANCOMYCIN 1,250 MG in NACL 0.9% 250ML 250 ML IV SCH ×2 (05:05→16:30)
[2019-03-25] MEDS: D5W 1,000 ML IV SCH ×2 (05:06→15:11)
[2019-03-25 05:52] LABS: Alanine Aminotransferase 66 units/L (7-56); Albumin 2.7 g/dL (3.9-5); BUN/Creatinine Ratio 12; Blood Urea Nitrogen 14 mg/dL (9-20); Calcium 8.8 mg/dL (8.4-10.2); Hemolysis Index 18
[2019-03-25] MEDS ORDERED: DDAVP SUB-Q SCH (06:55)
[2019-03-25] MEDS ORDERED: KCL 20MEQ/100ML 20 MEQ/100 ML BAG IV ONE (08:00)
[2019-03-25] MEDS: SYNTHROID IV SCH (08:10)
--- NOTE | 2019-03-25 08:10 | Progress Note ---
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 pt with polyuria. Check urine sodium and osmolality. Sodium remains elevated > 170 despite increased rate of D5W. will start desmopressin 1mcg sc bid and decrease rate of D5W to 75ml/hr. Discussed with CCU team overnight, discussed with family at bedside regarding renal care plan. Overall poor prognosis. total CCM spent 58min (2) Hypokalemia Current Visit: Yes Status: Acute Plan to address problem: Supplement potassium on follow-up level (3) Cardiac arrest Current Visit: Yes Status: Acute Plan to address problem: Out of hospital cardiac arrest. Etiology uncertain. overall poor prognosis (4) Transaminasemia Current Visit: Yes Status: Acute Plan to address problem: Ischemic hepatitis possibly superimposed on baseline alcoholic hepatitis. Follow-up liver function tests (5) Acute renal failure Current Visit: Yes Status: Acute Qualifiers: Acute renal failure type: with acute tubular necrosis Qualified Code(s): N17.0 - Acute kidney failure with tubular necrosis Plan to address problem: Acute tubular necrosis secondary to hypotension with Cardiac arrest. Patient is nonoliguric. Kidney function improved (6) Respiratory failure Current Visit: Yes Status: Acute Plan to address problem: Continue ventilator management per pulmonary Subjective Date of service: 03/25/19 Principal diagnosis: fever and the acute kidney injury Interval history: Pt remains intubated, unresponsive, > 3L uop overnight, serum na not improving despite increased rate of D5W Objective - Vital Signs Vital signs: Vital Signs - 12hr 03/24/19 03/24/19 03/24/19 20:11 20:15 20:19 Temperature Pulse Rate 138 H 137 H 137 H Pulse Rate [ From Monitor] Respiratory 19 22 Rate Blood Pressure 136/87 136/89 136/89 O2 Sat by Pulse 100 100 100 Oximetry 03/24/19 03/24/19 03/24/19 20:30 20:45 21:00 Temperature Pulse Rate 137 H 138 H 139 H Pulse Rate [ From Monitor] Respiratory 28 H 20 22 Rate Blood Pressure 126/88 134/88 124/89 O2 Sat by Pulse 100 100 100 Oximetry 03/24/19 03/24/19 03/24/19 21:15 21:30 21:45 Temperature Pulse Rate 140 H 138 H 138 H Pulse Rate [ From Monitor] Respiratory 20 20 17 Rate Blood Pressure 117/84 124/89 124/97 O2 Sat by Pulse 100 100 100 Oximetry 03/24/19 03/24/19 03/24/19 22:00 22:15 22:30 Temperature Pulse Rate 135 H 136 H 134 H Pulse Rate [ From Monitor] Respiratory 30 H 26 H 23 Rate Blood Pressure 131/90 123/83 127/87 O2 Sat by Pulse 100 100 99 Oximetry 03/24/19 03/24/19 03/24/19 22:45 23:00 23:15 Temperature Pulse Rate 133 H 133 H 132 H Pulse Rate [ From Monitor] Respiratory 21 20 17 Rate Blood Pressure 132/87 122/89 134/86 O2 Sat by Pulse 100 100 100 Oximetry 03/24/19 03/24/19 03/25/19 23:30 23:45 00:00 Temperature 102.1 F H Pulse Rate 133 H 131 H 131 H Pulse Rate [ 131 H From Monitor] Respiratory 19 18 30 H Rate Blood Pressure 138/78 132/87 135/95 O2 Sat by Pulse 100 100 100 Oximetry 03/25/19 03/25/19 03/25/19 00:15 00:17 00:30 Temperature Pulse Rate 133 H 132 H 133 H Pulse Rate [ From Monitor] Respiratory 16 31 H Rate Blood Pressure 142/96 132/87 138/90 O2 Sat by Pulse 100 100 100 Oximetry 03/25/19 03/25/19 03/25/19 00:45 01:00 01:15 Temperature Pulse Rate 132 H 130 H 130 H Pulse Rate [ From Monitor] Respiratory 30 H 22 20 Rate Blood Pressure 140/90 145/95 136/94 O2 Sat by Pulse 100 100 100 Oximetry 03/25/19 03/25/19 03/25/19 01:30 01:45 02:00 Temperature Pulse Rate 130 H 130 H 130 H Pulse Rate [ From Monitor] Respiratory 30 H 31 H 15 Rate Blood Pressure 132/99 136/94 141/97 O2 Sat by Pulse 100 99 100 Oximetry 03/25/19 03/25/19 03/25/19 02:16 02:30 02:45 Temperature Pulse Rate 128 H 127 H 127 H Pulse Rate [ From Monitor] Respiratory 17 27 H 18 Rate Blood Pressure 154/103 135/96 142/96 O2 Sat by Pulse 100 100 100 Oximetry 03/25/19 03/25/1903/25/19 03:00 03:15 03:30 Temperature 100.8 F H Pulse Rate 127 H 126 H 126 H Pulse Rate [ From Monitor] Respiratory 16 20 20 Rate Blood Pressure 145/95 138/100 140/91 O2 Sat by Pulse 100 100 100 Oximetry 03/25/19 03/25/19 03/25/19 03:45 04:00 04:05 Temperature 100.0 F H Pulse Rate 125 H 125 H 124 H Pulse Rate [ 123 H From Monitor] Respiratory 20 26 H Rate Blood Pressure 149/97 138/97 140/91 O2 Sat by Pulse 100 100 100 Oximetry 03/25/19 03/25/19 03/25/19 04:15 04:30 04:45 Temperature Pulse Rate 123 H 123 H 122 H Pulse Rate [ From Monitor] Respiratory 23 20 15 Rate Blood Pressure 141/98 138/99 139/91 O2 Sat by Pulse 100 100 100 Oximetry 03/25/19 03/25/19 03/25/19 05:00 05:15 05:17 Temperature 99.7 F H Pulse Rate 122 H 122 H Pulse Rate [ From Monitor] Respiratory 29 H 22 Rate Blood Pressure 140/96 141/101 O2 Sat by Pulse 100 100 Oximetry 03/25/19 03/25/19 03/25/19 05:30 05:45 06:00 Temperature Pulse Rate 120 H 122 H 119 H Pulse Rate [ From Monitor] Respiratory 30 H 30 H 30 H Rate Blood Pressure 141/96 143/101 134/92 O2 Sat by Pulse 100 100 100 Oximetry 03/25/19 03/25/19 03/25/19 06:15 06:30 06:45 Temperature Pulse Rate 122 H 122 H 121 H Pulse Rate [ From Monitor] Respiratory 30 H 30 H 30 H Rate Blood Pressure 140/96 140/93 138/94 O2 Sat by Pulse 100 100 100 Oximetry 03/25/19 03/25/19 03/25/19 07:00 07:15 07:30 Temperature Pulse Rate 121 H 122 H 123 H Pulse Rate [ From Monitor] Respiratory 30 H 30 H 30 H Rate Blood Pressure 126/93 134/93 132/95 O2 Sat by Pulse 100 100 100 Oximetry 03/25/19 07:45 Temperature Pulse Rate 122 H Pulse Rate [ From Monitor] Respiratory 30 H Rate Blood Pressure 137/92 O2 Sat by Pulse 100 Oximetry - General Appearance General appearance: chronically ill, intubated, comatose EENT: ATNC, mucous membranes dry Neck: no JVD Respiratory: Present: Clear to Ascultation Cardiology: regular, S1S2 Gastrointestinal: normoactive bowel sounds Integumentary: no rash, other (no edema ) Neurologic: other (intbated, unresponsive ) - Lab 03/24/19 05:05 03/25/19 04:45 Most recent lab results Calcium 8.8 mg/dL (8.4-10.2) 03/25/19 04:45 Phosphorus 1.20 mg/dL (2.5-4.5) L D 03/25/19 04:45 Magnesium 2.00 mg/dL (1.7-2.3) 03/25/19 04:45 62.1 mg/dL (0.1-20.0) H 03/24/19 12:13 21 mmol/L 03/24/19 12:13 Medications & Allergies - Medications Allergies/Adverse Reactions: Allergies No Known Allergies Allergy (Unverified 03/22/19 08:10) Active Medications: Generic Name Dose Route Start Last Admin Trade Name Freq PRN Reason Stop Dose Admin Acetaminophen 650 mg 03/23/19 11:00 Tylenol [place] Q6H PRN Fever >101 Albuterol 2.5 mg 03/20/19 16:55 Proventil IH Q3HRT PRN Shortness Of Breath Lipase/Protease/Amylase 1 each 03/22/19 12:[address] 10,500 Unit FEEDTUBE PRN PRN For Clogged Feeding Tube Desmopressin Acetate 1 mcg 03/25/19 06:55 03/25/19 08:00 Ddavp SUB-Q 1 mcg Q12HR RICHARD Administration Hydrophilic Ointment 1 applic 03/20/19 18:02 Vaseline Lip Therapy TP Q2HR PRN Dry Lips Vancomycin HCl 1,250 mg/ 275 mls @ 166.667 mls/hr 03/22/19 05:00 03/25/19 05:05 Sodium Chloride IV 166.667 mls/hr Q12H RICHARD Administration Ceftriaxone Sodium 2 gm in 100 mls @ 200 mls/hr 03/22/19 14:00 03/24/19 22:16 Rocephin/Ns 2 Gm/100 Ml IV 200 mls/hr Q12HR RICHARD Administration Protocol Norepinephrine 4 mg in 250 mls @ 7.5 mls/hr 03/23/19 09:00 03/23/19 16:30 Levophed Drip 4 Mg/Ns 250 Ml IV 0 mcg/min TITR RICHARD 0 mls/hr Titration Protocol 2 MCG/MIN Dextrose 1,000 mls @ 75 mls/hr 03/24/19 09:00 03/25/19 05:06 D5w IV 150 mls/hr DIRECT RICHARD Administration Potassium Chloride 20 meq in 100 mls @ 100 mls/hr 03/25/19 08:00 03/25/19 08:01 Kcl 20meq/100ml IV 03/25/19 08:59 100 mls/hr ONCE ONE Administration Potassium Phosphate 30 mmol/ 510 mls @ 83 mls/hr 03/25/19 09:00 Sodium Chloride IV 03/25/19 15:08 ONCE ONE Levothyroxine Sodium 100 mcg 03/20/19 21:04 03/24/19 05:29 Synthroid IV 100 mcg DAILY@0600 RICHARD Administration Multi-Ingred Cream/Lotion/Oil/Oint 1 applic 03/20/19 18:02 Artificial Tears Ophth Oint OU Q4HR PRN Dry Eye(s) Pantoprazole Sodium 40 mg 03/23/19 11:00 03/24/19 09:28 Protonix IV 40 mg QDAY RICHARD Administration Simple Syrup 15 ml 03/22/19 12:16 Simple Syrup FEEDTUBE PRN PRN Hypoglycemia Simple Syrup 30 ml 03/22/19 12:16 Simple Syrup FEEDTUBE PRN PRN Hypoglycemia Sodium Bicarbonate 325 mg 03/22/19 12:16 Sodium Bicarbonate FEEDTUBE PRN PRN For Clogged Feeding Tube Sodium Chloride 10 ml 03/20/19 22:00 03/24/19 22:17 Sodium Chloride Flush Syringe 10 Ml IV 10 ml BID RICHARD Administration Sodium Chloride 10 ml 03/20/19 16:55 03/21/19 18:56 Sodium Chloride Flush Syringe 10 Ml IV 10 ml PRN PRN Administration LINE FLUSH
[2019-03-25] MEDS ORDERED: KPHOS 30 MMOL in NACL 0.9% 500 ML 500 ML IV ONE (09:00)
--- NOTE | 2019-03-25 09:06 | Progress Note ---
Assessment and Plan Assessment and plan: s/p cardiopulmonary arrest outside hospital Resuscitated, intubated, Admitted to ICU Pulm following Possible drug overdose. Patient has history of Polysubstance abuse Patient had another episode of cardiac arrest on 03/23/19 at 07:54. Gaurang Kana was called. Code run per protocol he was given 4 doses of Epinephrine, biacarb. CPR. He regained pulse 08:06. Acute resp failure Intubated Myxedema coma Continue Levothyroxine iv Alcohol intoxication Fever of 102 on admission persistent fever Blood cultures drawn. Consulted ID and he was evaluated Started on Ceftriaxone, Flagyl, Vanco to r/o meningitis Anoxic encephalopathy Cerebral edema, diffuse hpoxic ischemic changes on CT head mannitol given Central diabetes insipidus DDAVP started discussed with Nephrology Hypernatremia give D5W. Nephrology following Hypokalemia. Replace and repeat lactic acidosis Toxic metabolic encephalopathy Elevated LFT may be alcohol hepatitis vs hep C Monitor History of Polysubstance abuse. Mom at bedside says he used illicit drugs, pills and injectables Hepatitis C Ab pos Hypernatremia continue D5W Started on DDAVP NICK due to ATN, post cardiac arrest Consult Nephrology Hypotension,post code start Levophed Full code status Discussed with his mother after code and discussed guarded prognosis after 2 cardiac arrest episodes Very poor prognosis The high probability of a clinically significant, sudden or life threatening deterioration of the [cardiac, pulmonary, renal] system(s) required my full and direct attention, intervention and personal management. The aggregate critical care time was [34] minutes. This time is in addition to time spent performing reported procedures but includes the following: [x] Data Review and interpretation [x] Patient assessment and monitoring of vital signs [x] Documentation [x] Medication orders and management History Interval history: Patient presented as oiut of hospital cardiac arrest, and had another cardiac arrest 03/23/19 at 07:54, code run per protocol, resuscitated 08:06 still unresponsive Fever Hospitalist Physical - Physical exam Narrative exam: Gen: intubated, on vent HEENT: Normocephalic, atraumatic Neck: supple, no JVD Heart: S1 and S2 reg, tachy, no murmurs, rubs or gallop Lungs: Clear, no crackles Abd: soft, non tender, non distended, normal BS Ext: No edema, no clubbing, no cyanosis, Neuro: Intubated, Comatose, unresponsive, does not follow commands - Constitutional Vitals: Temp Pulse Resp BP Pulse Ox 99.6 F 122 H 29 H 146/96 100 03/25/19 08:00 03/25/19 08:35 03/25/19 08:15 03/25/19 08:35 03/25/19 08:35 General appearance: Present: other (unresponsive on the vent) Results - Labs CBC & Chem 7: 03/24/19 05:05 03/25/19 04:45 Labs: Laboratory Last Values WBC 10.6 K/mm3 (4.5-11.0) 03/24/19 05:05 RBC 3.77 M/mm3 (3.65-5.03) 03/24/19 05:05 Hgb 12.6 gm/dl (11.8-15.2) 03/24/19 05:05 Hct 37.9 % (35.5-45.6) 03/24/19 05:05 MCV 101 fl (84-94) H 03/24/19 05:05 MCH 34 pg (28-32) H 03/24/19 05:05 MCHC 33 % (32-34) 03/24/19 05:05 RDW 13.0 % (13.2-15.2) L 03/24/19 05:05 Plt Count 79 K/mm3 (140-440) L 03/24/19 05:05 Lymph % (Auto) Carbonating Stone Cleaner 03/20/19 16:25 Lymph # Carbonating [place] Cleaner 03/20/19 16:25 Add Manual Diff Complete 03/21/19 04:00 Total Counted 100 03/21/19 04:00 Seg Neutrophils % Carbonating [place] Cleaner 03/20/19 16:25 Seg Neuts % (Manual) 90.0 % (40.0-70.0) H 03/21/19 04:00 1.0 % 03/21/19 04:00 7.0 % (13.4-35.0) L 03/21/19 04:00 Reactive Lymphs % (Man) 0 % 03/21/19 04:00 2.0 % (0.0-7.3) 03/21/19 04:00 0 % (0.0-4.3) 03/21/19 04:00 0 % (0.0-1.8) 03/21/19 04:00 0 % 03/21/19 04:00 0 % 03/21/19 04:00 0 % 03/21/19 04:00 0 % 03/21/19 04:00 Nucleated RBC % Not Reportable 03/21/19 04:00 Seg Neutrophils # Man 18.0 K/mm3 (1.8-7.7) H 03/21/19 04:00 Band Neutrophils # 0.2 K/mm3 03/21/19 04:00 1.4 K/mm3 (1.2-5.4) 03/21/19 04:00 Abs React Lymphs (Man) 0.0 K/mm3 03/21/19 04:00 0.4 K/mm3 (0.0-0.8) 03/21/19 04:00 0.0 K/mm3 (0.0-0.4) 03/21/19 04:00 0.0 K/mm3 (0.0-0.1) 03/21/19 04:00 0.0 K/mm3 03/21/19 04:00 0.0 K/mm3 03/21/19 04:00 0.0 K/mm3 03/21/19 04:00 Blast Cells # 0.0 K/mm3 03/21/19 04:00 WBC Morphology Not Reportable 03/21/19 04:00 Hypersegmented Neuts Not Reportable 03/21/19 04:00 Hyposegmented Neuts Not Reportable 03/21/19 04:00 Hypogranular Neuts Not Reportable 03/21/19 04:00 Not Reportable 03/21/19 04:00 Not Reportable 03/21/19 04:00 Not Reportable 03/21/19 04:00 Not Reportable 03/21/19 04:00 Not Reportable 03/21/19 04:00 Not Reportable 03/21/19 04:00 Consistent w auto 03/21/19 04:00 Not Reportable 03/21/19 04:00 Plt Clumps, EDTA Not Reportable 03/21/19 04:00 Not Reportable 03/21/19 04:00 Not Reportable 03/21/19 04:00 Not Reportable 03/21/19 04:00 Plt Morphology Comment Not Reportable 03/21/19 04:00 RBC Morphology Normal 03/21/19 04:00 Dimorphic RBCs Not Reportable 03/21/19 04:00 Not Reportable 03/21/19 04:00 Not Reportable 03/21/19 04:00 Not Reportable 03/21/19 04:00 Not Reportable 03/21/19 04:00 Not Reportable 03/21/19 04:00 Not Reportable 03/21/19 04:00 Not Reportable 03/21/19 04:00 Not Reportable 03/21/19 04:00 Not Reportable 03/21/19 04:00 Not Reportable 03/21/19 04:00 Not Reportable 03/21/19 04:00 Not Reportable 03/21/19 04:00 Not Reportable 03/21/19 04:00 Not Reportable 03/21/19 04:00 Not Reportable 03/21/19 04:00 Not Reportable 03/21/19 04:00 Not Reportable 03/21/19 04:00 Not Reportable 03/21/19 04:00 Not Reportable 03/21/19 04:00 Acanthocytes (Spur) Not Reportable 03/21/19 04:00 Rouleaux Not Reportable 03/21/19 04:00 Not Reportable 03/21/19 04:00 Not Reportable 03/21/19 04:00 Not Reportable 03/21/19 04:00 Not Reportable 03/21/19 04:00 Hem Pathologist Commnt No 03/21/19 04:00 PT 12.9 Sec. (12.2-14.9) 03/20/19 16:31 INR 0.92 (0.87-1.13) 03/20/19 16:31 APTT 29.1 Sec. (24.2-36.6) 03/20/19 16:31 POC ABG pH 7.445 (7.35-7.45) 03/25/19 03:51 POC ABG pCO2 31.4 (35-45) L 03/25/19 03:51 POC ABG pO2 116 (80-105) H 03/25/19 03:51 POC ABG HCO3 21.6 (22-26 mml/L) 03/25/19 03:51 POC ABG Total CO2 23 (23-27mmol/L) 03/25/19 03:51 POC ABG O2 Sat 99 03/25/19 03:51 POC ABG Base Excess -2 ((-2) - (+3)mmol/L) 03/25/19 03:51 VBG pH 7.091 (7.320-7.420) L* 03/20/19 16:25 35 % 03/25/19 03:51 Sodium 174 mmol/L (137-145) H* 03/25/19 04:45 Potassium 3.1 mmol/L (3.6-5.0) L 03/25/19 04:45 Chloride 140 mmol/L (98-107) H 03/25/19 04:45 Carbon Dioxide 24 mmol/L (22-30) 03/25/19 04:45 13 mmol/L 03/25/19 04:45 BUN 14 mg/dL (9-20) 03/25/19 04:45 1.2 mg/dL (0.8-1.5) 03/25/19 04:45 Estimated GFR > 60 ml/min 03/25/19 04:45 12 % 03/25/19 04:45 Glucose 191 mg/dL (75-100) H 03/25/19 04:45 POC Glucose 165 (70-105) H 03/24/19 15:36 Lactic Acid 1.90 mmol/L (0.7-2.0) 03/22/19 04:20 Calcium 8.8 mg/dL (8.4-10.2) 03/25/19 04:45 Phosphorus 1.20 mg/dL (2.5-4.5) L D 03/25/19 04:45 Magnesium 2.00 mg/dL (1.7-2.3) 03/25/19 04:45 0.50 mg/dL (0.1-1.2) 03/25/19 04:45 AST 114 units/L (5-40) H 03/25/19 04:45 ALT 66 units/L (7-56) H 03/25/19 04:45 52 units/L (35-129) 03/25/19 04:45 10.0 umol/L (25-60) L 03/20/19 16:25 380 units/L (55-170) H 03/20/19 16:25 CK-MB (CK-2) 1.0 ng/mL (0.0-4.0) 03/20/19 16:25 CK-MB (CK-2) Rel Index 0.2 (0-4) 03/20/19 16:25 0.074 ng/mL (0.00-0.029) H D 03/21/19 14:41 4.90 mg/dL (0.00-1.30) H 03/21/19 15:59 5.5 g/dL (6.3-8.2) L 03/25/19 04:45 2.7 g/dL (3.9-5) L 03/25/19 04:45 1.0 % 03/25/19 04:45 Triglycerides 166 mg/dL (2-149) H 03/21/19 09:32 Cholesterol 194 mg/dL (50-199) 03/21/19 09:32 122 mg/dL (50-130) 03/21/19 09:32 63 mg/dL (40-59) H 03/21/19 09:32 3.07 % 03/21/19 09:32 TSH 17.340 mlU/mL (0.270-4.200) H 03/20/19 16:25 Free T4 0.69 ng/dL (0.76-1.46) L 03/20/19 16:25 Yellow (Yellow) 03/23/19 11:42 Slightly-cloudy (Clear) 03/23/19 11:42 6.0 (5.0-7.0) 03/23/19 11:42 Ur Specific [place] 1.008 (1.003-1.030) 03/23/19 11:42 <15 mg/dl mg/dL (Negative) 03/23/19 11:42 Neg mg/dL (Negative) 03/23/19 11:42 Neg mg/dL (Negative) 03/23/19 11:42 Mod (Negative) 03/23/19 11:42 Neg (Negative) 03/23/19 11:42 Neg (Negative) 03/23/19 11:42 < 2.0 mg/dL (<2.0) 03/23/19 11:42 Ur Leukocyte Esterase Sm (Negative) 03/23/19 11:42 27.0 /HPF (0.0-6.0) H 03/23/19 11:42 7.0 /HPF (0.0-6.0) 03/23/19 11:42 U Epithel Cells (Auto) < 1.0 /HPF (0-13.0) 03/23/19 11:42 2+ /HPF (Negative) 03/23/19 11:42 Ur Transition Epith Cell 5 /HPF 03/23/19 11:42 Hyaline Casts 1 /LPF 03/20/19 17:35 Few /HPF 03/23/19 11:42 2+ /HPF 03/20/19 17:35 1+ /HPF (AIR DUCT MECHANIC) 03/20/19 17:35 239 Mosm/kg 03/24/19 08:29 62.1 mg/dL (0.1-20.0) H 03/24/19 12:13 21 mmol/L 03/24/19 12:13 8.55 mmol/L 03/24/19 12:13 17.3 mmolL (110-250) L 03/24/19 12:13 Vancomycin Trough 12.7 ug/mL (5.0-20.0) 03/23/19 15:46 Salicylates < 0.3 mg/dL (2.8-20.0) L 03/20/19 16:25 Presumptive positive 03/20/19 17:36 Presumptive negative 03/20/19 17:36 Acetaminophen < 5.0 ug/mL (10.0-30.0) L 03/20/19 16:25 Ur Barbiturates Screen Presumptive negative 03/20/19 17:36 Ur Phencyclidine Scrn Presumptive negative 03/20/19 17:36 Ur Amphetamines Screen Presumptive negative 03/20/19 17:36 U Benzodiazepines Scrn Presumptive negative 03/20/19 17:36 Presumptive negative 03/20/19 17:36 U Marijuana (THC) Screen Presumptive positive 03/20/19 17:36 Disclamer 03/20/19 17:36 Plasma/Serum Alcohol < 0.01 % (0-0.07) 03/21/19 09:32 Hepatitis A IgM Ab Non-reactive (NonReactive) 03/21/19 15:59 Hep Bs Antigen Non-reactive (Negative) 03/21/19 15:59 Hep B Core IgM Ab Non-reactive (NonReactive) 03/21/19 15:59 Reactive (NonReactive) A 03/21/19 15:59 HIV 1&2 Antibody Rapid Non react (Non React) 03/21/19 15:59 Non react (Non React) 03/21/19 15:59 Influenza A (Rapid) Negative (Negative) 03/21/19 18:45 Influenza A (RT-PCR) Negative (Negative) 03/21/19 18:45 Influenza B (Rapid) Negative (Negative) 03/21/19 18:45 Influenza B (RT-PCR) Negative (Negative) 03/21/19 18:45 Active Medications - Current Medications Current Medications: Generic Name Dose Route Start Last Admin Trade Name Freq PRN Reason Stop Dose Admin Acetaminophen 650 mg 03/23/19 11:00 Tylenol [place] Q6H PRN Fever >101 Albuterol 2.5 mg 03/20/19 16:55 Proventil IH Q3HRT PRN Shortness Of Breath Lipase/Protease/Amylase 1 each 03/22/19 12:[address] 10,500 Unit FEEDTUBE PRN PRN For Clogged Feeding Tube Desmopressin Acetate 1 mcg 03/25/19 06:55 03/25/19 08:00 Ddavp SUB-Q 1 mcg Q12HR RICHARD Administration Hydrophilic Ointment 1 applic 03/20/19 18:02 Vaseline Lip Therapy TP Q2HR PRN Dry Lips Vancomycin HCl 1,250 mg/ 275 mls @ 166.667 mls/hr 03/22/19 05:00 03/25/19 05:05 Sodium Chloride IV 166.667 mls/hr Q12H RICHARD Administration Ceftriaxone Sodium 2 gm in 100 mls @ 200 mls/hr 03/22/19 14:00 03/24/19 22:16 Rocephin/Ns 2 Gm/100 Ml IV 200 mls/hr Q12HR RICHARD Administration Protocol Norepinephrine 4 mg in 250 mls @ 7.5 mls/hr 03/23/19 09:00 03/23/19 16:30 Levophed Drip 4 Mg/Ns 250 Ml IV 0 mcg/min TITR RICHARD 0 mls/hr Titration Protocol 2 MCG/MIN Dextrose 1,000 mls @ 75 mls/hr 03/24/19 09:00 03/25/19 05:06 D5w IV 150 mls/hr DIRECT RICHARD Administration Potassium Phosphate 30 mmol/ 510 mls @ 83 mls/hr 03/25/19 09:00 Sodium Chloride IV 03/25/19 15:08 ONCE ONE Lansoprazole 30 mg 03/25/19 10:00 Prevacid Solutab FEEDTUBE QDAY RICHARD Levothyroxine Sodium 100 mcg 03/20/19 21:04 03/25/19 08:10 Synthroid IV 100 mcg DAILY@0600 RICHARD Administration Multi-Ingred Cream/Lotion/Oil/Oint 1 applic 03/20/19 18:02 Artificial Tears Ophth Oint OU Q4HR PRN Dry Eye(s) Simple Syrup 15 ml 03/22/19 12:16 Simple Syrup FEEDTUBE PRN PRN Hypoglycemia Simple Syrup 30 ml 03/22/19 12:16 Simple Syrup FEEDTUBE PRN PRN Hypoglycemia Sodium Bicarbonate 325 mg 03/22/19 12:16 Sodium Bicarbonate FEEDTUBE PRN PRN For Clogged Feeding Tube Sodium Chloride 10 ml 03/20/19 22:00 03/24/19 22:17 Sodium Chloride Flush Syringe 10 Ml IV 10 ml BID RICHARD Administration Sodium Chloride 10 ml 03/20/19 16:55 03/21/19 18:56 Sodium Chloride Flush Syringe 10 Ml IV 10 ml PRN PRN Administration LINE FLUSH Nutrition/Malnutrition Assess - Dietary Evaluation Nutrition/Malnutrition Findings: Nutrition Notes Start: 03/21/19 12:53 Freq: Status: Active Protocol: Document 03/24/19 11:37 CP (Rec: 03/24/19 11:39 CP [id number]) Co-Sign 03/24/19 11:37 LP Nutrition Notes Initial or Follow up Brief Note Current Diagnosis Respiratory Failure Other Pertinent Diagnosis Myxedema coma, DVT prophylaxis , alcohol intoxication Current Diet NPO Subjective/Other Information F/U for TF to start/tolerance. TF was not hanging during time of visit due to renal ultrasound this morning. Nutrition Intervention Follow-Up By: 03/28/19 Additional Comments F/U: TF to start/TF tolerance
[2019-03-25] MEDS: SODIUM CHLORIDE FLUSH SYRINGE 10 ML IV SCH ×3 (09:37→23:19)
[2019-03-25] MEDS: ROCEPHIN/NS 2 GM/100 ML 2 GM/100 ML BAG IV SCH ×2 (10:53→22:01)
[2019-03-25] MEDS: PREVACID SOLUTAB FEEDTUBE SCH (10:56)
--- NOTE | 2019-03-25 11:24 | Progress Note ---
Subjective Date of service: 03/25/19 Principal diagnosis: fever and the acute kidney injury Interval history: I called Dr. Rosa last evening to discuss the high sodium as this is being addressed... spoke independently with severeal family members on one to one basis and was very direct communication as neurologist that prognosis to nil... too many factors opiates THC ketamine toxic alcohol, prior history of arrest due to opiates, and hyperthermia at time of arrest... 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 likihood of success is not expected Objective - Vital Sign Vital Signs - 12hr 03/24/19 03/24/19 03/25/19 23:30 23:45 00:00 Temperature 102.1 F H Pulse Rate 133 H 131 H 131 H Pulse Rate [ 131 H From Monitor] Respiratory 19 18 30 H Rate Blood Pressure 138/78 132/87 135/95 O2 Sat by Pulse 100 100 100 Oximetry 03/25/19 03/25/19 03/25/19 00:15 00:17 00:30 Temperature Pulse Rate 133 H 132 H 133 H Pulse Rate [ From Monitor] Respiratory 16 31 H Rate Blood Pressure 142/96 132/87 138/90 O2 Sat by Pulse 100 100 100 Oximetry 03/25/19 03/25/19 03/25/19 00:45 01:00 01:15 Temperature Pulse Rate 132 H 130 H 130 H Pulse Rate [ From Monitor] Respiratory 30 H 22 20 Rate Blood Pressure 140/90 145/95 136/94 O2 Sat by Pulse 100 100 100 Oximetry 03/25/19 03/25/19 03/25/19 01:30 01:45 02:00 Temperature Pulse Rate 130 H 130 H 130 H Pulse Rate [ From Monitor] Respiratory 30 H 31 H 15 Rate Blood Pressure 132/99 136/94 141/97 O2 Sat by Pulse 100 99 100 Oximetry 03/25/19 03/25/19 03/25/19 02:16 02:30 02:45 Temperature Pulse Rate 128 H 127 H 127 H Pulse Rate [ From Monitor] Respiratory 17 27 H 18 Rate Blood Pressure 154/103 135/96 142/96 O2 Sat by Pulse 100 100 100 Oximetry 03/25/19 03/25/19 03/25/19 03:00 03:15 03:30 Temperature 100.8 F H Pulse Rate 127 H 126 H 126 H Pulse Rate [ From Monitor] Respiratory 16 20 20 Rate Blood Pressure 145/95 138/100 140/91 O2 Sat by Pulse 100 100 100 Oximetry 03/25/19 03/25/19 03/25/19 03:45 04:00 04:05 Temperature 100.0 F H Pulse Rate 125 H 125 H 124 H Pulse Rate [ 123 H From Monitor] Respiratory 20 26 H Rate Blood Pressure 149/97 138/97 140/91 O2 Sat by Pulse 100 100 100 Oximetry 03/25/19 03/25/19 03/25/19 04:15 04:30 04:45 Temperature Pulse Rate 123 H 123 H 122 H Pulse Rate [ From Monitor] Respiratory 23 20 15 Rate Blood Pressure 141/98 138/99 139/91 O2 Sat by Pulse 100 100 100 Oximetry 03/25/19 03/25/19 03/25/19 05:00 05:15 05:17 Temperature 99.7 F H Pulse Rate 122 H 122 H Pulse Rate [ From Monitor] Respiratory 29 H 22 Rate Blood Pressure 140/96 141/101 O2 Sat by Pulse 100 100 Oximetry 03/25/19 03/25/19 03/25/19 05:30 05:45 06:00 Temperature Pulse Rate 120 H 122 H 119 H Pulse Rate [ From Monitor] Respiratory 30 H 30 H 30 H Rate Blood Pressure 141/96 143/101 134/92 O2 Sat by Pulse 100 100 100 Oximetry 03/25/19 03/25/19 03/25/19 06:15 06:30 06:45 Temperature Pulse Rate 122 H 122 H 121 H Pulse Rate [ From Monitor] Respiratory 30 H 30 H 30 H Rate Blood Pressure 140/96 140/93 138/94 O2 Sat by Pulse 100 100 100 Oximetry 03/25/19 03/25/19 03/25/19 07:00 07:15 07:30 Temperature Pulse Rate 121 H 122 H 123 H Pulse Rate [ From Monitor] Respiratory 30 H 30 H 30 H Rate Blood Pressure 126/93 134/93 132/95 O2 Sat by Pulse 100 100 100 Oximetry 03/25/19 03/25/19 03/25/19 07:45 08:00 08:15 Temperature 99.6 F Pulse Rate 122 H 120 H 124 H Pulse Rate [ 124 H From Monitor] Respiratory 30 H 30 H 29 H Rate Blood Pressure 137/92 136/92 137/94 O2 Sat by Pulse 100 100 100 Oximetry 03/25/19 03/25/19 03/25/19 08:30 08:35 08:45 Temperature Pulse Rate 124 H 122 H 125 H Pulse Rate [ From Monitor] Respiratory 22 30 H Rate Blood Pressure 146/96 146/96 124/83 O2 Sat by Pulse 100 100 100 Oximetry 03/25/19 03/25/19 03/25/19 09:00 09:15 09:30 Temperature Pulse Rate 122 H 120 H 120 H Pulse Rate [ From Monitor] Respiratory 15 29 H 24 Rate Blood Pressure 134/92 138/93 126/86 O2 Sat by Pulse 100 100 100 Oximetry 03/25/19 03/25/19 03/25/19 09:45 10:00 10:15 Temperature Pulse Rate 121 H 119 H 121 H Pulse Rate [ From Monitor] Respiratory 29 H 30 H 30 H Rate Blood Pressure 136/93 143/92 144/95 O2 Sat by Pulse 100 100 100 Oximetry 03/25/19 03/25/19 03/25/19 10:30 10:45 11:00 Temperature Pulse Rate 119 H 119 H 115 H Pulse Rate [ From Monitor] Respiratory 29 H 30 H 30 H Rate Blood Pressure 145/94 142/100 150/99 O2 Sat by Pulse 100 100 100 Oximetry - Laboratory Findings CBC and BMP: 03/24/19 05:05 03/25/19 04:45 Abnormal Lab Findings: Abnormal Labs 03/20/19 03/20/19 03/20/19 16:25 16:25 16:25 WBC Hgb Hct MCV 101 H MCH 33 H RDW 12.9 L Plt Count Seg Neuts % (Manual) 36.0 L Lymphocytes % (Manual) 60.0 H Seg Neutrophils # Man Lymphocytes # (Manual) 6.0 H POC ABG pH POC ABG pCO2 POC ABG pO2 VBG pH Sodium Potassium Chloride Carbon Dioxide 18 L BUN Creatinine Glucose 159 H POC Glucose Lactic Acid 9.50 H* Calcium 7.6 L Phosphorus Magnesium AST 276 H ALT 165 H Alkaline Phosphatase 139 H Ammonia Total Creatine Kinase 380 H Troponin T C-Reactive Protein Total Protein Albumin Triglycerides HDL Cholesterol TSH Free T4 Urine WBC (Auto) Urine Creatinine Urine Chloride Salicylates Acetaminophen Plasma/Serum Alcohol Hepatitis C Antibody 03/20/19 03/20/19 03/20/19 16:25 16:25 16:25 WBC Hgb Hct MCV MCH RDW Plt Count Seg Neuts % (Manual) Lymphocytes % (Manual) Seg Neutrophils # Man Lymphocytes # (Manual) POC ABG pH POC ABG pCO2 POC ABG pO2 VBG pH Sodium Potassium Chloride Carbon Dioxide BUN Creatinine Glucose POC Glucose Lactic Acid Calcium Phosphorus Magnesium 2.40 H AST ALT Alkaline Phosphatase Ammonia 10.0 L Total Creatine Kinase Troponin T C-Reactive Protein Total Protein Albumin Triglycerides HDL Cholesterol TSH 17.340 H Free T4 0.69 L Urine WBC (Auto) Urine Creatinine Urine Chloride Salicylates Acetaminophen Plasma/Serum Alcohol Hepatitis C Antibody 03/20/19 03/20/19 03/20/19 16:25 16:25 16:25 WBC Hgb Hct MCV MCH RDW Plt Count Seg Neuts % (Manual) Lymphocytes % (Manual) Seg Neutrophils # Man Lymphocytes # (Manual) POC ABG pH POC ABG pCO2 POC ABG pO2 VBG pH Sodium Potassium Chloride Carbon Dioxide BUN Creatinine Glucose POC Glucose Lactic Acid Calcium Phosphorus Magnesium AST ALT Alkaline Phosphatase Ammonia Total Creatine Kinase Troponin T C-Reactive Protein Total Protein Albumin Triglycerides HDL Cholesterol TSH Free T4 Urine WBC (Auto) Urine Creatinine Urine Chloride Salicylates < 0.3 L Acetaminophen < 5.0 L Plasma/Serum Alcohol 0.32 H Hepatitis C Antibody 03/20/19 03/20/19 03/20/19 16:25 16:34 16:51 WBC Hgb Hct MCV MCH RDW Plt Count Seg Neuts % (Manual) Lymphocytes % (Manual) Seg Neutrophils # Man Lymphocytes # (Manual) POC ABG pH 7.041 L POC ABG pCO2 68.9 H POC ABG pO2 381 H VBG pH 7.091 L* Sodium Potassium Chloride Carbon Dioxide BUN Creatinine Glucose POC Glucose 130 H Lactic Acid Calcium Phosphorus Magnesium AST ALT Alkaline Phosphatase Ammonia Total Creatine Kinase Troponin T C-Reactive Protein Total Protein Albumin Triglycerides HDL Cholesterol TSH Free T4 Urine WBC (Auto) Urine Creatinine Urine Chloride Salicylates Acetaminophen Plasma/Serum Alcohol Hepatitis C Antibody 03/20/19 03/20/19 03/20/19 17:35 17:53 19:17 WBC Hgb Hct MCV MCH RDW Plt Count Seg Neuts % (Manual) Lymphocytes % (Manual) Seg Neutrophils # Man Lymphocytes # (Manual) POC ABG pH 7.305 L POC ABG pCO2 POC ABG pO2 262 H VBG pH Sodium Potassium Chloride Carbon Dioxide BUN Creatinine Glucose POC Glucose Lactic Acid 6.90 H* Calcium Phosphorus Magnesium AST ALT Alkaline Phosphatase Ammonia Total Creatine Kinase Troponin T C-Reactive Protein Total Protein Albumin Triglycerides HDL Cholesterol TSH Free T4 Urine WBC (Auto) 19.0 H Urine Creatinine Urine Chloride Salicylates Acetaminophen Plasma/Serum Alcohol Hepatitis C Antibody 03/20/19 03/20/19 03/21/19 20:40 22:38 03:41 WBC Hgb Hct MCV MCH RDW Plt Count Seg Neuts % (Manual) Lymphocytes % (Manual) Seg Neutrophils # Man Lymphocytes # (Manual) POC ABG pH POC ABG pCO2 31.4 L POC ABG pO2 195 H VBG pH Sodium Potassium Chloride Carbon Dioxide BUN Creatinine Glucose POC Glucose 117 H Lactic Acid 6.30 H* Calcium Phosphorus Magnesium AST ALT Alkaline Phosphatase Ammonia Total Creatine Kinase Troponin T C-Reactive Protein Total Protein Albumin Triglycerides HDL Cholesterol TSH Free T4 Urine WBC (Auto) Urine Creatinine Urine Chloride Salicylates Acetaminophen Plasma/Serum Alcohol Hepatitis C Antibody 03/21/19 03/21/19 03/21/19 04:00 09:32 09:32 WBC 20.0 H 17.3 H Hgb 15.9 H 16.1 H Hct 47.3 H 47.8 H MCV 99 H 98 H MCH 33 H 33 H RDW 12.8 L 12.7 L Plt Count Seg Neuts % (Manual) 90.0 H Lymphocytes % (Manual) 7.0 L Seg Neutrophils # Man 18.0 H Lymphocytes # (Manual) POC ABG pH POC ABG pCO2 POC ABG pO2 VBG pH Sodium Potassium Chloride Carbon Dioxide BUN Creatinine Glucose POC Glucose Lactic Acid Calcium Phosphorus Magnesium AST ALT Alkaline Phosphatase Ammonia Total Creatine Kinase Troponin T 0.054 H D C-Reactive Protein Total Protein Albumin Triglycerides 166 H HDL Cholesterol 63 H TSH Free T4 Urine WBC (Auto) Urine Creatinine Urine Chloride Salicylates Acetaminophen Plasma/Serum Alcohol Hepatitis C Antibody 03/21/19 03/21/19 03/21/19 09:46 14:41 15:59 WBC Hgb Hct MCV MCH RDW Plt Count Seg Neuts % (Manual) Lymphocytes % (Manual) Seg Neutrophils # Man Lymphocytes # (Manual) POC ABG pH POC ABG pCO2 POC ABG pO2 VBG pH Sodium 148 H Potassium Chloride Carbon Dioxide 20 L BUN Creatinine Glucose 171 H POC Glucose Lactic Acid Calcium Phosphorus Magnesium AST 253 H ALT 218 H Alkaline Phosphatase 146 H Ammonia Total Creatine Kinase Troponin T 0.074 H D C-Reactive Protein 4.90 H Total Protein Albumin Triglycerides HDL Cholesterol TSH Free T4 Urine WBC (Auto) Urine Creatinine Urine Chloride Salicylates Acetaminophen Plasma/Serum Alcohol Hepatitis C Antibody 03/21/19 03/22/19 03/22/19 15:59 04:20 04:20 WBC 20.0 H Hgb Hct MCV 99 H MCH 33 H RDW 12.9 L Plt Count Seg Neuts % (Manual) Lymphocytes % (Manual) Seg Neutrophils # Man Lymphocytes # (Manual) POC ABG pH POC ABG pCO2 POC ABG pO2 VBG pH Sodium 156 H D Potassium 3.5 L Chloride 117.2 H Carbon Dioxide BUN Creatinine Glucose 144 H POC Glucose Lactic Acid Calcium 8.1 L Phosphorus Magnesium AST 205 H ALT 156 H Alkaline Phosphatase Ammonia Total Creatine Kinase Troponin T C-Reactive Protein Total Protein Albumin 3.6 L Triglycerides HDL Cholesterol TSH Free T4 Urine WBC (Auto) Urine Creatinine Urine Chloride Salicylates Acetaminophen Plasma/Serum Alcohol Hepatitis C Antibody Reactive A 03/22/19 03/22/19 03/22/19 04:20 04:26 12:40 WBC Hgb Hct MCV MCH RDW Plt Count Seg Neuts % (Manual) Lymphocytes % (Manual) Seg Neutrophils # Man Lymphocytes # (Manual) POC ABG pH POC ABG pCO2 32.8 L POC ABG pO2 66 L VBG pH Sodium Potassium Chloride Carbon Dioxide BUN Creatinine Glucose POC Glucose 171 H Lactic Acid Calcium Phosphorus 2.00 L Magnesium 1.50 L AST ALT Alkaline Phosphatase Ammonia Total Creatine Kinase Troponin T C-Reactive Protein Total Protein Albumin Triglycerides HDL Cholesterol TSH Free T4 Urine WBC (Auto) Urine Creatinine Urine Chloride Salicylates Acetaminophen Plasma/Serum Alcohol Hepatitis C Antibody 03/22/19 03/22/19 03/23/19 17:44 20:28 04:30 WBC 12.9 H Hgb Hct MCV 102 H MCH 34 H RDW 12.6 L Plt Count 115 L Seg Neuts % (Manual) Lymphocytes % (Manual) Seg Neutrophils # Man Lymphocytes # (Manual) POC ABG pH POC ABG pCO2 POC ABG pO2 VBG pH Sodium 158 H Potassium 3.5 L Chloride 121.5 H Carbon Dioxide BUN 23 H Creatinine Glucose 199 H POC Glucose 144 H Lactic Acid Calcium 8.0 L Phosphorus Magnesium 2.50 H AST ALT Alkaline Phosphatase Ammonia Total Creatine Kinase Troponin T C-Reactive Protein Total Protein Albumin Triglycerides HDL Cholesterol TSH Free T4 Urine WBC (Auto) Urine Creatinine Urine Chloride Salicylates Acetaminophen Plasma/Serum Alcohol Hepatitis C Antibody 03/23/19 03/23/19 03/23/19 04:30 04:38 08:56 WBC Hgb Hct MCV 103 H MCH 33 H RDW Plt Count 107 L Seg Neuts % (Manual) Lymphocytes % (Manual) Seg Neutrophils # Man Lymphocytes # (Manual) POC ABG pH 7.481 H POC ABG pCO2 33.8 L POC ABG pO2 VBG pH Sodium 156 H Potassium Chloride 121.4 H Carbon Dioxide 21 L BUN 24 H Creatinine Glucose 148 H POC Glucose Lactic Acid Calcium 7.9 L Phosphorus 1.90 L Magnesium AST 166 H ALT 96 H Alkaline Phosphatase Ammonia Total Creatine Kinase Troponin T C-Reactive Protein Total Protein 6.0 L Albumin 3.3 L Triglycerides HDL Cholesterol TSH Free T4 Urine WBC (Auto) Urine Creatinine Urine Chloride Salicylates Acetaminophen Plasma/Serum Alcohol Hepatitis C Antibody 03/23/19 03/23/19 03/23/19 08:56 11:21 11:42 WBC Hgb Hct MCV MCH RDW Plt Count Seg Neuts % (Manual) Lymphocytes % (Manual) Seg Neutrophils # Man Lymphocytes # (Manual) POC ABG pH POC ABG pCO2 POC ABG pO2 VBG pH Sodium 161 H* Potassium Chloride 121.5 H Carbon Dioxide BUN 27 H Creatinine 1.9 H D Glucose 248 H POC Glucose 275 H Lactic Acid Calcium 7.2 L Phosphorus 5.40 H D Magnesium AST 146 H ALT 79 H Alkaline Phosphatase Ammonia Total Creatine Kinase Troponin T C-Reactive Protein Total Protein 5.3 L Albumin 2.7 L Triglycerides HDL Cholesterol TSH Free T4 Urine WBC (Auto) 27.0 H Urine Creatinine Urine Chloride Salicylates Acetaminophen Plasma/Serum Alcohol Hepatitis C Antibody 03/23/19 03/23/19 03/23/19 15:46 17:27 23:43 WBC Hgb Hct MCV MCH RDW Plt Count Seg Neuts % (Manual) Lymphocytes % (Manual) Seg Neutrophils # Man Lymphocytes # (Manual) POC ABG pH POC ABG pCO2 POC ABG pO2 VBG pH Sodium 163 H* Potassium Chloride 127.9 H Carbon Dioxide BUN 28 H Creatinine Glucose 120 H POC Glucose 109 H 133 H Lactic Acid Calcium 7.5 L Phosphorus Magnesium AST ALT Alkaline Phosphatase Ammonia Total Creatine Kinase Troponin T C-Reactive Protein Total Protein Albumin Triglycerides HDL Cholesterol TSH Free T4 Urine WBC (Auto) Urine Creatinine Urine Chloride Salicylates Acetaminophen Plasma/Serum Alcohol Hepatitis C Antibody 03/24/19 03/24/19 03/24/19 05:05 05:05 05:06 WBC Hgb Hct MCV 101 H MCH 34 H RDW 13.0 L Plt Count 79 L Seg Neuts % (Manual) Lymphocytes % (Manual) Seg Neutrophils # Man Lymphocytes # (Manual) POC ABG pH POC ABG pCO2 POC ABG pO2 VBG pH Sodium 171 H* Potassium 2.8 L* D Chloride 131.4 H Carbon Dioxide BUN Creatinine Glucose 167 H POC Glucose 153 H Lactic Acid Calcium 8.3 L Phosphorus Magnesium AST 129 H ALT 74 H Alkaline Phosphatase Ammonia Total Creatine Kinase Troponin T C-Reactive Protein Total Protein 5.6 L Albumin 2.8 L Triglycerides HDL Cholesterol TSH Free T4 Urine WBC (Auto) Urine Creatinine Urine Chloride Salicylates Acetaminophen Plasma/Serum Alcohol Hepatitis C Antibody 03/24/19 03/24/19 03/24/19 05:09 12:13 15:36 WBC Hgb Hct MCV MCH RDW Plt Count Seg Neuts % (Manual) Lymphocytes % (Manual) Seg Neutrophils # Man Lymphocytes # (Manual) POC ABG pH 7.475 H POC ABG pCO2 POC ABG pO2 165 H VBG pH Sodium Potassium Chloride Carbon Dioxide BUN Creatinine Glucose POC Glucose 165 H Lactic Acid Calcium Phosphorus Magnesium AST ALT Alkaline Phosphatase Ammonia Total Creatine Kinase Troponin T C-Reactive Protein Total Protein Albumin Triglycerides HDL Cholesterol TSH Free T4 Urine WBC (Auto) Urine Creatinine 62.1 H Urine Chloride 17.3 L Salicylates Acetaminophen Plasma/Serum Alcohol Hepatitis C Antibody 03/24/19 03/24/19 03/24/19 16:54 21:58 21:58 WBC Hgb Hct MCV MCH RDW Plt Count Seg Neuts % (Manual) Lymphocytes % (Manual) Seg Neutrophils # Man Lymphocytes # (Manual) POC ABG pH POC ABG pCO2 POC ABG pO2 VBG pH Sodium 172 H* 172 H* 172 H* Potassium 2.8 L* 2.9 L* Chloride 137.0 H 139.0 H Carbon Dioxide BUN Creatinine Glucose 187 H 206 H POC Glucose Lactic Acid Calcium Phosphorus Magnesium AST ALT Alkaline Phosphatase Ammonia Total Creatine Kinase Troponin T C-Reactive Protein Total Protein Albumin Triglycerides HDL Cholesterol TSH Free T4 Urine WBC (Auto) Urine Creatinine Urine Chloride Salicylates Acetaminophen Plasma/Serum Alcohol Hepatitis C Antibody 03/25/19 03/25/19 03:51 04:45 WBC Hgb Hct MCV MCH RDW Plt Count Seg Neuts % (Manual) Lymphocytes % (Manual) Seg Neutrophils # Man Lymphocytes # (Manual) POC ABG pH POC ABG pCO2 31.4 L POC ABG pO2 116 H VBG pH Sodium 174 H* Potassium 3.1 L Chloride 140 H Carbon Dioxide BUN Creatinine Glucose 191 H POC Glucose Lactic Acid Calcium Phosphorus 1.20 L D Magnesium AST 114 H ALT 66 H Alkaline Phosphatase Ammonia Total Creatine Kinase Troponin T C-Reactive Protein Total Protein 5.5 L Albumin 2.7 L Triglycerides HDL Cholesterol TSH Free T4 Urine WBC (Auto) Urine Creatinine Urine Chloride Salicylates Acetaminophen Plasma/Serum Alcohol Hepatitis C Antibody
--- NOTE | 2019-03-25 11:44 | Progress Note ---
Assessment and Plan 28 y/o male with out of hospital cardiac arrest and acute respiratory failure and altered mental state 1. Cardiac-remains tachy. Likey fever and volume depletion. 2. Neuro-patient now off sedation for over 96 hours. Remains unresponsive and still febrile despite abx. Too unstable now post arrest to go down for LP. EEG with diffuse slowing and neurology recommended a repeat CT. Done. Showing significant cerebral edema consistent with anoxic brain injury. Neurology gave mannitol and per family will repeat CT again tomorrow 3. Respiratory-Clear CXR, minimal vent support. Continue all current settings for now. Patient currently does not appear to be breathing over the vent. 4. Endo-elevated TSH and low T4. NO family available for history. Agree with IV synthroid, however the picture does not clinically fit myxedema coma. Hold on stress dose roids for now 5. GI-dark contents from NG tube have returned. H/H stable. Will continue low intermittent suction and hold on feeds 6. ID-Please see Neuro number 2, acyclovir was added yesterday. No increase in white count. Unable to get LP at this time. 7. Metabolic-Hypernatremia, iatrogenic from volume resusucitation. Will restart D5 at a rate. Overall prognosis is guarded to poor. Discussed with mother and father at bedside. Explained the severity of the clinical state and that patient could have cardiac arrest again as well as permanent brain damage. They have expressed understanding on all levels. CCT 31 minutes. Subjective Date of service: 03/25/19 Principal diagnosis: fever and the acute kidney injury Interval history: No acute events. CT scan shows diffuse edema as stated yesterday. Neuro becca cted to give mannitol and told family they would repeat CT scan again tomorrow. More family members at bedside this am. Showed the CT scan to father and another extended family member Objective Vital Signs - 12hr 03/24/19 03/25/19 03/25/19 23:45 00:00 00:15 Temperature 102.1 F H Pulse Rate 131 H 131 H 133 H Pulse Rate [ 131 H From Monitor] Respiratory 18 30 H 16 Rate Blood Pressure 132/87 135/95 142/96 O2 Sat by Pulse 100 100 100 Oximetry 03/25/19 03/25/19 03/25/19 00:17 00:30 00:45 Temperature Pulse Rate 132 H 133 H 132 H Pulse Rate [ From Monitor] Respiratory 31 H 30 H Rate Blood Pressure 132/87 138/90 140/90 O2 Sat by Pulse 100 100 100 Oximetry 03/25/19 03/25/19 03/25/19 01:00 01:15 01:30 Temperature Pulse Rate 130 H 130 H 130 H Pulse Rate [ From Monitor] Respiratory 22 20 30 H Rate Blood Pressure 145/95 136/94 132/99 O2 Sat by Pulse 100 100 100 Oximetry 03/25/19 03/25/19 03/25/19 01:45 02:00 02:16 Temperature Pulse Rate 130 H 130 H 128 H Pulse Rate [ From Monitor] Respiratory 31 H 15 17 Rate Blood Pressure 136/94 141/97 154/103 O2 Sat by Pulse 99 100 100 Oximetry 03/25/19 03/25/19 03/25/19 02:30 02:45 03:00 Temperature 100.8 F H Pulse Rate 127 H 127 H 127 H Pulse Rate [ From Monitor] Respiratory 27 H 18 16 Rate Blood Pressure 135/96 142/96 145/95 O2 Sat by Pulse 100 100 100 Oximetry 03/25/19 03/25/19 03/25/19 03:15 03:30 03:45 Temperature Pulse Rate 126 H 126 H 125 H Pulse Rate [ From Monitor] Respiratory 20 20 20 Rate Blood Pressure 138/100 140/91 149/97 O2 Sat by Pulse 100 100 100 Oximetry 03/25/19 03/25/19 03/25/19 04:00 04:05 04:15 Temperature 100.0 F H Pulse Rate 125 H 124 H 123 H Pulse Rate [ 123 H From Monitor] Respiratory 26 H 23 Rate Blood Pressure 138/97 140/91 141/98 O2 Sat by Pulse 100 100 100 Oximetry 03/25/19 03/25/19 03/25/19 04:30 04:45 05:00 Temperature Pulse Rate 123 H 122 H 122 H Pulse Rate [ From Monitor] Respiratory 20 15 29 H Rate Blood Pressure 138/99 139/91 140/96 O2 Sat by Pulse 100 100 100 Oximetry 03/25/19 03/25/19 03/25/19 05:15 05:17 05:30 Temperature 99.7 F H Pulse Rate 122 H 120 H Pulse Rate [ From Monitor] Respiratory 22 30 H Rate Blood Pressure 141/101 141/96 O2 Sat by Pulse 100 100 Oximetry 03/25/19 03/25/19 03/25/19 05:45 06:00 06:15 Temperature Pulse Rate 122 H 119 H 122 H Pulse Rate [ From Monitor] Respiratory 30 H 30 H 30 H Rate Blood Pressure 143/101 134/92 140/96 O2 Sat by Pulse 100 100 100 Oximetry 03/25/19 03/25/19 03/25/19 06:30 06:45 07:00 Temperature Pulse Rate 122 H 121 H 121 H Pulse Rate [ From Monitor] Respiratory 30 H 30 H 30 H Rate Blood Pressure 140/93 138/94 126/93 O2 Sat by Pulse 100 100 100 Oximetry 03/25/19 03/25/19 03/25/19 07:15 07:30 07:45 Temperature Pulse Rate 122 H 123 H 122 H Pulse Rate [ From Monitor] Respiratory 30 H 30 H 30 H Rate Blood Pressure 134/93 132/95 137/92 O2 Sat by Pulse 100 100 100 Oximetry 03/25/19 03/25/19 03/25/19 08:00 08:15 08:30 Temperature 99.6 F Pulse Rate 120 H 124 H 124 H Pulse Rate [ 124 H From Monitor] Respiratory 30 H 29 H 22 Rate Blood Pressure 136/92 137/94 146/96 O2 Sat by Pulse 100 100 100 Oximetry 03/25/19 03/25/19 03/25/19 08:35 08:45 09:00 Temperature Pulse Rate 122 H 125 H 122 H Pulse Rate [ From Monitor] Respiratory 30 H 15 Rate Blood Pressure 146/96 124/83 134/92 O2 Sat by Pulse 100 100 100 Oximetry 03/25/19 03/25/19 03/25/19 09:15 09:30 09:45 Temperature Pulse Rate 120 H 120 H 121 H Pulse Rate [ From Monitor] Respiratory 29 H 24 29 H Rate Blood Pressure 138/93 126/86 136/93 O2 Sat by Pulse 100 100 100 Oximetry 03/25/19 03/25/19 03/25/19 10:00 10:15 10:30 Temperature Pulse Rate 119 H 121 H 119 H Pulse Rate [ From Monitor] Respiratory 30 H 30 H 29 H Rate Blood Pressure 143/92 144/95 145/94 O2 Sat by Pulse 100 100 100 Oximetry 03/25/19 03/25/19 10:45 11:00 Temperature Pulse Rate 119 H 115 H Pulse Rate [ From Monitor] Respiratory 30 H 30 H Rate Blood Pressure 142/100 150/99 O2 Sat by Pulse 100 100 Oximetry Constitutional: comatose, appears uncomfortable, other (dishelved) Eyes: injected ENT: other (orally intubated and sedated) Neck: supple Effort: mildly labored Ascultation: Bilateral: clear Percussion: Bilateral: not dull Cardiovascular: regular rate and rhythm Gastrointestinal: hypoactive bowel sounds Integumentary: normal Extremities: no edema Neurologic: unable to assess CBC and BMP: 03/24/19 05:05 03/25/19 04:45 ABG, PT/INR, D-dimer: ABG POC ABG pH 7.445 (7.35-7.45) 03/25/19 03:51 POC ABG pCO2 31.4 (35-45) L 03/25/19 03:51 POC ABG pO2 116 (80-105) H 03/25/19 03:51 POC ABG HCO3 21.6 (22-26 mml/L) 03/25/19 03:51 POC ABG Total CO2 23 (23-27mmol/L) 03/25/19 03:51 POC ABG O2 Sat 99 03/25/19 03:51 PT/INR, D-dimer PT 12.9 Sec. (12.2-14.9) 03/20/19 16:31 INR 0.92 (0.87-1.13) 03/20/19 16:31 Abnormal lab findings: Abnormal Labs 03/20/19 03/20/19 03/20/19 16:25 16:25 16:25 WBC Hgb Hct MCV 101 H MCH 33 H RDW 12.9 L Plt Count Seg Neuts % (Manual) 36.0 L Lymphocytes % (Manual) 60.0 H Seg Neutrophils # Man Lymphocytes # (Manual) 6.0 H POC ABG pH POC ABG pCO2 POC ABG pO2 VBG pH Sodium Potassium Chloride Carbon Dioxide 18 L BUN Creatinine Glucose 159 H POC Glucose Lactic Acid 9.50 H* Calcium 7.6 L Phosphorus Magnesium AST 276 H ALT 165 H Alkaline Phosphatase 139 H Ammonia Total Creatine Kinase 380 H Troponin T C-Reactive Protein Total Protein Albumin Triglycerides HDL Cholesterol TSH Free T4 Urine WBC (Auto) Urine Creatinine Urine Chloride Salicylates Acetaminophen Plasma/Serum Alcohol Hepatitis C Antibody 03/20/19 03/20/19 03/20/19 16:25 16:25 16:25 WBC Hgb Hct MCV MCH RDW Plt Count Seg Neuts % (Manual) Lymphocytes % (Manual) Seg Neutrophils # Man Lymphocytes # (Manual) POC ABG pH POC ABG pCO2 POC ABG pO2 VBG pH Sodium Potassium Chloride Carbon Dioxide BUN Creatinine Glucose POC Glucose Lactic Acid Calcium Phosphorus Magnesium 2.40 H AST ALT Alkaline Phosphatase Ammonia 10.0 L Total Creatine Kinase Troponin T C-Reactive Protein Total Protein Albumin Triglycerides HDL Cholesterol TSH 17.340 H Free T4 0.69 L Urine WBC (Auto) Urine Creatinine Urine Chloride Salicylates Acetaminophen Plasma/Serum Alcohol Hepatitis C Antibody 03/20/19 03/20/19 03/20/19 16:25 16:25 16:25 WBC Hgb Hct MCV MCH RDW Plt Count Seg Neuts % (Manual) Lymphocytes % (Manual) Seg Neutrophils # Man Lymphocytes # (Manual) POC ABG pH POC ABG pCO2 POC ABG pO2 VBG pH Sodium Potassium Chloride Carbon Dioxide BUN Creatinine Glucose POC Glucose Lactic Acid Calcium Phosphorus Magnesium AST ALT Alkaline Phosphatase Ammonia Total Creatine Kinase Troponin T C-Reactive Protein Total Protein Albumin Triglycerides HDL Cholesterol TSH Free T4 Urine WBC (Auto) Urine Creatinine Urine Chloride Salicylates < 0.3 L Acetaminophen < 5.0 L Plasma/Serum Alcohol 0.32 H Hepatitis C Antibody 03/20/19 03/20/19 03/20/19 16:25 16:34 16:51 WBC Hgb Hct MCV MCH RDW Plt Count Seg Neuts % (Manual) Lymphocytes % (Manual) Seg Neutrophils # Man Lymphocytes # (Manual) POC ABG pH 7.041 L POC ABG pCO2 68.9 H POC ABG pO2 381 H VBG pH 7.091 L* Sodium Potassium Chloride Carbon Dioxide BUN Creatinine Glucose POC Glucose 130 H Lactic Acid Calcium Phosphorus Magnesium AST ALT Alkaline Phosphatase Ammonia Total Creatine Kinase Troponin T C-Reactive Protein Total Protein Albumin Triglycerides HDL Cholesterol TSH Free T4 Urine WBC (Auto) Urine Creatinine Urine Chloride Salicylates Acetaminophen Plasma/Serum Alcohol Hepatitis C Antibody 03/20/19 03/20/19 03/20/19 17:35 17:53 19:17 WBC Hgb Hct MCV MCH RDW Plt Count Seg Neuts % (Manual) Lymphocytes % (Manual) Seg Neutrophils # Man Lymphocytes # (Manual) POC ABG pH 7.305 L POC ABG pCO2 POC ABG pO2 262 H VBG pH Sodium Potassium Chloride Carbon Dioxide BUN Creatinine Glucose POC Glucose Lactic Acid 6.90 H* Calcium Phosphorus Magnesium AST ALT Alkaline Phosphatase Ammonia Total Creatine Kinase Troponin T C-Reactive Protein Total Protein Albumin Triglycerides HDL Cholesterol TSH Free T4 Urine WBC (Auto) 19.0 H Urine Creatinine Urine Chloride Salicylates Acetaminophen Plasma/Serum Alcohol Hepatitis C Antibody 03/20/19 03/20/19 03/21/19 20:40 22:38 03:41 WBC Hgb Hct MCV MCH RDW Plt Count Seg Neuts % (Manual) Lymphocytes % (Manual) Seg Neutrophils # Man Lymphocytes # (Manual) POC ABG pH POC ABG pCO2 31.4 L POC ABG pO2 195 H VBG pH Sodium Potassium Chloride Carbon Dioxide BUN Creatinine Glucose POC Glucose 117 H Lactic Acid 6.30 H* Calcium Phosphorus Magnesium AST ALT Alkaline Phosphatase Ammonia Total Creatine Kinase Troponin T C-Reactive Protein Total Protein Albumin Triglycerides HDL Cholesterol TSH Free T4 Urine WBC (Auto) Urine Creatinine Urine Chloride Salicylates Acetaminophen Plasma/Serum Alcohol Hepatitis C Antibody 03/21/19 03/21/19 03/21/19 04:00 09:32 09:32 WBC 20.0 H 17.3 H Hgb 15.9 H 16.1 H Hct 47.3 H 47.8 H MCV 99 H 98 H MCH 33 H 33 H RDW 12.8 L 12.7 L Plt Count Seg Neuts % (Manual) 90.0 H Lymphocytes % (Manual) 7.0 L Seg Neutrophils # Man 18.0 H Lymphocytes # (Manual) POC ABG pH POC ABG pCO2 POC ABG pO2 VBG pH Sodium Potassium Chloride Carbon Dioxide BUN Creatinine Glucose POC Glucose Lactic Acid Calcium Phosphorus Magnesium AST ALT Alkaline Phosphatase Ammonia Total Creatine Kinase Troponin T 0.054 H D C-Reactive Protein Total Protein Albumin Triglycerides 166 H HDL Cholesterol 63 H TSH Free T4 Urine WBC (Auto) Urine Creatinine Urine Chloride Salicylates Acetaminophen Plasma/Serum Alcohol Hepatitis C Antibody 03/21/19 03/21/19 03/21/19 09:46 14:41 15:59 WBC Hgb Hct MCV MCH RDW Plt Count Seg Neuts % (Manual) Lymphocytes % (Manual) Seg Neutrophils # Man Lymphocytes # (Manual) POC ABG pH POC ABG pCO2 POC ABG pO2 VBG pH Sodium 148 H Potassium Chloride Carbon Dioxide 20 L BUN Creatinine Glucose 171 H POC Glucose Lactic Acid Calcium Phosphorus Magnesium AST 253 H ALT 218 H Alkaline Phosphatase 146 H Ammonia Total Creatine Kinase Troponin T 0.074 H D C-Reactive Protein 4.90 H Total Protein Albumin Triglycerides HDL Cholesterol TSH Free T4 Urine WBC (Auto) Urine Creatinine Urine Chloride Salicylates Acetaminophen Plasma/Serum Alcohol Hepatitis C Antibody 03/21/19 03/22/19 03/22/19 15:59 04:20 04:20 WBC 20.0 H Hgb Hct MCV 99 H MCH 33 H RDW 12.9 L Plt Count Seg Neuts % (Manual) Lymphocytes % (Manual) Seg Neutrophils # Man Lymphocytes # (Manual) POC ABG pH POC ABG pCO2 POC ABG pO2 VBG pH Sodium 156 H D Potassium 3.5 L Chloride 117.2 H Carbon Dioxide BUN Creatinine Glucose 144 H POC Glucose Lactic Acid Calcium 8.1 L Phosphorus Magnesium AST 205 H ALT 156 H Alkaline Phosphatase Ammonia Total Creatine Kinase Troponin T C-Reactive Protein Total Protein Albumin 3.6 L Triglycerides HDL Cholesterol TSH Free T4 Urine WBC (Auto) Urine Creatinine Urine Chloride Salicylates Acetaminophen Plasma/Serum Alcohol Hepatitis C Antibody Reactive A 03/22/19 03/22/19 03/22/19 04:20 04:26 12:40 WBC Hgb Hct MCV MCH RDW Plt Count Seg Neuts % (Manual) Lymphocytes % (Manual) Seg Neutrophils # Man Lymphocytes # (Manual) POC ABG pH POC ABG pCO2 32.8 L POC ABG pO2 66 L VBG pH Sodium Potassium Chloride Carbon Dioxide BUN Creatinine Glucose POC Glucose 171 H Lactic Acid Calcium Phosphorus 2.00 L Magnesium 1.50 L AST ALT Alkaline Phosphatase Ammonia Total Creatine Kinase Troponin T C-Reactive Protein Total Protein Albumin Triglycerides HDL Cholesterol TSH Free T4 Urine WBC (Auto) Urine Creatinine Urine Chloride Salicylates Acetaminophen Plasma/Serum Alcohol Hepatitis C Antibody 03/22/19 03/22/19 03/23/19 17:44 20:28 04:30 WBC 12.9 H Hgb Hct MCV 102 H MCH 34 H RDW 12.6 L Plt Count 115 L Seg Neuts % (Manual) Lymphocytes % (Manual) Seg Neutrophils # Man Lymphocytes # (Manual) POC ABG pH POC ABG pCO2 POC ABG pO2 VBG pH Sodium 158 H Potassium 3.5 L Chloride 121.5 H Carbon Dioxide BUN 23 H Creatinine Glucose 199 H POC Glucose 144 H Lactic Acid Calcium 8.0 L Phosphorus Magnesium 2.50 H AST ALT Alkaline Phosphatase Ammonia Total Creatine Kinase Troponin T C-Reactive Protein Total Protein Albumin Triglycerides HDL Cholesterol TSH Free T4 Urine WBC (Auto) Urine Creatinine Urine Chloride Salicylates Acetaminophen Plasma/Serum Alcohol Hepatitis C Antibody 03/23/19 03/23/19 03/23/19 04:30 04:38 08:56 WBC Hgb Hct MCV 103 H MCH 33 H RDW Plt Count 107 L Seg Neuts % (Manual) Lymphocytes % (Manual) Seg Neutrophils # Man Lymphocytes # (Manual) POC ABG pH 7.481 H POC ABG pCO2 33.8 L POC ABG pO2 VBG pH Sodium 156 H Potassium Chloride 121.4 H Carbon Dioxide 21 L BUN 24 H Creatinine Glucose 148 H POC Glucose Lactic Acid Calcium 7.9 L Phosphorus 1.90 L Magnesium AST 166 H ALT 96 H Alkaline Phosphatase Ammonia Total Creatine Kinase Troponin T C-Reactive Protein Total Protein 6.0 L Albumin 3.3 L Triglycerides HDL Cholesterol TSH Free T4 Urine WBC (Auto) Urine Creatinine Urine Chloride Salicylates Acetaminophen Plasma/Serum Alcohol Hepatitis C Antibody 03/23/19 03/23/19 03/23/19 08:56 11:21 11:42 WBC Hgb Hct MCV MCH RDW Plt Count Seg Neuts % (Manual) Lymphocytes % (Manual) Seg Neutrophils # Man Lymphocytes # (Manual) POC ABG pH POC ABG pCO2 POC ABG pO2 VBG pH Sodium 161 H* Potassium Chloride 121.5 H Carbon Dioxide BUN 27 H Creatinine 1.9 H D Glucose 248 H POC Glucose 275 H Lactic Acid Calcium 7.2 L Phosphorus 5.40 H D Magnesium AST 146 H ALT 79 H Alkaline Phosphatase Ammonia Total Creatine Kinase Troponin T C-Reactive Protein Total Protein 5.3 L Albumin 2.7 L Triglycerides HDL Cholesterol TSH Free T4 Urine WBC (Auto) 27.0 H Urine Creatinine Urine Chloride Salicylates Acetaminophen Plasma/Serum Alcohol Hepatitis C Antibody 03/23/19 03/23/19 03/23/19 15:46 17:27 23:43 WBC Hgb Hct MCV MCH RDW Plt Count Seg Neuts % (Manual) Lymphocytes % (Manual) Seg Neutrophils # Man Lymphocytes # (Manual) POC ABG pH POC ABG pCO2 POC ABG pO2 VBG pH Sodium 163 H* Potassium Chloride 127.9 H Carbon Dioxide BUN 28 H Creatinine Glucose 120 H POC Glucose 109 H 133 H Lactic Acid Calcium 7.5 L Phosphorus Magnesium AST ALT Alkaline Phosphatase Ammonia Total Creatine Kinase Troponin T C-Reactive Protein Total Protein Albumin Triglycerides HDL Cholesterol TSH Free T4 Urine WBC (Auto) Urine Creatinine Urine Chloride Salicylates Acetaminophen Plasma/Serum Alcohol Hepatitis C Antibody 03/24/19 03/24/19 03/24/19 05:05 05:05 05:06 WBC Hgb Hct MCV 101 H MCH 34 H RDW 13.0 L Plt Count 79 L Seg Neuts % (Manual) Lymphocytes % (Manual) Seg Neutrophils # Man Lymphocytes # (Manual) POC ABG pH POC ABG pCO2 POC ABG pO2 VBG pH Sodium 171 H* Potassium 2.8 L* D Chloride 131.4 H Carbon Dioxide BUN Creatinine Glucose 167 H POC Glucose 153 H Lactic Acid Calcium 8.3 L Phosphorus Magnesium AST 129 H ALT 74 H Alkaline Phosphatase Ammonia Total Creatine Kinase Troponin T C-Reactive Protein Total Protein 5.6 L Albumin 2.8 L Triglycerides HDL Cholesterol TSH Free T4 Urine WBC (Auto) Urine Creatinine Urine Chloride Salicylates Acetaminophen Plasma/Serum Alcohol Hepatitis C Antibody 03/24/19 03/24/19 03/24/19 05:09 12:13 15:36 WBC Hgb Hct MCV MCH RDW Plt Count Seg Neuts % (Manual) Lymphocytes % (Manual) Seg Neutrophils # Man Lymphocytes # (Manual) POC ABG pH 7.475 H POC ABG pCO2 POC ABG pO2 165 H VBG pH Sodium Potassium Chloride Carbon Dioxide BUN Creatinine Glucose POC Glucose 165 H Lactic Acid Calcium Phosphorus Magnesium AST ALT Alkaline Phosphatase Ammonia Total Creatine Kinase Troponin T C-Reactive Protein Total Protein Albumin Triglycerides HDL Cholesterol TSH Free T4 Urine WBC (Auto) Urine Creatinine 62.1 H Urine Chloride 17.3 L Salicylates Acetaminophen Plasma/Serum Alcohol Hepatitis C Antibody 03/24/19 03/24/19 03/24/19 16:54 21:58 21:58 WBC Hgb Hct MCV MCH RDW Plt Count Seg Neuts % (Manual) Lymphocytes % (Manual) Seg Neutrophils # Man Lymphocytes # (Manual) POC ABG pH POC ABG pCO2 POC ABG pO2 VBG pH Sodium 172 H* 172 H* 172 H* Potassium 2.8 L* 2.9 L* Chloride 137.0 H 139.0 H Carbon Dioxide BUN Creatinine Glucose 187 H 206 H POC Glucose Lactic Acid Calcium Phosphorus Magnesium AST ALT Alkaline Phosphatase Ammonia Total Creatine Kinase Troponin T C-Reactive Protein Total Protein Albumin Triglycerides HDL Cholesterol TSH Free T4 Urine WBC (Auto) Urine Creatinine Urine Chloride Salicylates Acetaminophen Plasma/Serum Alcohol Hepatitis C Antibody 03/25/19 03/25/19 03:51 04:45 WBC Hgb Hct MCV MCH RDW Plt Count Seg Neuts % (Manual) Lymphocytes % (Manual) Seg Neutrophils # Man Lymphocytes # (Manual) POC ABG pH POC ABG pCO2 31.4 L POC ABG pO2 116 H VBG pH Sodium 174 H* Potassium 3.1 L Chloride 140 H Carbon Dioxide BUN Creatinine Glucose 191 H POC Glucose Lactic Acid Calcium Phosphorus 1.20 L D Magnesium AST 114 H ALT 66 H Alkaline Phosphatase Ammonia Total Creatine Kinase Troponin T C-Reactive Protein Total Protein 5.5 L Albumin 2.7 L Triglycerides HDL Cholesterol TSH Free T4 Urine WBC (Auto) Urine Creatinine Urine Chloride Salicylates Acetaminophen Plasma/Serum Alcohol Hepatitis C Antibody
[2019-03-25 12:41] LABS: Alanine Aminotransferase 63 units/L (7-56); Albumin 2.7 g/dL (3.9-5); BUN/Creatinine Ratio 9; Blood Urea Nitrogen 11 mg/dL (9-20); Calcium 8.1 mg/dL (8.4-10.2); Hemolysis Index 12
[2019-03-25] MEDS ORDERED: DDAVP SUB-Q ONE (15:30)
[2019-03-25] MEDS ORDERED: ISOPTO TEARS 0.5% ONE (16:25)
[2019-03-25] MEDS: DDAVP SUB-Q SCH ×2 (18:46→21:46)
[2019-03-25 20:02] LABS: Alanine Aminotransferase 67 units/L (7-56); Albumin 2.6 g/dL (3.9-5); BUN/Creatinine Ratio 8; Blood Urea Nitrogen 10 mg/dL (9-20); Calcium 8.2 mg/dL (8.4-10.2); Hemolysis Index 11
[2019-03-26] MEDS: D5W 1,000 ML IV SCH (04:42)
[2019-03-26 05:02] LABS: Hemoglobin 9.6 gm/dl (11.8-15.2); Mean Corpuscular HGB Conc 33 % (32-34); Mean Corpuscular Volume 103 fl (84-94); Red Blood Count 2.84 M/mm3 (3.65-5.03); Red Cell Distribution Width 13.5 % (13.2-15.2)
[2019-03-26 05:11] LABS: Platelet Count 73 K/mm3 (140-440)
[2019-03-26 05:15] LABS: Hematocrit 29.3 % (35.5-45.6)
[2019-03-26 05:17] LABS: BUN/Creatinine Ratio 12; Blood Urea Nitrogen 14 mg/dL (9-20); Calcium 7.8 mg/dL (8.4-10.2); Hemolysis Index 3
[2019-03-26] MEDS: LEVOPHED DRIP 4 MG/NS 250 ML 4 MG/250 ML BAG IV SCH (05:53)
[2019-03-26] MEDS: SYNTHROID IV SCH (06:09)
[2019-03-26] MEDS ORDERED: NACL 0.9% 1000 ML 3,000 ML IV ONE (06:37)
[2019-03-26] MEDS ORDERED: NACL 0.9% 1000 ML 1,000 ML IV ONE ×2 (06:42→06:47)
[2019-03-26] MEDS: VANCOMYCIN 1,250 MG in NACL 0.9% 250ML 250 ML IV SCH (07:34)
--- NOTE | 2019-03-26 08:07 | Progress Note ---
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 pt with polyuria. Check urine sodium and osmolality. Sodium remains elevated > 170 despite increasing desmopressin dose. pt s/p IV NS boluses due to hypotension. increased desmopressin dose to 2mcg q8hr. discussed with ICU team and mother at bedside regarding renal care plan. Overall poor prognosis. (2) Hypokalemia Current Visit: Yes Status: Acute Plan to address problem: Supplement potassium on follow-up level (3) Cardiac arrest Current Visit: Yes Status: Acute Plan to address problem: Out of hospital cardiac arrest. Etiology uncertain. overall poor prognosis (4) Transaminasemia Current Visit: Yes Status: Acute Plan to address problem: Ischemic hepatitis possibly superimposed on baseline alcoholic hepatitis. Follow-up liver function tests (5) Acute renal failure Current Visit: Yes Status: Acute Qualifiers: Acute renal failure type: with acute tubular necrosis Qualified Code(s): N17.0 - Acute kidney failure with tubular necrosis Plan to address problem: Acute tubular necrosis secondary to hypotension with Cardiac arrest. Patient is nonoliguric. Kidney function improved (6) Respiratory failure Current Visit: Yes Status: Acute Plan to address problem: Continue ventilator management per pulmonary Subjective Date of service: 03/26/19 Principal diagnosis: fever and the acute kidney injury Interval history: Pt remains intubated, unresponsive, serum na not significantly improved. mother at bedside. Objective - Vital Signs Vital signs: Vital Signs - 12hr 03/25/19 03/25/19 03/25/19 20:15 20:30 20:45 Temperature Pulse Rate 149 H 144 H 144 H Pulse Rate [ From Monitor] Pulse Rate [ Right Dorsalis Pedis] Respiratory 29 H 30 H 30 H Rate Blood Pressure 151/104 153/101 145/100 O2 Sat by Pulse 100 100 Oximetry 03/25/19 03/25/19 03/25/19 20:57 21:00 21:01 Temperature Pulse Rate 145 H 144 H Pulse Rate [ 145 H From Monitor] Pulse Rate [ 145 H Right Dorsalis Pedis] Respiratory 29 H Rate Blood Pressure 148/105 O2 Sat by Pulse 100 Oximetry 03/25/19 03/25/19 03/25/19 21:15 21:30 21:45 Temperature Pulse Rate 143 H 142 H 141 H Pulse Rate [ From Monitor] Pulse Rate [ Right Dorsalis Pedis] Respiratory 30 H 30 H 30 H Rate Blood Pressure 154/98 145/102 151/100 O2 Sat by Pulse 100 100 100 Oximetry 03/25/19 03/25/19 03/25/19 22:00 22:15 22:30 Temperature Pulse Rate 140 H 140 H 140 H Pulse Rate [ From Monitor] Pulse Rate [ Right Dorsalis Pedis] Respiratory 30 H 30 H 30 H Rate Blood Pressure 163/109 165/114 163/113 O2 Sat by Pulse 100 100 100 Oximetry 03/25/19 03/25/19 03/25/19 22:45 23:00 23:09 Temperature Pulse Rate 138 H 139 H 140 H Pulse Rate [ From Monitor] Pulse Rate [ Right Dorsalis Pedis] Respiratory 30 H 30 H 30 H Rate Blood Pressure 156/107 157/108 157/108 O2 Sat by Pulse 100 100 100 Oximetry 03/25/19 03/25/19 03/25/19 23:15 23:17 23:30 Temperature 99.2 F Pulse Rate 140 H 140 H Pulse Rate [ 139 H From Monitor] Pulse Rate [ 139 H Right Dorsalis Pedis] Respiratory 30 H 30 H Rate Blood Pressure 158/109 157/110 O2 Sat by Pulse 100 100 Oximetry 03/25/19 03/26/19 03/26/19 23:45 00:00 00:15 Temperature 99.4 F Pulse Rate 139 H 140 H 141 H Pulse Rate [ From Monitor] Pulse Rate [ Right Dorsalis Pedis] Respiratory 30 H 30 H 30 H Rate Blood Pressure 157/110 153/110 159/112 O2 Sat by Pulse 100 100 100 Oximetry 03/26/19 03/26/19 03/26/19 00:30 00:45 01:00 Temperature Pulse Rate 142 H 140 H 139 H Pulse Rate [ From Monitor] Pulse Rate [ Right Dorsalis Pedis] Respiratory 30 H 30 H 30 H Rate Blood Pressure 142/94 151/99 146/101 O2 Sat by Pulse 100 100 100 Oximetry 03/26/19 03/26/19 03/26/19 01:15 01:30 01:45 Temperature Pulse Rate 139 H 140 H 138 H Pulse Rate [ From Monitor] Pulse Rate [ Right Dorsalis Pedis] Respiratory 30 H 30 H 30 H Rate Blood Pressure 146/99 144/96 138/96 O2 Sat by Pulse 100 100 100 Oximetry 03/26/19 03/26/19 03/26/19 02:00 02:15 02:30 Temperature Pulse Rate 138 H 137 H 138 H Pulse Rate [ From Monitor] Pulse Rate [ Right Dorsalis Pedis] Respiratory 30 H 30 H 30 H Rate Blood Pressure 141/94 141/92 137/92 O2 Sat by Pulse 100 100 100 Oximetry 03/26/19 03/26/19 03/26/19 02:45 03:00 03:15 Temperature Pulse Rate 137 H 134 H 131 H Pulse Rate [ From Monitor] Pulse Rate [ Right Dorsalis Pedis] Respiratory 30 H 30 H 30 H Rate Blood Pressure 132/89 130/88 130/85 O2 Sat by Pulse 100 100 100 Oximetry 03/26/19 03/26/19 03/26/19 03:30 03:45 03:59 Temperature Pulse Rate 133 H 135 H 134 H Pulse Rate [ From Monitor] Pulse Rate [ Right Dorsalis Pedis] Respiratory 30 H 30 H Rate Blood Pressure 132/83 126/81 O2 Sat by Pulse 100 100 100 Oximetry 03/26/19 03/26/19 03/26/19 04:00 04:15 04:30 Temperature 100.2 F H Pulse Rate 137 H 134 H 131 H Pulse Rate [ 131 H From Monitor] Pulse Rate [ 131 H Right Dorsalis Pedis] Respiratory 30 H 30 H 30 H Rate Blood Pressure 138/92 118/75 108/68 O2 Sat by Pulse 100 99 99 Oximetry 03/26/19 03/26/19 03/26/19 04:45 05:00 05:15 Temperature Pulse Rate 130 H 129 H 127 H Pulse Rate [ From Monitor] Pulse Rate [ Right Dorsalis Pedis] Respiratory 30 H 30 H 30 H Rate Blood Pressure 106/64 102/63 99/59 O2 Sat by Pulse 99 99 99 Oximetry 03/26/19 03/26/19 03/26/19 05:30 05:45 06:00 Temperature Pulse Rate 122 H 114 H 108 H Pulse Rate [ From Monitor] Pulse Rate [ Right Dorsalis Pedis] Respiratory 30 H 30 H 30 H Rate Blood Pressure 88/53 86/46 112/73 O2 Sat by Pulse 99 99 100 Oximetry 03/26/19 03/26/19 03/26/19 06:15 06:30 06:45 Temperature Pulse Rate 101 H 98 H 96 H Pulse Rate [ From Monitor] Pulse Rate [ Right Dorsalis Pedis] Respiratory 30 H 30 H 30 H Rate Blood Pressure 95/55 93/50 109/72 O2 Sat by Pulse 100 100 100 Oximetry 03/26/19 03/26/19 03/26/19 07:00 07:15 07:30 Temperature Pulse Rate 96 H 94 H 94 H Pulse Rate [ From Monitor] Pulse Rate [ Right Dorsalis Pedis] Respiratory 30 H 30 H 30 H Rate Blood Pressure 125/84 119/78 108/62 O2 Sat by Pulse 100 100 99 Oximetry - General Appearance General appearance: chronically ill, sedated on ventilator, intubated EENT: ATNC, mucous membranes dry Neck: no JVD Respiratory: Present: Clear to Ascultation Cardiology: regular, S1S2 Gastrointestinal: normoactive bowel sounds Integumentary: no rash Neurologic: other (intubated, unresponsive ) - Lab 03/26/19 04:04 03/26/19 04:04 Most recent lab results Calcium 7.8 mg/dL (8.4-10.2) L 03/26/19 04:04 Phosphorus 1.20 mg/dL (2.5-4.5) L D 03/25/19 04:45 Magnesium 2.00 mg/dL (1.7-2.3) 03/25/19 04:45 62.1 mg/dL (0.1-20.0) H 03/24/19 12:13 21 mmol/L 03/24/19 12:13 Medications & Allergies - Medications Allergies/Adverse Reactions: Allergies No Known Allergies Allergy (Unverified 03/22/19 08:10) Active Medications: Generic Name Dose Route Start Last Admin Trade Name Freq PRN Reason Stop Dose Admin Acetaminophen 650 mg 03/23/19 11:00 Tylenol DC Q6H PRN Fever >101 Albuterol 2.5 mg 03/20/19 16:55 Proventil IH Q3HRT PRN Shortness Of Breath Lipase/Protease/Amylase 1 each 03/22/19 12:16 Pancrechiqui Leone 10,500 Unit FEEDTUBE PRN PRN For Clogged Feeding Tube Desmopressin Acetate 2 mcg 03/26/19 08:10 Ddavp SUB-Q Q8HR RICHARD Hydrophilic Ointment 1 applic 03/20/19 18:02 Vaseline Lip Therapy TP Q2HR PRN Dry Lips Vancomycin HCl 1,250 mg/ 275 mls @ 166.667 mls/hr 03/22/19 05:00 03/26/19 07:34 Sodium Chloride IV 166.667 mls/hr Q12H RICHARD Administration Ceftriaxone Sodium 2 gm in 100 mls @ 200 mls/hr 03/22/19 14:00 03/25/19 22:01 Rocephin/Ns 2 Gm/100 Ml IV 200 mls/hr Q12HR RICHARD Administration Protocol Norepinephrine 4 mg in 250 mls @ 7.5 mls/hr 03/23/19 09:00 03/26/19 06:42 Levophed Drip 4 Mg/Ns 250 Ml IV 4 mcg/min TITR RICHARD 15 mls/hr Titration Protocol 2 MCG/MIN Dextrose 1,000 mls @ 75 mls/hr 03/24/19 09:00 03/26/19 04:42 D5w IV 150 mls/hr DIRECT RICHARD Administration Sodium Chloride 3,000 mls @ 999 mls/hr 03/26/19 06:37 03/26/19 06:35 Nacl 0.9% 1000 Ml IV 03/26/19 09:37 999 mls/hr BOLUS ONE Administration Lansoprazole 30 mg 03/25/19 10:00 03/25/19 10:56 Prevacid Solutab FEEDTUBE 30 mg QDAY RICHARD Administration Levothyroxine Sodium 100 mcg 03/20/19 21:04 03/26/19 06:09 Synthroid IV 100 mcg DAILY@0600 RICHARD Administration Multi-Ingred Cream/Lotion/Oil/Oint 1 applic 03/20/19 18:02 03/25/19 16:27 Artificial Tears Ophth Oint OU 1 applic Q4HR PRN Administration Dry Eye(s) Simple Syrup 15 ml 03/22/19 12:16 Simple Syrup FEEDTUBE PRN PRN Hypoglycemia Simple Syrup 30 ml 03/22/19 12:16 Simple Syrup FEEDTUBE PRN PRN Hypoglycemia Sodium Bicarbonate 325 mg 03/22/19 12:16 Sodium Bicarbonate FEEDTUBE PRN PRN For Clogged Feeding Tube Sodium Chloride 10 ml 03/20/19 22:00 03/25/19 23:19 Sodium Chloride Flush Syringe 10 Ml IV 10 ml BID RICHARD Administration Sodium Chloride 10 ml 03/20/19 16:55 03/21/19 18:56 Sodium Chloride Flush Syringe 10 Ml IV 10 ml PRN PRN Administration LINE FLUSH
[2019-03-26] MEDS: DDAVP SUB-Q SCH ×3 (08:23→22:43)
--- NOTE | 2019-03-26 09:37 | Progress Note ---
Assessment and Plan Assessment and plan: s/p cardiopulmonary arrest outside hospital Resuscitated, intubated, Admitted to ICU Pulm following Possible drug overdose. Patient has history of Polysubstance abuse Patient had another episode of cardiac arrest on 03/23/19 at 07:54. Gaurang Roger was called. Code run per protocol he was given 4 doses of Epinephrine, biacarb. CPR. He regained pulse 08:06. Acute resp failure Intubated Myxedema coma Continue Levothyroxine iv Alcohol intoxication Fever of 102 on admission persistent fever Blood cultures drawn. Consulted ID and he was evaluated Started on Ceftriaxone, Flagyl, Vanco to r/o meningitis Anoxic encephalopathy Cerebral edema, diffuse hpoxic ischemic changes on CT head mannitol given Central diabetes insipidus DDAVP started discussed with Nephrology Hypernatremia give D5W. Nephrology following Hypokalemia. Replace and repeat lactic acidosis Toxic metabolic encephalopathy Elevated LFT may be alcohol hepatitis vs hep C Monitor History of Polysubstance abuse. Mom at bedside says he used illicit drugs, pills and injectables Hepatitis C Ab pos Hypernatremia continue D5W Started on DDAVP NICK due to ATN, post cardiac arrest Consulted Nephrology, following Hypotension,post code started on Levophed Full code status Discussed with his mother after code and discussed guarded prognosis after 2 cardiac arrest episodes Very poor prognosis The high probability of a clinically significant, sudden or life threatening deterioration of the [cardiac, pulmonary, renal] system(s) required my full and direct attention, intervention and personal management. The aggregate critical care time was [34] minutes. This time is in addition to time spent performing reported procedures but includes the following: [x] Data Review and interpretation [x] Patient assessment and monitoring of vital signs [x] Documentation [x] Medication orders and management History Interval history: Patient presented as oiut of hospital cardiac arrest, and had another cardiac arrest 03/23/19 at 07:54, code run per protocol, resuscitated 08:06 still unresponsive Fever Hypotensive, started on Levophed Hospitalist Physical - Physical exam Narrative exam: Gen: intubated, on vent HEENT: Normocephalic, atraumatic Neck: supple, no JVD Heart: S1 and S2 reg, tachy, no murmurs, rubs or gallop Lungs: Clear, no crackles Abd: soft, non tender, non distended, normal BS Ext: No edema, no clubbing, no cyanosis, Neuro: Intubated, Comatose, unresponsive, does not follow commands - Constitutional Vitals: Temp Pulse Resp BP Pulse Ox 100.2 F H 94 H 30 H 108/62 99 03/26/19 04:00 03/26/19 07:30 03/26/19 07:30 03/26/19 07:30 03/26/19 07:30 General appearance: Present: other (unresponsive on the vent) Results - Labs CBC & Chem 7: 03/26/19 04:04 03/26/19 04:04 Labs: Laboratory Last Values WBC 7.6 K/mm3 (4.5-11.0) 03/26/19 04:04 RBC 2.84 M/mm3 (3.65-5.03) L 03/26/19 04:04 Hgb 9.6 gm/dl (11.8-15.2) L D 03/26/19 04:04 Hct 29.3 % (35.5-45.6) L D 03/26/19 04:04 MCV 103 fl (84-94) H 03/26/19 04:04 MCH 34 pg (28-32) H 03/26/19 04:04 MCHC 33 % (32-34) 03/26/19 04:04 RDW 13.5 % (13.2-15.2) 03/26/19 04:04 Plt Count 73 K/mm3 (140-440) L 03/26/19 04:04 Lymph % (Auto) Regulator Tester 03/20/19 16:25 Lymph # Regulator Tester 03/20/19 16:25 Add Manual Diff Complete 03/21/19 04:00 Total Counted 100 03/21/19 04:00 Seg Neutrophils % Regulator Tester 03/20/19 16:25 Seg Neuts % (Manual) 90.0 % (40.0-70.0) H 03/21/19 04:00 1.0 % 03/21/19 04:00 7.0 % (13.4-35.0) L 03/21/19 04:00 Reactive Lymphs % (Man) 0 % 03/21/19 04:00 2.0 % (0.0-7.3) 03/21/19 04:00 0 % (0.0-4.3) 03/21/19 04:00 0 % (0.0-1.8) 03/21/19 04:00 0 % 03/21/19 04:00 0 % 03/21/19 04:00 0 % 03/21/19 04:00 0 % 03/21/19 04:00 Nucleated RBC % Not Reportable 03/21/19 04:00 Seg Neutrophils # Man 18.0 K/mm3 (1.8-7.7) H 03/21/19 04:00 Band Neutrophils # 0.2 K/mm3 03/21/19 04:00 1.4 K/mm3 (1.2-5.4) 03/21/19 04:00 Abs React Lymphs (Man) 0.0 K/mm3 03/21/19 04:00 0.4 K/mm3 (0.0-0.8) 03/21/19 04:00 0.0 K/mm3 (0.0-0.4) 03/21/19 04:00 0.0 K/mm3 (0.0-0.1) 03/21/19 04:00 0.0 K/mm3 03/21/19 04:00 0.0 K/mm3 03/21/19 04:00 0.0 K/mm3 03/21/19 04:00 Blast Cells # 0.0 K/mm3 03/21/19 04:00 WBC Morphology Not Reportable 03/21/19 04:00 Hypersegmented Neuts Not Reportable 03/21/19 04:00 Hyposegmented Neuts Not Reportable 03/21/19 04:00 Hypogranular Neuts Not Reportable 03/21/19 04:00 Not Reportable 03/21/19 04:00 Not Reportable 03/21/19 04:00 Not Reportable 03/21/19 04:00 Not Reportable 03/21/19 04:00 Not Reportable 03/21/19 04:00 Not Reportable 03/21/19 04:00 Consistent w auto 03/21/19 04:00 Not Reportable 03/21/19 04:00 Plt Clumps, EDTA Not Reportable 03/21/19 04:00 Not Reportable 03/21/19 04:00 Not Reportable 03/21/19 04:00 Not Reportable 03/21/19 04:00 Plt Morphology Comment Not Reportable 03/21/19 04:00 RBC Morphology Normal 03/21/19 04:00 Dimorphic RBCs Not Reportable 03/21/19 04:00 Not Reportable 03/21/19 04:00 Not Reportable 03/21/19 04:00 Not Reportable 03/21/19 04:00 Not Reportable 03/21/19 04:00 Not Reportable 03/21/19 04:00 Not Reportable 03/21/19 04:00 Not Reportable 03/21/19 04:00 Not Reportable 03/21/19 04:00 Not Reportable 03/21/19 04:00 Not Reportable 03/21/19 04:00 Not Reportable 03/21/19 04:00 Not Reportable 03/21/19 04:00 Not Reportable 03/21/19 04:00 Not Reportable 03/21/19 04:00 Not Reportable 03/21/19 04:00 Not Reportable 03/21/19 04:00 Not Reportable 03/21/19 04:00 Not Reportable 03/21/19 04:00 Not Reportable 03/21/19 04:00 Acanthocytes (Spur) Not Reportable 03/21/19 04:00 Rouleaux Not Reportable 03/21/19 04:00 Not Reportable 03/21/19 04:00 Not Reportable 03/21/19 04:00 Not Reportable 03/21/19 04:00 Not Reportable 03/21/19 04:00 Hem Pathologist Commnt No 03/21/19 04:00 PT 12.9 Sec. (12.2-14.9) 03/20/19 16:31 INR 0.92 (0.87-1.13) 03/20/19 16:31 APTT 29.1 Sec. (24.2-36.6) 03/20/19 16:31 POC ABG pH 7.481 (7.35-7.45) H 03/26/19 04:07 POC ABG pCO2 30.5 (35-45) L 03/26/19 04:07 POC ABG pO2 95 (80-105) 03/26/19 04:07 POC ABG HCO3 22.8 (22-26 mml/L) 03/26/19 04:07 POC ABG Total CO2 24 (23-27mmol/L) 03/26/19 04:07 POC ABG O2 Sat 98 03/26/19 04:07 POC ABG Base Excess -1 ((-2) - (+3)mmol/L) 03/26/19 04:07 VBG pH 7.091 (7.320-7.420) L* 03/20/19 16:25 35 % 03/26/19 04:07 Sodium 173 mmol/L (137-145) H* 03/26/19 04:04 Potassium 3.5 mmol/L (3.6-5.0) L 03/26/19 04:04 Chloride 137.0 mmol/L (98-107) H 03/26/19 04:04 Carbon Dioxide 25 mmol/L (22-30) 03/26/19 04:04 15 mmol/L 03/26/19 04:04 BUN 14 mg/dL (9-20) 03/26/19 04:04 1.2 mg/dL (0.8-1.5) 03/26/19 04:04 Estimated GFR > 60 ml/min 03/26/19 04:04 12 % 03/26/19 04:04 Glucose 202 mg/dL (75-100) H 03/26/19 04:04 POC Glucose 121 (70-105) H 03/25/19 16:06 Lactic Acid 1.90 mmol/L (0.7-2.0) 03/22/19 04:20 Calcium 7.8 mg/dL (8.4-10.2) L 03/26/19 04:04 Phosphorus 1.20 mg/dL (2.5-4.5) L D 03/25/19 04:45 Magnesium 2.00 mg/dL (1.7-2.3) 03/25/19 04:45 0.40 mg/dL (0.1-1.2) 03/25/19 19:25 AST 129 units/L (5-40) H 03/25/19 19:25 ALT 67 units/L (7-56) H 03/25/19 19:25 52 units/L (35-129) 03/25/19 19:25 10.0 umol/L (25-60) L 03/20/19 16:25 380 units/L (55-170) H 03/20/19 16:25 CK-MB (CK-2) 1.0 ng/mL (0.0-4.0) 03/20/19 16:25 CK-MB (CK-2) Rel Index 0.2 (0-4) 03/20/19 16:25 0.074 ng/mL (0.00-0.029) H D 03/21/19 14:41 4.90 mg/dL (0.00-1.30) H 03/21/19 15:59 5.4 g/dL (6.3-8.2) L 03/25/19 19:25 2.6 g/dL (3.9-5) L 03/25/19 19:25 0.9 % 03/25/19 19:25 Triglycerides 166 mg/dL (2-149) H 03/21/19 09:32 Cholesterol 194 mg/dL (50-199) 03/21/19 09:32 122 mg/dL (50-130) 03/21/19 09:32 63 mg/dL (40-59) H 03/21/19 09:32 3.07 % 03/21/19 09:32 TSH 17.340 mlU/mL (0.270-4.200) H 03/20/19 16:25 Free T4 0.69 ng/dL (0.76-1.46) L 03/20/19 16:25 Yellow (Yellow) 03/23/19 11:42 Slightly-cloudy (Clear) 03/23/19 11:42 6.0 (5.0-7.0) 03/23/19 11:42 Ur Specific [place] 1.008 (1.003-1.030) 03/23/19 11:42 <15 mg/dl mg/dL (Negative) 03/23/19 11:42 Neg mg/dL (Negative) 03/23/19 11:42 Neg mg/dL (Negative) 03/23/19 11:42 Mod (Negative) 03/23/19 11:42 Neg (Negative) 03/23/19 11:42 Neg (Negative) 03/23/19 11:42 < 2.0 mg/dL (<2.0) 03/23/19 11:42 Ur Leukocyte Esterase Sm (Negative) 03/23/19 11:42 27.0 /HPF (0.0-6.0) H 03/23/19 11:42 7.0 /HPF (0.0-6.0) 03/23/19 11:42 U Epithel Cells (Auto) < 1.0 /HPF (0-13.0) 03/23/19 11:42 2+ /HPF (Negative) 03/23/19 11:42 Ur Transition Epith Cell 5 /HPF 03/23/19 11:42 Hyaline Casts 1 /LPF 03/20/19 17:35 Few /HPF 03/23/19 11:42 2+ /HPF 03/20/19 17:35 1+ /HPF (PHARMACIST INTERN) 03/20/19 17:35 239 Mosm/kg 03/24/19 08:29 62.1 mg/dL (0.1-20.0) H 03/24/19 12:13 21 mmol/L 03/24/19 12:13 8.55 mmol/L 03/24/19 12:13 17.3 mmolL (110-250) L 03/24/19 12:13 Vancomycin Trough 10.7 ug/mL (5.0-20.0) 03/26/19 04:04 Salicylates < 0.3 mg/dL (2.8-20.0) L 03/20/19 16:25 Presumptive positive 03/20/19 17:36 Presumptive negative 03/20/19 17:36 Acetaminophen < 5.0 ug/mL (10.0-30.0) L 03/20/19 16:25 Ur Barbiturates Screen Presumptive negative 03/20/19 17:36 Ur Phencyclidine Scrn Presumptive negative 03/20/19 17:36 Ur Amphetamines Screen Presumptive negative 03/20/19 17:36 U Benzodiazepines Scrn Presumptive negative 03/20/19 17:36 Presumptive negative 03/20/19 17:36 U Marijuana (THC) Screen Presumptive positive 03/20/19 17:36 Disclamer 03/20/19 17:36 Plasma/Serum Alcohol < 0.01 % (0-0.07) 03/21/19 09:32 Hepatitis A IgM Ab Non-reactive (NonReactive) 03/21/19 15:59 Hep Bs Antigen Non-reactive (Negative) 03/21/19 15:59 Hep B Core IgM Ab Non-reactive (NonReactive) 03/21/19 15:59 Reactive (NonReactive) A 03/21/19 15:59 HIV 1&2 Antibody Rapid Non react (Non React) 03/21/19 15:59 Non react (Non React) 03/21/19 15:59 Influenza A (Rapid) Negative (Negative) 03/21/19 18:45 Influenza A (RT-PCR) Negative (Negative) 03/21/19 18:45 Influenza B (Rapid) Negative (Negative) 03/21/19 18:45 Influenza B (RT-PCR) Negative (Negative) 03/21/19 18:45 Active Medications - Current Medications Current Medications: Generic Name Dose Route Start Last Admin Trade Name Freq PRN Reason Stop Dose Admin Acetaminophen 650 mg 03/23/19 11:00 Tylenol SC Q6H PRN Fever >101 Albuterol 2.5 mg 03/20/19 16:55 Proventil IH Q3HRT PRN Shortness Of Breath Lipase/Protease/Amylase 1 each 03/22/19 12:[address] 10,500 Unit FEEDTUBE PRN PRN For Clogged Feeding Tube Desmopressin Acetate 2 mcg 03/26/19 08:10 03/26/19 08:23 Ddavp SUB-Q 2 mcg Q8HR RICHARD Administration Hydrophilic Ointment 1 applic 03/20/19 18:02 Vaseline Lip Therapy TP Q2HR PRN Dry Lips Vancomycin HCl 1,250 mg/ 275 mls @ 166.667 mls/hr 03/22/19 05:00 03/26/19 07:34 Sodium Chloride IV 166.667 mls/hr Q12H RICHARD Administration Ceftriaxone Sodium 2 gm in 100 mls @ 200 mls/hr 03/22/19 14:00 03/25/19 22:01 Rocephin/Ns 2 Gm/100 Ml IV 200 mls/hr Q12HR RICHARD Administration Protocol Norepinephrine 4 mg in 250 mls @ 7.5 mls/hr 03/23/19 09:00 03/26/19 08:39 Levophed Drip 4 Mg/Ns 250 Ml IV 0 mcg/min TITR RICHARD 0 mls/hr Titration Protocol 2 MCG/MIN Dextrose 1,000 mls @ 75 mls/hr 03/24/19 09:00 03/26/19 04:42 D5w IV 150 mls/hr DIRECT RICHARD Administration Sodium Chloride 3,000 mls @ 999 mls/hr 03/26/19 06:37 03/26/19 06:35 Nacl 0.9% 1000 Ml IV 03/26/19 09:37 999 mls/hr BOLUS ONE Administration Lansoprazole 30 mg 03/25/19 10:00 03/25/19 10:56 Prevacid Solutab FEEDTUBE 30 mg QDAY RICHARD Administration Levothyroxine Sodium 100 mcg 03/20/19 21:04 03/26/19 06:09 Synthroid IV 100 mcg DAILY@0600 RICHARD Administration Multi-Ingred Cream/Lotion/Oil/Oint 1 applic 03/20/19 18:02 03/25/19 16:27 Artificial Tears Ophth Oint OU 1 applic Q4HR PRN Administration Dry Eye(s) Simple Syrup 15 ml 03/22/19 12:16 Simple Syrup FEEDTUBE PRN PRN Hypoglycemia Simple Syrup 30 ml 03/22/19 12:16 Simple Syrup FEEDTUBE PRN PRN Hypoglycemia Sodium Bicarbonate 325 mg 03/22/19 12:16 Sodium Bicarbonate FEEDTUBE PRN PRN For Clogged Feeding Tube Sodium Chloride 10 ml 03/20/19 22:00 03/25/19 23:19 Sodium Chloride Flush Syringe 10 Ml IV 10 ml BID RICHARD Administration Sodium Chloride 10 ml 03/20/19 16:55 03/21/19 18:56 Sodium Chloride Flush Syringe 10 Ml IV 10 ml PRN PRN Administration LINE FLUSH Nutrition/Malnutrition Assess - Dietary Evaluation Nutrition/Malnutrition Findings: Nutrition Notes Start: 03/21/19 12:53 Freq: Status: Active Protocol: Document 03/24/19 11:37 CP (Rec: 03/24/19 11:39 CP [id number]) Co-Sign 03/24/19 11:37 LP Nutrition Notes Initial or Follow up Brief Note Current Diagnosis Respiratory Failure Other Pertinent Diagnosis Myxedema coma, DVT prophylaxis , alcohol intoxication Current Diet NPO Subjective/Other Information F/U for TF to start/tolerance. TF was not hanging during time of visit due to renal ultrasound this morning. Nutrition Intervention Follow-Up By: 03/28/19 Additional Comments F/U: TF to start/TF tolerance
[2019-03-26] MEDS: SODIUM CHLORIDE FLUSH SYRINGE 10 ML IV SCH ×2 (09:40→22:45)
[2019-03-26] MEDS: ROCEPHIN/NS 2 GM/100 ML 2 GM/100 ML BAG IV SCH ×2 (09:49→22:44)
[2019-03-26] MEDS: PREVACID SOLUTAB FEEDTUBE SCH (09:50)
--- NOTE | 2019-03-26 10:51 | Progress Note ---
Assessment and Plan - Patient Problems (1) Cardiac arrest Current Visit: Yes Status: Acute (2) Hypernatremia Current Visit: Yes Status: Acute (3) Hypokalemia Current Visit: Yes Status: Acute (4) Polysubstance abuse Current Visit: Yes Status: Acute (5) Respiratory failure Current Visit: Yes Status: Acute Subjective Date of service: 03/26/19 Principal diagnosis: fever and the acute kidney injury Interval history: VENT / COMA Objective Vital Signs Temp Pulse Pulse Pulse Resp BP Pulse Ox 03/26/19 08:00 85 111/67 99 03/26/19 07:30 94 H 30 H 108/62 99 03/26/19 07:15 94 H 30 H 119/78 100 03/26/19 07:00 96 H 30 H 125/84 100 03/26/19 06:45 96 H 30 H 109/72 100 03/26/19 06:30 98 H 30 H 93/50 100 03/26/19 06:15 101 H 30 H 95/55 100 03/26/19 06:00 108 H 30 H 112/73 100 03/26/19 05:45 114 H 30 H 86/46 99 03/26/19 05:30 122 H 30 H 88/53 99 03/26/19 05:15 127 H 30 H 99/59 99 03/26/19 05:00 129 H 30 H 102/63 99 03/26/19 04:45 130 H 30 H 106/64 99 03/26/19 04:30 131 H 30 H 108/68 99 03/26/19 04:15 134 H 30 H 118/75 99 03/26/19 04:00 100.2 F H 137 H 131 H 131 H 30 H 138/92 100 03/26/19 03:59 134 H 100 03/26/19 03:45 135 H 30 H 126/81 100 03/26/19 03:30 133 H 30 H 132/83 100 03/26/19 03:15 131 H 30 H 130/85 100 03/26/19 03:00 134 H 30 H 130/88 100 03/26/19 02:45 137 H 30 H 132/89 100 03/26/19 02:30 138 H 30 H 137/92 100 03/26/19 02:15 137 H 30 H 141/92 100 03/26/19 02:00 138 H 30 H 141/94 03/26/19 01:45 138 H 30 H 138/96 03/26/19 01:30 140 H 30 H 144/96 03/26/19 01:15 139 H 30 H 146/99 03/26/19 01:00 139 H 30 H 146/101 03/26/19 00:45 140 H 30 H 151/99 03/26/19 00:30 142 H 30 H 142/94 03/26/19 00:15 141 H 30 H 159/112 03/26/19 00:00 99.4 F 140 H 30 H 153/110 03/25/19 23:45 139 H 30 H 157/110 03/25/19 23:30 140 H 30 H 157/110 03/25/19 23:17 99.2 F 03/25/19 23:15 140 H 139 H 139 H 30 H 158/109 03/25/19 23:09 140 H 30 H 157/108 03/25/19 23:00 139 H 30 H 157/108 03/25/19 22:45 138 H 30 H 156/107 03/25/19 22:30 140 H 30 H 163/113 03/25/19 22:15 140 H 30 H 165/114 03/25/19 22:00 140 H 30 H 163/109 03/25/19 21:45 141 H 30 H 151/100 03/25/19 21:30 142 H 30 H 145/102 03/25/19 21:15 143 H 30 H 154/98 03/25/19 21:01 144 H 03/25/19 21:00 145 H 29 H 148/105 03/25/19 20:57 145 H 145 H 03/25/19 20:45 144 H 30 H 145/100 03/25/19 20:30 144 H 30 H 153/101 03/25/19 20:15 149 H 29 H 151/104 03/25/19 20:00 100.6 F H 147 H 145 H 145 H 30 H 155/109 03/25/19 19:45 146 H 30 H 157/106 03/25/19 19:30 142 H 30 H 156/107 03/25/19 19:16 140 H 163/111 100 03/25/19 19:15 139 H 30 H 163/111 100 03/25/19 19:00 137 H 30 H 161/111 99 03/25/19 18:45 136 H 30 H 155/109 100 03/25/19 18:30 135 H 30 H 154/109 100 03/25/19 18:15 134 H 30 H 156/105 100 03/25/19 18:02 123 H 150/101 98 03/25/19 18:00 133 H 30 H 158/104 100 03/25/19 17:45 131 H 30 H 157/101 100 03/25/19 17:30 129 H 30 H 154/99 100 03/25/19 17:15 129 H 30 H 155/105 100 03/25/19 17:00 130 H 30 H 156/105 100 03/25/19 16:45 129 H 30 H 157/109 100 03/25/19 16:30 129 H 30 H 154/109 99 03/25/19 16:15 127 H 30 H 162/110 03/25/19 16:00 101.5 F H 127 H 129 H 30 H 152/103 03/25/19 15:45 125 H 30 H 150/106 03/25/19 15:30 124 H 30 H 154/108 03/25/19 15:15 122 H 30 H 158/106 03/25/19 15:00 120 H 30 H 155/110 03/25/19 14:45 121 H 30 H 152/104 03/25/19 14:30 120 H 30 H 154/103 97 03/25/19 14:15 120 H 18 167/103 99 03/25/19 14:00 165/113 100 03/25/19 13:45 118 H 30 H 167/114 98 03/25/19 13:30 121 H 30 H 152/103 100 03/25/19 13:15 119 H 30 H 149/104 100 03/25/19 13:00 121 H 30 H 145/95 100 03/25/19 12:45 122 H 30 H 147/106 100 03/25/19 12:30 122 H 30 H 150/99 100 03/25/19 12:15 122 H 30 H 148/101 100 03/25/19 12:00 99.5 F 120 H 120 H 26 H 142/100 100 03/25/19 11:55 120 H 150/101 100 03/25/19 11:45 119 H 30 H 150/101 100 03/25/19 11:30 122 H 30 H 149/101 100 03/25/19 11:15 120 H 30 H 145/99 100 03/25/19 11:00 115 H 30 H 150/99 100 - Physical Examination General: Other (unresponsive on the vent) Neck: Positive: neck supple, trachea midline Cardiac: Positive: Reg Rate and Rhythm Lungs: Positive: clear to auscultation Abdomen: Positive: Unremarkable Extremities: Present: normal - Labs and Meds Cardiac Enzymes 03/25/19 03/25/19 Range/Units 11:57 19:25 AST 112 H 129 H (5-40) units/L CBC 03/26/19 Range/Units 04:04 WBC 7.6 (4.5-11.0) K/mm3 RBC 2.84 L (3.65-5.03) M/mm3 Hgb 9.6 L D (11.8-15.2) gm/dl Hct 29.3 L D (35.5-45.6) % Plt Count 73 L (140-440) K/mm3 Comprehensive Metabolic Panel 03/25/19 03/25/19 03/26/19 Range/Units 11:57 19:25 04:04 Sodium 178 H* 174 H* 173 H* (137-145) mmol/L Potassium 3.7 3.8 3.5 L (3.6-5.0) mmol/L Chloride > 107 H 138.4 H 137.0 H (98-107) mmol/L Carbon Dioxide 24 26 25 (22-30) mmol/L BUN 11 10 14 (9-20) mg/dL Creatinine 1.2 1.2 1.2 (0.8-1.5) mg/dL Glucose 153 H 188 H 202 H (75-100) mg/dL Calcium 8.1 L 8.2 L 7.8 L (8.4-10.2) mg/dL AST 112 H 129 H (5-40) units/L ALT 63 H 67 H (7-56) units/L Alkaline Phosphatase 50 52 (35-129) units/L Total Protein 5.5 L 5.4 L (6.3-8.2) g/dL Albumin 2.7 L 2.6 L (3.9-5) g/dL
[2019-03-26 12:18] LABS: BUN/Creatinine Ratio 14; Blood Urea Nitrogen 14 mg/dL (9-20); Calcium 6.8 mg/dL (8.4-10.2); Hemolysis Index 9
--- NOTE | 2019-03-26 12:46 | Progress Note ---
Assessment and Plan 28 y/o male with out of hospital cardiac arrest and acute respiratory failure and altered mental state, and second cardiac arrest in house with 12 minute down time documented, now with diffuse cerebral edema consistent with anoxic brain in jury. 1. Cardiac-tachycardia resolved but this is not a good sign. Volume deplete secondary to DI. Replace as needed. h/H has decreased but no evidence of acute bleeding and dark output has stopped from NG. Will monitor for now. 2. Neuro-patient now off sedation for over 120 hours. Remains unresponsive and still febrile despite abx. EEG with diffuse slowing and neurology recommended a repeat CT. Done. Showing significant cerebral edema consistent with anoxic brain injury. Neurology gave mannitol and no improvement in mental state. Now worsening DI, renal following and giving DDAVP. Per neurology will check repeat CT on Wednesday. Hopeful that if no change, they will have a discussion with family and consider brain flow study. 3. Respiratory-Clear CXR, minimal vent support. Continue all current settings for now. Patient currently does not appear to be breathing over the vent. 4. Endo-elevated TSH and low T4. NO family available for history. Agree with IV synthroid, however the picture does not clinically fit myxedema coma. Hold on stress dose roids for now 5. GI-dark contents from NG tube have returned. Will continue low intermittent suction and hold on feeds 6. Metabolic-Hypernatremia, most likely DI. Currently undergoing treatment but not responding. Overall prognosis is poor for meaningful recovery. Discussed with mother and father at bedside. Explained the severity of the clinical state and that patient could have cardiac arrest again as well as permanent brain damage. They have expressed understanding on all levels. CCT 31 minutes. Subjective Date of service: 03/26/19 Principal diagnosis: fever and the acute kidney injury Interval history: Patient urinating more and became hypotensive overnight. Mentally no change. HR lower and temp lower. Did spike another temp yesterday afternoon. Mother at bedside. Objective Vital Signs - 12hr 03/26/19 03/26/19 03/26/19 00:45 01:00 01:15 Temperature Pulse Rate 140 H 139 H 139 H Pulse Rate [ From Monitor] Pulse Rate [ Right Dorsalis Pedis] Respiratory 30 H 30 H 30 H Rate Blood Pressure 151/99 146/101 146/99 O2 Sat by Pulse 100 100 100 Oximetry 03/26/19 03/26/1919 01:30 01:45 02:00 Temperature Pulse Rate 140 H 138 H 138 H Pulse Rate [ From Monitor] Pulse Rate [ Right Dorsalis Pedis] Respiratory 30 H 30 H 30 H Rate Blood Pressure 144/96 138/96 141/94 O2 Sat by Pulse 100 100 100 Oximetry 03/26/19 03/26/19 03/26/19 02:15 02:30 02:45 Temperature Pulse Rate 137 H 138 H 137 H Pulse Rate [ From Monitor] Pulse Rate [ Right Dorsalis Pedis] Respiratory 30 H 30 H 30 H Rate Blood Pressure 141/92 137/92 132/89 O2 Sat by Pulse 100 100 100 Oximetry 03/26/19 03/26/19 03/26/19 03:00 03:15 03:30 Temperature Pulse Rate 134 H 131 H 133 H Pulse Rate [ From Monitor] Pulse Rate [ Right Dorsalis Pedis] Respiratory 30 H 30 H 30 H Rate Blood Pressure 130/88 130/85 132/83 O2 Sat by Pulse 100 100 100 Oximetry 03/26/19 03/26/19 03/26/19 03:45 03:59 04:00 Temperature 100.2 F H Pulse Rate 135 H 134 H 137 H Pulse Rate [ 131 H From Monitor] Pulse Rate [ 131 H Right Dorsalis Pedis] Respiratory 30 H 30 H Rate Blood Pressure 126/81 138/92 O2 Sat by Pulse 100 100 100 Oximetry 03/26/19 03/26/19 03/26/19 04:15 04:30 04:45 Temperature Pulse Rate 134 H 131 H 130 H Pulse Rate [ From Monitor] Pulse Rate [ Right Dorsalis Pedis] Respiratory 30 H 30 H 30 H Rate Blood Pressure 118/75 108/68 106/64 O2 Sat by Pulse 99 99 99 Oximetry 03/26/19 03/26/19 03/26/19 05:00 05:15 05:30 Temperature Pulse Rate 129 H 127 H 122 H Pulse Rate [ From Monitor] Pulse Rate [ Right Dorsalis Pedis] Respiratory 30 H 30 H 30 H Rate Blood Pressure 102/63 99/59 88/53 O2 Sat by Pulse 99 99 99 Oximetry 03/26/19 03/26/19 03/26/19 05:45 06:00 06:15 Temperature Pulse Rate 114 H 108 H 101 H Pulse Rate [ From Monitor] Pulse Rate [ Right Dorsalis Pedis] Respiratory 30 H 30 H 30 H Rate Blood Pressure 86/46 112/73 95/55 O2 Sat by Pulse 99 100 100 Oximetry 03/26/19 03/26/19 03/26/19 06:30 06:45 07:00 Temperature Pulse Rate 98 H 96 H 96 H Pulse Rate [ From Monitor] Pulse Rate [ Right Dorsalis Pedis] Respiratory 30 H 30 H 30 H Rate Blood Pressure 93/50 109/72 125/84 O2 Sat by Pulse 100 100 100 Oximetry 03/26/19 03/26/19 03/26/19 07:15 07:30 07:45 Temperature Pulse Rate 94 H 94 H 93 H Pulse Rate [ From Monitor] Pulse Rate [ Right Dorsalis Pedis] Respiratory 30 H 30 H 30 H Rate Blood Pressure 119/78 108/62 124/76 O2 Sat by Pulse 100 99 98 Oximetry 03/26/19 03/26/19 03/26/19 08:00 08:15 08:30 Temperature 98.8 F Pulse Rate 92 H 92 H 91 H Pulse Rate [ From Monitor] Pulse Rate [ Right Dorsalis Pedis] Respiratory 30 H 30 H 29 H Rate Blood Pressure 127/82 132/86 113/64 O2 Sat by Pulse 99 100 99 Oximetry 03/26/19 03/26/19 03/26/19 08:45 09:00 09:15 Temperature Pulse Rate 92 H 89 88 Pulse Rate [ From Monitor] Pulse Rate [ Right Dorsalis Pedis] Respiratory 29 H 30 H 18 Rate Blood Pressure 108/60 100/53 103/58 O2 Sat by Pulse 99 98 98 Oximetry 03/26/19 03/26/19 03/26/19 09:30 09:45 10:00 Temperature Pulse Rate 87 87 86 Pulse Rate [ From Monitor] Pulse Rate [ Right Dorsalis Pedis] Respiratory 30 H 30 H 30 H Rate Blood Pressure 111/64 110/66 111/67 O2 Sat by Pulse 99 99 99 Oximetry 03/26/19 03/26/19 03/26/19 10:15 10:30 10:45 Temperature Pulse Rate 85 85 84 Pulse Rate [ From Monitor] Pulse Rate [ Right Dorsalis Pedis] Respiratory 30 H 30 H 30 H Rate Blood Pressure 111/68 111/67 109/66 O2 Sat by Pulse 99 99 100 Oximetry 03/26/19 11:00 Temperature Pulse Rate 84 Pulse Rate [ From Monitor] Pulse Rate [ Right Dorsalis Pedis] Respiratory 31 H Rate Blood Pressure 111/69 O2 Sat by Pulse 100 Oximetry Constitutional: comatose Eyes: injected ENT: other (orally intubated and sedated) Neck: supple Effort: mildly labored Ascultation: Bilateral: clear Percussion: Bilateral: not dull Cardiovascular: regular rate and rhythm Gastrointestinal: hypoactive bowel sounds Integumentary: normal Extremities: no edema Neurologic: unable to assess CBC and BMP: 03/26/19 04:04 03/26/19 11:30 ABG, PT/INR, D-dimer: ABG POC ABG pH 7.481 (7.35-7.45) H 03/26/19 04:07 POC ABG pCO2 30.5 (35-45) L 03/26/19 04:07 POC ABG pO2 95 (80-105) 03/26/19 04:07 POC ABG HCO3 22.8 (22-26 mml/L) 03/26/19 04:07 POC ABG Total CO2 24 (23-27mmol/L) 03/26/19 04:07 POC ABG O2 Sat 98 03/26/19 04:07 PT/INR, D-dimer PT 12.9 Sec. (12.2-14.9) 03/20/19 16:31 INR 0.92 (0.87-1.13) 03/20/19 16:31 Abnormal lab findings: Abnormal Labs 03/20/19 03/20/19 03/20/19 16:25 16:25 16:25 WBC RBC Hgb Hct MCV 101 H MCH 33 H RDW 12.9 L Plt Count Seg Neuts % (Manual) 36.0 L Lymphocytes % (Manual) 60.0 H Seg Neutrophils # Man Lymphocytes # (Manual) 6.0 H POC ABG pH POC ABG pCO2 POC ABG pO2 VBG pH Sodium Potassium Chloride Carbon Dioxide 18 L BUN Creatinine Glucose 159 H POC Glucose Lactic Acid 9.50 H* Calcium 7.6 L Phosphorus Magnesium AST 276 H ALT 165 H Alkaline Phosphatase 139 H Ammonia Total Creatine Kinase 380 H Troponin T C-Reactive Protein Total Protein Albumin Triglycerides HDL Cholesterol TSH Free T4 Urine WBC (Auto) Urine Creatinine Urine Chloride Salicylates Acetaminophen Plasma/Serum Alcohol Hepatitis C Antibody 03/20/19 03/20/19 03/20/19 16:25 16:25 16:25 WBC RBC Hgb Hct MCV MCH RDW Plt Count Seg Neuts % (Manual) Lymphocytes % (Manual) Seg Neutrophils # Man Lymphocytes # (Manual) POC ABG pH POC ABG pCO2 POC ABG pO2 VBG pH Sodium Potassium Chloride Carbon Dioxide BUN Creatinine Glucose POC Glucose Lactic Acid Calcium Phosphorus Magnesium 2.40 H AST ALT Alkaline Phosphatase Ammonia 10.0 L Total Creatine Kinase Troponin T C-Reactive Protein Total Protein Albumin Triglycerides HDL Cholesterol TSH 17.340 H Free T4 0.69 L Urine WBC (Auto) Urine Creatinine Urine Chloride Salicylates Acetaminophen Plasma/Serum Alcohol Hepatitis C Antibody 03/20/19 03/20/19 03/20/19 16:25 16:25 16:25 WBC RBC Hgb Hct MCV MCH RDW Plt Count Seg Neuts % (Manual) Lymphocytes % (Manual) Seg Neutrophils # Man Lymphocytes # (Manual) POC ABG pH POC ABG pCO2 POC ABG pO2 VBG pH Sodium Potassium Chloride Carbon Dioxide BUN Creatinine Glucose POC Glucose Lactic Acid Calcium Phosphorus Magnesium AST ALT Alkaline Phosphatase Ammonia Total Creatine Kinase Troponin T C-Reactive Protein Total Protein Albumin Triglycerides HDL Cholesterol TSH Free T4 Urine WBC (Auto) Urine Creatinine Urine Chloride Salicylates < 0.3 L Acetaminophen < 5.0 L Plasma/Serum Alcohol 0.32 H Hepatitis C Antibody 03/20/19 03/20/19 03/20/19 16:25 16:34 16:51 WBC RBC Hgb Hct MCV MCH RDW Plt Count Seg Neuts % (Manual) Lymphocytes % (Manual) Seg Neutrophils # Man Lymphocytes # (Manual) POC ABG pH 7.041 L POC ABG pCO2 68.9 H POC ABG pO2 381 H VBG pH 7.091 L* Sodium Potassium Chloride Carbon Dioxide BUN Creatinine Glucose POC Glucose 130 H Lactic Acid Calcium Phosphorus Magnesium AST ALT Alkaline Phosphatase Ammonia Total Creatine Kinase Troponin T C-Reactive Protein Total Protein Albumin Triglycerides HDL Cholesterol TSH Free T4 Urine WBC (Auto) Urine Creatinine Urine Chloride Salicylates Acetaminophen Plasma/Serum Alcohol Hepatitis C Antibody 03/20/19 03/20/19 03/20/19 17:35 17:53 19:17 WBC RBC Hgb Hct MCV MCH RDW Plt Count Seg Neuts % (Manual) Lymphocytes % (Manual) Seg Neutrophils # Man Lymphocytes # (Manual) POC ABG pH 7.305 L POC ABG pCO2 POC ABG pO2 262 H VBG pH Sodium Potassium Chloride Carbon Dioxide BUN Creatinine Glucose POC Glucose Lactic Acid 6.90 H* Calcium Phosphorus Magnesium AST ALT Alkaline Phosphatase Ammonia Total Creatine Kinase Troponin T C-Reactive Protein Total Protein Albumin Triglycerides HDL Cholesterol TSH Free T4 Urine WBC (Auto) 19.0 H Urine Creatinine Urine Chloride Salicylates Acetaminophen Plasma/Serum Alcohol Hepatitis C Antibody 03/20/19 03/20/19 03/21/19 20:40 22:38 03:41 WBC RBC Hgb Hct MCV MCH RDW Plt Count Seg Neuts % (Manual) Lymphocytes % (Manual) Seg Neutrophils # Man Lymphocytes # (Manual) POC ABG pH POC ABG pCO2 31.4 L POC ABG pO2 195 H VBG pH Sodium Potassium Chloride Carbon Dioxide BUN Creatinine Glucose POC Glucose 117 H Lactic Acid 6.30 H* Calcium Phosphorus Magnesium AST ALT Alkaline Phosphatase Ammonia Total Creatine Kinase Troponin T C-Reactive Protein Total Protein Albumin Triglycerides HDL Cholesterol TSH Free T4 Urine WBC (Auto) Urine Creatinine Urine Chloride Salicylates Acetaminophen Plasma/Serum Alcohol Hepatitis C Antibody 03/21/19 03/21/19 03/21/19 04:00 09:32 09:32 WBC 20.0 H 17.3 H RBC Hgb 15.9 H 16.1 H Hct 47.3 H 47.8 H MCV 99 H 98 H MCH 33 H 33 H RDW 12.8 L 12.7 L Plt Count Seg Neuts % (Manual) 90.0 H Lymphocytes % (Manual) 7.0 L Seg Neutrophils # Man 18.0 H Lymphocytes # (Manual) POC ABG pH POC ABG pCO2 POC ABG pO2 VBG pH Sodium Potassium Chloride Carbon Dioxide BUN Creatinine Glucose POC Glucose Lactic Acid Calcium Phosphorus Magnesium AST ALT Alkaline Phosphatase Ammonia Total Creatine Kinase Troponin T 0.054 H D C-Reactive Protein Total Protein Albumin Triglycerides 166 H HDL Cholesterol 63 H TSH Free T4 Urine WBC (Auto) Urine Creatinine Urine Chloride Salicylates Acetaminophen Plasma/Serum Alcohol Hepatitis C Antibody 03/21/19 03/21/19 03/21/19 09:46 14:41 15:59 WBC RBC Hgb Hct MCV MCH RDW Plt Count Seg Neuts % (Manual) Lymphocytes % (Manual) Seg Neutrophils # Man Lymphocytes # (Manual) POC ABG pH POC ABG pCO2 POC ABG pO2 VBG pH Sodium 148 H Potassium Chloride Carbon Dioxide 20 L BUN Creatinine Glucose 171 H POC Glucose Lactic Acid Calcium Phosphorus Magnesium AST 253 H ALT 218 H Alkaline Phosphatase 146 H Ammonia Total Creatine Kinase Troponin T 0.074 H D C-Reactive Protein 4.90 H Total Protein Albumin Triglycerides HDL Cholesterol TSH Free T4 Urine WBC (Auto) Urine Creatinine Urine Chloride Salicylates Acetaminophen Plasma/Serum Alcohol Hepatitis C Antibody 03/21/19 03/22/19 03/22/19 15:59 04:20 04:20 WBC 20.0 H RBC Hgb Hct MCV 99 H MCH 33 H RDW 12.9 L Plt Count Seg Neuts % (Manual) Lymphocytes % (Manual) Seg Neutrophils # Man Lymphocytes # (Manual) POC ABG pH POC ABG pCO2 POC ABG pO2 VBG pH Sodium 156 H D Potassium 3.5 L Chloride 117.2 H Carbon Dioxide BUN Creatinine Glucose 144 H POC Glucose Lactic Acid Calcium 8.1 L Phosphorus Magnesium AST 205 H ALT 156 H Alkaline Phosphatase Ammonia Total Creatine Kinase Troponin T C-Reactive Protein Total Protein Albumin 3.6 L Triglycerides HDL Cholesterol TSH Free T4 Urine WBC (Auto) Urine Creatinine Urine Chloride Salicylates Acetaminophen Plasma/Serum Alcohol Hepatitis C Antibody Reactive A 03/22/19 03/22/19 03/22/19 04:20 04:26 12:40 WBC RBC Hgb Hct MCV MCH RDW Plt Count Seg Neuts % (Manual) Lymphocytes % (Manual) Seg Neutrophils # Man Lymphocytes # (Manual) POC ABG pH POC ABG pCO2 32.8 L POC ABG pO2 66 L VBG pH Sodium Potassium Chloride Carbon Dioxide BUN Creatinine Glucose POC Glucose 171 H Lactic Acid Calcium Phosphorus 2.00 L Magnesium 1.50 L AST ALT Alkaline Phosphatase Ammonia Total Creatine Kinase Troponin T C-Reactive Protein Total Protein Albumin Triglycerides HDL Cholesterol TSH Free T4 Urine WBC (Auto) Urine Creatinine Urine Chloride Salicylates Acetaminophen Plasma/Serum Alcohol Hepatitis C Antibody 03/22/19 03/22/19 03/23/19 17:44 20:28 04:30 WBC 12.9 H RBC Hgb Hct MCV 102 H MCH 34 H RDW 12.6 L Plt Count 115 L Seg Neuts % (Manual) Lymphocytes % (Manual) Seg Neutrophils # Man Lymphocytes # (Manual) POC ABG pH POC ABG pCO2 POC ABG pO2 VBG pH Sodium 158 H Potassium 3.5 L Chloride 121.5 H Carbon Dioxide BUN 23 H Creatinine Glucose 199 H POC Glucose 144 H Lactic Acid Calcium 8.0 L Phosphorus Magnesium 2.50 H AST ALT Alkaline Phosphatase Ammonia Total Creatine Kinase Troponin T C-Reactive Protein Total Protein Albumin Triglycerides HDL Cholesterol TSH Free T4 Urine WBC (Auto) Urine Creatinine Urine Chloride Salicylates Acetaminophen Plasma/Serum Alcohol Hepatitis C Antibody 03/23/19 03/23/19 03/23/19 04:30 04:38 08:56 WBC RBC Hgb Hct MCV 103 H MCH 33 H RDW Plt Count 107 L Seg Neuts % (Manual) Lymphocytes % (Manual) Seg Neutrophils # Man Lymphocytes # (Manual) POC ABG pH 7.481 H POC ABG pCO2 33.8 L POC ABG pO2 VBG pH Sodium 156 H Potassium Chloride 121.4 H Carbon Dioxide 21 L BUN 24 H Creatinine Glucose 148 H POC Glucose Lactic Acid Calcium 7.9 L Phosphorus 1.90 L Magnesium AST 166 H ALT 96 H Alkaline Phosphatase Ammonia Total Creatine Kinase Troponin T C-Reactive Protein Total Protein 6.0 L Albumin 3.3 L Triglycerides HDL Cholesterol TSH Free T4 Urine WBC (Auto) Urine Creatinine Urine Chloride Salicylates Acetaminophen Plasma/Serum Alcohol Hepatitis C Antibody 03/23/19 03/23/19 03/23/19 08:56 11:21 11:42 WBC RBC Hgb Hct MCV MCH RDW Plt Count Seg Neuts % (Manual) Lymphocytes % (Manual) Seg Neutrophils # Man Lymphocytes # (Manual) POC ABG pH POC ABG pCO2 POC ABG pO2 VBG pH Sodium 161 H* Potassium Chloride 121.5 H Carbon Dioxide BUN 27 H Creatinine 1.9 H D Glucose 248 H POC Glucose 275 H Lactic Acid Calcium 7.2 L Phosphorus 5.40 H D Magnesium AST 146 H ALT 79 H Alkaline Phosphatase Ammonia Total Creatine Kinase Troponin T C-Reactive Protein Total Protein 5.3 L Albumin 2.7 L Triglycerides HDL Cholesterol TSH Free T4 Urine WBC (Auto) 27.0 H Urine Creatinine Urine Chloride Salicylates Acetaminophen Plasma/Serum Alcohol Hepatitis C Antibody 03/23/19 03/23/19 03/23/19 15:46 17:27 23:43 WBC RBC Hgb Hct MCV MCH RDW Plt Count Seg Neuts % (Manual) Lymphocytes % (Manual) Seg Neutrophils # Man Lymphocytes # (Manual) POC ABG pH POC ABG pCO2 POC ABG pO2 VBG pH Sodium 163 H* Potassium Chloride 127.9 H Carbon Dioxide BUN 28 H Creatinine Glucose 120 H POC Glucose 109 H 133 H Lactic Acid Calcium 7.5 L Phosphorus Magnesium AST ALT Alkaline Phosphatase Ammonia Total Creatine Kinase Troponin T C-Reactive Protein Total Protein Albumin Triglycerides HDL Cholesterol TSH Free T4 Urine WBC (Auto) Urine Creatinine Urine Chloride Salicylates Acetaminophen Plasma/Serum Alcohol Hepatitis C Antibody 03/24/19 03/24/19 03/24/19 05:05 05:05 05:06 WBC RBC Hgb Hct MCV 101 H MCH 34 H RDW 13.0 L Plt Count 79 L Seg Neuts % (Manual) Lymphocytes % (Manual) Seg Neutrophils # Man Lymphocytes # (Manual) POC ABG pH POC ABG pCO2 POC ABG pO2 VBG pH Sodium 171 H* Potassium 2.8 L* D Chloride 131.4 H Carbon Dioxide BUN Creatinine Glucose 167 H POC Glucose 153 H Lactic Acid Calcium 8.3 L Phosphorus Magnesium AST 129 H ALT 74 H Alkaline Phosphatase Ammonia Total Creatine Kinase Troponin T C-Reactive Protein Total Protein 5.6 L Albumin 2.8 L Triglycerides HDL Cholesterol TSH Free T4 Urine WBC (Auto) Urine Creatinine Urine Chloride Salicylates Acetaminophen Plasma/Serum Alcohol Hepatitis C Antibody 03/24/19 03/24/19 03/24/19 05:09 12:13 15:36 WBC RBC Hgb Hct MCV MCH RDW Plt Count Seg Neuts % (Manual) Lymphocytes % (Manual) Seg Neutrophils # Man Lymphocytes # (Manual) POC ABG pH 7.475 H POC ABG pCO2 POC ABG pO2 165 H VBG pH Sodium Potassium Chloride Carbon Dioxide BUN Creatinine Glucose POC Glucose 165 H Lactic Acid Calcium Phosphorus Magnesium AST ALT Alkaline Phosphatase Ammonia Total Creatine Kinase Troponin T C-Reactive Protein Total Protein Albumin Triglycerides HDL Cholesterol TSH Free T4 Urine WBC (Auto) Urine Creatinine 62.1 H Urine Chloride 17.3 L Salicylates Acetaminophen Plasma/Serum Alcohol Hepatitis C Antibody 03/24/19 03/24/19 03/24/19 16:54 21:58 21:58 WBC RBC Hgb Hct MCV MCH RDW Plt Count Seg Neuts % (Manual) Lymphocytes % (Manual) Seg Neutrophils # Man Lymphocytes # (Manual) POC ABG pH POC ABG pCO2 POC ABG pO2 VBG pH Sodium 172 H* 172 H* 172 H* Potassium 2.8 L* 2.9 L* Chloride 137.0 H 139.0 H Carbon Dioxide BUN Creatinine Glucose 187 H 206 H POC Glucose Lactic Acid Calcium Phosphorus Magnesium AST ALT Alkaline Phosphatase Ammonia Total Creatine Kinase Troponin T C-Reactive Protein Total Protein Albumin Triglycerides HDL Cholesterol TSH Free T4 Urine WBC (Auto) Urine Creatinine Urine Chloride Salicylates Acetaminophen Plasma/Serum Alcohol Hepatitis C Antibody 03/25/19 03/25/19 03/25/19 03:51 04:45 11:57 WBC RBC Hgb Hct MCV MCH RDW Plt Count Seg Neuts % (Manual) Lymphocytes % (Manual) Seg Neutrophils # Man Lymphocytes # (Manual) POC ABG pH POC ABG pCO2 31.4 L POC ABG pO2 116 H VBG pH Sodium 174 H* 178 H* Potassium 3.1 L Chloride 140 H > 107 H Carbon Dioxide BUN Creatinine Glucose 191 H 153 H POC Glucose Lactic Acid Calcium 8.1 L Phosphorus 1.20 L D Magnesium AST 114 H 112 H ALT 66 H 63 H Alkaline Phosphatase Ammonia Total Creatine Kinase Troponin T C-Reactive Protein Total Protein 5.5 L 5.5 L Albumin 2.7 L 2.7 L Triglycerides HDL Cholesterol TSH Free T4 Urine WBC (Auto) Urine Creatinine Urine Chloride Salicylates Acetaminophen Plasma/Serum Alcohol Hepatitis C Antibody 03/25/19 03/25/19 03/26/19 16:06 19:25 04:04 WBC RBC 2.84 L Hgb 9.6 L D Hct 29.3 L D MCV 103 H MCH 34 H RDW Plt Count 73 L Seg Neuts % (Manual) Lymphocytes % (Manual) Seg Neutrophils # Man Lymphocytes # (Manual) POC ABG pH POC ABG pCO2 POC ABG pO2 VBG pH Sodium 174 H* Potassium Chloride 138.4 H Carbon Dioxide BUN Creatinine Glucose 188 H POC Glucose 121 H Lactic Acid Calcium 8.2 L Phosphorus Magnesium AST 129 H ALT 67 H Alkaline Phosphatase Ammonia Total Creatine Kinase Troponin T C-Reactive Protein Total Protein 5.4 L Albumin 2.6 L Triglycerides HDL Cholesterol TSH Free T4 Urine WBC (Auto) Urine Creatinine Urine Chloride Salicylates Acetaminophen Plasma/Serum Alcohol Hepatitis C Antibody 03/26/19 03/26/19 03/26/19 04:04 04:07 11:30 WBC RBC Hgb Hct MCV MCH RDW Plt Count Seg Neuts % (Manual) Lymphocytes % (Manual) Seg Neutrophils # Man Lymphocytes # (Manual) POC ABG pH 7.481 H POC ABG pCO2 30.5 L POC ABG pO2 VBG pH Sodium 173 H* 169 H* Potassium 3.5 L 2.8 L* Chloride 137.0 H 138.4 H Carbon Dioxide BUN Creatinine Glucose 202 H 154 H POC Glucose Lactic Acid Calcium 7.8 L 6.8 L Phosphorus Magnesium AST ALT Alkaline Phosphatase Ammonia Total Creatine Kinase Troponin T C-Reactive Protein Total Protein Albumin Triglycerides HDL Cholesterol TSH Free T4 Urine WBC (Auto) Urine Creatinine Urine Chloride Salicylates Acetaminophen Plasma/Serum Alcohol Hepatitis C Antibody
[2019-03-26] MEDS: KCL 20MEQ/100ML 20 MEQ/100 ML BAG IV SCH ×2 (13:27→14:26)
[2019-03-26] MEDS: VANCOMYCIN 1,500 MG in NACL 0.9% 500 ML 500 ML IV SCH (17:23)
[2019-03-27] MEDS: SYNTHROID IV SCH (05:01)
[2019-03-27] MEDS: DDAVP SUB-Q SCH (05:02)
[2019-03-27] MEDS: VANCOMYCIN 1,500 MG in NACL 0.9% 500 ML 500 ML IV SCH (05:12)
[2019-03-27 05:43] LABS: Hematocrit 25.1 % (35.5-45.6); Hemoglobin 8.3 gm/dl (11.8-15.2); Mean Corpuscular HGB Conc 33 % (32-34); Mean Corpuscular Volume 101 fl (84-94); Red Blood Count 2.48 M/mm3 (3.65-5.03); Red Cell Distribution Width 12.8 % (13.2-15.2)
[2019-03-27 05:57] LABS: Alanine Aminotransferase 73 units/L (7-56); Albumin 2.2 g/dL (3.9-5); BUN/Creatinine Ratio 25; Blood Urea Nitrogen 20 mg/dL (9-20); Calcium 7.8 mg/dL (8.4-10.2); Hemolysis Index 34
[2019-03-27 05:58] LABS: Platelet Count 63 K/mm3 (140-440)
--- NOTE | 2019-03-27 08:21 | Progress Note ---
Subjective Date of service: 03/27/19 Principal diagnosis: fever and the acute kidney injury Interval history: there is no evidence of neuro recovery at day seven I would get Brain blood flow nuclear study neuro signs deteriorated and I am not optimistic Objective - Vital Sign Vital Signs - 12hr 03/26/19 03/26/19 03/26/19 20:30 20:45 21:00 Temperature Pulse Rate 72 72 72 Pulse Rate [ From Monitor] Respiratory 30 H 30 H 30 H Rate Blood Pressure 103/62 99/60 97/58 O2 Sat by Pulse 100 99 99 Oximetry 03/26/19 03/26/19 03/26/19 21:15 21:30 21:45 Temperature Pulse Rate 72 72 72 Pulse Rate [ From Monitor] Respiratory 30 H 30 H 30 H Rate Blood Pressure 98/60 98/60 100/62 O2 Sat by Pulse 100 100 100 Oximetry 03/26/19 03/26/19 03/26/19 22:00 22:15 22:30 Temperature Pulse Rate 73 72 73 Pulse Rate [ From Monitor] Respiratory 30 H 30 H 30 H Rate Blood Pressure 99/61 100/61 98/62 O2 Sat by Pulse 100 100 100 Oximetry 03/26/19 03/26/19 03/26/19 22:34 22:45 23:00 Temperature Pulse Rate 73 73 73 Pulse Rate [ From Monitor] Respiratory 30 H 30 H 30 H Rate Blood Pressure 106/69 89/47 93/53 O2 Sat by Pulse 100 100 100 Oximetry 03/26/19 03/26/19 03/26/19 23:05 23:15 23:25 Temperature Pulse Rate 72 73 73 Pulse Rate [ From Monitor] Respiratory 30 H 30 H Rate Blood Pressure 93/53 109/76 109/76 O2 Sat by Pulse 100 100 73 L Oximetry 03/26/19 03/26/19 03/27/19 23:31 23:45 00:00 Temperature 97.5 F L Pulse Rate 73 73 74 Pulse Rate [ 74 From Monitor] Respiratory 30 H 30 H 30 H Rate Blood Pressure 126/88 122/87 128/93 O2 Sat by Pulse 100 100 100 Oximetry 03/27/19 03/27/19 03/27/19 00:15 00:30 00:45 Temperature Pulse Rate 74 74 75 Pulse Rate [ From Monitor] Respiratory 30 H 30 H 30 H Rate Blood Pressure 125/86 117/83 123/86 O2 Sat by Pulse 100 100 100 Oximetry 03/27/19 03/27/19 03/27/19 01:00 01:15 01:30 Temperature Pulse Rate 74 74 72 Pulse Rate [ From Monitor] Respiratory 30 H 30 H 30 H Rate Blood Pressure 121/82 122/89 121/85 O2 Sat by Pulse 100 100 100 Oximetry 03/27/19 03/27/19 03/27/19 01:45 02:00 02:15 Temperature Pulse Rate 73 73 73 Pulse Rate [ From Monitor] Respiratory 30 H 30 H 30 H Rate Blood Pressure 120/82 129/90 121/86 O2 Sat by Pulse 100 100 100 Oximetry 03/27/19 03/27/19 03/27/19 02:30 02:45 02:53 Temperature Pulse Rate 72 72 72 Pulse Rate [ From Monitor] Respiratory 30 H 30 H Rate Blood Pressure 124/90 126/89 126/89 O2 Sat by Pulse 100 100 100 Oximetry 03/27/19 03/27/19 03/27/19 03:00 03:15 03:31 Temperature Pulse Rate 73 74 73 Pulse Rate [ From Monitor] Respiratory 30 H 24 24 Rate Blood Pressure 124/87 135/96 91/46 O2 Sat by Pulse 100 100 99 Oximetry 03/27/19 03/27/19 03/27/19 03:45 04:00 04:15 Temperature 97.4 F L Pulse Rate 75 74 73 Pulse Rate [ 73 From Monitor] Respiratory 24 24 24 Rate Blood Pressure 128/87 124/86 125/89 O2 Sat by Pulse 100 100 100 Oximetry 03/27/19 03/27/19 03/27/19 04:30 04:45 05:00 Temperature Pulse Rate 71 72 71 Pulse Rate [ From Monitor] Respiratory 24 24 24 Rate Blood Pressure 122/86 118/80 104/72 O2 Sat by Pulse 100 100 99 Oximetry 03/27/19 03/27/19 03/27/19 05:15 05:30 05:45 Temperature Pulse Rate 72 71 71 Pulse Rate [ From Monitor] Respiratory 24 24 24 Rate Blood Pressure 131/88 134/95 134/91 O2 Sat by Pulse 100 100 100 Oximetry 03/27/19 03/27/19 03/27/19 06:00 06:15 06:31 Temperature Pulse Rate 70 69 70 Pulse Rate [ From Monitor] Respiratory 24 24 24 Rate Blood Pressure 134/91 129/91 97/50 O2 Sat by Pulse 100 100 100 Oximetry 03/27/19 03/27/19 06:45 07:00 Temperature Pulse Rate 69 67 Pulse Rate [ From Monitor] Respiratory 24 24 Rate Blood Pressure 97/56 96/59 O2 Sat by Pulse 99 99 Oximetry - Laboratory Findings CBC and BMP: 03/27/19 04:55 03/27/19 04:50 Abnormal Lab Findings: Abnormal Labs 03/20/19 03/20/19 03/20/19 16:25 16:25 16:25 WBC RBC Hgb Hct MCV 101 H MCH 33 H RDW 12.9 L Plt Count Seg Neuts % (Manual) 36.0 L Lymphocytes % (Manual) 60.0 H Seg Neutrophils # Man Lymphocytes # (Manual) 6.0 H POC ABG pH POC ABG pCO2 POC ABG pO2 VBG pH Sodium Potassium Chloride Carbon Dioxide 18 L BUN Creatinine Glucose 159 H POC Glucose Lactic Acid 9.50 H* Calcium 7.6 L Phosphorus Magnesium AST 276 H ALT 165 H Alkaline Phosphatase 139 H Ammonia Total Creatine Kinase 380 H Troponin T C-Reactive Protein Total Protein Albumin Triglycerides HDL Cholesterol TSH Free T4 Urine WBC (Auto) Urine Creatinine Urine Chloride Salicylates Acetaminophen Plasma/Serum Alcohol Hepatitis C Antibody 03/20/19 03/20/19 03/20/19 16:25 16:25 16:25 WBC RBC Hgb Hct MCV MCH RDW Plt Count Seg Neuts % (Manual) Lymphocytes % (Manual) Seg Neutrophils # Man Lymphocytes # (Manual) POC ABG pH POC ABG pCO2 POC ABG pO2 VBG pH Sodium Potassium Chloride Carbon Dioxide BUN Creatinine Glucose POC Glucose Lactic Acid Calcium Phosphorus Magnesium 2.40 H AST ALT Alkaline Phosphatase Ammonia 10.0 L Total Creatine Kinase Troponin T C-Reactive Protein Total Protein Albumin Triglycerides HDL Cholesterol TSH 17.340 H Free T4 0.69 L Urine WBC (Auto) Urine Creatinine Urine Chloride Salicylates Acetaminophen Plasma/Serum Alcohol Hepatitis C Antibody 03/20/19 03/20/19 03/20/19 16:25 16:25 16:25 WBC RBC Hgb Hct MCV MCH RDW Plt Count Seg Neuts % (Manual) Lymphocytes % (Manual) Seg Neutrophils # Man Lymphocytes # (Manual) POC ABG pH POC ABG pCO2 POC ABG pO2 VBG pH Sodium Potassium Chloride Carbon Dioxide BUN Creatinine Glucose POC Glucose Lactic Acid Calcium Phosphorus Magnesium AST ALT Alkaline Phosphatase Ammonia Total Creatine Kinase Troponin T C-Reactive Protein Total Protein Albumin Triglycerides HDL Cholesterol TSH Free T4 Urine WBC (Auto) Urine Creatinine Urine Chloride Salicylates < 0.3 L Acetaminophen < 5.0 L Plasma/Serum Alcohol 0.32 H Hepatitis C Antibody 03/20/19 03/20/19 03/20/19 16:25 16:34 16:51 WBC RBC Hgb Hct MCV MCH RDW Plt Count Seg Neuts % (Manual) Lymphocytes % (Manual) Seg Neutrophils # Man Lymphocytes # (Manual) POC ABG pH 7.041 L POC ABG pCO2 68.9 H POC ABG pO2 381 H VBG pH 7.091 L* Sodium Potassium Chloride Carbon Dioxide BUN Creatinine Glucose POC Glucose 130 H Lactic Acid Calcium Phosphorus Magnesium AST ALT Alkaline Phosphatase Ammonia Total Creatine Kinase Troponin T C-Reactive Protein Total Protein Albumin Triglycerides HDL Cholesterol TSH Free T4 Urine WBC (Auto) Urine Creatinine Urine Chloride Salicylates Acetaminophen Plasma/Serum Alcohol Hepatitis C Antibody 03/20/19 03/20/19 03/20/19 17:35 17:53 19:17 WBC RBC Hgb Hct MCV MCH RDW Plt Count Seg Neuts % (Manual) Lymphocytes % (Manual) Seg Neutrophils # Man Lymphocytes # (Manual) POC ABG pH 7.305 L POC ABG pCO2 POC ABG pO2 262 H VBG pH Sodium Potassium Chloride Carbon Dioxide BUN Creatinine Glucose POC Glucose Lactic Acid 6.90 H* Calcium Phosphorus Magnesium AST ALT Alkaline Phosphatase Ammonia Total Creatine Kinase Troponin T C-Reactive Protein Total Protein Albumin Triglycerides HDL Cholesterol TSH Free T4 Urine WBC (Auto) 19.0 H Urine Creatinine Urine Chloride Salicylates Acetaminophen Plasma/Serum Alcohol Hepatitis C Antibody 03/20/19 03/20/19 03/21/19 20:40 22:38 03:41 WBC RBC Hgb Hct MCV MCH RDW Plt Count Seg Neuts % (Manual) Lymphocytes % (Manual) Seg Neutrophils # Man Lymphocytes # (Manual) POC ABG pH POC ABG pCO2 31.4 L POC ABG pO2 195 H VBG pH Sodium Potassium Chloride Carbon Dioxide BUN Creatinine Glucose POC Glucose 117 H Lactic Acid 6.30 H* Calcium Phosphorus Magnesium AST ALT Alkaline Phosphatase Ammonia Total Creatine Kinase Troponin T C-Reactive Protein Total Protein Albumin Triglycerides HDL Cholesterol TSH Free T4 Urine WBC (Auto) Urine Creatinine Urine Chloride Salicylates Acetaminophen Plasma/Serum Alcohol Hepatitis C Antibody 03/21/19 03/21/19 03/21/19 04:00 09:32 09:32 WBC 20.0 H 17.3 H RBC Hgb 15.9 H 16.1 H Hct 47.3 H 47.8 H MCV 99 H 98 H MCH 33 H 33 H RDW 12.8 L 12.7 L Plt Count Seg Neuts % (Manual) 90.0 H Lymphocytes % (Manual) 7.0 L Seg Neutrophils # Man 18.0 H Lymphocytes # (Manual) POC ABG pH POC ABG pCO2 POC ABG pO2 VBG pH Sodium Potassium Chloride Carbon Dioxide BUN Creatinine Glucose POC Glucose Lactic Acid Calcium Phosphorus Magnesium AST ALT Alkaline Phosphatase Ammonia Total Creatine Kinase Troponin T 0.054 H D C-Reactive Protein Total Protein Albumin Triglycerides 166 H HDL Cholesterol 63 H TSH Free T4 Urine WBC (Auto) Urine Creatinine Urine Chloride Salicylates Acetaminophen Plasma/Serum Alcohol Hepatitis C Antibody 03/21/19 03/21/19 03/21/19 09:46 14:41 15:59 WBC RBC Hgb Hct MCV MCH RDW Plt Count Seg Neuts % (Manual) Lymphocytes % (Manual) Seg Neutrophils # Man Lymphocytes # (Manual) POC ABG pH POC ABG pCO2 POC ABG pO2 VBG pH Sodium 148 H Potassium Chloride Carbon Dioxide 20 L BUN Creatinine Glucose 171 H POC Glucose Lactic Acid Calcium Phosphorus Magnesium AST 253 H ALT 218 H Alkaline Phosphatase 146 H Ammonia Total Creatine Kinase Troponin T 0.074 H D C-Reactive Protein 4.90 H Total Protein Albumin Triglycerides HDL Cholesterol TSH Free T4 Urine WBC (Auto) Urine Creatinine Urine Chloride Salicylates Acetaminophen Plasma/Serum Alcohol Hepatitis C Antibody 03/21/19 03/22/19 03/22/19 15:59 04:20 04:20 WBC 20.0 H RBC Hgb Hct MCV 99 H MCH 33 H RDW 12.9 L Plt Count Seg Neuts % (Manual) Lymphocytes % (Manual) Seg Neutrophils # Man Lymphocytes # (Manual) POC ABG pH POC ABG pCO2 POC ABG pO2 VBG pH Sodium 156 H D Potassium 3.5 L Chloride 117.2 H Carbon Dioxide BUN Creatinine Glucose 144 H POC Glucose Lactic Acid Calcium 8.1 L Phosphorus Magnesium AST 205 H ALT 156 H Alkaline Phosphatase Ammonia Total Creatine Kinase Troponin T C-Reactive Protein Total Protein Albumin 3.6 L Triglycerides HDL Cholesterol TSH Free T4 Urine WBC (Auto) Urine Creatinine Urine Chloride Salicylates Acetaminophen Plasma/Serum Alcohol Hepatitis C Antibody Reactive A 03/22/19 03/22/19 03/22/19 04:20 04:26 12:40 WBC RBC Hgb Hct MCV MCH RDW Plt Count Seg Neuts % (Manual) Lymphocytes % (Manual) Seg Neutrophils # Man Lymphocytes # (Manual) POC ABG pH POC ABG pCO2 32.8 L POC ABG pO2 66 L VBG pH Sodium Potassium Chloride Carbon Dioxide BUN Creatinine Glucose POC Glucose 171 H Lactic Acid Calcium Phosphorus 2.00 L Magnesium 1.50 L AST ALT Alkaline Phosphatase Ammonia Total Creatine Kinase Troponin T C-Reactive Protein Total Protein Albumin Triglycerides HDL Cholesterol TSH Free T4 Urine WBC (Auto) Urine Creatinine Urine Chloride Salicylates Acetaminophen Plasma/Serum Alcohol Hepatitis C Antibody 03/22/19 03/22/19 03/23/19 17:44 20:28 04:30 WBC 12.9 H RBC Hgb Hct MCV 102 H MCH 34 H RDW 12.6 L Plt Count 115 L Seg Neuts % (Manual) Lymphocytes % (Manual) Seg Neutrophils # Man Lymphocytes # (Manual) POC ABG pH POC ABG pCO2 POC ABG pO2 VBG pH Sodium 158 H Potassium 3.5 L Chloride 121.5 H Carbon Dioxide BUN 23 H Creatinine Glucose 199 H POC Glucose 144 H Lactic Acid Calcium 8.0 L Phosphorus Magnesium 2.50 H AST ALT Alkaline Phosphatase Ammonia Total Creatine Kinase Troponin T C-Reactive Protein Total Protein Albumin Triglycerides HDL Cholesterol TSH Free T4 Urine WBC (Auto) Urine Creatinine Urine Chloride Salicylates Acetaminophen Plasma/Serum Alcohol Hepatitis C Antibody 03/23/19 03/23/19 03/23/19 04:30 04:38 08:56 WBC RBC Hgb Hct MCV 103 H MCH 33 H RDW Plt Count 107 L Seg Neuts % (Manual) Lymphocytes % (Manual) Seg Neutrophils # Man Lymphocytes # (Manual) POC ABG pH 7.481 H POC ABG pCO2 33.8 L POC ABG pO2 VBG pH Sodium 156 H Potassium Chloride 121.4 H Carbon Dioxide 21 L BUN 24 H Creatinine Glucose 148 H POC Glucose Lactic Acid Calcium 7.9 L Phosphorus 1.90 L Magnesium AST 166 H ALT 96 H Alkaline Phosphatase Ammonia Total Creatine Kinase Troponin T C-Reactive Protein Total Protein 6.0 L Albumin 3.3 L Triglycerides HDL Cholesterol TSH Free T4 Urine WBC (Auto) Urine Creatinine Urine Chloride Salicylates Acetaminophen Plasma/Serum Alcohol Hepatitis C Antibody 03/23/19 03/23/19 03/23/19 08:56 11:21 11:42 WBC RBC Hgb Hct MCV MCH RDW Plt Count Seg Neuts % (Manual) Lymphocytes % (Manual) Seg Neutrophils # Man Lymphocytes # (Manual) POC ABG pH POC ABG pCO2 POC ABG pO2 VBG pH Sodium 161 H* Potassium Chloride 121.5 H Carbon Dioxide BUN 27 H Creatinine 1.9 H D Glucose 248 H POC Glucose 275 H Lactic Acid Calcium 7.2 L Phosphorus 5.40 H D Magnesium AST 146 H ALT 79 H Alkaline Phosphatase Ammonia Total Creatine Kinase Troponin T C-Reactive Protein Total Protein 5.3 L Albumin 2.7 L Triglycerides HDL Cholesterol TSH Free T4 Urine WBC (Auto) 27.0 H Urine Creatinine Urine Chloride Salicylates Acetaminophen Plasma/Serum Alcohol Hepatitis C Antibody 03/23/19 03/23/19 03/23/19 15:46 17:27 23:43 WBC RBC Hgb Hct MCV MCH RDW Plt Count Seg Neuts % (Manual) Lymphocytes % (Manual) Seg Neutrophils # Man Lymphocytes # (Manual) POC ABG pH POC ABG pCO2 POC ABG pO2 VBG pH Sodium 163 H* Potassium Chloride 127.9 H Carbon Dioxide BUN 28 H Creatinine Glucose 120 H POC Glucose 109 H 133 H Lactic Acid Calcium 7.5 L Phosphorus Magnesium AST ALT Alkaline Phosphatase Ammonia Total Creatine Kinase Troponin T C-Reactive Protein Total Protein Albumin Triglycerides HDL Cholesterol TSH Free T4 Urine WBC (Auto) Urine Creatinine Urine Chloride Salicylates Acetaminophen Plasma/Serum Alcohol Hepatitis C Antibody 03/24/19 03/24/19 03/24/19 05:05 05:05 05:06 WBC RBC Hgb Hct MCV 101 H MCH 34 H RDW 13.0 L Plt Count 79 L Seg Neuts % (Manual) Lymphocytes % (Manual) Seg Neutrophils # Man Lymphocytes # (Manual) POC ABG pH POC ABG pCO2 POC ABG pO2 VBG pH Sodium 171 H* Potassium 2.8 L* D Chloride 131.4 H Carbon Dioxide BUN Creatinine Glucose 167 H POC Glucose 153 H Lactic Acid Calcium 8.3 L Phosphorus Magnesium AST 129 H ALT 74 H Alkaline Phosphatase Ammonia Total Creatine Kinase Troponin T C-Reactive Protein Total Protein 5.6 L Albumin 2.8 L Triglycerides HDL Cholesterol TSH Free T4 Urine WBC (Auto) Urine Creatinine Urine Chloride Salicylates Acetaminophen Plasma/Serum Alcohol Hepatitis C Antibody 03/24/19 03/24/19 03/24/19 05:09 12:13 15:36 WBC RBC Hgb Hct MCV MCH RDW Plt Count Seg Neuts % (Manual) Lymphocytes % (Manual) Seg Neutrophils # Man Lymphocytes # (Manual) POC ABG pH 7.475 H POC ABG pCO2 POC ABG pO2 165 H VBG pH Sodium Potassium Chloride Carbon Dioxide BUN Creatinine Glucose POC Glucose 165 H Lactic Acid Calcium Phosphorus Magnesium AST ALT Alkaline Phosphatase Ammonia Total Creatine Kinase Troponin T C-Reactive Protein Total Protein Albumin Triglycerides HDL Cholesterol TSH Free T4 Urine WBC (Auto) Urine Creatinine 62.1 H Urine Chloride 17.3 L Salicylates Acetaminophen Plasma/Serum Alcohol Hepatitis C Antibody 03/24/19 03/24/19 03/24/19 16:54 21:58 21:58 WBC RBC Hgb Hct MCV MCH RDW Plt Count Seg Neuts % (Manual) Lymphocytes % (Manual) Seg Neutrophils # Man Lymphocytes # (Manual) POC ABG pH POC ABG pCO2 POC ABG pO2 VBG pH Sodium 172 H* 172 H* 172 H* Potassium 2.8 L* 2.9 L* Chloride 137.0 H 139.0 H Carbon Dioxide BUN Creatinine Glucose 187 H 206 H POC Glucose Lactic Acid Calcium Phosphorus Magnesium AST ALT Alkaline Phosphatase Ammonia Total Creatine Kinase Troponin T C-Reactive Protein Total Protein Albumin Triglycerides HDL Cholesterol TSH Free T4 Urine WBC (Auto) Urine Creatinine Urine Chloride Salicylates Acetaminophen Plasma/Serum Alcohol Hepatitis C Antibody 03/25/19 03/25/19 03/25/19 03:51 04:45 11:57 WBC RBC Hgb Hct MCV MCH RDW Plt Count Seg Neuts % (Manual) Lymphocytes % (Manual) Seg Neutrophils # Man Lymphocytes # (Manual) POC ABG pH POC ABG pCO2 31.4 L POC ABG pO2 116 H VBG pH Sodium 174 H* 178 H* Potassium 3.1 L Chloride 140 H > 107 H Carbon Dioxide BUN Creatinine Glucose 191 H 153 H POC Glucose Lactic Acid Calcium 8.1 L Phosphorus 1.20 L D Magnesium AST 114 H 112 H ALT 66 H 63 H Alkaline Phosphatase Ammonia Total Creatine Kinase Troponin T C-Reactive Protein Total Protein 5.5 L 5.5 L Albumin 2.7 L 2.7 L Triglycerides HDL Cholesterol TSH Free T4 Urine WBC (Auto) Urine Creatinine Urine Chloride Salicylates Acetaminophen Plasma/Serum Alcohol Hepatitis C Antibody 03/25/19 03/25/19 03/26/19 16:06 19:25 04:04 WBC RBC 2.84 L Hgb 9.6 L D Hct 29.3 L D MCV 103 H MCH 34 H RDW Plt Count 73 L Seg Neuts % (Manual) Lymphocytes % (Manual) Seg Neutrophils # Man Lymphocytes # (Manual) POC ABG pH POC ABG pCO2 POC ABG pO2 VBG pH Sodium 174 H* Potassium Chloride 138.4 H Carbon Dioxide BUN Creatinine Glucose 188 H POC Glucose 121 H Lactic Acid Calcium 8.2 L Phosphorus Magnesium AST 129 H ALT 67 H Alkaline Phosphatase Ammonia Total Creatine Kinase Troponin T C-Reactive Protein Total Protein 5.4 L Albumin 2.6 L Triglycerides HDL Cholesterol TSH Free T4 Urine WBC (Auto) Urine Creatinine Urine Chloride Salicylates Acetaminophen Plasma/Serum Alcohol Hepatitis C Antibody 03/26/19 03/26/19 03/26/19 04:04 04:07 11:30 WBC RBC Hgb Hct MCV MCH RDW Plt Count Seg Neuts % (Manual) Lymphocytes % (Manual) Seg Neutrophils # Man Lymphocytes # (Manual) POC ABG pH 7.481 H POC ABG pCO2 30.5 L POC ABG pO2 VBG pH Sodium 173 H* 169 H* Potassium 3.5 L 2.8 L* Chloride 137.0 H 138.4 H Carbon Dioxide BUN Creatinine Glucose 202 H 154 H POC Glucose Lactic Acid Calcium 7.8 L 6.8 L Phosphorus Magnesium AST ALT Alkaline Phosphatase Ammonia Total Creatine Kinase Troponin T C-Reactive Protein Total Protein Albumin Triglycerides HDL Cholesterol TSH Free T4 Urine WBC (Auto) Urine Creatinine Urine Chloride Salicylates Acetaminophen Plasma/Serum Alcohol Hepatitis C Antibody 03/27/19 03/27/19 03/27/19 03:07 03:18 04:50 WBC RBC Hgb Hct MCV MCH RDW Plt Count Seg Neuts % (Manual) Lymphocytes % (Manual) Seg Neutrophils # Man Lymphocytes # (Manual) POC ABG pH 7.477 H POC ABG pCO2 POC ABG pO2 123 H 75 L VBG pH Sodium 166 H* Potassium 2.7 L* Chloride 134.2 H Carbon Dioxide 21 L BUN Creatinine Glucose 147 H POC Glucose Lactic Acid Calcium 7.8 L Phosphorus Magnesium AST 184 H ALT 73 H Alkaline Phosphatase Ammonia Total Creatine Kinase Troponin T C-Reactive Protein Total Protein 4.7 L Albumin 2.2 L Triglycerides HDL Cholesterol TSH Free T4 Urine WBC (Auto) Urine Creatinine Urine Chloride Salicylates Acetaminophen Plasma/Serum Alcohol Hepatitis C Antibody 03/27/19 04:55 WBC 3.9 L RBC 2.48 L Hgb 8.3 L Hct 25.1 L MCV 101 H MCH 34 H RDW 12.8 L Plt Count 63 L Seg Neuts % (Manual) Lymphocytes % (Manual) Seg Neutrophils # Man Lymphocytes # (Manual) POC ABG pH POC ABG pCO2 POC ABG pO2 VBG pH Sodium Potassium Chloride Carbon Dioxide BUN Creatinine Glucose POC Glucose Lactic Acid Calcium Phosphorus Magnesium AST ALT Alkaline Phosphatase Ammonia Total Creatine Kinase Troponin T C-Reactive Protein Total Protein Albumin Triglycerides HDL Cholesterol TSH Free T4 Urine WBC (Auto) Urine Creatinine Urine Chloride Salicylates Acetaminophen Plasma/Serum Alcohol Hepatitis C Antibody
--- NOTE | 2019-03-27 08:57 | Progress Note ---
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 Now on DDAVP. Sodium and urine output are improving. Continue free water replacement and DDAVP. Family discussion ongoing. Prognosis is dismal. (2) Hypokalemia Current Visit: Yes Status: Acute Plan to address problem: Supplement potassium aggressively and follow-up level (3) Acute renal failure Current Visit: Yes Status: Acute Qualifiers: Acute renal failure type: with acute tubular necrosis Qualified Code(s): N17.0 - Acute kidney failure with tubular necrosis Plan to address problem: Acute tubular necrosis secondary to hypotension with Cardiac arrest. Patient is nonoliguric. Kidney function has improved back to normal (4) Transaminasemia Current Visit: Yes Status: Acute Plan to address problem: Ischemic hepatitis possibly superimposed on baseline alcoholic hepatitis. Liver function tests improving. Follow-up liver function tests (5) Cardiac arrest Current Visit: Yes Status: Acute Plan to address problem: Out of hospital cardiac arrest. Etiology uncertain (6) Respiratory failure Current Visit: Yes Status: Acute Plan to address problem: Continue ventilator management per pulmonary Subjective Date of service: 03/27/19 Principal diagnosis: fever and the acute kidney injury Interval history: Patient seen lying in bed. Intubated on ventilator. No Family at the bedside. Patient remains unresponsive. Objective - Exam Narrative Exam: Young male lying in bed intubated on ventilator HEENT: NCAT, endotracheal tube intact Neck: Supple, no venous distention CVS: S1S2 RRR with no murmur, rub or gallop Chest: Clear to auscultation Abdomen: Protuberant, soft, nontender, no organomegaly, bowel sounds are present Extremities: No edema Genitourinary deferred Neuro: Unresponsive - Vital Signs Vital signs: Vital Signs - 12hr 03/26/19 03/26/19 03/26/19 21:00 21:15 21:30 Temperature Pulse Rate 72 72 72 Pulse Rate [ From Monitor] Respiratory 30 H 30 H 30 H Rate Blood Pressure 97/58 98/60 98/60 O2 Sat by Pulse 99 100 100 Oximetry 03/26/19 03/26/19 03/26/19 21:45 22:00 22:15 Temperature Pulse Rate 72 73 72 Pulse Rate [ From Monitor] Respiratory 30 H 30 H 30 H Rate Blood Pressure 100/62 99/61 100/61 O2 Sat by Pulse 100 100 100 Oximetry 03/26/19 03/26/19 03/26/19 22:30 22:34 22:45 Temperature Pulse Rate 73 73 73 Pulse Rate [ From Monitor] Respiratory 30 H 30 H 30 H Rate Blood Pressure 98/62 106/69 89/47 O2 Sat by Pulse 100 100 100 Oximetry 03/26/19 03/26/19 03/26/19 23:00 23:05 23:15 Temperature Pulse Rate 73 72 73 Pulse Rate [ From Monitor] Respiratory 30 H 30 H 30 H Rate Blood Pressure 93/53 93/53 109/76 O2 Sat by Pulse 100 100 100 Oximetry 03/26/19 03/26/19 03/26/19 23:25 23:31 23:45 Temperature Pulse Rate 73 73 73 Pulse Rate [ From Monitor] Respiratory 30 H 30 H Rate Blood Pressure 109/76 126/88 122/87 O2 Sat by Pulse 73 L 100 100 Oximetry 03/27/19 03/27/19 03/27/19 00:00 00:15 00:30 Temperature 97.5 F L Pulse Rate 74 74 74 Pulse Rate [ 74 From Monitor] Respiratory 30 H 30 H 30 H Rate Blood Pressure 128/93 125/86 117/83 O2 Sat by Pulse 100 100 100 Oximetry 03/27/19 03/27/19 03/27/19 00:45 01:00 01:15 Temperature Pulse Rate 75 74 74 Pulse Rate [ From Monitor] Respiratory 30 H 30 H 30 H Rate Blood Pressure 123/86 121/82 122/89 O2 Sat by Pulse 100 100 100 Oximetry 03/27/19 03/27/19 03/27/19 01:30 01:45 02:00 Temperature Pulse Rate 72 73 73 Pulse Rate [ From Monitor] Respiratory 30 H 30 H 30 H Rate Blood Pressure 121/85 120/82 129/90 O2 Sat by Pulse 100 100 100 Oximetry 03/27/19 03/27/19 03/27/19 02:15 02:30 02:45 Temperature Pulse Rate 73 72 72 Pulse Rate [ From Monitor] Respiratory 30 H 30 H 30 H Rate Blood Pressure 121/86 124/90 126/89 O2 Sat by Pulse 100 100 100 Oximetry 03/27/19 03/27/19 03/27/19 02:53 03:00 03:15 Temperature Pulse Rate 72 73 74 Pulse Rate [ From Monitor] Respiratory 30 H 24 Rate Blood Pressure 126/89 124/87 135/96 O2 Sat by Pulse 100 100 100 Oximetry 03/27/19 03/27/19 03/27/19 03:31 03:45 04:00 Temperature 97.4 F L Pulse Rate 73 75 74 Pulse Rate [ 73 From Monitor] Respiratory 24 24 24 Rate Blood Pressure 91/46 128/87 124/86 O2 Sat by Pulse 99 100 100 Oximetry 03/27/19 03/27/19 03/27/19 04:15 04:30 04:45 Temperature Pulse Rate 73 71 72 Pulse Rate [ From Monitor] Respiratory 24 24 24 Rate Blood Pressure 125/89 122/86 118/80 O2 Sat by Pulse 100 100 100 Oximetry 03/27/19 03/27/19 03/27/19 05:00 05:15 05:30 Temperature Pulse Rate 71 72 71 Pulse Rate [ From Monitor] Respiratory 24 24 24 Rate Blood Pressure 104/72 131/88 134/95 O2 Sat by Pulse 99 100 100 Oximetry 03/27/19 03/27/19 03/27/19 05:45 06:00 06:15 Temperature Pulse Rate 71 70 69 Pulse Rate [ From Monitor] Respiratory 24 24 24 Rate Blood Pressure 134/91 134/91 129/91 O2 Sat by Pulse 100 100 100 Oximetry 03/27/19 03/27/19 03/27/19 06:31 06:45 07:00 Temperature Pulse Rate 70 69 67 Pulse Rate [ From Monitor] Respiratory 24 24 24 Rate Blood Pressure 97/50 97/56 96/59 O2 Sat by Pulse 100 99 99 Oximetry 03/27/19 03/27/19 08:00 08:31 Temperature 98.3 F Pulse Rate 65 Pulse Rate [ From Monitor] Respiratory Rate Blood Pressure 105/70 O2 Sat by Pulse 100 Oximetry - Lab 03/27/19 04:55 03/27/19 04:50 Most recent lab results Calcium 7.8 mg/dL (8.4-10.2) L 03/27/19 04:50 Phosphorus 1.20 mg/dL (2.5-4.5) L D 03/25/19 04:45 Magnesium 1.80 mg/dL (1.7-2.3) 03/27/19 06:28 62.1 mg/dL (0.1-20.0) H 03/24/19 12:13 21 mmol/L 03/24/19 12:13 Medications & Allergies - Medications Allergies/Adverse Reactions: Allergies No Known Allergies Allergy (Unverified 03/22/19 08:10) Active Medications: Generic Name Dose Route Start Last Admin Trade Name Freq PRN Reason Stop Dose Admin Acetaminophen 650 mg 03/23/19 11:00 Tylenol NE Q6H PRN Fever >101 Albuterol 2.5 mg 03/20/19 16:55 Proventil IH Q3HRT PRN Shortness Of Breath Lipase/Protease/Amylase 1 each 03/22/19 12:[address] 10,500 Unit FEEDTUBE PRN PRN For Clogged Feeding Tube Desmopressin Acetate 2 mcg 03/27/19 10:00 Ddavp SUB-Q Q12HR RICHARD Hydrophilic Ointment 1 applic 03/20/19 18:02 Vaseline Lip Therapy TP Q2HR PRN Dry Lips Ceftriaxone Sodium 2 gm in 100 mls @ 200 mls/hr 03/22/19 14:00 03/26/19 22:44 Rocephin/Ns 2 Gm/100 Ml IV 200 mls/hr Q12HR RICHARD Administration Protocol Norepinephrine 4 mg in 250 mls @ 7.5 mls/hr 03/23/19 09:00 03/26/19 22:50 Levophed Drip 4 Mg/Ns 250 Ml IV 2 mcg/min TITR RICHARD 7.5 mls/hr Titration Protocol 2 MCG/MIN Dextrose 1,000 mls @ 75 mls/hr 03/24/19 09:00 03/26/19 20:18 D5w IV Infused DIRECT RICHARD Infusion Vancomycin HCl 1,500 mg/ 530 mls @ 333.333 mls/hr 03/26/19 18:00 03/27/19 05:12 Sodium Chloride IV 333.333 mls/hr Q12H RICHARD Administration Potassium Chloride 20 meq in 100 mls @ 100 mls/hr 03/27/19 09:00 Kcl 20meq/100ml IV 03/27/19 11:59 Q1H RICHARD Lansoprazole 30 mg 03/25/19 10:00 03/26/19 09:50 Prevacid Solutab FEEDTUBE 30 mg QDAY RICHARD Administration Levothyroxine Sodium 100 mcg 03/20/19 21:04 03/27/19 05:01 Synthroid IV 100 mcg DAILY@0600 RICHARD Administration Multi-Ingred Cream/Lotion/Oil/Oint 1 applic 03/20/19 18:02 03/25/19 16:27 Artificial Tears Ophth Oint OU 1 applic Q4HR PRN Administration Dry Eye(s) Simple Syrup 15 ml 03/22/19 12:16 Simple Syrup FEEDTUBE PRN PRN Hypoglycemia Simple Syrup 30 ml 03/22/19 12:16 Simple Syrup FEEDTUBE PRN PRN Hypoglycemia Sodium Bicarbonate 325 mg 03/22/19 12:16 Sodium Bicarbonate FEEDTUBE PRN PRN For Clogged Feeding Tube Sodium Chloride 10 ml 03/20/19 22:00 03/26/19 22:45 Sodium Chloride Flush Syringe 10 Ml IV 10 ml BID RICHARD Administration Sodium Chloride 10 ml 03/20/19 16:55 03/21/19 18:56 Sodium Chloride Flush Syringe 10 Ml IV 10 ml PRN PRN Administration LINE FLUSH
--- NOTE | 2019-03-27 09:53 | Progress Note ---
Assessment and Plan Assessment and plan: Patient is 28 yo with alcohol dependence, history of polysubstance abuse presents to ED for evaluation. Pt was in his usual state of health on day of admission. Patient was found to be "Unresponsive and looking very pale" by family members and taken to [facility] for evaluation. EMS notified, and upon a rrival the patient was found to have cardiorespiratory arrest. ACLS protocol initiated, and patient subsequently transported to [facility]. Pt regained perfusing cardiac rhythm en route to [facility]. Pt seen and evaluated in ED and found to have Acute Respiratory Failure. Pt intubated and placed on vent support. Pt also found to be Intoxicated, with Acidosis, and Myxedema Coma. He was admitted to ICU. Pt treated with IV synthroid therapy, and IVF resuscitation. Blood cultures drawn. ID Physician consulted for persistent fever,he was started on iv Antibiotics, placed on Respiratory isolation to rule out meningitis. Few days after admission, patient had another episode of cardiac arrest on 03/23/19 at 07: 54. Code Blue was called. Code run per protocol. He was given 4 doses of Epinephrine, biacarb. CPR. He regained pulse 08:06. Patient has been comatose since admitted. He had severe hypernatremuia and Nephrology was consulted. 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 Repeat CT revealed anoxic encephaloppathy with cerebral edema, diffuse hypoxic ischemic changes. Dr. castelan following. Patient is still critically ill with very poor prognosis. For Brain flow study today. s/p cardiopulmonary arrest outside hospital Resuscitated, intubated, Admitted to ICU Pulm following Drug overdose, most likely diagnosis Patient has history of Polysubstance abuse Mother at bedside says he used to abuse iv drugs and pills Patient had another episode of cardiac arrest on 03/23/19 at 07:54. Code Blue was called. Code run per protocol he was given 4 doses of Epinephrine, biacarb. CPR. He regained pulse 08:06. Acute resp failure Intubated Myxedema coma Continue Levothyroxine iv Alcohol intoxication Fever of 102 on admission persistent fever Blood cultures drawn. Consulted ID and he was evaluated Started on Ceftriaxone, Flagyl, Vanco to r/o meningitis Anoxic encephalopathy Cerebral edema, diffuse hypoxic ischemic changes on CT head mannitol given Central diabetes insipidus DDAVP started discussed with Nephrology Hypernatremia give D5W. Nephrology following Hypokalemia. Replace and repeat lactic acidosis Toxic metabolic encephalopathy Elevated LFT may be alcohol hepatitis vs hep C Monitor History of Polysubstance abuse. Mom at bedside says he used illicit drugs, pills and injectables Hepatitis C Ab pos Hypernatremia continue D5W Started on DDAVP discussed with Nephrology NICK due to ATN, post cardiac arrest Resolved Hypotension,post code started on Levophed Full code status Discussed with his mother after code and discussed guarded prognosis after 2 cardiac arrest episodes Very poor prognosis The high probability of a clinically significant, sudden or life threatening deterioration of the [cardiac, pulmonary, renal] system(s) required my full and direct attention, intervention and personal management. The aggregate critical care time was [32] minutes. This time is in addition to time spent performing reported procedures but includes the following: [x] Data Review and interpretation [x] Patient assessment and monitoring of vital signs [x] Documentation [x] Medication orders and management History Interval history: Patient presented as out of hospital cardiac arrest on 03/20/19, and had another cardiac arrest 03/23/19, code run per protocol, resuscitated. still unresponsive Fever Hypotensive, still on Levophed Hospitalist Physical - Physical exam Narrative exam: Gen: intubated, on vent HEENT: Normocephalic, atraumatic Neck: supple, no JVD Heart: S1 and S2 reg, tachy, no murmurs, rubs or gallop Lungs: Clear, no crackles Abd: soft, non tender, non distended, normal BS Ext: No edema, no clubbing, no cyanosis, Neuro: Intubated, Comatose, unresponsive, does not follow commands - Constitutional Vitals: Temp Pulse Resp BP Pulse Ox 98.3 F 65 24 105/70 100 03/27/19 08:00 03/27/19 08:31 03/27/19 07:00 03/27/19 08:31 03/27/19 08:31 General appearance: Present: other (unresponsive on the vent) Results - Labs CBC & Chem 7: 03/27/19 04:55 03/27/19 04:50 Labs: Laboratory Last Values WBC 3.9 K/mm3 (4.5-11.0) L 03/27/19 04:55 RBC 2.48 M/mm3 (3.65-5.03) L 03/27/19 04:55 Hgb 8.3 gm/dl (11.8-15.2) L 03/27/19 04:55 Hct 25.1 % (35.5-45.6) L 03/27/19 04:55 MCV 101 fl (84-94) H 03/27/19 04:55 MCH 34 pg (28-32) H 03/27/19 04:55 MCHC 33 % (32-34) 03/27/19 04:55 RDW 12.8 % (13.2-15.2) L 03/27/19 04:55 Plt Count 63 K/mm3 (140-440) L 03/27/19 04:55 Lymph % (Auto) Spinner Fixer 03/20/19 16:25 Lymph # Spinner Fixer 03/20/19 16:25 Add Manual Diff Complete 03/21/19 04:00 Total Counted 100 03/21/19 04:00 Seg Neutrophils % Spinner Fixer 03/20/19 16:25 Seg Neuts % (Manual) 90.0 % (40.0-70.0) H 03/21/19 04:00 1.0 % 03/21/19 04:00 7.0 % (13.4-35.0) L 03/21/19 04:00 Reactive Lymphs % (Man) 0 % 03/21/19 04:00 2.0 % (0.0-7.3) 03/21/19 04:00 0 % (0.0-4.3) 03/21/19 04:00 0 % (0.0-1.8) 03/21/19 04:00 0 % 03/21/19 04:00 0 % 03/21/19 04:00 0 % 03/21/19 04:00 0 % 03/21/19 04:00 Nucleated RBC % Not Reportable 03/21/19 04:00 Seg Neutrophils # Man 18.0 K/mm3 (1.8-7.7) H 03/21/19 04:00 Band Neutrophils # 0.2 K/mm3 03/21/19 04:00 1.4 K/mm3 (1.2-5.4) 03/21/19 04:00 Abs React Lymphs (Man) 0.0 K/mm3 03/21/19 04:00 0.4 K/mm3 (0.0-0.8) 03/21/19 04:00 0.0 K/mm3 (0.0-0.4) 03/21/19 04:00 0.0 K/mm3 (0.0-0.1) 03/21/19 04:00 0.0 K/mm3 03/21/19 04:00 0.0 K/mm3 03/21/19 04:00 0.0 K/mm3 03/21/19 04:00 Blast Cells # 0.0 K/mm3 03/21/19 04:00 WBC Morphology Not Reportable 03/21/19 04:00 Hypersegmented Neuts Not Reportable 03/21/19 04:00 Hyposegmented Neuts Not Reportable 03/21/19 04:00 Hypogranular Neuts Not Reportable 03/21/19 04:00 Not Reportable 03/21/19 04:00 Not Reportable 03/21/19 04:00 Not Reportable 03/21/19 04:00 Not Reportable 03/21/19 04:00 Not Reportable 03/21/19 04:00 Not Reportable 03/21/19 04:00 Consistent w auto 03/21/19 04:00 Not Reportable 03/21/19 04:00 Plt Clumps, EDTA Not Reportable 03/21/19 04:00 Not Reportable 03/21/19 04:00 Not Reportable 03/21/19 04:00 Not Reportable 03/21/19 04:00 Plt Morphology Comment Not Reportable 03/21/19 04:00 RBC Morphology Normal 03/21/19 04:00 Dimorphic RBCs Not Reportable 03/21/19 04:00 Not Reportable 03/21/19 04:00 Not Reportable 03/21/19 04:00 Not Reportable 03/21/19 04:00 Not Reportable 03/21/19 04:00 Not Reportable 03/21/19 04:00 Not Reportable 03/21/19 04:00 Not Reportable 03/21/19 04:00 Not Reportable 03/21/19 04:00 Not Reportable 03/21/19 04:00 Not Reportable 03/21/19 04:00 Not Reportable 03/21/19 04:00 Not Reportable 03/21/19 04:00 Not Reportable 03/21/19 04:00 Not Reportable 03/21/19 04:00 Not Reportable 03/21/19 04:00 Not Reportable 03/21/19 04:00 Not Reportable 03/21/19 04:00 Not Reportable 03/21/19 04:00 Not Reportable 03/21/19 04:00 Acanthocytes (Spur) Not Reportable 03/21/19 04:00 Rouleaux Not Reportable 03/21/19 04:00 Not Reportable 03/21/19 04:00 Not Reportable 03/21/19 04:00 Not Reportable 03/21/19 04:00 Not Reportable 03/21/19 04:00 Hem Pathologist Commnt No 03/21/19 04:00 PT 12.9 Sec. (12.2-14.9) 03/20/19 16:31 INR 0.92 (0.87-1.13) 03/20/19 16:31 APTT 29.1 Sec. (24.2-36.6) 03/20/19 16:31 POC ABG pH 7.439 (7.35-7.45) 03/27/19 03:18 POC ABG pCO2 40.7 (35-45) 03/27/19 03:18 POC ABG pO2 75 (80-105) L 03/27/19 03:18 POC ABG HCO3 27.6 (22-26 mml/L) 03/27/19 03:18 POC ABG Total CO2 29 (23-27mmol/L) 03/27/19 03:18 POC ABG O2 Sat 95 03/27/19 03:18 POC ABG Base Excess 3 ((-2) - (+3)mmol/L) 03/27/19 03:18 VBG pH 7.091 (7.320-7.420) L* 03/20/19 16:25 35 % 03/27/19 03:18 Sodium 166 mmol/L (137-145) H* 03/27/19 04:50 Potassium 2.7 mmol/L (3.6-5.0) L* 03/27/19 04:50 Chloride 134.2 mmol/L (98-107) H 03/27/19 04:50 Carbon Dioxide 21 mmol/L (22-30) L 03/27/19 04:50 14 mmol/L 03/27/19 04:50 BUN 20 mg/dL (9-20) 03/27/19 04:50 0.8 mg/dL (0.8-1.5) 03/27/19 04:50 Estimated GFR > 60 ml/min 03/27/19 04:50 25 % 03/27/19 04:50 Glucose 147 mg/dL (75-100) H 03/27/19 04:50 POC Glucose 121 (70-105) H 03/25/19 16:06 Lactic Acid 1.90 mmol/L (0.7-2.0) 03/22/19 04:20 Calcium 7.8 mg/dL (8.4-10.2) L 03/27/19 04:50 Phosphorus 1.20 mg/dL (2.5-4.5) L D 03/25/19 04:45 Magnesium 1.80 mg/dL (1.7-2.3) 03/27/19 06:28 0.30 mg/dL (0.1-1.2) 03/27/19 04:50 AST 184 units/L (5-40) H 03/27/19 04:50 ALT 73 units/L (7-56) H 03/27/19 04:50 42 units/L (35-129) 03/27/19 04:50 10.0 umol/L (25-60) L 03/20/19 16:25 380 units/L (55-170) H 03/20/19 16:25 CK-MB (CK-2) 1.0 ng/mL (0.0-4.0) 03/20/19 16:25 CK-MB (CK-2) Rel Index 0.2 (0-4) 03/20/19 16:25 0.074 ng/mL (0.00-0.029) H D 03/21/19 14:41 4.90 mg/dL (0.00-1.30) H 03/21/19 15:59 4.7 g/dL (6.3-8.2) L 03/27/19 04:50 2.2 g/dL (3.9-5) L 03/27/19 04:50 0.9 % 03/27/19 04:50 Triglycerides 166 mg/dL (2-149) H 03/21/19 09:32 Cholesterol 194 mg/dL (50-199) 03/21/19 09:32 122 mg/dL (50-130) 03/21/19 09:32 63 mg/dL (40-59) H 03/21/19 09:32 3.07 % 03/21/19 09:32 TSH 17.340 mlU/mL (0.270-4.200) H 03/20/19 16:25 Free T4 0.69 ng/dL (0.76-1.46) L 03/20/19 16:25 Yellow (Yellow) 03/23/19 11:42 Slightly-cloudy (Clear) 03/23/19 11:42 6.0 (5.0-7.0) 03/23/19 11:42 Ur Specific [place] 1.008 (1.003-1.030) 03/23/19 11:42 <15 mg/dl mg/dL (Negative) 03/23/19 11:42 Neg mg/dL (Negative) 03/23/19 11:42 Neg mg/dL (Negative) 03/23/19 11:42 Mod (Negative) 03/23/19 11:42 Neg (Negative) 03/23/19 11:42 Neg (Negative) 03/23/19 11:42 < 2.0 mg/dL (<2.0) 03/23/19 11:42 Ur Leukocyte Esterase Sm (Negative) 03/23/19 11:42 27.0 /HPF (0.0-6.0) H 03/23/19 11:42 7.0 /HPF (0.0-6.0) 03/23/19 11:42 U Epithel Cells (Auto) < 1.0 /HPF (0-13.0) 03/23/19 11:42 2+ /HPF (Negative) 03/23/19 11:42 Ur Transition Epith Cell 5 /HPF 03/23/19 11:42 Hyaline Casts 1 /LPF 03/20/19 17:35 Few /HPF 03/23/19 11:42 2+ /HPF 03/20/19 17:35 1+ /HPF ([employer]) 03/20/19 17:35 239 Mosm/kg 03/24/19 08:29 62.1 mg/dL (0.1-20.0) H 03/24/19 12:13 21 mmol/L 03/24/19 12:13 8.55 mmol/L 03/24/19 12:13 17.3 mmolL (110-250) L 03/24/19 12:13 Vancomycin Trough 10.7 ug/mL (5.0-20.0) 03/26/19 04:04 Salicylates < 0.3 mg/dL (2.8-20.0) L 03/20/19 16:25 Presumptive positive 03/20/19 17:36 Presumptive negative 03/20/19 17:36 Acetaminophen < 5.0 ug/mL (10.0-30.0) L 03/20/19 16:25 Ur Barbiturates Screen Presumptive negative 03/20/19 17:36 Ur Phencyclidine Scrn Presumptive negative 03/20/19 17:36 Ur Amphetamines Screen Presumptive negative 03/20/19 17:36 U Benzodiazepines Scrn Presumptive negative 03/20/19 17:36 Presumptive negative 03/20/19 17:36 U Marijuana (THC) Screen Presumptive positive 03/20/19 17:36 Disclamer 03/20/19 17:36 Plasma/Serum Alcohol < 0.01 % (0-0.07) 03/21/19 09:32 Hepatitis A IgM Ab Non-reactive (NonReactive) 03/21/19 15:59 Hep Bs Antigen Non-reactive (Negative) 03/21/19 15:59 Hep B Core IgM Ab Non-reactive (NonReactive) 03/21/19 15:59 Reactive (NonReactive) A 03/21/19 15:59 HIV 1&2 Antibody Rapid Non react (Non React) 03/21/19 15:59 Non react (Non React) 03/21/19 15:59 Influenza A (Rapid) Negative (Negative) 03/21/19 18:45 Influenza A (RT-PCR) Negative (Negative) 03/21/19 18:45 Influenza B (Rapid) Negative (Negative) 03/21/19 18:45 Influenza B (RT-PCR) Negative (Negative) 03/21/19 18:45 Active Medications - Current Medications Current Medications: Generic Name Dose Route Start Last Admin Trade Name Freq PRN Reason Stop Dose Admin Acetaminophen 650 mg 03/23/19 11:[address] Q6H PRN Fever >101 Albuterol 2.5 mg 03/20/19 16:55 Proventil IH Q3HRT PRN Shortness Of Breath Lipase/Protease/Amylase 1 each 03/22/19 12:[address] 10,500 Unit FEEDTUBE PRN PRN For Clogged Feeding Tube Desmopressin Acetate 2 mcg 03/27/19 10:00 Ddavp SUB-Q Q12HR RICHARD Hydrophilic Ointment 1 applic 03/20/19 18:02 Vaseline Lip Therapy TP Q2HR PRN Dry Lips Ceftriaxone Sodium 2 gm in 100 mls @ 200 mls/hr 03/22/19 14:00 03/26/19 22:44 Rocephin/Ns 2 Gm/100 Ml IV 200 mls/hr Q12HR RICHARD Administration Protocol Norepinephrine 4 mg in 250 mls @ 7.5 mls/hr 03/23/19 09:00 03/26/19 22:50 Levophed Drip 4 Mg/Ns 250 Ml IV 2 mcg/min TITR RICHARD 7.5 mls/hr Titration Protocol 2 MCG/MIN Dextrose 1,000 mls @ 75 mls/hr 03/24/19 09:00 03/26/19 20:18 D5w IV Infused DIRECT RICHARD Infusion Vancomycin HCl 1,500 mg/ 530 mls @ 333.333 mls/hr 03/26/19 18:00 03/27/19 05:12 Sodium Chloride IV 333.333 mls/hr Q12H RICHARD Administration Potassium Chloride 20 meq in 100 mls @ 100 mls/hr 03/27/19 09:00 Kcl 20meq/100ml IV 03/27/19 11:59 Q1H RICHARD Lansoprazole 30 mg 03/25/19 10:00 03/26/19 09:50 Prevacid Solutab FEEDTUBE 30 mg QDAY RICHARD Administration Levothyroxine Sodium 100 mcg 03/20/19 21:04 03/27/19 05:01 Synthroid IV 100 mcg DAILY@0600 RICHARD Administration Multi-Ingred Cream/Lotion/Oil/Oint 1 applic 03/20/19 18:02 03/25/19 16:27 Artificial Tears Ophth Oint OU 1 applic Q4HR PRN Administration Dry Eye(s) Simple Syrup 15 ml 03/22/19 12:16 Simple Syrup FEEDTUBE PRN PRN Hypoglycemia Simple Syrup 30 ml 03/22/19 12:16 Simple Syrup FEEDTUBE PRN PRN Hypoglycemia Sodium Bicarbonate 325 mg 03/22/19 12:16 Sodium Bicarbonate FEEDTUBE PRN PRN For Clogged Feeding Tube Sodium Chloride 10 ml 03/20/19 22:00 03/26/19 22:45 Sodium Chloride Flush Syringe 10 Ml IV 10 ml BID RICHARD Administration Sodium Chloride 10 ml 03/20/19 16:55 03/21/19 18:56 Sodium Chloride Flush Syringe 10 Ml IV 10 ml PRN PRN Administration LINE FLUSH Nutrition/Malnutrition Assess - Dietary Evaluation Nutrition/Malnutrition Findings: Nutrition Notes Start: 03/21/19 12:53 Freq: Status: Active Protocol: Document 03/24/19 11:37 CP (Rec: 03/24/19 11:39 CP [id number]) Co-Sign 03/24/19 11:37 LP Nutrition Notes Initial or Follow up Brief Note Current Diagnosis Respiratory Failure Other Pertinent Diagnosis Myxedema coma, DVT prophylaxis , alcohol intoxication Current Diet NPO Subjective/Other Information F/U for TF to start/tolerance. TF was not hanging during time of visit due to renal ultrasound this morning. Nutrition Intervention Follow-Up By: 03/28/19 Additional Comments F/U: TF to start/TF tolerance
[2019-03-27] MEDS ORDERED: DDAVP SUB-Q SCH (10:00)
--- NOTE | 2019-03-27 10:14 | Progress Note ---
Assessment and Plan Cultures: Blood culture 03/20/2019 no growth today. Sputum culture 03/20/2019 usual resp lakshmi Assessment: 28 y/o male with history of ETOH dependence admitted on 03/20/2019 due to be found to be "Unresponsive and looking very pale" [place] members and taken to Urgent for evaluation. At the Urgent care patient experienced cardiac arrest, unclear details. ACLS protocol initiated, intubated and patient subsequently transported to [facility]. Pt regained cardiac rhythm en route to [facility]: 1) [id number] cardiac arrest s/p CPR, unclear details. S/p another arrest on 03/23 on levophed, now off pressors 2) Acute encephalopathy: multifactorial, ETOH intoxication/coma myxedema/meningitis. ETOH level 0.32. UDS +marihuana and + opoids. CT head chronic sinusitis. Now with possible anoxic brain injury. Repeat CT showed diffuse extensive cerebral edema and global hypoxic ischemic changes and worsening pansinusitis. 3) SIRS: improved. Etiology unclear, likely multifactorial - sinusitis/dehydration/ETOH intoxication/mixedema coma/rhabdomyolysis/?aspiration pneumonia/?meningitis/pansinusitis. CTA chest showed No acute pulmonary process. UA with wbc no LE. Blood culture 03/20/2019 no growth today. Sputum culture 03/20/2019 Gram with GPC. Mother called friend who was with patient the last week and reported that patient was c/o severe headaches and bad sinusitis with mucous discharge. Influenza PCR negative. HIV negative. Hepatitis C serology reactive. CRP 4.9. 4) Mixedema coma? 5) Elevated LFTs: from ETOH and arrest. AST 276. ALT 165. Alkphos 139. Hepatitis C serology reactive. 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 Now on DDAVP. Renal on board Recommendations: - lumbar puncture for opening pressure and send CSF specimen for Gram stain and culture, glucose, protein, VDRL, HSV-PCR, cryptococcal antigen and culture. Not done due low platelets - neuro requesting Brain blood flow nuclear study - follow-up blood cultures - continue ceftriaxone 2 gm IV q21h D7 of 17 - continue vancomycin for now D7 of 10 Poor prognosis Will follow Gail Monique MD Infectious Diseases [employer] [facility] M [phone] O [phone] Subjective Date of service: 03/27/19 Principal diagnosis: fever and the acute kidney injury Interval history: Remains on the vent, unresponsive, no fever x 24h, mom at bedside ROS unable to obtain Objective - Exam Narrative Exam: General appearance: unresponsive intubated in NAD Eyes: anicteric sclerae, moist conjunctivae; no lid-lag; +dilated fixed pupils HENT: Atraumatic; oropharynx +ETT Neck: Trachea midline; supple, no thyromegaly or lymphadenopathy Lungs: butch coarse BS CV: RRR Abdomen: Soft, tense Extremities: No peripheral edema or extremity lymphadenopathy Skin: Normal temperature, turgor and texture; no rash, ulcers or subcutaneous nodules Psych: lethargic. Neuro: lethargic Right fem TLC/ji - Constitutional Vitals: Vital Signs Temp Pulse Resp BP Pulse Ox 98.3 F 65 24 105/70 100 03/27/19 08:00 03/27/19 08:31 03/27/19 07:00 03/27/19 08:31 03/27/19 08:31 Temperature -Last 24 Hours Temperature 98.3 F Temperature 97.4 F Temperature 97.5 F Temperature 98 F Temperature 97.5 F Temperature 97.6 F - Labs CBC & Chem 7: 03/27/19 04:55 03/27/19 04:50 Labs: Abnormal lab results 03/26/19 03/27/19 03/27/19 Range/Units 11:30 03:07 03:18 WBC (4.5-11.0) K/mm3 RBC (3.65-5.03) M/mm3 Hgb (11.8-15.2) gm/dl Hct (35.5-45.6) % MCV (84-94) fl MCH (28-32) pg RDW (13.2-15.2) % Plt Count (140-440) K/mm3 POC ABG pH 7.477 H (7.35-7.45) POC ABG pO2 123 H 75 L (80-105) Sodium 169 H* (137-145) mmol/L Potassium 2.8 L* (3.6-5.0) mmol/L Chloride 138.4 H (98-107) mmol/L Carbon Dioxide (22-30) mmol/L Glucose 154 H (75-100) mg/dL Calcium 6.8 L (8.4-10.2) mg/dL AST (5-40) units/L ALT (7-56) units/L Total Protein (6.3-8.2) g/dL Albumin (3.9-5) g/dL 03/27/19 03/27/19 Range/Units 04:50 04:55 WBC 3.9 L (4.5-11.0) K/mm3 RBC 2.48 L (3.65-5.03) M/mm3 Hgb 8.3 L (11.8-15.2) gm/dl Hct 25.1 L (35.5-45.6) % MCV 101 H (84-94) fl MCH 34 H (28-32) pg RDW 12.8 L (13.2-15.2) % Plt Count 63 L (140-440) K/mm3 POC ABG pH (7.35-7.45) POC ABG pO2 (80-105) Sodium 166 H* (137-145) mmol/L Potassium 2.7 L* (3.6-5.0) mmol/L Chloride 134.2 H (98-107) mmol/L Carbon Dioxide 21 L (22-30) mmol/L Glucose 147 H (75-100) mg/dL Calcium 7.8 L (8.4-10.2) mg/dL AST 184 H (5-40) units/L ALT 73 H (7-56) units/L Total Protein 4.7 L (6.3-8.2) g/dL Albumin 2.2 L (3.9-5) g/dL
[2019-03-27] MEDS: KCL 20MEQ/100ML 20 MEQ/100 ML BAG IV SCH ×3 (10:18→12:25)
[2019-03-27] MEDS: D5W 1,000 ML IV SCH (10:18)
[2019-03-27] MEDS: ROCEPHIN/NS 2 GM/100 ML 2 GM/100 ML BAG IV SCH (11:03)
--- NOTE | 2019-03-27 12:34 | Progress Note ---
Assessment and Plan Out of hospital cardiopulmonary arrest, etiology uncertain chest CTA was also negative for pulmonary embolism head CT reports no acute intracranial abnormalities ETOH abuse Elevated liver transaminase Persistent Fever/tachycardia Acute encephalopathy Hypernatremia/hypokalemia Thombocytopenia Hypothyroidism An echocardiogram reports a normal LV systolic function, ejection fraction 55- 60%. Supportive cardiac management. Subjective Date of service: 03/27/19 Principal diagnosis: fever and the acute kidney injury Interval history: Patient remains unresponsive, on the vent. No cardiac events reported overnight. Objective Vital Signs Temp Pulse Pulse Resp BP Pulse Ox 03/27/19 12:00 63 24 100/70 100 03/27/19 11:45 63 24 99/67 100 03/27/19 11:30 63 24 101/69 100 03/27/19 11:29 63 101/69 100 03/27/19 11:15 64 24 104/72 100 03/27/19 11:00 64 24 97/65 99 03/27/19 10:45 64 24 99/68 100 03/27/19 10:30 63 24 101/69 100 03/27/19 10:15 61 24 107/75 100 03/27/19 10:00 62 24 101/67 100 03/27/19 09:45 61 24 99/67 100 03/27/19 09:30 62 24 101/68 100 03/27/19 09:15 63 24 105/69 100 03/27/19 09:00 58 L 24 103/65 100 03/27/19 08:45 61 24 100/67 100 03/27/19 08:31 65 105/70 100 03/27/19 08:30 66 24 105/70 100 03/27/19 08:15 66 24 103/67 100 03/27/19 08:00 98.3 F 66 24 100/67 100 03/27/19 07:45 66 24 101/65 100 03/27/19 07:30 67 24 96/58 100 03/27/19 07:15 67 24 99/59 100 03/27/19 07:00 67 24 96/59 99 03/27/19 06:45 69 24 97/56 99 03/27/19 06:31 70 24 97/50 100 03/27/19 06:15 69 24 129/91 100 03/27/19 06:00 70 24 134/91 100 03/27/19 05:45 71 24 134/91 100 03/27/19 05:30 71 24 134/95 100 03/27/19 05:15 72 24 131/88 100 03/27/19 05:00 71 24 104/72 99 03/27/19 04:45 72 24 118/80 100 03/27/19 04:30 71 24 122/86 100 03/27/19 04:15 73 24 125/89 100 03/27/19 04:00 97.4 F L 74 73 24 124/86 100 03/27/19 03:45 75 24 128/87 100 03/27/19 03:31 73 24 91/46 99 03/27/19 03:15 74 24 135/96 100 03/27/19 03:00 73 30 H 124/87 100 03/27/19 02:53 72 126/89 100 03/27/19 02:45 72 30 H 126/89 100 03/27/19 02:30 72 30 H 124/90 100 03/27/19 02:15 73 30 H 121/86 100 03/27/19 02:00 73 30 H 129/90 100 03/27/19 01:45 73 30 H 120/82 100 03/27/19 01:30 72 30 H 121/85 100 03/27/19 01:15 74 30 H 122/89 100 03/27/19 01:00 74 30 H 121/82 100 03/27/19 00:45 75 30 H 123/86 100 03/27/19 00:30 74 30 H 117/83 100 03/27/19 00:15 74 30 H 125/86 100 03/27/19 00:00 97.5 F L 74 74 30 H 128/93 100 03/26/19 23:45 73 30 H 122/87 100 03/26/19 23:31 73 30 H 126/88 100 03/26/19 23:25 73 109/76 73 L 05 23:15 73 30 H 109/76 100 03/26/19 23:05 72 30 H 93/53 100 03/26/19 23:00 73 30 H 93/53 100 03/26/19 22:45 73 30 H 89/47 100 03/26/19 22:34 73 30 H 106/69 100 03/26/19 22:30 73 30 H 98/62 100 03/26/19 22:15 72 30 H 100/61 100 03/26/19 22:00 73 30 H 99/61 100 03/26/19 21:45 72 30 H 100/62 100 03/26/19 21:30 72 30 H 98/60 100 03/26/19 21:15 72 30 H 98/60 100 03/26/19 21:00 72 30 H 97/58 99 03/26/19 20:45 72 30 H 99/60 99 03/26/19 20:30 72 30 H 103/62 100 03/26/19 20:15 72 30 H 106/69 100 03/26/19 20:00 98 F 72 72 30 H 107/69 100 03/26/19 19:45 72 30 H 110/74 100 03/26/19 19:35 72 111/73 100 03/26/19 19:30 72 30 H 111/73 100 03/26/19 19:15 72 30 H 107/73 100 03/26/19 19:00 72 26 H 110/69 100 03/26/19 18:45 72 26 H 107/64 100 03/26/19 18:30 73 30 H 99/57 100 03/26/19 18:15 75 30 H 92/53 100 03/26/19 18:00 74 30 H 101/63 100 03/26/19 17:45 75 30 H 99/57 99 03/26/19 17:36 80 98 03/26/19 17:30 75 30 H 101/66 100 03/26/19 17:15 76 30 H 105/64 100 03/26/19 17:00 76 30 H 106/68 100 03/26/19 16:45 78 30 H 105/67 100 03/26/19 16:30 78 30 H 105/65 100 03/26/19 16:15 78 30 H 103/65 100 03/26/19 16:00 97.5 F L 79 73 30 H 102/67 100 03/26/19 15:45 79 30 H 101/64 100 03/26/19 15:30 80 30 H 99/61 100 03/26/19 15:15 79 30 H 94/59 100 03/26/19 15:00 77 30 H 92/56 100 03/26/19 14:45 79 30 H 92/56 100 03/26/19 14:30 79 30 H 92/55 100 03/26/19 14:15 82 30 H 98/61 100 03/26/19 14:00 80 30 H 98/56 98 03/26/19 13:57 80 95/55 98 03/26/19 13:45 79 30 H 95/55 97 03/26/19 13:30 79 30 H 106/64 100 03/26/19 13:15 79 30 H 103/60 98 03/26/19 13:00 76 30 H 101/58 99 03/26/19 12:45 77 30 H 104/59 100 - Physical Examination General: Other (unresponsive on the vent) Cardiac: Positive: Reg Rate and Rhythm Abdomen: Positive: Unremarkable Extremities: Present: normal - Labs and Meds Cardiac Enzymes 03/27/19 Range/Units 04:50 AST 184 H (5-40) units/L CBC 03/27/19 Range/Units 04:55 WBC 3.9 L (4.5-11.0) K/mm3 RBC 2.48 L (3.65-5.03) M/mm3 Hgb 8.3 L (11.8-15.2) gm/dl Hct 25.1 L (35.5-45.6) % Plt Count 63 L (140-440) K/mm3 Comprehensive Metabolic Panel 03/27/19 Range/Units 04:50 Sodium 166 H* (137-145) mmol/L Potassium 2.7 L* (3.6-5.0) mmol/L Chloride 134.2 H (98-107) mmol/L Carbon Dioxide 21 L (22-30) mmol/L BUN 20 (9-20) mg/dL Creatinine 0.8 (0.8-1.5) mg/dL Glucose 147 H (75-100) mg/dL Calcium 7.8 L (8.4-10.2) mg/dL AST 184 H (5-40) units/L ALT 73 H (7-56) units/L Alkaline Phosphatase 42 (35-129) units/L Total Protein 4.7 L (6.3-8.2) g/dL Albumin 2.2 L (3.9-5) g/dL
--- NOTE | 2019-03-27 13:31 | Progress Note ---
Assessment and Plan Imp: 1. S/p CP arrest, ? EtOH + opoids 2. Anoxic enceph., suspect brain 3. Acute respiratory failure, hypoxia 4. NICK 5. 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 ABX per ID 2. Brain flow study ordered; neurology f/u 3. Replete K 4. Not able to extubate due to #2 above; off sedation 5. DI management per renal; sodium improving 6. Dismal prognosis; complex decision-making No family present Subjective Date of service: 03/27/19 Principal diagnosis: fever and the acute kidney injury Interval history: No events. Unresponsive. On vent. No gag/cough or other reflexes. Cannot give hx. Active Medications Acetaminophen (Tylenol) 650 mg WA Q6H PRN PRN Reason: Fever >101 Albuterol (Proventil) 2.5 mg IH Q3HRT PRN PRN Reason: Shortness Of Breath Lipase/Protease/Amylase (Pancreaze Dr 10,500 Unit) 1 each FEEDTUBE PRN PRN PRN Reason: For Clogged Feeding Tube Desmopressin Acetate (Ddavp) 2 mcg SUB-Q Q12HR RICHARD Last Admin: 03/27/19 10:23 Dose: 2 mcg Documented by: Hydrophilic Ointment (Vaseline Lip Therapy) 1 applic TP Q2HR PRN PRN Reason: Dry Lips Ceftriaxone Sodium (Rocephin/Ns 2 Gm/100 Ml) 2 gm in 100 mls @ 200 mls/hr IV Q12HR RICHARD; Protocol Last Admin: 03/27/19 11:03 Dose: 200 mls/hr Documented by: Norepinephrine (Levophed Drip 4 Mg/Ns 250 Ml) 4 mg in 250 mls @ 7.5 mls/hr IV TITR RICHARD; Protocol Last Titration: 03/26/19 22:50 Dose: 2 mcg/min, 7.5 mls/hr Documented by: Dextrose (D5w) 1,000 mls @ 75 mls/hr IV DIRECT RICHARD Last Admin: 03/27/19 10:18 Dose: 75 mls/hr Documented by: Vancomycin HCl 1,500 mg/ (Sodium Chloride) 530 mls @ 333.333 mls/hr IV Q12H RICHARD Last Admin: 03/27/19 05:12 Dose: 333.333 mls/hr Documented by: Lansoprazole (Prevacid Solutab) 30 mg FEEDTUBE QDAY [facility] Last Admin: 03/26/19 09:50 Dose: 30 mg Documented by: Levothyroxine Sodium (Synthroid) 100 mcg IV DAILY@0600 [facility] Last Admin: 03/27/19 05:01 Dose: 100 mcg Documented by: Multi-Ingred Cream/Lotion/Oil/Oint (Artificial Tears Ophth Oint) 1 applic OU Q4HR PRN PRN Reason: Dry Eye(s) Last Admin: 03/25/19 16:27 Dose: 1 applic Documented by: Simple Syrup (Simple Syrup) 15 ml FEEDTUBE PRN PRN PRN Reason: Hypoglycemia Simple Syrup (Simple Syrup) 30 ml FEEDTUBE PRN PRN PRN Reason: Hypoglycemia Sodium Bicarbonate (Sodium Bicarbonate) 325 mg FEEDTUBE PRN PRN PRN Reason: For Clogged Feeding Tube Sodium Chloride (Sodium Chloride Flush Syringe 10 Ml) 10 ml IV BID [facility] Last Admin: 03/26/19 22:45 Dose: 10 ml Documented by: Sodium Chloride (Sodium Chloride Flush Syringe 10 Ml) 10 ml IV PRN PRN PRN Reason: LINE FLUSH Last Admin: 03/21/19 18:56 Dose: 10 ml Documented by: Objective Vital Signs - 12hr 03/27/19 03/27/19 03/27/19 01:30 01:45 02:00 Temperature Pulse Rate 72 73 73 Pulse Rate [ From Monitor] Respiratory 30 H 30 H 30 H Rate Blood Pressure 121/85 120/82 129/90 O2 Sat by Pulse 100 100 100 Oximetry 03/27/19 03/27/19 03/27/19 02:15 02:30 02:45 Temperature Pulse Rate 73 72 72 Pulse Rate [ From Monitor] Respiratory 30 H 30 H 30 H Rate Blood Pressure 121/86 124/90 126/89 O2 Sat by Pulse 100 100 100 Oximetry 03/27/19 03/27/19 03/27/19 02:53 03:00 03:15 Temperature Pulse Rate 72 73 74 Pulse Rate [ From Monitor] Respiratory 30 H 24 Rate Blood Pressure 126/89 124/87 135/96 O2 Sat by Pulse 100 100 100 Oximetry 03/27/19 03/27/19 03/27/19 03:31 03:45 04:00 Temperature 97.4 F L Pulse Rate 73 75 74 Pulse Rate [ 73 From Monitor] Respiratory 24 24 24 Rate Blood Pressure 91/46 128/87 124/86 O2 Sat by Pulse 99 100 100 Oximetry 03/27/19 03/27/19 03/27/19 04:15 04:30 04:45 Temperature Pulse Rate 73 71 72 Pulse Rate [ From Monitor] Respiratory 24 24 24 Rate Blood Pressure 125/89 122/86 118/80 O2 Sat by Pulse 100 100 100 Oximetry 03/27/19 03/27/19 03/27/19 05:00 05:15 05:30 Temperature Pulse Rate 71 72 71 Pulse Rate [ From Monitor] Respiratory 24 24 24 Rate Blood Pressure 104/72 131/88 134/95 O2 Sat by Pulse 99 100 100 Oximetry 03/27/19 03/27/19 03/27/19 05:45 06:00 06:15 Temperature Pulse Rate 71 70 69 Pulse Rate [ From Monitor] Respiratory 24 24 24 Rate Blood Pressure 134/91 134/91 129/91 O2 Sat by Pulse 100 100 100 Oximetry 03/27/19 03/27/19 03/27/19 06:31 06:45 07:00 Temperature Pulse Rate 70 69 67 Pulse Rate [ From Monitor] Respiratory 24 24 24 Rate Blood Pressure 97/50 97/56 96/59 O2 Sat by Pulse 100 99 99 Oximetry 03/27/19 03/27/19 03/27/19 07:15 07:30 07:45 Temperature Pulse Rate 67 67 66 Pulse Rate [ From Monitor] Respiratory 24 24 24 Rate Blood Pressure 99/59 96/58 101/65 O2 Sat by Pulse 100 100 100 Oximetry 03/27/19 03/27/19 03/27/19 08:00 08:15 08:30 Temperature 98.3 F Pulse Rate 66 66 66 Pulse Rate [ 73 From Monitor] Respiratory 22 24 24 Rate Blood Pressure 100/67 103/67 105/70 O2 Sat by Pulse 100 100 100 Oximetry 03/27/19 03/27/19 03/27/19 08:31 08:45 09:00 Temperature Pulse Rate 65 61 58 L Pulse Rate [ From Monitor] Respiratory 24 24 Rate Blood Pressure 105/70 100/67 103/65 O2 Sat by Pulse 100 100 100 Oximetry 03/27/19 03/27/19 03/27/19 09:15 09:30 09:45 Temperature Pulse Rate 63 62 61 Pulse Rate [ From Monitor] Respiratory 24 24 24 Rate Blood Pressure 105/69 101/68 99/67 O2 Sat by Pulse 100 100 100 Oximetry 03/27/19 03/27/19 03/27/19 10:00 10:15 10:30 Temperature Pulse Rate 62 61 63 Pulse Rate [ From Monitor] Respiratory 24 24 24 Rate Blood Pressure 101/67 107/75 101/69 O2 Sat by Pulse 100 100 100 Oximetry 03/27/19 03/27/19 03/27/19 10:45 11:00 11:15 Temperature Pulse Rate 64 64 64 Pulse Rate [ From Monitor] Respiratory 24 24 24 Rate Blood Pressure 99/68 97/65 104/72 O2 Sat by Pulse 100 99 100 Oximetry 03/27/19 03/27/19 03/27/19 11:29 11:30 11:45 Temperature Pulse Rate 63 63 63 Pulse Rate [ From Monitor] Respiratory 24 24 Rate Blood Pressure 101/69 101/69 99/67 O2 Sat by Pulse 100 100 100 Oximetry 03/27/19 03/27/19 03/27/19 12:00 12:15 12:30 Temperature 97.9 F Pulse Rate 63 64 65 Pulse Rate [ 73 From Monitor] Respiratory 23 24 24 Rate Blood Pressure 100/70 100/71 109/78 O2 Sat by Pulse 100 100 100 Oximetry 03/27/19 03/27/19 12:45 13:00 Temperature Pulse Rate 65 64 Pulse Rate [ From Monitor] Respiratory 24 24 Rate Blood Pressure 109/78 106/76 O2 Sat by Pulse 100 100 Oximetry Constitutional: comatose Eyes: injected ENT: other (intubated) Neck: supple Effort: normal Ascultation: Bilateral: clear Cardiovascular: regular rate and rhythm (no mrg) Gastrointestinal: normoactive bowel sounds, soft, non-tender, non-distended Integumentary: normal Extremities: no cyanosis, no edema, pink and warm Neurologic: other (unresponsive, flaccid extremities, no reflexes) Psychiatric: other (unable to assess) CBC and BMP: 03/27/19 04:55 03/27/19 04:50 ABG, PT/INR, D-dimer: ABG POC ABG pH 7.439 (7.35-7.45) 03/27/19 03:18 POC ABG pCO2 40.7 (35-45) 03/27/19 03:18 POC ABG pO2 75 (80-105) L 03/27/19 03:18 POC ABG HCO3 27.6 (22-26 mml/L) 03/27/19 03:18 POC ABG Total CO2 29 (23-27mmol/L) 03/27/19 03:18 POC ABG O2 Sat 95 03/27/19 03:18 PT/INR, D-dimer PT 12.9 Sec. (12.2-14.9) 03/20/19 16:31 INR 0.92 (0.87-1.13) 03/20/19 16:31 Abnormal lab findings: Abnormal Labs 03/20/19 03/20/19 03/20/19 16:25 16:25 16:25 WBC RBC Hgb Hct MCV 101 H MCH 33 H RDW 12.9 L Plt Count Seg Neuts % (Manual) 36.0 L Lymphocytes % (Manual) 60.0 H Seg Neutrophils # Man Lymphocytes # (Manual) 6.0 H POC ABG pH POC ABG pCO2 POC ABG pO2 VBG pH Sodium Potassium Chloride Carbon Dioxide 18 L BUN Creatinine Glucose 159 H POC Glucose Lactic Acid 9.50 H* Calcium 7.6 L Phosphorus Magnesium AST 276 H ALT 165 H Alkaline Phosphatase 139 H Ammonia Total Creatine Kinase 380 H Troponin T C-Reactive Protein Total Protein Albumin Triglycerides HDL Cholesterol TSH Free T4 Urine WBC (Auto) Urine Creatinine Urine Chloride Salicylates Acetaminophen Plasma/Serum Alcohol Hepatitis C Antibody 03/20/19 03/20/19 03/20/19 16:25 16:25 16:25 WBC RBC Hgb Hct MCV MCH RDW Plt Count Seg Neuts % (Manual) Lymphocytes % (Manual) Seg Neutrophils # Man Lymphocytes # (Manual) POC ABG pH POC ABG pCO2 POC ABG pO2 VBG pH Sodium Potassium Chloride Carbon Dioxide BUN Creatinine Glucose POC Glucose Lactic Acid Calcium Phosphorus Magnesium 2.40 H AST ALT Alkaline Phosphatase Ammonia 10.0 L Total Creatine Kinase Troponin T C-Reactive Protein Total Protein Albumin Triglycerides HDL Cholesterol TSH 17.340 H Free T4 0.69 L Urine WBC (Auto) Urine Creatinine Urine Chloride Salicylates Acetaminophen Plasma/Serum Alcohol Hepatitis C Antibody 03/20/19 03/20/19 03/20/19 16:25 16:25 16:25 WBC RBC Hgb Hct MCV MCH RDW Plt Count Seg Neuts % (Manual) Lymphocytes % (Manual) Seg Neutrophils # Man Lymphocytes # (Manual) POC ABG pH POC ABG pCO2 POC ABG pO2 VBG pH Sodium Potassium Chloride Carbon Dioxide BUN Creatinine Glucose POC Glucose Lactic Acid Calcium Phosphorus Magnesium AST ALT Alkaline Phosphatase Ammonia Total Creatine Kinase Troponin T C-Reactive Protein Total Protein Albumin Triglycerides HDL Cholesterol TSH Free T4 Urine WBC (Auto) Urine Creatinine Urine Chloride Salicylates < 0.3 L Acetaminophen < 5.0 L Plasma/Serum Alcohol 0.32 H Hepatitis C Antibody 03/20/19 03/20/19 03/20/19 16:25 16:34 16:51 WBC RBC Hgb Hct MCV MCH RDW Plt Count Seg Neuts % (Manual) Lymphocytes % (Manual) Seg Neutrophils # Man Lymphocytes # (Manual) POC ABG pH 7.041 L POC ABG pCO2 68.9 H POC ABG pO2 381 H VBG pH 7.091 L* Sodium Potassium Chloride Carbon Dioxide BUN Creatinine Glucose POC Glucose 130 H Lactic Acid Calcium Phosphorus Magnesium AST ALT Alkaline Phosphatase Ammonia Total Creatine Kinase Troponin T C-Reactive Protein Total Protein Albumin Triglycerides HDL Cholesterol TSH Free T4 Urine WBC (Auto) Urine Creatinine Urine Chloride Salicylates Acetaminophen Plasma/Serum Alcohol Hepatitis C Antibody 03/20/19 03/20/19 03/20/19 17:35 17:53 19:17 WBC RBC Hgb Hct MCV MCH RDW Plt Count Seg Neuts % (Manual) Lymphocytes % (Manual) Seg Neutrophils # Man Lymphocytes # (Manual) POC ABG pH 7.305 L POC ABG pCO2 POC ABG pO2 262 H VBG pH Sodium Potassium Chloride Carbon Dioxide BUN Creatinine Glucose POC Glucose Lactic Acid 6.90 H* Calcium Phosphorus Magnesium AST ALT Alkaline Phosphatase Ammonia Total Creatine Kinase Troponin T C-Reactive Protein Total Protein Albumin Triglycerides HDL Cholesterol TSH Free T4 Urine WBC (Auto) 19.0 H Urine Creatinine Urine Chloride Salicylates Acetaminophen Plasma/Serum Alcohol Hepatitis C Antibody 03/20/19 03/20/19 03/21/19 20:40 22:38 03:41 WBC RBC Hgb Hct MCV MCH RDW Plt Count Seg Neuts % (Manual) Lymphocytes % (Manual) Seg Neutrophils # Man Lymphocytes # (Manual) POC ABG pH POC ABG pCO2 31.4 L POC ABG pO2 195 H VBG pH Sodium Potassium Chloride Carbon Dioxide BUN Creatinine Glucose POC Glucose 117 H Lactic Acid 6.30 H* Calcium Phosphorus Magnesium AST ALT Alkaline Phosphatase Ammonia Total Creatine Kinase Troponin T C-Reactive Protein Total Protein Albumin Triglycerides HDL Cholesterol TSH Free T4 Urine WBC (Auto) Urine Creatinine Urine Chloride Salicylates Acetaminophen Plasma/Serum Alcohol Hepatitis C Antibody 03/21/19 03/21/19 03/21/19 04:00 09:32 09:32 WBC 20.0 H 17.3 H RBC Hgb 15.9 H 16.1 H Hct 47.3 H 47.8 H MCV 99 H 98 H MCH 33 H 33 H RDW 12.8 L 12.7 L Plt Count Seg Neuts % (Manual) 90.0 H Lymphocytes % (Manual) 7.0 L Seg Neutrophils # Man 18.0 H Lymphocytes # (Manual) POC ABG pH POC ABG pCO2 POC ABG pO2 VBG pH Sodium Potassium Chloride Carbon Dioxide BUN Creatinine Glucose POC Glucose Lactic Acid Calcium Phosphorus Magnesium AST ALT Alkaline Phosphatase Ammonia Total Creatine Kinase Troponin T 0.054 H D C-Reactive Protein Total Protein Albumin Triglycerides 166 H HDL Cholesterol 63 H TSH Free T4 Urine WBC (Auto) Urine Creatinine Urine Chloride Salicylates Acetaminophen Plasma/Serum Alcohol Hepatitis C Antibody 03/21/19 03/21/19 03/21/19 09:46 14:41 15:59 WBC RBC Hgb Hct MCV MCH RDW Plt Count Seg Neuts % (Manual) Lymphocytes % (Manual) Seg Neutrophils # Man Lymphocytes # (Manual) POC ABG pH POC ABG pCO2 POC ABG pO2 VBG pH Sodium 148 H Potassium Chloride Carbon Dioxide 20 L BUN Creatinine Glucose 171 H POC Glucose Lactic Acid Calcium Phosphorus Magnesium AST 253 H ALT 218 H Alkaline Phosphatase 146 H Ammonia Total Creatine Kinase Troponin T 0.074 H D C-Reactive Protein 4.90 H Total Protein Albumin Triglycerides HDL Cholesterol TSH Free T4 Urine WBC (Auto) Urine Creatinine Urine Chloride Salicylates Acetaminophen Plasma/Serum Alcohol Hepatitis C Antibody 03/21/19 03/22/19 03/22/19 15:59 04:20 04:20 WBC 20.0 H RBC Hgb Hct MCV 99 H MCH 33 H RDW 12.9 L Plt Count Seg Neuts % (Manual) Lymphocytes % (Manual) Seg Neutrophils # Man Lymphocytes # (Manual) POC ABG pH POC ABG pCO2 POC ABG pO2 VBG pH Sodium 156 H D Potassium 3.5 L Chloride 117.2 H Carbon Dioxide BUN Creatinine Glucose 144 H POC Glucose Lactic Acid Calcium 8.1 L Phosphorus Magnesium AST 205 H ALT 156 H Alkaline Phosphatase Ammonia Total Creatine Kinase Troponin T C-Reactive Protein Total Protein Albumin 3.6 L Triglycerides HDL Cholesterol TSH Free T4 Urine WBC (Auto) Urine Creatinine Urine Chloride Salicylates Acetaminophen Plasma/Serum Alcohol Hepatitis C Antibody Reactive A 03/22/19 03/22/19 03/22/19 04:20 04:26 12:40 WBC RBC Hgb Hct MCV MCH RDW Plt Count Seg Neuts % (Manual) Lymphocytes % (Manual) Seg Neutrophils # Man Lymphocytes # (Manual) POC ABG pH POC ABG pCO2 32.8 L POC ABG pO2 66 L VBG pH Sodium Potassium Chloride Carbon Dioxide BUN Creatinine Glucose POC Glucose 171 H Lactic Acid Calcium Phosphorus 2.00 L Magnesium 1.50 L AST ALT Alkaline Phosphatase Ammonia Total Creatine Kinase Troponin T C-Reactive Protein Total Protein Albumin Triglycerides HDL Cholesterol TSH Free T4 Urine WBC (Auto) Urine Creatinine Urine Chloride Salicylates Acetaminophen Plasma/Serum Alcohol Hepatitis C Antibody 03/22/19 03/22/19 03/23/19 17:44 20:28 04:30 WBC 12.9 H RBC Hgb Hct MCV 102 H MCH 34 H RDW 12.6 L Plt Count 115 L Seg Neuts % (Manual) Lymphocytes % (Manual) Seg Neutrophils # Man Lymphocytes # (Manual) POC ABG pH POC ABG pCO2 POC ABG pO2 VBG pH Sodium 158 H Potassium 3.5 L Chloride 121.5 H Carbon Dioxide BUN 23 H Creatinine Glucose 199 H POC Glucose 144 H Lactic Acid Calcium 8.0 L Phosphorus Magnesium 2.50 H AST ALT Alkaline Phosphatase Ammonia Total Creatine Kinase Troponin T C-Reactive Protein Total Protein Albumin Triglycerides HDL Cholesterol TSH Free T4 Urine WBC (Auto) Urine Creatinine Urine Chloride Salicylates Acetaminophen Plasma/Serum Alcohol Hepatitis C Antibody 03/23/19 03/23/19 03/23/19 04:30 04:38 08:56 WBC RBC Hgb Hct MCV 103 H MCH 33 H RDW Plt Count 107 L Seg Neuts % (Manual) Lymphocytes % (Manual) Seg Neutrophils # Man Lymphocytes # (Manual) POC ABG pH 7.481 H POC ABG pCO2 33.8 L POC ABG pO2 VBG pH Sodium 156 H Potassium Chloride 121.4 H Carbon Dioxide 21 L BUN 24 H Creatinine Glucose 148 H POC Glucose Lactic Acid Calcium 7.9 L Phosphorus 1.90 L Magnesium AST 166 H ALT 96 H Alkaline Phosphatase Ammonia Total Creatine Kinase Troponin T C-Reactive Protein Total Protein 6.0 L Albumin 3.3 L Triglycerides HDL Cholesterol TSH Free T4 Urine WBC (Auto) Urine Creatinine Urine Chloride Salicylates Acetaminophen Plasma/Serum Alcohol Hepatitis C Antibody 03/23/19 03/23/19 03/23/19 08:56 11:21 11:42 WBC RBC Hgb Hct MCV MCH RDW Plt Count Seg Neuts % (Manual) Lymphocytes % (Manual) Seg Neutrophils # Man Lymphocytes # (Manual) POC ABG pH POC ABG pCO2 POC ABG pO2 VBG pH Sodium 161 H* Potassium Chloride 121.5 H Carbon Dioxide BUN 27 H Creatinine 1.9 H D Glucose 248 H POC Glucose 275 H Lactic Acid Calcium 7.2 L Phosphorus 5.40 H D Magnesium AST 146 H ALT 79 H Alkaline Phosphatase Ammonia Total Creatine Kinase Troponin T C-Reactive Protein Total Protein 5.3 L Albumin 2.7 L Triglycerides HDL Cholesterol TSH Free T4 Urine WBC (Auto) 27.0 H Urine Creatinine Urine Chloride Salicylates Acetaminophen Plasma/Serum Alcohol Hepatitis C Antibody 03/23/19 03/23/19 03/23/19 15:46 17:27 23:43 WBC RBC Hgb Hct MCV MCH RDW Plt Count Seg Neuts % (Manual) Lymphocytes % (Manual) Seg Neutrophils # Man Lymphocytes # (Manual) POC ABG pH POC ABG pCO2 POC ABG pO2 VBG pH Sodium 163 H* Potassium Chloride 127.9 H Carbon Dioxide BUN 28 H Creatinine Glucose 120 H POC Glucose 109 H 133 H Lactic Acid Calcium 7.5 L Phosphorus Magnesium AST ALT Alkaline Phosphatase Ammonia Total Creatine Kinase Troponin T C-Reactive Protein Total Protein Albumin Triglycerides HDL Cholesterol TSH Free T4 Urine WBC (Auto) Urine Creatinine Urine Chloride Salicylates Acetaminophen Plasma/Serum Alcohol Hepatitis C Antibody 03/24/19 03/24/19 03/24/19 05:05 05:05 05:06 WBC RBC Hgb Hct MCV 101 H MCH 34 H RDW 13.0 L Plt Count 79 L Seg Neuts % (Manual) Lymphocytes % (Manual) Seg Neutrophils # Man Lymphocytes # (Manual) POC ABG pH POC ABG pCO2 POC ABG pO2 VBG pH Sodium 171 H* Potassium 2.8 L* D Chloride 131.4 H Carbon Dioxide BUN Creatinine Glucose 167 H POC Glucose 153 H Lactic Acid Calcium 8.3 L Phosphorus Magnesium AST 129 H ALT 74 H Alkaline Phosphatase Ammonia Total Creatine Kinase Troponin T C-Reactive Protein Total Protein 5.6 L Albumin 2.8 L Triglycerides HDL Cholesterol TSH Free T4 Urine WBC (Auto) Urine Creatinine Urine Chloride Salicylates Acetaminophen Plasma/Serum Alcohol Hepatitis C Antibody 03/24/19 03/24/19 03/24/19 05:09 12:13 15:36 WBC RBC Hgb Hct MCV MCH RDW Plt Count Seg Neuts % (Manual) Lymphocytes % (Manual) Seg Neutrophils # Man Lymphocytes # (Manual) POC ABG pH 7.475 H POC ABG pCO2 POC ABG pO2 165 H VBG pH Sodium Potassium Chloride Carbon Dioxide BUN Creatinine Glucose POC Glucose 165 H Lactic Acid Calcium Phosphorus Magnesium AST ALT Alkaline Phosphatase Ammonia Total Creatine Kinase Troponin T C-Reactive Protein Total Protein Albumin Triglycerides HDL Cholesterol TSH Free T4 Urine WBC (Auto) Urine Creatinine 62.1 H Urine Chloride 17.3 L Salicylates Acetaminophen Plasma/Serum Alcohol Hepatitis C Antibody 03/24/19 03/24/19 03/24/19 16:54 21:58 21:58 WBC RBC Hgb Hct MCV MCH RDW Plt Count Seg Neuts % (Manual) Lymphocytes % (Manual) Seg Neutrophils # Man Lymphocytes # (Manual) POC ABG pH POC ABG pCO2 POC ABG pO2 VBG pH Sodium 172 H* 172 H* 172 H* Potassium 2.8 L* 2.9 L* Chloride 137.0 H 139.0 H Carbon Dioxide BUN Creatinine Glucose 187 H 206 H POC Glucose Lactic Acid Calcium Phosphorus Magnesium AST ALT Alkaline Phosphatase Ammonia Total Creatine Kinase Troponin T C-Reactive Protein Total Protein Albumin Triglycerides HDL Cholesterol TSH Free T4 Urine WBC (Auto) Urine Creatinine Urine Chloride Salicylates Acetaminophen Plasma/Serum Alcohol Hepatitis C Antibody 03/25/19 03/25/19 03/25/19 03:51 04:45 11:57 WBC RBC Hgb Hct MCV MCH RDW Plt Count Seg Neuts % (Manual) Lymphocytes % (Manual) Seg Neutrophils # Man Lymphocytes # (Manual) POC ABG pH POC ABG pCO2 31.4 L POC ABG pO2 116 H VBG pH Sodium 174 H* 178 H* Potassium 3.1 L Chloride 140 H > 107 H Carbon Dioxide BUN Creatinine Glucose 191 H 153 H POC Glucose Lactic Acid Calcium 8.1 L Phosphorus 1.20 L D Magnesium AST 114 H 112 H ALT 66 H 63 H Alkaline Phosphatase Ammonia Total Creatine Kinase Troponin T C-Reactive Protein Total Protein 5.5 L 5.5 L Albumin 2.7 L 2.7 L Triglycerides HDL Cholesterol TSH Free T4 Urine WBC (Auto) Urine Creatinine Urine Chloride Salicylates Acetaminophen Plasma/Serum Alcohol Hepatitis C Antibody 03/25/19 03/25/19 03/26/19 16:06 19:25 04:04 WBC RBC 2.84 L Hgb 9.6 L D Hct 29.3 L D MCV 103 H MCH 34 H RDW Plt Count 73 L Seg Neuts % (Manual) Lymphocytes % (Manual) Seg Neutrophils # Man Lymphocytes # (Manual) POC ABG pH POC ABG pCO2 POC ABG pO2 VBG pH Sodium 174 H* Potassium Chloride 138.4 H Carbon Dioxide BUN Creatinine Glucose 188 H POC Glucose 121 H Lactic Acid Calcium 8.2 L Phosphorus Magnesium AST 129 H ALT 67 H Alkaline Phosphatase Ammonia Total Creatine Kinase Troponin T C-Reactive Protein Total Protein 5.4 L Albumin 2.6 L Triglycerides HDL Cholesterol TSH Free T4 Urine WBC (Auto) Urine Creatinine Urine Chloride Salicylates Acetaminophen Plasma/Serum Alcohol Hepatitis C Antibody 03/26/19 03/26/19 03/26/19 04:04 04:07 11:30 WBC RBC Hgb Hct MCV MCH RDW Plt Count Seg Neuts % (Manual) Lymphocytes % (Manual) Seg Neutrophils # Man Lymphocytes # (Manual) POC ABG pH 7.481 H POC ABG pCO2 30.5 L POC ABG pO2 VBG pH Sodium 173 H* 169 H* Potassium 3.5 L 2.8 L* Chloride 137.0 H 138.4 H Carbon Dioxide BUN Creatinine Glucose 202 H 154 H POC Glucose Lactic Acid Calcium 7.8 L 6.8 L Phosphorus Magnesium AST ALT Alkaline Phosphatase Ammonia Total Creatine Kinase Troponin T C-Reactive Protein Total Protein Albumin Triglycerides HDL Cholesterol TSH Free T4 Urine WBC (Auto) Urine Creatinine Urine Chloride Salicylates Acetaminophen Plasma/Serum Alcohol Hepatitis C Antibody 03/27/19 03/27/19 03/27/19 03:07 03:18 04:50 WBC RBC Hgb Hct MCV MCH RDW Plt Count Seg Neuts % (Manual) Lymphocytes % (Manual) Seg Neutrophils # Man Lymphocytes # (Manual) POC ABG pH 7.477 H POC ABG pCO2 POC ABG pO2 123 H 75 L VBG pH Sodium 166 H* Potassium 2.7 L* Chloride 134.2 H Carbon Dioxide 21 L BUN Creatinine Glucose 147 H POC Glucose Lactic Acid Calcium 7.8 L Phosphorus Magnesium AST 184 H ALT 73 H Alkaline Phosphatase Ammonia Total Creatine Kinase Troponin T C-Reactive Protein Total Protein 4.7 L Albumin 2.2 L Triglycerides HDL Cholesterol TSH Free T4 Urine WBC (Auto) Urine Creatinine Urine Chloride Salicylates Acetaminophen Plasma/Serum Alcohol Hepatitis C Antibody 03/27/19 03/27/19 04:55 12:17 WBC 3.9 L RBC 2.48 L Hgb 8.3 L Hct 25.1 L MCV 101 H MCH 34 H RDW 12.8 L Plt Count 63 L Seg Neuts % (Manual) Lymphocytes % (Manual) Seg Neutrophils # Man Lymphocytes # (Manual) POC ABG pH POC ABG pCO2 POC ABG pO2 VBG pH Sodium Potassium Chloride Carbon Dioxide BUN Creatinine Glucose POC Glucose 129 H Lactic Acid Calcium Phosphorus Magnesium AST ALT Alkaline Phosphatase Ammonia Total Creatine Kinase Troponin T C-Reactive Protein Total Protein Albumin Triglycerides HDL Cholesterol TSH Free T4 Urine WBC (Auto) Urine Creatinine Urine Chloride Salicylates Acetaminophen Plasma/Serum Alcohol Hepatitis C Antibody Chest x-ray: report reviewed, image reviewed
--- NOTE | 2019-03-27 15:33 | Nuclear Medicine Report ---
NUCLEAR MEDICINE BRAIN FLOW HISTORY: Brain , status post cardiac arrest. FINDINGS: 20 mCi of technetium 99m pertechnetate was injected. Anterior flow imaging was performed in the head and neck. The images demonstrate flow overlying the common carotid arteries and external carotid arteries bilaterally. There is slightly more flow in the right common carotid artery. There is no evidence for significant intracranial blood flow overlying the cerebral hemispheres. IMPRESSION: No evidence for intracranial blood flow.
--- NOTE | 2019-03-27 16:42 | Progress Note ---
Subjective Date of service: 03/27/19 Principal diagnosis: fever and the acute kidney injury Interval history: the cerebral blood flow study is negative for blood flow this is by definition cerebral socumented at 4:35 PM as formal conclusion perhaps organ donation this is open for discussion will let arrending know Objective - Vital Sign Vital Signs - 12hr 03/27/19 03/27/19 03/27/19 04:45 05:00 05:15 Temperature Pulse Rate 72 71 72 Pulse Rate [ From Monitor] Respiratory 24 24 24 Rate Blood Pressure 118/80 104/72 131/88 O2 Sat by Pulse 100 99 100 Oximetry 03/27/19 03/27/19 03/27/19 05:30 05:45 06:00 Temperature Pulse Rate 71 71 70 Pulse Rate [ From Monitor] Respiratory 24 24 24 Rate Blood Pressure 134/95 134/91 134/91 O2 Sat by Pulse 100 100 100 Oximetry 03/27/19 03/27/19 03/27/19 06:15 06:31 06:45 Temperature Pulse Rate 69 70 69 Pulse Rate [ From Monitor] Respiratory 24 24 24 Rate Blood Pressure 129/91 97/50 97/56 O2 Sat by Pulse 100 100 99 Oximetry 03/27/19 03/27/19 03/27/19 07:00 07:15 07:30 Temperature Pulse Rate 67 67 67 Pulse Rate [ From Monitor] Respiratory 24 24 24 Rate Blood Pressure 96/59 99/59 96/58 O2 Sat by Pulse 99 100 100 Oximetry 03/27/19 03/27/19 03/27/19 07:45 08:00 08:15 Temperature 98.3 F Pulse Rate 66 66 66 Pulse Rate [ 73 From Monitor] Respiratory 24 22 24 Rate Blood Pressure 101/65 100/67 103/67 O2 Sat by Pulse 100 100 100 Oximetry 03/27/19 03/27/19 03/27/19 08:30 08:31 08:45 Temperature Pulse Rate 66 65 61 Pulse Rate [ From Monitor] Respiratory 24 24 Rate Blood Pressure 105/70 105/70 100/67 O2 Sat by Pulse 100 100 100 Oximetry 03/27/19 03/27/19 03/27/19 09:00 09:15 09:30 Temperature Pulse Rate 58 L 63 62 Pulse Rate [ From Monitor] Respiratory 24 24 24 Rate Blood Pressure 103/65 105/69 101/68 O2 Sat by Pulse 100 100 100 Oximetry 03/27/19 03/27/19 03/27/19 09:45 10:00 10:15 Temperature Pulse Rate 61 62 61 Pulse Rate [ From Monitor] Respiratory 24 24 24 Rate Blood Pressure 99/67 101/67 107/75 O2 Sat by Pulse 100 100 100 Oximetry 03/27/19 03/27/19 03/27/19 10:30 10:45 11:00 Temperature Pulse Rate 63 64 64 Pulse Rate [ From Monitor] Respiratory 24 24 24 Rate Blood Pressure 101/69 99/68 97/65 O2 Sat by Pulse 100 100 99 Oximetry 03/27/19 03/27/19 03/27/19 11:15 11:29 11:30 Temperature Pulse Rate 64 63 63 Pulse Rate [ From Monitor] Respiratory 24 24 Rate Blood Pressure 104/72 101/69 101/69 O2 Sat by Pulse 100 100 100 Oximetry 03/27/19 03/27/19 03/27/19 11:45 12:00 12:15 Temperature 97.9 F Pulse Rate 63 63 64 Pulse Rate [ 73 From Monitor] Respiratory 24 23 24 Rate Blood Pressure 99/67 100/70 100/71 O2 Sat by Pulse 100 100 100 Oximetry 03/27/19 03/27/19 03/27/19 12:30 12:45 13:00 Temperature Pulse Rate 65 65 64 Pulse Rate [ From Monitor] Respiratory 24 24 24 Rate Blood Pressure 109/78 109/78 106/76 O2 Sat by Pulse 100 100 100 Oximetry - Laboratory Findings CBC and BMP: 03/27/19 04:55 03/27/19 04:50 Abnormal Lab Findings: Abnormal Labs 03/20/19 03/20/19 03/20/19 16:25 16:25 16:25 WBC RBC Hgb Hct MCV 101 H MCH 33 H RDW 12.9 L Plt Count Seg Neuts % (Manual) 36.0 L Lymphocytes % (Manual) 60.0 H Seg Neutrophils # Man Lymphocytes # (Manual) 6.0 H POC ABG pH POC ABG pCO2 POC ABG pO2 VBG pH Sodium Potassium Chloride Carbon Dioxide 18 L BUN Creatinine Glucose 159 H POC Glucose Lactic Acid 9.50 H* Calcium 7.6 L Phosphorus Magnesium AST 276 H ALT 165 H Alkaline Phosphatase 139 H Ammonia Total Creatine Kinase 380 H Troponin T C-Reactive Protein Total Protein Albumin Triglycerides HDL Cholesterol TSH Free T4 Urine WBC (Auto) Urine Creatinine Urine Chloride Salicylates Acetaminophen Plasma/Serum Alcohol Hepatitis C Antibody 03/20/19 03/20/19 03/20/19 16:25 16:25 16:25 WBC RBC Hgb Hct MCV MCH RDW Plt Count Seg Neuts % (Manual) Lymphocytes % (Manual) Seg Neutrophils # Man Lymphocytes # (Manual) POC ABG pH POC ABG pCO2 POC ABG pO2 VBG pH Sodium Potassium Chloride Carbon Dioxide BUN Creatinine Glucose POC Glucose Lactic Acid Calcium Phosphorus Magnesium 2.40 H AST ALT Alkaline Phosphatase Ammonia 10.0 L Total Creatine Kinase Troponin T C-Reactive Protein Total Protein Albumin Triglycerides HDL Cholesterol TSH 17.340 H Free T4 0.69 L Urine WBC (Auto) Urine Creatinine Urine Chloride Salicylates Acetaminophen Plasma/Serum Alcohol Hepatitis C Antibody 03/20/19 03/20/19 03/20/19 16:25 16:25 16:25 WBC RBC Hgb Hct MCV MCH RDW Plt Count Seg Neuts % (Manual) Lymphocytes % (Manual) Seg Neutrophils # Man Lymphocytes # (Manual) POC ABG pH POC ABG pCO2 POC ABG pO2 VBG pH Sodium Potassium Chloride Carbon Dioxide BUN Creatinine Glucose POC Glucose Lactic Acid Calcium Phosphorus Magnesium AST ALT Alkaline Phosphatase Ammonia Total Creatine Kinase Troponin T C-Reactive Protein Total Protein Albumin Triglycerides HDL Cholesterol TSH Free T4 Urine WBC (Auto) Urine Creatinine Urine Chloride Salicylates < 0.3 L Acetaminophen < 5.0 L Plasma/Serum Alcohol 0.32 H Hepatitis C Antibody 03/20/19 03/20/19 03/20/19 16:25 16:34 16:51 WBC RBC Hgb Hct MCV MCH RDW Plt Count Seg Neuts % (Manual) Lymphocytes % (Manual) Seg Neutrophils # Man Lymphocytes # (Manual) POC ABG pH 7.041 L POC ABG pCO2 68.9 H POC ABG pO2 381 H VBG pH 7.091 L* Sodium Potassium Chloride Carbon Dioxide BUN Creatinine Glucose POC Glucose 130 H Lactic Acid Calcium Phosphorus Magnesium AST ALT Alkaline Phosphatase Ammonia Total Creatine Kinase Troponin T C-Reactive Protein Total Protein Albumin Triglycerides HDL Cholesterol TSH Free T4 Urine WBC (Auto) Urine Creatinine Urine Chloride Salicylates Acetaminophen Plasma/Serum Alcohol Hepatitis C Antibody 03/20/19 03/20/19 03/20/19 17:35 17:53 19:17 WBC RBC Hgb Hct MCV MCH RDW Plt Count Seg Neuts % (Manual) Lymphocytes % (Manual) Seg Neutrophils # Man Lymphocytes # (Manual) POC ABG pH 7.305 L POC ABG pCO2 POC ABG pO2 262 H VBG pH Sodium Potassium Chloride Carbon Dioxide BUN Creatinine Glucose POC Glucose Lactic Acid 6.90 H* Calcium Phosphorus Magnesium AST ALT Alkaline Phosphatase Ammonia Total Creatine Kinase Troponin T C-Reactive Protein Total Protein Albumin Triglycerides HDL Cholesterol TSH Free T4 Urine WBC (Auto) 19.0 H Urine Creatinine Urine Chloride Salicylates Acetaminophen Plasma/Serum Alcohol Hepatitis C Antibody 03/20/19 03/20/19 03/21/19 20:40 22:38 03:41 WBC RBC Hgb Hct MCV MCH RDW Plt Count Seg Neuts % (Manual) Lymphocytes % (Manual) Seg Neutrophils # Man Lymphocytes # (Manual) POC ABG pH POC ABG pCO2 31.4 L POC ABG pO2 195 H VBG pH Sodium Potassium Chloride Carbon Dioxide BUN Creatinine Glucose POC Glucose 117 H Lactic Acid 6.30 H* Calcium Phosphorus Magnesium AST ALT Alkaline Phosphatase Ammonia Total Creatine Kinase Troponin T C-Reactive Protein Total Protein Albumin Triglycerides HDL Cholesterol TSH Free T4 Urine WBC (Auto) Urine Creatinine Urine Chloride Salicylates Acetaminophen Plasma/Serum Alcohol Hepatitis C Antibody 03/21/19 03/21/19 03/21/19 04:00 09:32 09:32 WBC 20.0 H 17.3 H RBC Hgb 15.9 H 16.1 H Hct 47.3 H 47.8 H MCV 99 H 98 H MCH 33 H 33 H RDW 12.8 L 12.7 L Plt Count Seg Neuts % (Manual) 90.0 H Lymphocytes % (Manual) 7.0 L Seg Neutrophils # Man 18.0 H Lymphocytes # (Manual) POC ABG pH POC ABG pCO2 POC ABG pO2 VBG pH Sodium Potassium Chloride Carbon Dioxide BUN Creatinine Glucose POC Glucose Lactic Acid Calcium Phosphorus Magnesium AST ALT Alkaline Phosphatase Ammonia Total Creatine Kinase Troponin T 0.054 H D C-Reactive Protein Total Protein Albumin Triglycerides 166 H HDL Cholesterol 63 H TSH Free T4 Urine WBC (Auto) Urine Creatinine Urine Chloride Salicylates Acetaminophen Plasma/Serum Alcohol Hepatitis C Antibody 03/21/19 03/21/19 03/21/19 09:46 14:41 15:59 WBC RBC Hgb Hct MCV MCH RDW Plt Count Seg Neuts % (Manual) Lymphocytes % (Manual) Seg Neutrophils # Man Lymphocytes # (Manual) POC ABG pH POC ABG pCO2 POC ABG pO2 VBG pH Sodium 148 H Potassium Chloride Carbon Dioxide 20 L BUN Creatinine Glucose 171 H POC Glucose Lactic Acid Calcium Phosphorus Magnesium AST 253 H ALT 218 H Alkaline Phosphatase 146 H Ammonia Total Creatine Kinase Troponin T 0.074 H D C-Reactive Protein 4.90 H Total Protein Albumin Triglycerides HDL Cholesterol TSH Free T4 Urine WBC (Auto) Urine Creatinine Urine Chloride Salicylates Acetaminophen Plasma/Serum Alcohol Hepatitis C Antibody 03/21/19 03/22/19 03/22/19 15:59 04:20 04:20 WBC 20.0 H RBC Hgb Hct MCV 99 H MCH 33 H RDW 12.9 L Plt Count Seg Neuts % (Manual) Lymphocytes % (Manual) Seg Neutrophils # Man Lymphocytes # (Manual) POC ABG pH POC ABG pCO2 POC ABG pO2 VBG pH Sodium 156 H D Potassium 3.5 L Chloride 117.2 H Carbon Dioxide BUN Creatinine Glucose 144 H POC Glucose Lactic Acid Calcium 8.1 L Phosphorus Magnesium AST 205 H ALT 156 H Alkaline Phosphatase Ammonia Total Creatine Kinase Troponin T C-Reactive Protein Total Protein Albumin 3.6 L Triglycerides HDL Cholesterol TSH Free T4 Urine WBC (Auto) Urine Creatinine Urine Chloride Salicylates Acetaminophen Plasma/Serum Alcohol Hepatitis C Antibody Reactive A 03/22/19 03/22/19 03/22/19 04:20 04:26 12:40 WBC RBC Hgb Hct MCV MCH RDW Plt Count Seg Neuts % (Manual) Lymphocytes % (Manual) Seg Neutrophils # Man Lymphocytes # (Manual) POC ABG pH POC ABG pCO2 32.8 L POC ABG pO2 66 L VBG pH Sodium Potassium Chloride Carbon Dioxide BUN Creatinine Glucose POC Glucose 171 H Lactic Acid Calcium Phosphorus 2.00 L Magnesium 1.50 L AST ALT Alkaline Phosphatase Ammonia Total Creatine Kinase Troponin T C-Reactive Protein Total Protein Albumin Triglycerides HDL Cholesterol TSH Free T4 Urine WBC (Auto) Urine Creatinine Urine Chloride Salicylates Acetaminophen Plasma/Serum Alcohol Hepatitis C Antibody 03/22/19 03/22/19 03/23/19 17:44 20:28 04:30 WBC 12.9 H RBC Hgb Hct MCV 102 H MCH 34 H RDW 12.6 L Plt Count 115 L Seg Neuts % (Manual) Lymphocytes % (Manual) Seg Neutrophils # Man Lymphocytes # (Manual) POC ABG pH POC ABG pCO2 POC ABG pO2 VBG pH Sodium 158 H Potassium 3.5 L Chloride 121.5 H Carbon Dioxide BUN 23 H Creatinine Glucose 199 H POC Glucose 144 H Lactic Acid Calcium 8.0 L Phosphorus Magnesium 2.50 H AST ALT Alkaline Phosphatase Ammonia Total Creatine Kinase Troponin T C-Reactive Protein Total Protein Albumin Triglycerides HDL Cholesterol TSH Free T4 Urine WBC (Auto) Urine Creatinine Urine Chloride Salicylates Acetaminophen Plasma/Serum Alcohol Hepatitis C Antibody 03/23/19 03/23/19 03/23/19 04:30 04:38 08:56 WBC RBC Hgb Hct MCV 103 H MCH 33 H RDW Plt Count 107 L Seg Neuts % (Manual) Lymphocytes % (Manual) Seg Neutrophils # Man Lymphocytes # (Manual) POC ABG pH 7.481 H POC ABG pCO2 33.8 L POC ABG pO2 VBG pH Sodium 156 H Potassium Chloride 121.4 H Carbon Dioxide 21 L BUN 24 H Creatinine Glucose 148 H POC Glucose Lactic Acid Calcium 7.9 L Phosphorus 1.90 L Magnesium AST 166 H ALT 96 H Alkaline Phosphatase Ammonia Total Creatine Kinase Troponin T C-Reactive Protein Total Protein 6.0 L Albumin 3.3 L Triglycerides HDL Cholesterol TSH Free T4 Urine WBC (Auto) Urine Creatinine Urine Chloride Salicylates Acetaminophen Plasma/Serum Alcohol Hepatitis C Antibody 03/23/19 03/23/19 03/23/19 08:56 11:21 11:42 WBC RBC Hgb Hct MCV MCH RDW Plt Count Seg Neuts % (Manual) Lymphocytes % (Manual) Seg Neutrophils # Man Lymphocytes # (Manual) POC ABG pH POC ABG pCO2 POC ABG pO2 VBG pH Sodium 161 H* Potassium Chloride 121.5 H Carbon Dioxide BUN 27 H Creatinine 1.9 H D Glucose 248 H POC Glucose 275 H Lactic Acid Calcium 7.2 L Phosphorus 5.40 H D Magnesium AST 146 H ALT 79 H Alkaline Phosphatase Ammonia Total Creatine Kinase Troponin T C-Reactive Protein Total Protein 5.3 L Albumin 2.7 L Triglycerides HDL Cholesterol TSH Free T4 Urine WBC (Auto) 27.0 H Urine Creatinine Urine Chloride Salicylates Acetaminophen Plasma/Serum Alcohol Hepatitis C Antibody 03/23/19 03/23/19 03/23/19 15:46 17:27 23:43 WBC RBC Hgb Hct MCV MCH RDW Plt Count Seg Neuts % (Manual) Lymphocytes % (Manual) Seg Neutrophils # Man Lymphocytes # (Manual) POC ABG pH POC ABG pCO2 POC ABG pO2 VBG pH Sodium 163 H* Potassium Chloride 127.9 H Carbon Dioxide BUN 28 H Creatinine Glucose 120 H POC Glucose 109 H 133 H Lactic Acid Calcium 7.5 L Phosphorus Magnesium AST ALT Alkaline Phosphatase Ammonia Total Creatine Kinase Troponin T C-Reactive Protein Total Protein Albumin Triglycerides HDL Cholesterol TSH Free T4 Urine WBC (Auto) Urine Creatinine Urine Chloride Salicylates Acetaminophen Plasma/Serum Alcohol Hepatitis C Antibody 03/24/19 03/24/19 03/24/19 05:05 05:05 05:06 WBC RBC Hgb Hct MCV 101 H MCH 34 H RDW 13.0 L Plt Count 79 L Seg Neuts % (Manual) Lymphocytes % (Manual) Seg Neutrophils # Man Lymphocytes # (Manual) POC ABG pH POC ABG pCO2 POC ABG pO2 VBG pH Sodium 171 H* Potassium 2.8 L* D Chloride 131.4 H Carbon Dioxide BUN Creatinine Glucose 167 H POC Glucose 153 H Lactic Acid Calcium 8.3 L Phosphorus Magnesium AST 129 H ALT 74 H Alkaline Phosphatase Ammonia Total Creatine Kinase Troponin T C-Reactive Protein Total Protein 5.6 L Albumin 2.8 L Triglycerides HDL Cholesterol TSH Free T4 Urine WBC (Auto) Urine Creatinine Urine Chloride Salicylates Acetaminophen Plasma/Serum Alcohol Hepatitis C Antibody 03/24/19 03/24/19 03/24/19 05:09 12:13 15:36 WBC RBC Hgb Hct MCV MCH RDW Plt Count Seg Neuts % (Manual) Lymphocytes % (Manual) Seg Neutrophils # Man Lymphocytes # (Manual) POC ABG pH 7.475 H POC ABG pCO2 POC ABG pO2 165 H VBG pH Sodium Potassium Chloride Carbon Dioxide BUN Creatinine Glucose POC Glucose 165 H Lactic Acid Calcium Phosphorus Magnesium AST ALT Alkaline Phosphatase Ammonia Total Creatine Kinase Troponin T C-Reactive Protein Total Protein Albumin Triglycerides HDL Cholesterol TSH Free T4 Urine WBC (Auto) Urine Creatinine 62.1 H Urine Chloride 17.3 L Salicylates Acetaminophen Plasma/Serum Alcohol Hepatitis C Antibody 03/24/19 03/24/19 03/24/19 16:54 21:58 21:58 WBC RBC Hgb Hct MCV MCH RDW Plt Count Seg Neuts % (Manual) Lymphocytes % (Manual) Seg Neutrophils # Man Lymphocytes # (Manual) POC ABG pH POC ABG pCO2 POC ABG pO2 VBG pH Sodium 172 H* 172 H* 172 H* Potassium 2.8 L* 2.9 L* Chloride 137.0 H 139.0 H Carbon Dioxide BUN Creatinine Glucose 187 H 206 H POC Glucose Lactic Acid Calcium Phosphorus Magnesium AST ALT Alkaline Phosphatase Ammonia Total Creatine Kinase Troponin T C-Reactive Protein Total Protein Albumin Triglycerides HDL Cholesterol TSH Free T4 Urine WBC (Auto) Urine Creatinine Urine Chloride Salicylates Acetaminophen Plasma/Serum Alcohol Hepatitis C Antibody 03/25/19 03/25/19 03/25/19 03:51 04:45 11:57 WBC RBC Hgb Hct MCV MCH RDW Plt Count Seg Neuts % (Manual) Lymphocytes % (Manual) Seg Neutrophils # Man Lymphocytes # (Manual) POC ABG pH POC ABG pCO2 31.4 L POC ABG pO2 116 H VBG pH Sodium 174 H* 178 H* Potassium 3.1 L Chloride 140 H > 107 H Carbon Dioxide BUN Creatinine Glucose 191 H 153 H POC Glucose Lactic Acid Calcium 8.1 L Phosphorus 1.20 L D Magnesium AST 114 H 112 H ALT 66 H 63 H Alkaline Phosphatase Ammonia Total Creatine Kinase Troponin T C-Reactive Protein Total Protein 5.5 L 5.5 L Albumin 2.7 L 2.7 L Triglycerides HDL Cholesterol TSH Free T4 Urine WBC (Auto) Urine Creatinine Urine Chloride Salicylates Acetaminophen Plasma/Serum Alcohol Hepatitis C Antibody 03/25/19 03/25/19 03/26/19 16:06 19:25 04:04 WBC RBC 2.84 L Hgb 9.6 L D Hct 29.3 L D MCV 103 H MCH 34 H RDW Plt Count 73 L Seg Neuts % (Manual) Lymphocytes % (Manual) Seg Neutrophils # Man Lymphocytes # (Manual) POC ABG pH POC ABG pCO2 POC ABG pO2 VBG pH Sodium 174 H* Potassium Chloride 138.4 H Carbon Dioxide BUN Creatinine Glucose 188 H POC Glucose 121 H Lactic Acid Calcium 8.2 L Phosphorus Magnesium AST 129 H ALT 67 H Alkaline Phosphatase Ammonia Total Creatine Kinase Troponin T C-Reactive Protein Total Protein 5.4 L Albumin 2.6 L Triglycerides HDL Cholesterol TSH Free T4 Urine WBC (Auto) Urine Creatinine Urine Chloride Salicylates Acetaminophen Plasma/Serum Alcohol Hepatitis C Antibody 03/26/19 03/26/19 03/26/19 04:04 04:07 11:30 WBC RBC Hgb Hct MCV MCH RDW Plt Count Seg Neuts % (Manual) Lymphocytes % (Manual) Seg Neutrophils # Man Lymphocytes # (Manual) POC ABG pH 7.481 H POC ABG pCO2 30.5 L POC ABG pO2 VBG pH Sodium 173 H* 169 H* Potassium 3.5 L 2.8 L* Chloride 137.0 H 138.4 H Carbon Dioxide BUN Creatinine Glucose 202 H 154 H POC Glucose Lactic Acid Calcium 7.8 L 6.8 L Phosphorus Magnesium AST ALT Alkaline Phosphatase Ammonia Total Creatine Kinase Troponin T C-Reactive Protein Total Protein Albumin Triglycerides HDL Cholesterol TSH Free T4 Urine WBC (Auto) Urine Creatinine Urine Chloride Salicylates Acetaminophen Plasma/Serum Alcohol Hepatitis C Antibody 03/27/19 03/27/19 03/27/19 03:07 03:18 04:50 WBC RBC Hgb Hct MCV MCH RDW Plt Count Seg Neuts % (Manual) Lymphocytes % (Manual) Seg Neutrophils # Man Lymphocytes # (Manual) POC ABG pH 7.477 H POC ABG pCO2 POC ABG pO2 123 H 75 L VBG pH Sodium 166 H* Potassium 2.7 L* Chloride 134.2 H Carbon Dioxide 21 L BUN Creatinine Glucose 147 H POC Glucose Lactic Acid Calcium 7.8 L Phosphorus Magnesium AST 184 H ALT 73 H Alkaline Phosphatase Ammonia Total Creatine Kinase Troponin T C-Reactive Protein Total Protein 4.7 L Albumin 2.2 L Triglycerides HDL Cholesterol TSH Free T4 Urine WBC (Auto) Urine Creatinine Urine Chloride Salicylates Acetaminophen Plasma/Serum Alcohol Hepatitis C Antibody 03/27/19 03/27/19 04:55 12:17 WBC 3.9 L RBC 2.48 L Hgb 8.3 L Hct 25.1 L MCV 101 H MCH 34 H RDW 12.8 L Plt Count 63 L Seg Neuts % (Manual) Lymphocytes % (Manual) Seg Neutrophils # Man Lymphocytes # (Manual) POC ABG pH POC ABG pCO2 POC ABG pO2 VBG pH Sodium Potassium Chloride Carbon Dioxide BUN Creatinine Glucose POC Glucose 129 H Lactic Acid Calcium Phosphorus Magnesium AST ALT Alkaline Phosphatase Ammonia Total Creatine Kinase Troponin T C-Reactive Protein Total Protein Albumin Triglycerides HDL Cholesterol TSH Free T4 Urine WBC (Auto) Urine Creatinine Urine Chloride Salicylates Acetaminophen Plasma/Serum Alcohol Hepatitis C Antibody
[2019-03-27 20:05] VITALS: BP 113/81
--- NOTE | 2019-03-27 22:37 | Event Note ---
Date: 03/27/19 Was called to the unit to confirm the vital signs on the patient, the pt had no heart rate, no respiration activity, his skin is pale and cold.
--- NOTE | 2019-06-14 15:27 | Discharge Summary ---
Providers - Providers Date of Admission: 03/20/19 16:55 Date of discharge: 03/27/19 Attending physician: CRISTIANO GUTIERREZ 03/20/19 16:57 Consult to Physician [CONS] Routine Comment: Consulting Provider: GERA LUCIO Physician Instructions: Reason For Exam: respiratory failure 03/20/19 18:05 Consult to Dietitian/Nutrition [CONS] Routine Physician Instructions: Reason For Exam: Reason for Consult: Evaluate nutritional intake 03/21/19 08:22 Consult to Physician [CONS] Routine Comment: Consulting Provider: KESHA PADGETT Physician Instructions: Reason For Exam: Fever 03/21/19 11:30 Consult to Physician [CONS] Routine Comment: Consulting Provider: STELLA BRAGG Physician Instructions: Reason For Exam: cardiac arrest, Elevated Troponin 03/22/19 08:40 Consult to Physician [CONS] Routine Comment: Consulting Provider: BALDEMAR ADAME Physician Instructions: Reason For Exam: s/p cardiopulm arrest 03/23/19 12:50 Consult to Physician [CONS] Routine Comment: Consulting Provider: MURPHY GERBER Physician Instructions: Reason For Exam: Acute renal failure s/p cardiac arrest Primary care physician: [facility] [place], [place] Hospitalization Hospital course: Patient is 28 yo with alcohol dependence, history of polysubstance abuse presented to ED for evaluation. He was was in his usual state of health on day of admission. Patient was found to be "Unresponsive and looking very pale" by family members and taken to [facility] for evaluation. EMS notified, and upon arrival the patient was found to have cardiorespiratory arrest. ACLS protocol initiated, and patient subsequently transported to [facility]. Pt regained perfusing cardiac rhythm en route to [facility]. Pt seen and evaluated in ED and found to have Acute Respiratory Failure. He was intubated and placed on vent support. Pt also found to be Intoxicated, with Acidosis, and Myxedema Coma. He was admitted to ICU. Pt treated with IV synthroid therapy, and IVF resuscitation. Blood cultures drawn. ID Physician consulted for persistent fever,he was started on iv Antibiotics, placed on Respiratory isolation to rule out meningitis. Few days after admission, patient had another episode of cardiac arrest on 03/23/19 at 07:54. [facility] was called. Code run per protocol. He was given 4 doses of Epinephrine, biacarb. CPR. He regained pulse 08:06. Patient has been comatose since admitted. He had severe hypernatremuia and Nephrology was consulted. 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 Repeat CT revealed anoxic encephaloppathy with cerebral edema, diffuse hypoxic ischemic changes. On 03/27/19, brain flow study did not show any cerebral blood flow and this was discussed with family. patient was pronounced on 03/27/19 at 22:32 patient pronounced 03/27/19 at 22:32 s/p cardiopulmonary arrest outside hospital Was initially Resuscitated, intubated, Admitted to ICU Drug overdose, most likely diagnosis Patient has history of Polysubstance abuse Mother at bedside says he used to abuse iv drugs and pills Patient had another episode of cardiac arrest on 03/23/19 at 07:54. Code Blue was called. Code run per protocol he was given 4 doses of Epinephrine, biacarb. CPR. He regained pulse 08:06. Acute resp failure Intubated Myxedema coma Continue Levothyroxine iv Alcohol intoxication Fever of 102 on admission persistent fever Blood cultures drawn. Consulted ID and he was evaluated Started on Ceftriaxone, Flagyl, Vanco meningitis ruled out Anoxic toxic metabolic encephalopathy Cerebral edema, diffuse hypoxic ischemic changes on CT head mannitol given Central diabetes insipidus DDAVP started discussed with Nephrology Hypernatremia give D5W. Nephrology following Hypokalemia. Replace and repeat lactic acidosis Toxic metabolic encephalopathy Elevated LFT may be alcohol hepatitis vs hep C Monitor History of Polysubstance abuse. Mom at bedside says he used illicit drugs, pills and injectables Hepatitis C Ab pos Hypernatremia NICK due to ATN, post cardiac arrest Resolved Hypotension,post code started on Levophed Full code status Discussed with his mother after code and discussed guarded prognosis after 2 cardiac arrest episodes. Total time spent on discharge, 38 mins Disposition: [id number] - Discharge Diagnoses (1) NICK (acute kidney injury) Status: Acute (2) Alcohol intoxication Status: Acute Qualifiers: Complication of substance-induced condition: with unspecified complication Qualified Code(s): F10.929 - Alcohol use, unspecified with intoxication, unspecified (3) Cardiac arrest Status: Acute (4) Hypernatremia Status: Acute (5) Hypothyroidism Status: Acute (6) Lactic acidosis Status: Acute (7) Myxedema coma Status: Acute (8) Polysubstance abuse Status: Acute (9) Drug abuse Status: Acute (10) Primary central diabetes insipidus Status: Acute (11) Acute hypernatremia Status: Acute (12) Hypokalemia Status: Acute Core Measure Documentation - Palliative Care Palliative Care/ Comfort Measures: Not Applicable - Core Measures Any of the following diagnoses?: none Exam - Constitutional Vitals: Temp Pulse Resp BP Pulse Ox 97.6 F 60 24 113/81 100 03/27/19 16:00 03/27/19 20:00 03/27/19 20:00 03/27/19 20:00 03/27/19 20:00 Plan Follow up with: CLINT DA SILVA MD [Primary Care Provider] - 7 Days
== END 2019-03-27 22:01 | DRG 870 ==
LOC: EDBD → ED 16:11 → CC1 16:55
PROVIDERS: ADMIT Internal Medicine; ATTEND Internal Medicine
PROC: 5A1955Z Respiratory Ventilation, Greater than 96 Consecutive Hours (ICD-10-PCS; principal; 2019-03-20)
PROC: 0BH17EZ Insertion of Endotracheal Airway into Trachea, Via Natural or Artificial Opening (ICD-10-PCS; 2019-03-20)
PROC: 4A033R1 Measurement of Arterial Saturation, Peripheral, Percutaneous Approach (ICD-10-PCS; 2019-03-20)
PROC: 06HM33Z Insertion of Infusion Device into Right Femoral Vein, Percutaneous Approach (ICD-10-PCS; 2019-03-20)
PROC: 5A12012 Performance of Cardiac Output, Single, Manual (ICD-10-PCS; 2019-03-23)
DX: A41.9 Sepsis, unspecified organism (principal); G92 Toxic encephalopathy; N17.0 Acute kidney failure with tubular necrosis; E03.5 Myxedema coma; J96.01 Acute respiratory failure with hypoxia; G93.1 Anoxic brain damage, not elsewhere classified; E87.2 Acidosis; E87.0 Hyperosmolality and hypernatremia; I46.9 Cardiac arrest, cause unspecified; E03.9 Hypothyroidism, unspecified; E83.51 Hypocalcemia; F19.10 Other psychoactive substance abuse, uncomplicated; E87.6 Hypokalemia; D69.6 Thrombocytopenia, unspecified; R74.0 Nonspecific elevation of levels of transaminase and lactic acid dehydrogenase [LDH]; D64.9 Anemia, unspecified; T50.991A Poisoning by other drugs, medicaments and biological substances, accidental (unintentional), initial encounter; F10.129 Alcohol abuse with intoxication, unspecified; Y92.89 Other specified places as the place of occurrence of the external cause
CPT/HCPCS: 36415; 36600; 70450; 71045; 71275; 74018; 74177; 76770; 78601; 80048; 80053; 80061; 80074; 80202; 80307; 80320; 81001; 82140; 82436; 82550; 82553; 82570; 82803; 82805; 82962; 83735; 83935; 84100; 84133; 84295; 84300; 84439; 84443; 84484; 85007; 85025; 85027; 85610; 85730; 86140; 87040; 87070; 87205; 87400; 87806; 93005; 93010; 93306; 94002; 94003; 95819; 96361; 96365; 96367; 96375; G0378; 87502; A9512; C9113; G0480; J0133; J0696; J1610; J1650; J1885; J1940; J2060; J2150; J2250; J2597; J3010; J3370; J3411; J3475; J3480; J7030; J7040; J7042; J7050; J7070; J7120; Q9967